=== PATIENT | female | born 1980 | race Caucasian/White ===

== ENCOUNTER 2017-10-07 07:08 | Inpatient (IN) | payer OTHER, MEDICAID ==
[2017-10-07] MEDS: SODIUM CHLORIDE 0.9% 1L BAG IV* (07:31)
[2017-10-07] MEDS: ACETAMINOPHEN 650 MG SUPP PR (07:35)
[2017-10-07 07:39] LABS: ADD MAN DIFF? NO
[2017-10-07 07:41] LABS: WHITE BLOOD COUNT 19.9 10^3/ul (4.8-10.8)
[2017-10-07 07:41] LABS: BASOPHIL # 0.1 10^3/ul (0.0-0.1); BASOPHILS % 0.4 % (0.0-2.0); HEMATOCRIT 39.5 % (37.0-47.0); HEMOGLOBIN 13.3 g/dl (12.0-16.0); LYMPHOCYTES # 0.7 10^3/ul (0.8-2.9); LYMPHOCYTES % 3.5 % (15.0-51.0); MEAN CORPUSCULAR HEMOGLOBIN 29.8 pg (29.0-33.0); MEAN CORPUSCULAR HGB CONC 33.7 g/dl (32.0-37.0); MEAN CORPUSCULAR VOLUME 88.6 fl (82.0-101.0); MONOCYTE # 0.5 10^3/ul (0.3-0.9); MONOCYTES % 2.4 % (0.0-11.0); NEUTROPHIL # 18.5 10^3/ul (1.6-7.5); NEUTROPHILS % 92.9 % (39.0-77.0); PLATELET COUNT 492 10^3/UL (140-415); RED BLOOD COUNT 4.46 10^6/ul (4.20-5.40); RED CELL DISTRIBUTION WIDTH 14.2 % (11.5-14.5)
[2017-10-07] MEDS: CEFEPIME 2GM/50 ML (PMX) 50 ML IVPB ×2 (07:46→21:02)
[2017-10-07 07:59] LABS: ALANINE AMINOTRANSFERASE 94 IU/L (13-69); ALBUMIN 3.8 g/dl (3.3-4.9); ALBUMIN/GLOBULIN RATIO 1.02; ALKALINE PHOSPHATASE 150 IU/L (42-121); ANION GAP 17 (8-16); ASPARTATE AMINO TRANSFERASE 27 IU/L (15-46); BILIRUBIN,INDIRECT 0.3 mg/dl (0-1.1); BILIRUBIN,TOTAL 0.3 mg/dl (0.2-1.3); BLOOD UREA NITROGEN 12 mg/dl (7-20); CALCIUM 9.5 mg/dl (8.4-10.2); CARBON DIOXIDE 24 mmol/L (21-31); CHLORIDE 107 mmol/L (97-110); CREATININE 0.48 mg/dl (0.44-1.00); GLUCOSE 127 mg/dl (70-220); SODIUM 144 mmol/L (135-144); TOTAL PROTEIN 7.5 g/dl (6.1-8.1)
[2017-10-07 07:59] LABS: LACTIC ACID 1.4 mmol/L (0.5-2.0)
[2017-10-07 08:04] LABS: INR 1.03; PROTIME 13.6 Sec (11.9-14.9); PT RATIO 1.1
[2017-10-07 08:05] LABS: PARTIAL THROMBOPLASTIN TIME 28.1 Sec (25.0-35.0)
[2017-10-07 08:10] LABS: TROPONIN-I 0.029 ng/ml (0.000-0.120)
[2017-10-07] MEDS: VANCOMYCIN 1 GM (PMX) 250 ML IVPB (08:36)
[2017-10-07 08:39] LABS: ADD UMIC YES; UR ASCORBIC ACID 40 mg/dL (NEGATIVE); UR BILIRUBIN (Dip) NEGATIVE (NEGATIVE); UR BLOOD (Dip) NEGATIVE (NEGATIVE); UR CLARITY SLIGHTLY CLOUDY (CLEAR); UR COLOR YELLOW (YELLOW); UR GLUCOSE (Dip) NEGATIVE (NEGATIVE); UR KETONES (Dip) 1+ mg/dL (NEGATIVE); UR LEUKOCYTE ESTERASE (Dip) NEGATIVE Leu/ul (NEGATIVE); UR MUCUS MODERATE /HPF (NONE SEEN); UR NITRITE (Dip) NEGATIVE (NEGATIVE); UR RBC 1 /HPF (0-5); UR SPECIFIC GRAVITY (Dip) 1.027 (1.003-1.030); UR TOTAL PROTEIN (Dip) 1+ mg/dl (NEGATIVE); UR UROBILINOGEN (Dip) 2+ mg/dL (NEGATIVE); UR WBC 4 /HPF (0-5)
[2017-10-07] MEDS ORDERED: ONDANSETRON 4 MG INJ IV ×2 (09:30→15:30)
[2017-10-07] MEDS ORDERED: ACETAMINOPHEN 325 MG TAB PO (09:30)
[2017-10-07 09:54] LABS: Allen Test ACCEPTAB; Arterial Base Excess 0.5 mmol/L (-3.0-3); Arterial Blood Gas Oxygen Sat 97.4 mmHG (95.0-98.0); Arterial COHb 0.3 % (0.0-3.0); Arterial Fraction of Oxyhgb 96.7 % (93.0-99.0); Arterial HCO3 23.4 mmol/L (22.0-26.0); Arterial MetHb 0.4 % (0.0-1.5); Arterial Total Hemglobin 13.2 g/dl (12.0-18.0); Arterial pCO2 32.7 mmhg (35-45); MODE TRACH COLLAR; Site Right Radial
[2017-10-07 10:51] LABS: LACTIC ACID 1.9 mmol/L (0.5-2.0)
[2017-10-07] MEDS: SOD CHLORIDE 0.9% 100 ML ×2 (11:00→14:44)
[2017-10-07] MEDS: IOHEXOL 300MG/ML 150 ML BTL (11:01)
[2017-10-07 14:19] LABS: LACTIC ACID 1.5 mmol/L (0.5-2.0)
[2017-10-07] MEDS ORDERED: DEXTROSE 5%-0.45% NACL 1,000 ML IV (14:30)
[2017-10-07] MEDS: IOHEXOL 100 ML (14:44)
[2017-10-07] MEDS ORDERED: SOD CHLORIDE 0.9% 1,000 ML IV (15:00)
[2017-10-07] MEDS: DEXTROSE 5%-0.45% NACL 1,000 ML IV (15:52)
[2017-10-07] MEDS ORDERED: VANCOMYCIN IV PER PHARMACY XX (18:00)
[2017-10-07] MEDS ORDERED: PENDING SANTYL ORDER FOR WOUND CARE XX (18:00)
[2017-10-07] MEDS ORDERED: COLLAGENASE 5 GM (UD JAR) TOP ×2 (18:00→18:30)
[2017-10-07] MEDS: PANTOPRAZOLE 40 MG INJ IV (18:32)
[2017-10-07] MEDS: VANCOMYCIN 1.25 GM in SOD CHLORIDE 0.9% 250 ML IVPB (18:32)
[2017-10-07] MEDS: LEVETIRACETAM 1500 MG (PMX) 100 ML IVPB (21:01)
[2017-10-07] MEDS: METOPROLOL 25 MG TAB GTB (21:03)
[2017-10-08] MEDS: VANCOMYCIN 1 GM 250 ML IVPB ×3 (03:55→23:35)
[2017-10-08] MEDS: PANTOPRAZOLE 40 MG INJ IV ×2 (05:28→18:03)
[2017-10-08 05:37] LABS: ADD MAN DIFF? NO
[2017-10-08 05:46] LABS: WHITE BLOOD COUNT 22.6 10^3/ul (4.8-10.8)
[2017-10-08 05:46] LABS: ABNORMAL IP MESSAGE 1; BASOPHIL # 0.1 10^3/ul (0.0-0.1); BASOPHILS % 0.3 % (0.0-2.0); EOSINOPHILS # 0.4 10^3/ul (0.0-0.5); EOSINOPHILS % 1.7 % (0.0-7.0); HEMATOCRIT 34.1 % (37.0-47.0); HEMOGLOBIN 11.4 g/dl (12.0-16.0); LYMPHOCYTES # 1.5 10^3/ul (0.8-2.9); LYMPHOCYTES % 6.7 % (15.0-51.0); MEAN CORPUSCULAR HEMOGLOBIN 29.7 pg (29.0-33.0); MEAN CORPUSCULAR HGB CONC 33.4 g/dl (32.0-37.0); MEAN CORPUSCULAR VOLUME 88.8 fl (82.0-101.0); MONOCYTE # 0.4 10^3/ul (0.3-0.9); MONOCYTES % 1.7 % (0.0-11.0); NEUTROPHIL # 20.2 10^3/ul (1.6-7.5); NEUTROPHILS % 89.2 % (39.0-77.0); PLATELET COUNT 421 10^3/UL (140-415); RED BLOOD COUNT 3.84 10^6/ul (4.20-5.40); RED CELL DISTRIBUTION WIDTH 13.9 % (11.5-14.5)
[2017-10-08] MEDS: DEXTROSE 5%-0.45% NACL 1,000 ML IV ×2 (05:48→11:50)
[2017-10-08 06:27] LABS: ANION GAP 18 (8-16); BLOOD UREA NITROGEN 4 mg/dl (7-20); CALCIUM 9.1 mg/dl (8.4-10.2); CARBON DIOXIDE 23 mmol/L (21-31); CHLORIDE 104 mmol/L (97-110); CREATININE 0.44 mg/dl (0.44-1.00); GLUCOSE 93 mg/dl (70-220); MAGNESIUM 1.7 mg/dl (1.7-2.5); PHOSPHORUS 3.6 mg/dl (2.5-4.9); POTASSIUM 3.5 mmol/L (3.5-5.1); SODIUM 141 mmol/L (135-144)
[2017-10-08 06:31] LABS: POSITIVE DIFF @See below
[2017-10-08 07:52] LABS: HEMOGLOBIN A1C 5.5 % (0-5.9); HEPATITIS B SURFACE ANTIGEN NEGATIVE (NEGATIVE)
[2017-10-08 08:09] LABS: HEPATITIS C VIRAL ANTIBODY NEGATIVE (NEGATIVE)
[2017-10-08] MEDS: METOPROLOL 25 MG TAB GTB (09:25)
[2017-10-08] MEDS: LEVETIRACETAM 1500 MG (PMX) 100 ML IVPB ×2 (09:25→23:33)
[2017-10-08] MEDS: CEFEPIME 2GM/50 ML (PMX) 50 ML IVPB ×2 (09:43→23:33)
[2017-10-08] MEDS: ENOXAPARIN 30 MG/0.3 ML SYG SC (18:07)
[2017-10-08 19:39] LABS: VANCOMYCIN,TROUGH 15.7 ug/ml (10.0-20.0)
[2017-10-08] MEDS: METOPROLOL 50 MG TAB GTB (23:34)
[2017-10-09] MEDS: PANTOPRAZOLE 40 MG INJ IV ×2 (05:10→18:16)
[2017-10-09] MEDS: VANCOMYCIN 1 GM 250 ML IVPB (05:30)
[2017-10-09 07:48] LABS: ADD MAN DIFF? NO
[2017-10-09 07:56] LABS: BASOPHILS % 0.3 % (0.0-2.0); EOSINOPHILS # 0.2 10^3/ul (0.0-0.5); EOSINOPHILS % 1.6 % (0.0-7.0); HEMOGLOBIN 11.3 g/dl (12.0-16.0); LYMPHOCYTES # 1.7 10^3/ul (0.8-2.9); MEAN CORPUSCULAR HEMOGLOBIN 29.9 pg (29.0-33.0); MEAN CORPUSCULAR HGB CONC 33.2 g/dl (32.0-37.0); MEAN CORPUSCULAR VOLUME 89.9 fl (82.0-101.0); MEAN PLATELET VOLUME 10.5 fl (7.4-10.4); MONOCYTE # 0.5 10^3/ul (0.3-0.9); MONOCYTES % 3.1 % (0.0-11.0); NEUTROPHIL # 12.8 10^3/ul (1.6-7.5); NEUTROPHILS % 83.5 % (39.0-77.0); PLATELET COUNT 407 10^3/UL (140-415); RED BLOOD COUNT 3.78 10^6/ul (4.20-5.40); RED CELL DISTRIBUTION WIDTH 13.7 % (11.5-14.5)
[2017-10-09 07:56] LABS: WHITE BLOOD COUNT 15.4 10^3/ul (4.8-10.8)
[2017-10-09 08:08] LABS: ALANINE AMINOTRANSFERASE 49 IU/L (13-69); ALBUMIN 3.2 g/dl (3.3-4.9); ALKALINE PHOSPHATASE 122 IU/L (42-121); ANION GAP 18 (8-16); ASPARTATE AMINO TRANSFERASE 13 IU/L (15-46); BILIRUBIN,INDIRECT 0.3 mg/dl (0-1.1); BILIRUBIN,TOTAL 0.3 mg/dl (0.2-1.3); BLOOD UREA NITROGEN 4 mg/dl (7-20); CALCIUM 8.8 mg/dl (8.4-10.2); CARBON DIOXIDE 22 mmol/L (21-31); CHLORIDE 106 mmol/L (97-110); CREATININE 0.43 mg/dl (0.44-1.00); GLUCOSE 94 mg/dl (70-220); POTASSIUM 3.1 mmol/L (3.5-5.1); SODIUM 143 mmol/L (135-144); TOTAL PROTEIN 6.1 g/dl (6.1-8.1)
[2017-10-09] MEDS: METOPROLOL 50 MG TAB GTB ×2 (08:08→23:08)
[2017-10-09] MEDS: CEFEPIME 2GM/50 ML (PMX) 50 ML IVPB (08:09)
[2017-10-09] MEDS: LEVETIRACETAM 1500 MG (PMX) 100 ML IVPB ×2 (08:09→23:08)
[2017-10-09] MEDS: ENOXAPARIN 30 MG/0.3 ML SYG SC (08:13)
[2017-10-09 08:29] LABS: FREE T4 (FREE THYROXINE) 1.71 ng/dl (0.79-2.35)
[2017-10-09] MEDS: POTASSIUM CHLORIDE 20 MEQ POWDER FOR ORAL SOLN GTB (09:10)
[2017-10-09] MEDS: MAGNESIUM SULFATE 2 GM/50 ML 50 ML IVPB (09:10)
[2017-10-09] MEDS: DEXTROSE 5%-0.45% NACL 1,000 ML IV (09:12)
[2017-10-09] MEDS: AMPICILLIN/SULB 3 GM/NS (PMX) 100 ML IVPB (18:16)
[2017-10-10] MEDS: AMPICILLIN/SULB 3 GM/NS (PMX) 100 ML IVPB ×4 (00:42→18:20)
[2017-10-10] MEDS: PANTOPRAZOLE 40 MG INJ IV ×2 (05:07→18:20)
[2017-10-10] MEDS: DEXTROSE 5%-0.45% NACL 1,000 ML IV ×2 (06:27→12:19)
[2017-10-10 07:39] LABS: ADD MAN DIFF? NO
[2017-10-10 07:42] LABS: BASOPHILS % 0.4 % (0.0-2.0); EOSINOPHILS # 0.2 10^3/ul (0.0-0.5); HEMATOCRIT 33.8 % (37.0-47.0); HEMOGLOBIN 11.5 g/dl (12.0-16.0); LYMPHOCYTES # 1.5 10^3/ul (0.8-2.9); LYMPHOCYTES % 13.5 % (15.0-51.0); MEAN CORPUSCULAR HEMOGLOBIN 29.7 pg (29.0-33.0); MEAN CORPUSCULAR VOLUME 87.3 fl (82.0-101.0); MEAN PLATELET VOLUME 10.2 fl (7.4-10.4); MONOCYTE # 0.5 10^3/ul (0.3-0.9); MONOCYTES % 4.5 % (0.0-11.0); NEUTROPHIL # 8.9 10^3/ul (1.6-7.5); NEUTROPHILS % 78.8 % (39.0-77.0); PLATELET COUNT 437 10^3/UL (140-415); RED BLOOD COUNT 3.87 10^6/ul (4.20-5.40); RED CELL DISTRIBUTION WIDTH 13.5 % (11.5-14.5)
[2017-10-10 07:42] LABS: WHITE BLOOD COUNT 11.2 10^3/ul (4.8-10.8)
[2017-10-10 08:07] LABS: ALANINE AMINOTRANSFERASE 48 IU/L (13-69); ALBUMIN 3.2 g/dl (3.3-4.9); ALKALINE PHOSPHATASE 153 IU/L (42-121); ANION GAP 16 (8-16); ASPARTATE AMINO TRANSFERASE 20 IU/L (15-46); BILIRUBIN,INDIRECT 0.2 mg/dl (0-1.1); BILIRUBIN,TOTAL 0.2 mg/dl (0.2-1.3); BLOOD UREA NITROGEN 3 mg/dl (7-20); CALCIUM 8.5 mg/dl (8.4-10.2); CARBON DIOXIDE 24 mmol/L (21-31); CHLORIDE 105 mmol/L (97-110); CREATININE 0.39 mg/dl (0.44-1.00); GLUCOSE 107 mg/dl (70-220); POTASSIUM 3.3 mmol/L (3.5-5.1); SODIUM 142 mmol/L (135-144); TOTAL PROTEIN 6.1 g/dl (6.1-8.1)
[2017-10-10] MEDS: LEVETIRACETAM 1500 MG (PMX) 100 ML IVPB ×2 (08:07→21:17)
[2017-10-10] MEDS: METOPROLOL 50 MG TAB GTB ×2 (08:08→21:17)
[2017-10-10] MEDS: ENOXAPARIN 30 MG/0.3 ML SYG SC (08:17)
[2017-10-10] MEDS: POTASSIUM CHLORIDE 20 MEQ POWDER FOR ORAL SOLN GTB (12:36)
[2017-10-10] MEDS: hydrALAzine 20 MG INJ IV (19:51)
[2017-10-11] MEDS: AMPICILLIN/SULB 3 GM/NS (PMX) 100 ML IVPB ×4 (00:45→17:19)
[2017-10-11] MEDS: PANTOPRAZOLE 40 MG INJ IV ×2 (05:34→17:19)
[2017-10-11] MEDS: METOPROLOL 50 MG TAB GTB ×2 (07:53→20:10)
[2017-10-11] MEDS: ENOXAPARIN 30 MG/0.3 ML SYG SC (07:54)
[2017-10-11] MEDS: LEVETIRACETAM 1500 MG (PMX) 100 ML IVPB ×2 (07:54→20:09)
[2017-10-11 09:26] LABS: ALANINE AMINOTRANSFERASE 54 IU/L (13-69); ALBUMIN 3.3 g/dl (3.3-4.9); ALBUMIN/GLOBULIN RATIO 0.97; ALKALINE PHOSPHATASE 114 IU/L (42-121); ANION GAP 14 (8-16); ASPARTATE AMINO TRANSFERASE 19 IU/L (15-46); BILIRUBIN,INDIRECT 0.2 mg/dl (0-1.1); BILIRUBIN,TOTAL 0.2 mg/dl (0.2-1.3); BLOOD UREA NITROGEN 3 mg/dl (7-20); CALCIUM 8.8 mg/dl (8.4-10.2); CARBON DIOXIDE 26 mmol/L (21-31); CHLORIDE 108 mmol/L (97-110); CREATININE 0.41 mg/dl (0.44-1.00); GLUCOSE 125 mg/dl (70-220); POTASSIUM 3.7 mmol/L (3.5-5.1); SODIUM 144 mmol/L (135-144); TOTAL PROTEIN 6.7 g/dl (6.1-8.1)
[2017-10-11 11:27] LABS: MITOCHONDRIAL TB NEGATIVE (NEGATIVE); SMOOTH MUSCLE AB SCREEN NEGATIVE (NEGATIVE)
[2017-10-11 13:42] LABS: ANA SCREEN NEGATIVE (NEGATIVE)
[2017-10-12] MEDS: AMPICILLIN/SULB 3 GM/NS (PMX) 100 ML IVPB ×4 (00:43→16:54)
[2017-10-12] MEDS: DEXTROSE 5%-0.45% NACL 1,000 ML IV (00:43)
[2017-10-12] MEDS: PANTOPRAZOLE 40 MG INJ IV ×2 (06:24→16:54)
[2017-10-12 06:38] LABS: ADD MAN DIFF? NO
[2017-10-12 06:43] LABS: WHITE BLOOD COUNT 11.6 10^3/ul (4.8-10.8)
[2017-10-12 06:43] LABS: BASOPHIL # 0.1 10^3/ul (0.0-0.1); BASOPHILS % 0.8 % (0.0-2.0); EOSINOPHILS # 0.4 10^3/ul (0.0-0.5); HEMATOCRIT 38.6 % (37.0-47.0); HEMOGLOBIN 12.8 g/dl (12.0-16.0); LYMPHOCYTES # 1.8 10^3/ul (0.8-2.9); LYMPHOCYTES % 15.6 % (15.0-51.0); MEAN CORPUSCULAR HEMOGLOBIN 29.3 pg (29.0-33.0); MEAN CORPUSCULAR HGB CONC 33.2 g/dl (32.0-37.0); MEAN CORPUSCULAR VOLUME 88.3 fl (82.0-101.0); MEAN PLATELET VOLUME 9.8 fl (7.4-10.4); MONOCYTE # 0.8 10^3/ul (0.3-0.9); MONOCYTES % 6.6 % (0.0-11.0); NEUTROPHIL # 8.3 10^3/ul (1.6-7.5); NEUTROPHILS % 71.4 % (39.0-77.0); PLATELET COUNT 460 10^3/UL (140-415); RED BLOOD COUNT 4.37 10^6/ul (4.20-5.40); RED CELL DISTRIBUTION WIDTH 13.7 % (11.5-14.5)
[2017-10-12 07:31] LABS: ANION GAP 13 (8-16); BLOOD UREA NITROGEN 5 mg/dl (7-20); CARBON DIOXIDE 28 mmol/L (21-31); CHLORIDE 108 mmol/L (97-110); CREATININE 0.42 mg/dl (0.44-1.00); GLUCOSE 133 mg/dl (70-220); POTASSIUM 4.2 mmol/L (3.5-5.1); SODIUM 145 mmol/L (135-144)
[2017-10-12] MEDS: ENOXAPARIN 30 MG/0.3 ML SYG SC (07:54)
[2017-10-12] MEDS: METOPROLOL 50 MG TAB GTB ×2 (07:54→20:43)
[2017-10-12] MEDS: LEVETIRACETAM 1500 MG (PMX) 100 ML IVPB ×2 (07:54→20:43)
[2017-10-13] MEDS: AMPICILLIN/SULB 3 GM/NS (PMX) 100 ML IVPB ×5 (00:03→23:52)
[2017-10-13] MEDS: PANTOPRAZOLE 40 MG INJ IV ×2 (05:33→17:15)
[2017-10-13] MEDS: DEXTROSE 5%-0.45% NACL 1,000 ML IV (08:40)
[2017-10-13] MEDS: LEVETIRACETAM 1500 MG (PMX) 100 ML IVPB ×2 (08:42→22:12)
[2017-10-13] MEDS: METOPROLOL 50 MG TAB GTB ×2 (08:42→22:13)
[2017-10-13] MEDS: ENOXAPARIN 30 MG/0.3 ML SYG SC (08:57)
[2017-10-14] MEDS: AMPICILLIN/SULB 3 GM/NS (PMX) 100 ML IVPB ×4 (05:32→23:30)
[2017-10-14] MEDS: PANTOPRAZOLE 40 MG INJ IV ×2 (05:32→17:06)
[2017-10-14] MEDS: DEXTROSE 5%-0.45% NACL 1,000 ML IV (05:38)
[2017-10-14 06:54] LABS: ABNORMAL IP MESSAGE 1; HEMATOCRIT 40.5 % (37.0-47.0); HEMOGLOBIN 13.3 g/dl (12.0-16.0); MEAN CORPUSCULAR HGB CONC 32.8 g/dl (32.0-37.0); MEAN CORPUSCULAR VOLUME 88.4 fl (82.0-101.0); PLATELET COUNT 565 10^3/UL (140-415); RED BLOOD COUNT 4.58 10^6/ul (4.20-5.40); RED CELL DISTRIBUTION WIDTH 14.2 % (11.5-14.5)
[2017-10-14 06:54] LABS: WHITE BLOOD COUNT 10.5 10^3/ul (4.8-10.8)
[2017-10-14 07:20] LABS: ADD MAN DIFF? YES; POSITIVE DIFF @See below
[2017-10-14 08:18] LABS: ANION GAP 15 (8-16); BLOOD UREA NITROGEN 10 mg/dl (7-20); CALCIUM 9.5 mg/dl (8.4-10.2); CARBON DIOXIDE 26 mmol/L (21-31); CHLORIDE 104 mmol/L (97-110); CREATININE 0.46 mg/dl (0.44-1.00); GLUCOSE 109 mg/dl (70-220); POTASSIUM 4.3 mmol/L (3.5-5.1); SODIUM 141 mmol/L (135-144)
[2017-10-14] MEDS: METOPROLOL 50 MG TAB GTB ×2 (08:36→21:10)
[2017-10-14] MEDS: LEVETIRACETAM 1500 MG (PMX) 100 ML IVPB ×2 (08:40→21:02)
[2017-10-14] MEDS: ENOXAPARIN 30 MG/0.3 ML SYG SC (08:47)
[2017-10-14 09:34] LABS: ANISOCYTOSIS 1+ (0-0); BAND NEUTROPHILS #M 0.2 10^3/ul (0.0-0.6); BAND NEUTROPHILS % (M) 2 % (0-4); EOSINOPHILS % (M) 3 % (0-7); LYMPHOCYTES #M 2.7 10^3/ul (0.8-2.9); LYMPHOCYTES % (M) 26 % (15-51); MONOCYTE #M 0.6 10^3/ul (0.3-0.9); MONOCYTES % (M) 6 % (0-11); MYELOCYTES #M 0.3 10^3/ul (0.0-0.0); MYELOCYTES % (M) 3 % (0-0); PLATELET ESTIMATE INCREASED; SEG NEUT #M 6.3 10^3/ul (1.6-7.5); SEGMENTED NEUTROPHILS (M) % 60 % (39-77); SMUDGE%M 7 % (0-0)
[2017-10-14] MEDS: hydrALAzine 20 MG INJ IV (21:14)
[2017-10-15] MEDS: PANTOPRAZOLE 40 MG INJ IV ×2 (05:14→18:31)
[2017-10-15] MEDS: AMPICILLIN/SULB 3 GM/NS (PMX) 100 ML IVPB ×3 (05:14→18:31)
[2017-10-15] MEDS: DEXTROSE 5%-0.45% NACL 1,000 ML IV ×2 (06:27→11:47)
[2017-10-15] MEDS: LEVETIRACETAM 1500 MG (PMX) 100 ML IVPB ×2 (09:15→20:55)
[2017-10-15] MEDS: METOPROLOL 50 MG TAB GTB ×2 (09:31→20:48)
[2017-10-15] MEDS: ENOXAPARIN 30 MG/0.3 ML SYG SC (09:34)
[2017-10-16] MEDS: PANTOPRAZOLE 40 MG INJ IV ×2 (05:44→18:04)
[2017-10-16 07:30] LABS: ADD MAN DIFF? NO
[2017-10-16 07:43] LABS: BASOPHIL # 0.1 10^3/ul (0.0-0.1); BASOPHILS % 1.1 % (0.0-2.0); EOSINOPHILS # 0.3 10^3/ul (0.0-0.5); EOSINOPHILS % 2.8 % (0.0-7.0); HEMATOCRIT 40.5 % (37.0-47.0); HEMOGLOBIN 13.2 g/dl (12.0-16.0); LYMPHOCYTES # 2.2 10^3/ul (0.8-2.9); LYMPHOCYTES % 21.1 % (15.0-51.0); MEAN CORPUSCULAR HGB CONC 32.6 g/dl (32.0-37.0); MEAN PLATELET VOLUME 9.9 fl (7.4-10.4); MONOCYTE # 0.5 10^3/ul (0.3-0.9); MONOCYTES % 5.2 % (0.0-11.0); NEUTROPHILS % 67.3 % (39.0-77.0); PLATELET COUNT 594 10^3/UL (140-415); RED BLOOD COUNT 4.55 10^6/ul (4.20-5.40)
[2017-10-16 07:43] LABS: WHITE BLOOD COUNT 10.4 10^3/ul (4.8-10.8)
[2017-10-16 08:05] LABS: ANION GAP 17 (8-16); BLOOD UREA NITROGEN 12 mg/dl (7-20); CALCIUM 9.7 mg/dl (8.4-10.2); CARBON DIOXIDE 26 mmol/L (21-31); CHLORIDE 104 mmol/L (97-110); GLUCOSE 116 mg/dl (70-220); POTASSIUM 4.4 mmol/L (3.5-5.1); SODIUM 143 mmol/L (135-144)
[2017-10-16] MEDS: LEVETIRACETAM 1500 MG (PMX) 100 ML IVPB ×2 (08:59→20:39)
[2017-10-16] MEDS: METOPROLOL 50 MG TAB GTB ×2 (08:59→20:39)
[2017-10-16] MEDS: ENOXAPARIN 30 MG/0.3 ML SYG SC (09:08)
[2017-10-16 16:46] LABS: HOMOCYSTEINE - CARDIOVASCULAR 12.1 umol/L (<10.4)
[2017-10-16] MEDS: DEXTROSE 5%-0.45% NACL 1,000 ML IV (20:40)
[2017-10-17] MEDS: PANTOPRAZOLE 40 MG INJ IV ×2 (05:33→18:31)
[2017-10-17 08:14] LABS: ADD MAN DIFF? NO
[2017-10-17 08:21] LABS: WHITE BLOOD COUNT 10.1 10^3/ul (4.8-10.8)
[2017-10-17 08:21] LABS: BASOPHIL # 0.1 10^3/ul (0.0-0.1); BASOPHILS % 0.9 % (0.0-2.0); EOSINOPHILS # 0.4 10^3/ul (0.0-0.5); EOSINOPHILS % 4.3 % (0.0-7.0); HEMATOCRIT 39.8 % (37.0-47.0); HEMOGLOBIN 13.2 g/dl (12.0-16.0); LYMPHOCYTES # 2.1 10^3/ul (0.8-2.9); LYMPHOCYTES % 20.7 % (15.0-51.0); MEAN CORPUSCULAR HEMOGLOBIN 29.7 pg (29.0-33.0); MEAN CORPUSCULAR HGB CONC 33.2 g/dl (32.0-37.0); MEAN CORPUSCULAR VOLUME 89.4 fl (82.0-101.0); MEAN PLATELET VOLUME 10.1 fl (7.4-10.4); MONOCYTE # 0.5 10^3/ul (0.3-0.9); MONOCYTES % 5.2 % (0.0-11.0); NEUTROPHIL # 6.8 10^3/ul (1.6-7.5); NEUTROPHILS % 67.2 % (39.0-77.0); PLATELET COUNT 600 10^3/UL (140-415); RED BLOOD COUNT 4.45 10^6/ul (4.20-5.40); RED CELL DISTRIBUTION WIDTH 13.8 % (11.5-14.5)
[2017-10-17 08:44] LABS: ANION GAP 17 (8-16); BLOOD UREA NITROGEN 13 mg/dl (7-20); CALCIUM 9.6 mg/dl (8.4-10.2); CARBON DIOXIDE 25 mmol/L (21-31); CHLORIDE 106 mmol/L (97-110); CREATININE 0.52 mg/dl (0.44-1.00); GLUCOSE 118 mg/dl (70-220); POTASSIUM 4.4 mmol/L (3.5-5.1); SODIUM 144 mmol/L (135-144)
[2017-10-17] MEDS: LEVETIRACETAM 1500 MG (PMX) 100 ML IVPB ×2 (09:13→22:16)
[2017-10-17] MEDS: METOPROLOL 50 MG TAB GTB ×2 (09:13→22:16)
[2017-10-17] MEDS: ENOXAPARIN 30 MG/0.3 ML SYG SC (10:22)
[2017-10-17 17:50] LABS: FOLATE 15.8 ng/ml (2.8-20.0)
[2017-10-17 21:01] LABS: ANTI-THROMBIN III 38 mg/dL (19-30)
[2017-10-17] MEDS: ASCORBIC ACID 500 MG TAB GTB (22:16)
[2017-10-18] MEDS: DEXTROSE 5%-0.45% NACL 1,000 ML IV (01:12)
[2017-10-18] MEDS: PANTOPRAZOLE 40 MG INJ IV ×2 (06:09→18:38)
[2017-10-18 06:37] LABS: ADD MAN DIFF? NO
[2017-10-18 06:46] LABS: BASOPHIL # 0.1 10^3/ul (0.0-0.1); BASOPHILS % 0.7 % (0.0-2.0); EOSINOPHILS # 0.6 10^3/ul (0.0-0.5); EOSINOPHILS % 4.6 % (0.0-7.0); HEMATOCRIT 39.4 % (37.0-47.0); HEMOGLOBIN 12.8 g/dl (12.0-16.0); LYMPHOCYTES # 1.6 10^3/ul (0.8-2.9); LYMPHOCYTES % 12.7 % (15.0-51.0); MEAN CORPUSCULAR HEMOGLOBIN 29.4 pg (29.0-33.0); MEAN CORPUSCULAR HGB CONC 32.5 g/dl (32.0-37.0); MEAN CORPUSCULAR VOLUME 90.4 fl (82.0-101.0); MEAN PLATELET VOLUME 10.6 fl (7.4-10.4); MONOCYTE # 0.6 10^3/ul (0.3-0.9); MONOCYTES % 4.5 % (0.0-11.0); NEUTROPHIL # 9.5 10^3/ul (1.6-7.5); NEUTROPHILS % 76.6 % (39.0-77.0); PLATELET COUNT 432 10^3/UL (140-415); RED BLOOD COUNT 4.36 10^6/ul (4.20-5.40); RED CELL DISTRIBUTION WIDTH 13.9 % (11.5-14.5)
[2017-10-18 06:46] LABS: WHITE BLOOD COUNT 12.4 10^3/ul (4.8-10.8)
[2017-10-18 07:13] LABS: ANION GAP 14 (8-16); BLOOD UREA NITROGEN 14 mg/dl (7-20); CALCIUM 9.3 mg/dl (8.4-10.2); CARBON DIOXIDE 23 mmol/L (21-31); CHLORIDE 107 mmol/L (97-110); CREATININE 0.49 mg/dl (0.44-1.00); GLUCOSE 118 mg/dl (70-220); POTASSIUM 4.4 mmol/L (3.5-5.1); SODIUM 140 mmol/L (135-144)
[2017-10-18] MEDS ORDERED: ASCORBIC ACID 500 MG TAB GTB (09:00)
[2017-10-18] MEDS: MULTIVITAMINS 30 ML CUP GTB (09:36)
[2017-10-18] MEDS: FOLIC ACID 1 MG TAB PEG (09:36)
[2017-10-18] MEDS: METOPROLOL 50 MG TAB GTB ×2 (09:37→21:15)
[2017-10-18] MEDS: ASCORBIC ACID 500 MG TAB GTB ×2 (09:37→21:15)
[2017-10-18] MEDS: ZINC SULFATE 220 MG CAP GTB (09:37)
[2017-10-18] MEDS: ENOXAPARIN 30 MG/0.3 ML SYG SC (09:38)
[2017-10-18] MEDS: LEVETIRACETAM 1500 MG (PMX) 100 ML IVPB ×2 (09:39→21:14)
[2017-10-19] MEDS: DEXTROSE 5%-0.45% NACL 1,000 ML IV (01:14)
[2017-10-19] MEDS: PANTOPRAZOLE 40 MG INJ IV ×2 (05:29→18:00)
[2017-10-19 06:52] LABS: ADD MAN DIFF? NO
[2017-10-19 06:54] LABS: WHITE BLOOD COUNT 19.6 10^3/ul (4.8-10.8)
[2017-10-19 06:54] LABS: BASOPHIL # 0.1 10^3/ul (0.0-0.1); BASOPHILS % 0.5 % (0.0-2.0); EOSINOPHILS # 0.5 10^3/ul (0.0-0.5); EOSINOPHILS % 2.3 % (0.0-7.0); HEMOGLOBIN 13.1 g/dl (12.0-16.0); LYMPHOCYTES # 1.7 10^3/ul (0.8-2.9); LYMPHOCYTES % 8.4 % (15.0-51.0); MEAN CORPUSCULAR HEMOGLOBIN 29.1 pg (29.0-33.0); MEAN CORPUSCULAR HGB CONC 32.8 g/dl (32.0-37.0); MEAN CORPUSCULAR VOLUME 88.9 fl (82.0-101.0); MEAN PLATELET VOLUME 10.2 fl (7.4-10.4); MONOCYTE # 0.8 10^3/ul (0.3-0.9); MONOCYTES % 4.3 % (0.0-11.0); NEUTROPHIL # 16.5 10^3/ul (1.6-7.5); NEUTROPHILS % 83.8 % (39.0-77.0); PLATELET COUNT 483 10^3/UL (140-415); RED CELL DISTRIBUTION WIDTH 13.9 % (11.5-14.5)
[2017-10-19 07:31] LABS: ANION GAP 14 (8-16); BLOOD UREA NITROGEN 13 mg/dl (7-20); CALCIUM 9.4 mg/dl (8.4-10.2); CARBON DIOXIDE 26 mmol/L (21-31); CHLORIDE 105 mmol/L (97-110); GLUCOSE 131 mg/dl (70-220); POTASSIUM 4.4 mmol/L (3.5-5.1); SODIUM 141 mmol/L (135-144)
[2017-10-19] MEDS: MULTIVITAMINS 30 ML CUP GTB (08:51)
[2017-10-19] MEDS: ZINC SULFATE 220 MG CAP GTB (08:51)
[2017-10-19] MEDS: ASCORBIC ACID 500 MG TAB GTB ×2 (08:54→21:20)
[2017-10-19] MEDS: METOPROLOL 50 MG TAB GTB ×2 (08:54→21:22)
[2017-10-19] MEDS: LEVETIRACETAM 1500 MG (PMX) 100 ML IVPB ×2 (08:54→21:20)
[2017-10-19] MEDS: FOLIC ACID 1 MG TAB PEG (08:54)
[2017-10-19] MEDS: ENOXAPARIN 30 MG/0.3 ML SYG SC (09:05)
[2017-10-19] MEDS ORDERED: VANCOMYCIN IV PER PHARMACY XX (14:00)
[2017-10-19] MEDS: PIPER-TAZO 3.375 GM IV (PMX) 100 ML IVPB ×3 (17:48→23:34)
[2017-10-19 19:05] LABS: ADD UMIC YES; UR AMORPHOUS CRYSTAL FEW /HPF (NONE SEEN); UR ASCORBIC ACID 40 mg/dL (NEGATIVE); UR BILIRUBIN (Dip) NEGATIVE (NEGATIVE); UR BLOOD (Dip) NEGATIVE (NEGATIVE); UR CLARITY CLOUDY (CLEAR); UR COLOR YELLOW (YELLOW); UR GLUCOSE (Dip) NEGATIVE (NEGATIVE); UR KETONES (Dip) NEGATIVE (NEGATIVE); UR LEUKOCYTE ESTERASE (Dip) NEGATIVE Leu/ul (NEGATIVE); UR NITRITE (Dip) NEGATIVE (NEGATIVE); UR RBC 1 /HPF (0-5); UR SPECIFIC GRAVITY (Dip) 1.019 (1.003-1.030); UR TOTAL PROTEIN (Dip) NEGATIVE (NEGATIVE); UR UROBILINOGEN (Dip) 1+ mg/dL (NEGATIVE); UR WBC 0 /HPF (0-5)
[2017-10-19] MEDS: VANCOMYCIN 1.25 GM in SOD CHLORIDE 0.9% 250 ML IVPB (19:38)
[2017-10-20] MEDS: VANCOMYCIN 1 GM 250 ML IVPB ×3 (00:17→16:23)
[2017-10-20] MEDS: PANTOPRAZOLE 40 MG INJ IV ×2 (05:17→18:40)
[2017-10-20] MEDS: PIPER-TAZO 3.375 GM IV (PMX) 100 ML IVPB ×3 (05:17→18:40)
[2017-10-20] MEDS: DEXTROSE 5%-0.45% NACL 1,000 ML IV (05:21)
[2017-10-20 07:24] LABS: ADD MAN DIFF? NO
[2017-10-20 07:29] LABS: WHITE BLOOD COUNT 18.9 10^3/ul (4.8-10.8)
[2017-10-20 07:29] LABS: BASOPHIL # 0.1 10^3/ul (0.0-0.1); BASOPHILS % 0.4 % (0.0-2.0); EOSINOPHILS # 0.2 10^3/ul (0.0-0.5); EOSINOPHILS % 1.2 % (0.0-7.0); HEMATOCRIT 36.8 % (37.0-47.0); HEMOGLOBIN 12.4 g/dl (12.0-16.0); LYMPHOCYTES # 1.7 10^3/ul (0.8-2.9); LYMPHOCYTES % 8.9 % (15.0-51.0); MEAN CORPUSCULAR HGB CONC 33.7 g/dl (32.0-37.0); MEAN CORPUSCULAR VOLUME 89.1 fl (82.0-101.0); MEAN PLATELET VOLUME 10.3 fl (7.4-10.4); MONOCYTES % 5.2 % (0.0-11.0); NEUTROPHIL # 15.8 10^3/ul (1.6-7.5); NEUTROPHILS % 83.7 % (39.0-77.0); PLATELET COUNT 429 10^3/UL (140-415); RED BLOOD COUNT 4.13 10^6/ul (4.20-5.40); RED CELL DISTRIBUTION WIDTH 13.8 % (11.5-14.5)
[2017-10-20 07:52] LABS: ANION GAP 13 (8-16); BLOOD UREA NITROGEN 9 mg/dl (7-20); CALCIUM 9.4 mg/dl (8.4-10.2); CARBON DIOXIDE 25 mmol/L (21-31); CHLORIDE 106 mmol/L (97-110); GLUCOSE 133 mg/dl (70-220); POTASSIUM 4.1 mmol/L (3.5-5.1); SODIUM 140 mmol/L (135-144)
[2017-10-20] MEDS: METOPROLOL 50 MG TAB GTB ×2 (09:00→20:42)
[2017-10-20] MEDS: MULTIVITAMINS 30 ML CUP GTB (09:58)
[2017-10-20] MEDS: ZINC SULFATE 220 MG CAP GTB (09:59)
[2017-10-20] MEDS: LEVETIRACETAM 1500 MG (PMX) 100 ML IVPB ×2 (09:59→20:42)
[2017-10-20] MEDS: ASCORBIC ACID 500 MG TAB GTB ×2 (09:59→20:42)
[2017-10-20] MEDS: FOLIC ACID 1 MG TAB PEG (09:59)
[2017-10-20] MEDS: ENOXAPARIN 30 MG/0.3 ML SYG SC (10:04)
[2017-10-20 16:05] LABS: VANCOMYCIN,TROUGH 15.3 ug/ml (10.0-20.0)
[2017-10-21] MEDS: PIPER-TAZO 3.375 GM IV (PMX) 100 ML IVPB ×5 (00:06→23:56)
[2017-10-21] MEDS: VANCOMYCIN 1 GM 250 ML IVPB ×3 (00:06→16:17)
[2017-10-21] MEDS: CASPOFUNGIN 70 MG in SOD CHLORIDE 0.9% 250 ML IVPB (02:19)
[2017-10-21] MEDS: PANTOPRAZOLE 40 MG INJ IV ×2 (05:49→18:52)
[2017-10-21] MEDS: DEXTROSE 5%-0.45% NACL 1,000 ML IV (06:27)
[2017-10-21 07:16] LABS: WHITE BLOOD COUNT 13.5 10^3/ul (4.8-10.8)
[2017-10-21 07:16] LABS: ADD MAN DIFF? NO; BASOPHIL # 0.1 10^3/ul (0.0-0.1); BASOPHILS % 0.4 % (0.0-2.0); EOSINOPHILS # 0.1 10^3/ul (0.0-0.5); EOSINOPHILS % 0.8 % (0.0-7.0); HEMATOCRIT 34.1 % (37.0-47.0); LYMPHOCYTES # 0.9 10^3/ul (0.8-2.9); LYMPHOCYTES % 6.5 % (15.0-51.0); MEAN CORPUSCULAR HEMOGLOBIN 29.1 pg (29.0-33.0); MEAN CORPUSCULAR HGB CONC 32.3 g/dl (32.0-37.0); MEAN CORPUSCULAR VOLUME 90.2 fl (82.0-101.0); MONOCYTE # 0.6 10^3/ul (0.3-0.9); MONOCYTES % 4.8 % (0.0-11.0); NEUTROPHIL # 11.7 10^3/ul (1.6-7.5); NEUTROPHILS % 86.9 % (39.0-77.0); PLATELET COUNT 400 10^3/UL (140-415); RED BLOOD COUNT 3.78 10^6/ul (4.20-5.40); RED CELL DISTRIBUTION WIDTH 13.8 % (11.5-14.5)
[2017-10-21 07:40] LABS: ANION GAP 17 (8-16); BLOOD UREA NITROGEN 11 mg/dl (7-20); CARBON DIOXIDE 23 mmol/L (21-31); CHLORIDE 108 mmol/L (97-110); CREATININE 0.49 mg/dl (0.44-1.00); GLUCOSE 166 mg/dl (70-220); POTASSIUM 3.7 mmol/L (3.5-5.1); SODIUM 144 mmol/L (135-144)
[2017-10-21] MEDS: ASCORBIC ACID 500 MG TAB GTB ×2 (09:00→20:14)
[2017-10-21] MEDS: FOLIC ACID 1 MG TAB PEG (09:26)
[2017-10-21] MEDS: METOPROLOL 50 MG TAB GTB ×2 (09:27→20:15)
[2017-10-21] MEDS: MULTIVITAMINS 30 ML CUP GTB (09:28)
[2017-10-21] MEDS: ZINC SULFATE 220 MG CAP GTB (09:28)
[2017-10-21] MEDS: ENOXAPARIN 30 MG/0.3 ML SYG SC (09:38)
[2017-10-21] MEDS: LEVETIRACETAM 1500 MG (PMX) 100 ML IVPB ×2 (10:02→20:15)
[2017-10-21] MEDS: CASPOFUNGIN 50 MG in SOD CHLORIDE 0.9% 250 ML IVPB (23:56)
[2017-10-22] MEDS: DEXTROSE 5%-0.45% NACL 1,000 ML IV (01:27)
[2017-10-22] MEDS: VANCOMYCIN 1 GM 250 ML IVPB ×3 (01:28→16:23)
[2017-10-22 06:11] LABS: ADD MAN DIFF? NO
[2017-10-22 06:20] LABS: BASOPHIL # 0.1 10^3/ul (0.0-0.1); BASOPHILS % 0.7 % (0.0-2.0); EOSINOPHILS # 0.5 10^3/ul (0.0-0.5); EOSINOPHILS % 4.7 % (0.0-7.0); HEMATOCRIT 34.4 % (37.0-47.0); HEMOGLOBIN 11.4 g/dl (12.0-16.0); LYMPHOCYTES # 1.9 10^3/ul (0.8-2.9); MEAN CORPUSCULAR HEMOGLOBIN 29.7 pg (29.0-33.0); MEAN CORPUSCULAR HGB CONC 33.1 g/dl (32.0-37.0); MEAN CORPUSCULAR VOLUME 89.6 fl (82.0-101.0); MONOCYTE # 0.6 10^3/ul (0.3-0.9); MONOCYTES % 5.3 % (0.0-11.0); NEUTROPHIL # 7.6 10^3/ul (1.6-7.5); NEUTROPHILS % 70.9 % (39.0-77.0); PLATELET COUNT 462 10^3/UL (140-415); RED BLOOD COUNT 3.84 10^6/ul (4.20-5.40); RED CELL DISTRIBUTION WIDTH 13.6 % (11.5-14.5)
[2017-10-22 06:20] LABS: WHITE BLOOD COUNT 10.7 10^3/ul (4.8-10.8)
[2017-10-22] MEDS: PIPER-TAZO 3.375 GM IV (PMX) 100 ML IVPB ×3 (06:29→18:18)
[2017-10-22] MEDS: PANTOPRAZOLE 40 MG INJ IV ×2 (06:29→18:18)
[2017-10-22 07:10] LABS: ANION GAP 13 (8-16); BLOOD UREA NITROGEN 8 mg/dl (7-20); CALCIUM 9.3 mg/dl (8.4-10.2); CARBON DIOXIDE 25 mmol/L (21-31); CHLORIDE 111 mmol/L (97-110); CREATININE 0.44 mg/dl (0.44-1.00); GLUCOSE 145 mg/dl (70-220); POTASSIUM 3.7 mmol/L (3.5-5.1); SODIUM 145 mmol/L (135-144)
[2017-10-22] MEDS: METOPROLOL 50 MG TAB GTB ×2 (08:32→20:55)
[2017-10-22] MEDS: FOLIC ACID 1 MG TAB PEG (08:33)
[2017-10-22] MEDS: MULTIVITAMINS 30 ML CUP GTB (08:33)
[2017-10-22] MEDS: LEVETIRACETAM 1500 MG (PMX) 100 ML IVPB ×2 (08:33→20:55)
[2017-10-22] MEDS: ASCORBIC ACID 500 MG TAB GTB ×2 (08:33→20:55)
[2017-10-22] MEDS: ZINC SULFATE 220 MG CAP GTB (08:35)
[2017-10-22] MEDS: ENOXAPARIN 30 MG/0.3 ML SYG SC (08:43)
[2017-10-22] MEDS: CASPOFUNGIN 50 MG in SOD CHLORIDE 0.9% 250 ML IVPB (23:16)
[2017-10-23] MEDS: PIPER-TAZO 3.375 GM IV (PMX) 100 ML IVPB ×2 (00:17→05:06)
[2017-10-23] MEDS: VANCOMYCIN 750 MG in SOD CHLORIDE 0.9% 150 ML IVPB (04:08)
[2017-10-23] MEDS: PANTOPRAZOLE 40 MG INJ IV ×2 (05:06→17:21)
[2017-10-23] MEDS: DEXTROSE 5%-0.45% NACL 1,000 ML IV ×2 (06:27→20:21)
[2017-10-23 08:00] LABS: ADD MAN DIFF? NO
[2017-10-23 08:09] LABS: BASOPHIL # 0.1 10^3/ul (0.0-0.1); BASOPHILS % 0.8 % (0.0-2.0); EOSINOPHILS # 0.6 10^3/ul (0.0-0.5); EOSINOPHILS % 7.8 % (0.0-7.0); HEMATOCRIT 34.2 % (37.0-47.0); HEMOGLOBIN 11.3 g/dl (12.0-16.0); LYMPHOCYTES # 1.6 10^3/ul (0.8-2.9); LYMPHOCYTES % 19.6 % (15.0-51.0); MEAN CORPUSCULAR HEMOGLOBIN 29.1 pg (29.0-33.0); MEAN CORPUSCULAR VOLUME 88.1 fl (82.0-101.0); MONOCYTE # 0.6 10^3/ul (0.3-0.9); NEUTROPHIL # 5.1 10^3/ul (1.6-7.5); NEUTROPHILS % 64.4 % (39.0-77.0); PLATELET COUNT 502 10^3/UL (140-415); RED BLOOD COUNT 3.88 10^6/ul (4.20-5.40); RED CELL DISTRIBUTION WIDTH 13.7 % (11.5-14.5)
[2017-10-23 08:48] LABS: ANION GAP 17 (8-16); BLOOD UREA NITROGEN 8 mg/dl (7-20); CALCIUM 9.1 mg/dl (8.4-10.2); CARBON DIOXIDE 25 mmol/L (21-31); CHLORIDE 108 mmol/L (97-110); CREATININE 0.47 mg/dl (0.44-1.00); GLUCOSE 120 mg/dl (70-220); POTASSIUM 3.7 mmol/L (3.5-5.1); SODIUM 146 mmol/L (135-144)
[2017-10-23] MEDS: MULTIVITAMINS 30 ML CUP GTB (09:38)
[2017-10-23] MEDS: ZINC SULFATE 220 MG CAP GTB (09:38)
[2017-10-23] MEDS: FOLIC ACID 1 MG TAB PEG (09:38)
[2017-10-23] MEDS: ASCORBIC ACID 500 MG TAB GTB ×2 (09:38→20:22)
[2017-10-23] MEDS: METOPROLOL 50 MG TAB GTB ×2 (09:39→20:26)
[2017-10-23] MEDS: LEVETIRACETAM 1500 MG (PMX) 100 ML IVPB ×2 (09:42→20:21)
[2017-10-23] MEDS: ENOXAPARIN 30 MG/0.3 ML SYG SC (09:46)
[2017-10-23] MEDS: LORAZEPAM 2 MG INJ IV (10:53)
[2017-10-23] MEDS ORDERED: VANCOMYCIN 750 MG in SOD CHLORIDE 0.9% 150 ML IVPB (12:00)
[2017-10-23] MEDS: LEVOFLOXACIN 500MG/D5W (PMX) 100 ML IVPB (13:15)
[2017-10-23] MEDS: CASPOFUNGIN 50 MG in SOD CHLORIDE 0.9% 250 ML IVPB (23:21)
[2017-10-24] MEDS: PANTOPRAZOLE 40 MG INJ IV ×2 (05:11→17:26)
[2017-10-24] MEDS: ZINC SULFATE 220 MG CAP GTB (08:16)
[2017-10-24] MEDS: MULTIVITAMINS 30 ML CUP GTB (08:16)
[2017-10-24] MEDS: LEVETIRACETAM 1500 MG (PMX) 100 ML IVPB ×2 (08:16→21:13)
[2017-10-24] MEDS: ASCORBIC ACID 500 MG TAB GTB ×2 (08:16→21:16)
[2017-10-24] MEDS: METOPROLOL 50 MG TAB GTB ×2 (08:16→21:17)
[2017-10-24] MEDS: FOLIC ACID 1 MG TAB PEG (08:17)
[2017-10-24] MEDS: ENOXAPARIN 30 MG/0.3 ML SYG SC (08:28)
[2017-10-24] MEDS: LEVOFLOXACIN 500MG/D5W (PMX) 100 ML IVPB (10:48)
[2017-10-24] MEDS: CASPOFUNGIN 50 MG in SOD CHLORIDE 0.9% 250 ML IVPB (23:53)
[2017-10-24] MEDS: DEXTROSE 5%-0.45% NACL 1,000 ML IV (23:58)
[2017-10-25] MEDS: PANTOPRAZOLE 40 MG INJ IV ×2 (06:13→17:52)
[2017-10-25] MEDS: ASCORBIC ACID 500 MG TAB GTB ×2 (08:45→21:57)
[2017-10-25] MEDS: ZINC SULFATE 220 MG CAP GTB (08:45)
[2017-10-25] MEDS: LEVETIRACETAM 1500 MG (PMX) 100 ML IVPB ×2 (08:45→22:02)
[2017-10-25] MEDS: MULTIVITAMINS 30 ML CUP GTB (08:45)
[2017-10-25] MEDS: METOPROLOL 50 MG TAB GTB ×2 (08:45→21:57)
[2017-10-25] MEDS: FOLIC ACID 1 MG TAB PEG (08:45)
[2017-10-25] MEDS: ENOXAPARIN 30 MG/0.3 ML SYG SC (09:04)
[2017-10-25] MEDS: LEVOFLOXACIN 500MG/D5W (PMX) 100 ML IVPB (11:18)
[2017-10-25] MEDS: BACLOFEN 10 MG TAB GTB ×2 (11:19→21:57)
[2017-10-25 12:21] LABS: PROCALCITONIN 1.26 ng/mL (<0.10)
[2017-10-25] MEDS: LACOSAMIDE (100 MG/10 ML PO SYR) GTB (23:14)
[2017-10-25] MEDS: CASPOFUNGIN 50 MG in SOD CHLORIDE 0.9% 250 ML IVPB (23:16)
[2017-10-26] MEDS: PANTOPRAZOLE 40 MG INJ IV ×2 (05:38→17:19)
[2017-10-26] MEDS: DEXTROSE 5%-0.45% NACL 1,000 ML IV (05:40)
[2017-10-26 09:02] LABS: ADD MAN DIFF? NO
[2017-10-26 09:09] LABS: BASOPHIL # 0.1 10^3/ul (0.0-0.1); BASOPHILS % 0.8 % (0.0-2.0); EOSINOPHILS # 0.6 10^3/ul (0.0-0.5); EOSINOPHILS % 5.9 % (0.0-7.0); HEMATOCRIT 38.1 % (37.0-47.0); HEMOGLOBIN 12.2 g/dl (12.0-16.0); LYMPHOCYTES % 20.4 % (15.0-51.0); MEAN CORPUSCULAR VOLUME 90.7 fl (82.0-101.0); MEAN PLATELET VOLUME 10.5 fl (7.4-10.4); MONOCYTE # 0.8 10^3/ul (0.3-0.9); NEUTROPHIL # 6.1 10^3/ul (1.6-7.5); NEUTROPHILS % 63.5 % (39.0-77.0); PLATELET COUNT 542 10^3/UL (140-415); RED CELL DISTRIBUTION WIDTH 14.3 % (11.5-14.5)
[2017-10-26 09:09] LABS: WHITE BLOOD COUNT 9.6 10^3/ul (4.8-10.8)
[2017-10-26 09:36] LABS: ANION GAP 15 (8-16); BLOOD UREA NITROGEN 11 mg/dl (7-20); CALCIUM 9.5 mg/dl (8.4-10.2); CARBON DIOXIDE 24 mmol/L (21-31); CHLORIDE 108 mmol/L (97-110); CREATININE 0.55 mg/dl (0.44-1.00); GLUCOSE 117 mg/dl (70-220); POTASSIUM 4.3 mmol/L (3.5-5.1); SODIUM 143 mmol/L (135-144)
[2017-10-26] MEDS: LACOSAMIDE (100 MG/10 ML PO SYR) GTB ×2 (09:39→21:00)
[2017-10-26] MEDS: METOPROLOL 50 MG TAB GTB ×2 (09:40→21:45)
[2017-10-26] MEDS: FOLIC ACID 1 MG TAB PEG (09:41)
[2017-10-26] MEDS: MULTIVITAMINS 30 ML CUP GTB (09:41)
[2017-10-26] MEDS: BACLOFEN 10 MG TAB GTB ×2 (09:41→21:46)
[2017-10-26] MEDS: ASCORBIC ACID 500 MG TAB GTB ×2 (09:41→21:45)
[2017-10-26] MEDS: ZINC SULFATE 220 MG CAP GTB (09:41)
[2017-10-26] MEDS: ENOXAPARIN 30 MG/0.3 ML SYG SC (09:53)
[2017-10-26] MEDS: LEVETIRACETAM 1500 MG (PMX) 100 ML IVPB ×2 (10:05→21:44)
[2017-10-26] MEDS: LEVOFLOXACIN 500MG/D5W (PMX) 100 ML IVPB (12:19)
[2017-10-27] MEDS: PANTOPRAZOLE 40 MG INJ IV ×2 (06:22→17:52)
[2017-10-27] MEDS: DEXTROSE 5%-0.45% NACL 1,000 ML IV ×2 (06:24→12:23)
[2017-10-27] MEDS: MULTIVITAMINS 30 ML CUP GTB (08:47)
[2017-10-27] MEDS: BACLOFEN 10 MG TAB GTB ×2 (08:48→22:37)
[2017-10-27] MEDS: FOLIC ACID 1 MG TAB PEG (08:48)
[2017-10-27] MEDS: ASCORBIC ACID 500 MG TAB GTB ×2 (08:48→22:37)
[2017-10-27] MEDS: ZINC SULFATE 220 MG CAP GTB (08:48)
[2017-10-27] MEDS: METOPROLOL 50 MG TAB GTB ×2 (08:48→22:38)
[2017-10-27] MEDS: ENOXAPARIN 30 MG/0.3 ML SYG SC (08:56)
[2017-10-27] MEDS: LEVETIRACETAM 1500 MG (PMX) 100 ML IVPB ×2 (09:01→22:38)
[2017-10-27] MEDS: LACOSAMIDE (100 MG/10 ML PO SYR) GTB ×2 (09:01→22:37)
[2017-10-27] MEDS: LEVOFLOXACIN 500MG/D5W (PMX) 100 ML IVPB (10:49)
[2017-10-28] MEDS: PANTOPRAZOLE 40 MG INJ IV ×2 (05:23→17:10)
[2017-10-28] MEDS: DEXTROSE 5%-0.45% NACL 1,000 ML IV ×2 (06:27→13:57)
[2017-10-28] MEDS: LACOSAMIDE (100 MG/10 ML PO SYR) GTB ×2 (08:51→20:38)
[2017-10-28] MEDS: METOPROLOL 50 MG TAB GTB ×2 (08:52→20:39)
[2017-10-28] MEDS: MULTIVITAMINS 30 ML CUP GTB (08:52)
[2017-10-28] MEDS: FOLIC ACID 1 MG TAB PEG (08:52)
[2017-10-28] MEDS: LEVETIRACETAM 1500 MG (PMX) 100 ML IVPB (08:52)
[2017-10-28] MEDS: BACLOFEN 10 MG TAB GTB ×2 (08:52→20:38)
[2017-10-28] MEDS: ZINC SULFATE 220 MG CAP GTB (08:53)
[2017-10-28] MEDS: ASCORBIC ACID 500 MG TAB GTB ×2 (08:53→20:38)
[2017-10-28] MEDS: ENOXAPARIN 30 MG/0.3 ML SYG SC (09:01)
[2017-10-28] MEDS: ACETAMINOPHEN 325 MG TAB GTB (17:22)
[2017-10-29] MEDS: LEVETIRACETAM 1500 MG (PMX) 100 ML IVPB ×3 (00:16→20:31)
[2017-10-29] MEDS: PANTOPRAZOLE 40 MG INJ IV ×2 (06:34→17:25)
[2017-10-29] MEDS: MULTIVITAMINS 30 ML CUP GTB (08:04)
[2017-10-29] MEDS: ZINC SULFATE 220 MG CAP GTB (08:04)
[2017-10-29] MEDS: FOLIC ACID 1 MG TAB PEG (08:04)
[2017-10-29] MEDS: BACLOFEN 10 MG TAB GTB ×2 (08:04→20:35)
[2017-10-29] MEDS: LACOSAMIDE (100 MG/10 ML PO SYR) GTB ×2 (08:04→20:34)
[2017-10-29] MEDS: ASCORBIC ACID 500 MG TAB GTB ×2 (08:05→20:34)
[2017-10-29] MEDS: ACETAMINOPHEN 325 MG TAB GTB ×2 (08:06→15:50)
[2017-10-29] MEDS: METOPROLOL 50 MG TAB GTB ×2 (08:10→20:34)
[2017-10-29] MEDS: ENOXAPARIN 30 MG/0.3 ML SYG SC (08:18)
[2017-10-29] MEDS: LEVOFLOXACIN 500MG/D5W (PMX) 100 ML IVPB (14:04)
[2017-10-29 16:00] LABS: ADD MAN DIFF? NO
[2017-10-29 16:06] LABS: WHITE BLOOD COUNT 21.3 10^3/ul (4.8-10.8)
[2017-10-29 16:06] LABS: BASOPHIL # 0.1 10^3/ul (0.0-0.1); BASOPHILS % 0.4 % (0.0-2.0); EOSINOPHILS # 0.3 10^3/ul (0.0-0.5); EOSINOPHILS % 1.5 % (0.0-7.0); HEMATOCRIT 39.3 % (37.0-47.0); HEMOGLOBIN 12.7 g/dl (12.0-16.0); LYMPHOCYTES # 1.9 10^3/ul (0.8-2.9); LYMPHOCYTES % 8.7 % (15.0-51.0); MEAN CORPUSCULAR HEMOGLOBIN 28.5 pg (29.0-33.0); MEAN CORPUSCULAR HGB CONC 32.3 g/dl (32.0-37.0); MEAN CORPUSCULAR VOLUME 88.1 fl (82.0-101.0); MEAN PLATELET VOLUME 10.6 fl (7.4-10.4); MONOCYTE # 0.6 10^3/ul (0.3-0.9); MONOCYTES % 2.9 % (0.0-11.0); NEUTROPHIL # 18.3 10^3/ul (1.6-7.5); PLATELET COUNT 493 10^3/UL (140-415); RED BLOOD COUNT 4.46 10^6/ul (4.20-5.40); RED CELL DISTRIBUTION WIDTH 13.9 % (11.5-14.5)
[2017-10-29 16:30] LABS: ANION GAP 15 (8-16); BLOOD UREA NITROGEN 12 mg/dl (7-20); CALCIUM 9.4 mg/dl (8.4-10.2); CARBON DIOXIDE 25 mmol/L (21-31); CHLORIDE 103 mmol/L (97-110); GLUCOSE 107 mg/dl (70-220); POTASSIUM 4.1 mmol/L (3.5-5.1); SODIUM 139 mmol/L (135-144)
[2017-10-29] MEDS: DEXTROSE 5%-0.45% NACL 1,000 ML IV (20:31)
[2017-10-29] MEDS ORDERED: CIPROFLOXACIN 400MG/D5W 200 ML IVPB (21:00)
[2017-10-30 06:02] LABS: ADD MAN DIFF? NO
[2017-10-30 06:13] LABS: WHITE BLOOD COUNT 23.7 10^3/ul (4.8-10.8)
[2017-10-30 06:13] LABS: BASOPHIL # 0.1 10^3/ul (0.0-0.1); BASOPHILS % 0.4 % (0.0-2.0); EOSINOPHILS # 0.4 10^3/ul (0.0-0.5); EOSINOPHILS % 1.6 % (0.0-7.0); HEMATOCRIT 38.7 % (37.0-47.0); HEMOGLOBIN 12.5 g/dl (12.0-16.0); LYMPHOCYTES # 2.5 10^3/ul (0.8-2.9); LYMPHOCYTES % 10.5 % (15.0-51.0); MEAN CORPUSCULAR HEMOGLOBIN 29.2 pg (29.0-33.0); MEAN CORPUSCULAR HGB CONC 32.3 g/dl (32.0-37.0); MEAN CORPUSCULAR VOLUME 90.4 fl (82.0-101.0); MEAN PLATELET VOLUME 11.4 fl (7.4-10.4); MONOCYTE # 0.6 10^3/ul (0.3-0.9); MONOCYTES % 2.5 % (0.0-11.0); NEUTROPHILS % 84.2 % (39.0-77.0); PLATELET COUNT 373 10^3/UL (140-415); RED BLOOD COUNT 4.28 10^6/ul (4.20-5.40)
[2017-10-30] MEDS: PANTOPRAZOLE 40 MG INJ IV ×2 (06:15→18:16)
[2017-10-30 07:11] LABS: ANION GAP 13 (8-16); BLOOD UREA NITROGEN 10 mg/dl (7-20); CALCIUM 9.7 mg/dl (8.4-10.2); CARBON DIOXIDE 28 mmol/L (21-31); CHLORIDE 105 mmol/L (97-110); CREATININE 0.52 mg/dl (0.44-1.00); GLUCOSE 125 mg/dl (70-220); POTASSIUM 4.1 mmol/L (3.5-5.1); SODIUM 142 mmol/L (135-144)
[2017-10-30 09:07] LABS: ADD UMIC NO; UR ASCORBIC ACID 40 mg/dL (NEGATIVE); UR BILIRUBIN (Dip) NEGATIVE (NEGATIVE); UR BLOOD (Dip) NEGATIVE (NEGATIVE); UR CLARITY CLEAR (CLEAR); UR COLOR YELLOW (YELLOW); UR GLUCOSE (Dip) NEGATIVE (NEGATIVE); UR KETONES (Dip) NEGATIVE (NEGATIVE); UR LEUKOCYTE ESTERASE (Dip) NEGATIVE Leu/ul (NEGATIVE); UR NITRITE (Dip) NEGATIVE (NEGATIVE); UR TOTAL PROTEIN (Dip) NEGATIVE (NEGATIVE); UR UROBILINOGEN (Dip) NEGATIVE (NEGATIVE)
[2017-10-30] MEDS: LEVETIRACETAM 1500 MG (PMX) 100 ML IVPB ×2 (10:50→21:14)
[2017-10-30] MEDS: ZINC SULFATE 220 MG CAP GTB (10:52)
[2017-10-30] MEDS: FOLIC ACID 1 MG TAB PEG (10:52)
[2017-10-30] MEDS: BACLOFEN 10 MG TAB GTB ×2 (10:53→20:52)
[2017-10-30] MEDS: ASCORBIC ACID 500 MG TAB GTB ×2 (10:53→20:52)
[2017-10-30] MEDS: LACOSAMIDE (100 MG/10 ML PO SYR) GTB ×2 (10:53→20:56)
[2017-10-30] MEDS: MULTIVITAMINS 30 ML CUP GTB (10:53)
[2017-10-30] MEDS: METOPROLOL 50 MG TAB GTB ×2 (10:54→21:29)
[2017-10-30] MEDS: ENOXAPARIN 30 MG/0.3 ML SYG SC (10:54)
[2017-10-30] MEDS ORDERED: VANCOMYCIN IV PER PHARMACY XX (11:00)
[2017-10-30 11:52] LABS: LACTIC ACID 1.5 mmol/L (0.5-2.0)
[2017-10-30] MEDS ORDERED: FLUCONAZOLE 200 MG (PMX) 100 ML IVPB (12:00)
[2017-10-30] MEDS: PIPER-TAZO 3.375 GM IV (PMX) 100 ML IVPB ×2 (12:12→19:52)
[2017-10-30] MEDS: FLUCONAZOLE 200 MG (PMX) 100 ML IVPB (13:08)
[2017-10-30] MEDS: LORAZEPAM 2 MG INJ IV (13:08)
[2017-10-30] MEDS: VANCOMYCIN 1.5 GM in SOD CHLORIDE 0.9% 250 ML IVPB (14:33)
[2017-10-30 15:30] LABS: LACTIC ACID 1.5 mmol/L (0.5-2.0)
[2017-10-30] MEDS: LEVOFLOXACIN 500MG/D5W (PMX) 100 ML IVPB (18:16)
[2017-10-30] MEDS: VANCOMYCIN 750 MG in SOD CHLORIDE 0.9% 150 ML IVPB (21:03)
[2017-10-31] MEDS: PIPER-TAZO 3.375 GM IV (PMX) 100 ML IVPB ×4 (00:30→17:16)
[2017-10-31] MEDS: DEXTROSE 5%-0.45% NACL 1,000 ML IV (03:53)
[2017-10-31] MEDS: VANCOMYCIN 750 MG in SOD CHLORIDE 0.9% 150 ML IVPB ×3 (05:45→22:23)
[2017-10-31] MEDS: PANTOPRAZOLE 40 MG INJ IV ×2 (06:00→17:16)
[2017-10-31] MEDS: MULTIVITAMINS 30 ML CUP GTB (08:26)
[2017-10-31] MEDS: ZINC SULFATE 220 MG CAP GTB (08:26)
[2017-10-31] MEDS: ENOXAPARIN 30 MG/0.3 ML SYG SC (08:27)
[2017-10-31] MEDS: LEVETIRACETAM 1500 MG (PMX) 100 ML IVPB ×2 (08:28→20:58)
[2017-10-31] MEDS: FOLIC ACID 1 MG TAB PEG (08:28)
[2017-10-31] MEDS: ASCORBIC ACID 500 MG TAB GTB ×2 (08:28→20:59)
[2017-10-31] MEDS: BACLOFEN 10 MG TAB GTB ×2 (08:28→20:59)
[2017-10-31] MEDS: METOPROLOL 50 MG TAB GTB ×2 (08:28→21:00)
[2017-10-31] MEDS: LACOSAMIDE (100 MG/10 ML PO SYR) GTB ×2 (08:28→20:58)
[2017-10-31] MEDS ORDERED: GENTAMICIN IV PER PHARMACY XX (09:30)
[2017-10-31 10:22] LABS: ADD MAN DIFF? NO
[2017-10-31 10:25] LABS: BASOPHIL # 0.1 10^3/ul (0.0-0.1); BASOPHILS % 0.6 % (0.0-2.0); EOSINOPHILS # 0.3 10^3/ul (0.0-0.5); HEMATOCRIT 37.5 % (37.0-47.0); HEMOGLOBIN 12.4 g/dl (12.0-16.0); LYMPHOCYTES # 2.1 10^3/ul (0.8-2.9); LYMPHOCYTES % 16.4 % (15.0-51.0); MEAN CORPUSCULAR HEMOGLOBIN 29.6 pg (29.0-33.0); MEAN CORPUSCULAR HGB CONC 33.1 g/dl (32.0-37.0); MEAN CORPUSCULAR VOLUME 89.5 fl (82.0-101.0); MEAN PLATELET VOLUME 10.7 fl (7.4-10.4); MONOCYTE # 0.7 10^3/ul (0.3-0.9); MONOCYTES % 5.2 % (0.0-11.0); NEUTROPHIL # 9.7 10^3/ul (1.6-7.5); NEUTROPHILS % 74.8 % (39.0-77.0); PLATELET COUNT 439 10^3/UL (140-415); RED BLOOD COUNT 4.19 10^6/ul (4.20-5.40); RED CELL DISTRIBUTION WIDTH 13.6 % (11.5-14.5)
[2017-10-31 10:25] LABS: WHITE BLOOD COUNT 12.9 10^3/ul (4.8-10.8)
[2017-10-31 10:45] LABS: ANION GAP 13 (8-16); BLOOD UREA NITROGEN 11 mg/dl (7-20); CALCIUM 9.3 mg/dl (8.4-10.2); CARBON DIOXIDE 25 mmol/L (21-31); CHLORIDE 107 mmol/L (97-110); CREATININE 0.55 mg/dl (0.44-1.00); GLUCOSE 122 mg/dl (70-220); POTASSIUM 4.1 mmol/L (3.5-5.1); SODIUM 141 mmol/L (135-144)
[2017-10-31 12:13] LABS: VANCOMYCIN,TROUGH 16.7 ug/ml (10.0-20.0)
[2017-10-31] MEDS: FLUCONAZOLE 200 MG (PMX) 100 ML IVPB (12:51)
[2017-10-31] MEDS: GENTAMICIN IVPB (12:57)
[2017-10-31] MEDS: DEXTROSE 5% IVPB (12:57)
[2017-10-31] MEDS: LORAZEPAM 2 MG INJ IV (19:09)
[2017-10-31 23:51] LABS: GENTAMICIN,RANDOM 4.7 ug/ml
[2017-11-01] MEDS: PIPER-TAZO 3.375 GM IV (PMX) 100 ML IVPB ×4 (00:39→18:06)
[2017-11-01] MEDS: VANCOMYCIN 750 MG in SOD CHLORIDE 0.9% 150 ML IVPB ×2 (04:11→13:50)
[2017-11-01] MEDS: PANTOPRAZOLE 40 MG INJ IV ×2 (05:41→18:06)
[2017-11-01] MEDS: DEXTROSE 5%-0.45% NACL 1,000 ML IV (06:27)
[2017-11-01] MEDS: ENOXAPARIN 30 MG/0.3 ML SYG SC (08:29)
[2017-11-01] MEDS: LACOSAMIDE (100 MG/10 ML PO SYR) GTB ×2 (08:30→21:22)
[2017-11-01] MEDS: ZINC SULFATE 220 MG CAP GTB (08:30)
[2017-11-01] MEDS: BACLOFEN 10 MG TAB GTB ×2 (08:30→21:23)
[2017-11-01] MEDS: METOPROLOL 50 MG TAB GTB ×2 (08:30→21:23)
[2017-11-01] MEDS: ASCORBIC ACID 500 MG TAB GTB ×2 (08:30→21:22)
[2017-11-01] MEDS: MULTIVITAMINS 30 ML CUP GTB (08:30)
[2017-11-01] MEDS: LEVETIRACETAM 1500 MG (PMX) 100 ML IVPB ×2 (08:31→21:23)
[2017-11-01] MEDS: FOLIC ACID 1 MG TAB PEG (08:31)
[2017-11-01] MEDS: DEXTROSE 5% IVPB (10:51)
[2017-11-01] MEDS: GENTAMICIN IVPB (10:51)
[2017-11-01] MEDS: FLUCONAZOLE 200 MG (PMX) 100 ML IVPB (12:18)
[2017-11-01 16:09] LABS: ADD MAN DIFF? NO
[2017-11-01 16:11] LABS: BASOPHIL # 0.1 10^3/ul (0.0-0.1); BASOPHILS % 0.9 % (0.0-2.0); EOSINOPHILS # 0.4 10^3/ul (0.0-0.5); EOSINOPHILS % 3.5 % (0.0-7.0); HEMATOCRIT 36.1 % (37.0-47.0); HEMOGLOBIN 11.8 g/dl (12.0-16.0); LYMPHOCYTES # 2.6 10^3/ul (0.8-2.9); LYMPHOCYTES % 26.2 % (15.0-51.0); MEAN CORPUSCULAR HEMOGLOBIN 29.2 pg (29.0-33.0); MEAN CORPUSCULAR HGB CONC 32.7 g/dl (32.0-37.0); MEAN CORPUSCULAR VOLUME 89.4 fl (82.0-101.0); MEAN PLATELET VOLUME 10.6 fl (7.4-10.4); MONOCYTE # 0.6 10^3/ul (0.3-0.9); MONOCYTES % 5.8 % (0.0-11.0); NEUTROPHIL # 6.3 10^3/ul (1.6-7.5); NEUTROPHILS % 62.7 % (39.0-77.0); PLATELET COUNT 438 10^3/UL (140-415); RED BLOOD COUNT 4.04 10^6/ul (4.20-5.40); RED CELL DISTRIBUTION WIDTH 13.7 % (11.5-14.5)
[2017-11-01 16:11] LABS: WHITE BLOOD COUNT 10.1 10^3/ul (4.8-10.8)
[2017-11-01 16:30] LABS: ANION GAP 14 (8-16); BLOOD UREA NITROGEN 10 mg/dl (7-20); CALCIUM 9.4 mg/dl (8.4-10.2); CARBON DIOXIDE 27 mmol/L (21-31); CHLORIDE 107 mmol/L (97-110); CREATININE 0.56 mg/dl (0.44-1.00); GLUCOSE 109 mg/dl (70-220); POTASSIUM 4.1 mmol/L (3.5-5.1); SODIUM 144 mmol/L (135-144)
[2017-11-02] MEDS: PIPER-TAZO 3.375 GM IV (PMX) 100 ML IVPB ×4 (00:10→17:58)
[2017-11-02 05:31] LABS: ADD MAN DIFF? NO
[2017-11-02 05:33] LABS: WHITE BLOOD COUNT 8.7 10^3/ul (4.8-10.8)
[2017-11-02 05:33] LABS: BASOPHIL # 0.1 10^3/ul (0.0-0.1); BASOPHILS % 0.9 % (0.0-2.0); EOSINOPHILS # 0.3 10^3/ul (0.0-0.5); EOSINOPHILS % 3.6 % (0.0-7.0); HEMATOCRIT 37.3 % (37.0-47.0); HEMOGLOBIN 12.2 g/dl (12.0-16.0); LYMPHOCYTES # 1.9 10^3/ul (0.8-2.9); LYMPHOCYTES % 22.3 % (15.0-51.0); MEAN CORPUSCULAR HEMOGLOBIN 28.8 pg (29.0-33.0); MEAN CORPUSCULAR HGB CONC 32.7 g/dl (32.0-37.0); MEAN CORPUSCULAR VOLUME 88.2 fl (82.0-101.0); MEAN PLATELET VOLUME 10.9 fl (7.4-10.4); MONOCYTE # 0.6 10^3/ul (0.3-0.9); MONOCYTES % 6.9 % (0.0-11.0); NEUTROPHIL # 5.7 10^3/ul (1.6-7.5); NEUTROPHILS % 65.3 % (39.0-77.0); PLATELET COUNT 460 10^3/UL (140-415); RED BLOOD COUNT 4.23 10^6/ul (4.20-5.40); RED CELL DISTRIBUTION WIDTH 13.7 % (11.5-14.5)
[2017-11-02] MEDS: PANTOPRAZOLE 40 MG INJ IV ×2 (05:39→17:58)
[2017-11-02] MEDS: DEXTROSE 5%-0.45% NACL 1,000 ML IV (05:39)
[2017-11-02 05:57] LABS: ANION GAP 15 (8-16); BLOOD UREA NITROGEN 10 mg/dl (7-20); CALCIUM 9.7 mg/dl (8.4-10.2); CARBON DIOXIDE 27 mmol/L (21-31); CHLORIDE 107 mmol/L (97-110); CREATININE 0.61 mg/dl (0.44-1.00); GLUCOSE 128 mg/dl (70-220); POTASSIUM 4.1 mmol/L (3.5-5.1); SODIUM 145 mmol/L (135-144)
[2017-11-02] MEDS: MULTIVITAMINS 30 ML CUP GTB (08:20)
[2017-11-02] MEDS: ZINC SULFATE 220 MG CAP GTB (08:20)
[2017-11-02] MEDS: LACOSAMIDE (100 MG/10 ML PO SYR) GTB ×2 (08:20→21:51)
[2017-11-02] MEDS: ACETAMINOPHEN 325 MG TAB GTB ×2 (08:21→22:20)
[2017-11-02] MEDS: FOLIC ACID 1 MG TAB PEG (08:22)
[2017-11-02] MEDS: ASCORBIC ACID 500 MG TAB GTB ×2 (08:22→21:51)
[2017-11-02] MEDS: METOPROLOL 50 MG TAB GTB ×2 (08:22→21:51)
[2017-11-02] MEDS: LEVETIRACETAM 1500 MG (PMX) 100 ML IVPB ×2 (08:23→21:51)
[2017-11-02] MEDS: BACLOFEN 10 MG TAB GTB ×2 (08:25→21:51)
[2017-11-02] MEDS: ENOXAPARIN 30 MG/0.3 ML SYG SC (08:29)
[2017-11-02] MEDS: FLUCONAZOLE 200 MG (PMX) 100 ML IVPB (11:15)
[2017-11-02 12:01] LABS: GENTAMICIN,TROUGH < 0.6 ug/ml (1.0-2.0)
[2017-11-02] MEDS: DEXTROSE 5% IVPB (12:40)
[2017-11-02] MEDS: GENTAMICIN IVPB (12:40)
[2017-11-03] MEDS: PANTOPRAZOLE 40 MG INJ IV ×2 (05:33→17:24)
[2017-11-03] MEDS: LORAZEPAM 2 MG INJ IV (05:33)
[2017-11-03] MEDS: DEXTROSE 5%-0.45% NACL 1,000 ML IV (06:08)
[2017-11-03] MEDS: ENOXAPARIN 30 MG/0.3 ML SYG SC (09:46)
[2017-11-03] MEDS: ASCORBIC ACID 500 MG TAB GTB ×2 (09:47→20:26)
[2017-11-03] MEDS: BACLOFEN 10 MG TAB GTB ×2 (09:47→20:26)
[2017-11-03] MEDS: METOPROLOL 50 MG TAB GTB ×2 (09:47→20:29)
[2017-11-03] MEDS: FOLIC ACID 1 MG TAB PEG (09:47)
[2017-11-03] MEDS: BALSAM PERU/CASTOR OIL 60 GM TUBE TOP (09:47)
[2017-11-03] MEDS: LEVETIRACETAM 1500 MG (PMX) 100 ML IVPB ×2 (09:48→20:27)
[2017-11-03] MEDS: LACOSAMIDE (100 MG/10 ML PO SYR) GTB ×2 (09:49→20:26)
[2017-11-03] MEDS: MULTIVITAMINS 30 ML CUP GTB (09:49)
[2017-11-03] MEDS: ZINC SULFATE 220 MG CAP GTB (09:52)
[2017-11-03] MEDS: GENTAMICIN IVPB (10:59)
[2017-11-03] MEDS: DEXTROSE 5% IVPB (10:59)
[2017-11-03] MEDS: FLUCONAZOLE 200 MG (PMX) 100 ML IVPB (12:39)
[2017-11-04] MEDS: PANTOPRAZOLE 40 MG INJ IV ×2 (05:21→17:11)
[2017-11-04] MEDS: DEXTROSE 5%-0.45% NACL 1,000 ML IV ×2 (05:28→12:46)
[2017-11-04] MEDS: MULTIVITAMINS 30 ML CUP GTB (09:17)
[2017-11-04] MEDS: FOLIC ACID 1 MG TAB PEG (09:17)
[2017-11-04] MEDS: ASCORBIC ACID 500 MG TAB GTB ×2 (09:17→20:19)
[2017-11-04] MEDS: LACOSAMIDE (100 MG/10 ML PO SYR) GTB ×2 (09:17→20:20)
[2017-11-04] MEDS: ZINC SULFATE 220 MG CAP GTB (09:17)
[2017-11-04] MEDS: BACLOFEN 10 MG TAB GTB ×2 (09:17→20:19)
[2017-11-04] MEDS: METOPROLOL 50 MG TAB GTB ×2 (09:18→20:25)
[2017-11-04] MEDS: ENOXAPARIN 30 MG/0.3 ML SYG SC (09:20)
[2017-11-04] MEDS: BALSAM PERU/CASTOR OIL 60 GM TUBE TOP (09:29)
[2017-11-04] MEDS: LEVETIRACETAM 1500 MG (PMX) 100 ML IVPB ×2 (09:30→20:20)
[2017-11-04] MEDS: DEXTROSE 5% IVPB (11:32)
[2017-11-04] MEDS: GENTAMICIN IVPB (11:32)
[2017-11-04] MEDS: FLUCONAZOLE 200 MG (PMX) 100 ML IVPB (12:46)
[2017-11-05] MEDS: PANTOPRAZOLE 40 MG INJ IV (05:35)
[2017-11-05] MEDS: DEXTROSE 5%-0.45% NACL 1,000 ML IV (05:44)
[2017-11-05 06:00] LABS: ADD MAN DIFF? NO
[2017-11-05 06:04] LABS: BASOPHIL # 0.1 10^3/ul (0.0-0.1); BASOPHILS % 0.9 % (0.0-2.0); EOSINOPHILS # 0.4 10^3/ul (0.0-0.5); EOSINOPHILS % 3.3 % (0.0-7.0); HEMATOCRIT 40.7 % (37.0-47.0); HEMOGLOBIN 13.2 g/dl (12.0-16.0); LYMPHOCYTES # 2.9 10^3/ul (0.8-2.9); MEAN CORPUSCULAR HEMOGLOBIN 28.8 pg (29.0-33.0); MEAN CORPUSCULAR HGB CONC 32.4 g/dl (32.0-37.0); MEAN CORPUSCULAR VOLUME 88.7 fl (82.0-101.0); MEAN PLATELET VOLUME 10.9 fl (7.4-10.4); MONOCYTE # 0.9 10^3/ul (0.3-0.9); MONOCYTES % 7.1 % (0.0-11.0); NEUTROPHILS % 64.3 % (39.0-77.0); PLATELET COUNT 477 10^3/UL (140-415); RED BLOOD COUNT 4.59 10^6/ul (4.20-5.40); RED CELL DISTRIBUTION WIDTH 13.9 % (11.5-14.5)
[2017-11-05 06:04] LABS: WHITE BLOOD COUNT 12.5 10^3/ul (4.8-10.8)
[2017-11-05] MEDS: D5-NS + KCL 20 MEQ 1,000 ML IV ×2 (06:10→14:34)
[2017-11-05 06:35] LABS: ANION GAP 15 (8-16); BLOOD UREA NITROGEN 13 mg/dl (7-20); CARBON DIOXIDE 25 mmol/L (21-31); CHLORIDE 105 mmol/L (97-110); CREATININE 0.64 mg/dl (0.44-1.00); GLUCOSE 107 mg/dl (70-220); POTASSIUM 4.4 mmol/L (3.5-5.1); SODIUM 141 mmol/L (135-144)
[2017-11-05] MEDS ORDERED: ACETAMINOPHEN 1000 MG/100 ML IVPB (07:00)
[2017-11-05] MEDS ORDERED: ROCURONIUM 50 MG INJ ×2 (07:37→08:42)
[2017-11-05] MEDS ORDERED: PROPOFOL 0 ML (07:37)
[2017-11-05] MEDS ORDERED: MIDAZOLAM 1 MG/ML 2 ML INJ (07:38)
[2017-11-05] MEDS ORDERED: morphine SULFATE/PF (10 MG/10 ML) INJ (07:38)
[2017-11-05] MEDS ORDERED: BUPIVACAINE 0.75%/DEXT (SPINAL) 2 ML INJ (07:42)
[2017-11-05] MEDS ORDERED: PHENYLephrine (100 MCG/ML) 5ML SYG ×3 (08:04→09:00)
[2017-11-05] MEDS ORDERED: CEFAZOLIN 1 GM INJ (08:25)
[2017-11-05] MEDS: METOPROLOL 50 MG TAB GTB ×2 (08:25→23:04)
[2017-11-05] MEDS: BACLOFEN 10 MG TAB GTB ×2 (08:25→23:04)
[2017-11-05] MEDS ORDERED: ALBUMIN HUMAN 5% 500 ML (08:25)
[2017-11-05] MEDS: ENOXAPARIN 30 MG/0.3 ML SYG SC (08:26)
[2017-11-05] MEDS: MULTIVITAMINS 30 ML CUP GTB (08:26)
[2017-11-05] MEDS: LEVETIRACETAM 1500 MG (PMX) 100 ML IVPB ×2 (08:26→22:55)
[2017-11-05] MEDS: FOLIC ACID 1 MG TAB PEG (08:26)
[2017-11-05] MEDS: ZINC SULFATE 220 MG CAP GTB (08:26)
[2017-11-05] MEDS: LACOSAMIDE (100 MG/10 ML PO SYR) GTB ×2 (08:26→22:55)
[2017-11-05] MEDS: ASCORBIC ACID 500 MG TAB GTB ×2 (08:26→23:04)
[2017-11-05] MEDS: BALSAM PERU/CASTOR OIL 60 GM TUBE TOP (08:27)
[2017-11-05] MEDS ORDERED: EPHEDrine SULFATE 50 MG/5 ML SYG IV (08:30)
[2017-11-05] MEDS ORDERED: IPRATROPIUM (NEB) 0.5 MG/2.5 ML AMP HHN (08:30)
[2017-11-05] MEDS ORDERED: LABETALOL HCL 20MG INJ IV (08:30)
[2017-11-05] MEDS ORDERED: FENTAnyl 50 MCG/ML VIAL IV ×3 (08:30)
[2017-11-05] MEDS ORDERED: METOCLOPRAMIDE 10 MG INJ IV (08:30)
[2017-11-05] MEDS ORDERED: DIPHENHYDRAMINE 50 MG INJ IV ×2 (08:30→11:30)
[2017-11-05] MEDS ORDERED: hydrALAzine 20 MG INJ IV (08:30)
[2017-11-05] MEDS ORDERED: HYDROmorphONE 1 MG/5 ML IV SYRINGE IV ×3 (08:30)
[2017-11-05] MEDS ORDERED: ONDANSETRON 4 MG INJ IV (08:30)
[2017-11-05] MEDS ORDERED: ALBUMIN HUMAN 5% 250 ML IV (08:30)
[2017-11-05] MEDS ORDERED: MEPERIDINE 25 MG INJ IV (08:30)
[2017-11-05] MEDS ORDERED: ALBUTEROL 0.083% (NEB) 2.5 MG/3 ML AMP HHN (08:30)
[2017-11-05] MEDS ORDERED: ONDANSETRON 4 MG INJ (09:09)
[2017-11-05] MEDS ORDERED: DEXAMETHASONE 4 MG/ML 1 ML INJ (09:10)
[2017-11-05] MEDS ORDERED: METOCLOPRAMIDE 10 MG INJ (09:10)
[2017-11-05] MEDS ORDERED: ROPIVACAINE 0.2% 20 ML VIAL (09:41)
[2017-11-05] MEDS: GENTAMICIN IVPB ×2 (11:00→21:58)
[2017-11-05] MEDS: DEXTROSE 5% IVPB ×2 (11:00→21:58)
[2017-11-05] MEDS ORDERED: SUGAMMADEX SODIUM 200 MG/2 ML VIAL IV (11:04)
[2017-11-05] MEDS ORDERED: HYDROCODONE/APAP (10/325) TAB PO (11:30)
[2017-11-05 11:47] LABS: ADD MAN DIFF? NO
[2017-11-05 11:49] LABS: BASOPHIL # 0.1 10^3/ul (0.0-0.1); BASOPHILS % 0.4 % (0.0-2.0); EOSINOPHILS # 0.1 10^3/ul (0.0-0.5); EOSINOPHILS % 0.4 % (0.0-7.0); HEMATOCRIT 38.5 % (37.0-47.0); HEMOGLOBIN 12.9 g/dl (12.0-16.0); LYMPHOCYTES # 2.8 10^3/ul (0.8-2.9); LYMPHOCYTES % 12.1 % (15.0-51.0); MEAN CORPUSCULAR HEMOGLOBIN 29.5 pg (29.0-33.0); MEAN CORPUSCULAR HGB CONC 33.5 g/dl (32.0-37.0); MEAN CORPUSCULAR VOLUME 87.9 fl (82.0-101.0); MEAN PLATELET VOLUME 10.7 fl (7.4-10.4); MONOCYTE # 0.5 10^3/ul (0.3-0.9); MONOCYTES % 2.1 % (0.0-11.0); NEUTROPHIL # 19.3 10^3/ul (1.6-7.5); PLATELET COUNT 403 10^3/UL (140-415); RED BLOOD COUNT 4.38 10^6/ul (4.20-5.40); RED CELL DISTRIBUTION WIDTH 13.5 % (11.5-14.5)
[2017-11-05 12:36] LABS: ANION GAP 15 (8-16); BLOOD UREA NITROGEN 13 mg/dl (7-20); CALCIUM 9.3 mg/dl (8.4-10.2); CARBON DIOXIDE 24 mmol/L (21-31); CHLORIDE 103 mmol/L (97-110); CREATININE 0.62 mg/dl (0.44-1.00); GLUCOSE 120 mg/dl (70-220); POTASSIUM 4.5 mmol/L (3.5-5.1); SODIUM 137 mmol/L (135-144)
[2017-11-05] MEDS: FLUCONAZOLE 200 MG (PMX) 100 ML IVPB (14:31)
[2017-11-06] MEDS: PANTOPRAZOLE 40 MG INJ IV (06:14)
[2017-11-06] MEDS: ENOXAPARIN 40 MG/0.4 ML SYG SC (06:18)
[2017-11-06] MEDS: D5-NS + KCL 20 MEQ 1,000 ML IV ×2 (07:00→15:12)
[2017-11-06 07:58] LABS: ADD MAN DIFF? NO
[2017-11-06 08:21] LABS: WHITE BLOOD COUNT 14.2 10^3/ul (4.8-10.8)
[2017-11-06 08:21] LABS: BASOPHILS % 0.2 % (0.0-2.0); EOSINOPHILS % 0.2 % (0.0-7.0); HEMATOCRIT 39.4 % (37.0-47.0); HEMOGLOBIN 13.1 g/dl (12.0-16.0); LYMPHOCYTES # 2.2 10^3/ul (0.8-2.9); LYMPHOCYTES % 15.4 % (15.0-51.0); MEAN CORPUSCULAR HEMOGLOBIN 29.1 pg (29.0-33.0); MEAN CORPUSCULAR HGB CONC 33.2 g/dl (32.0-37.0); MEAN CORPUSCULAR VOLUME 87.6 fl (82.0-101.0); MEAN PLATELET VOLUME 11.4 fl (7.4-10.4); MONOCYTES % 7.2 % (0.0-11.0); NEUTROPHIL # 10.8 10^3/ul (1.6-7.5); NEUTROPHILS % 76.2 % (39.0-77.0); PLATELET COUNT 347 10^3/UL (140-415); RED CELL DISTRIBUTION WIDTH 13.6 % (11.5-14.5)
[2017-11-06 08:25] LABS: POSITIVE DIFF @See below
[2017-11-06 09:20] LABS: ALANINE AMINOTRANSFERASE 33 IU/L (13-69); ALBUMIN 3.8 g/dl (3.3-4.9); ALBUMIN/GLOBULIN RATIO 1.18; ALKALINE PHOSPHATASE 87 IU/L (42-121); ANION GAP 18 (8-16); ASPARTATE AMINO TRANSFERASE 48 IU/L (15-46); BILIRUBIN,INDIRECT 0.4 mg/dl (0-1.1); BILIRUBIN,TOTAL 0.4 mg/dl (0.2-1.3); BLOOD UREA NITROGEN 10 mg/dl (7-20); CALCIUM 9.6 mg/dl (8.4-10.2); CARBON DIOXIDE 23 mmol/L (21-31); CHLORIDE 104 mmol/L (97-110); CREATININE 0.51 mg/dl (0.44-1.00); GLUCOSE 99 mg/dl (70-220); POTASSIUM 4.8 mmol/L (3.5-5.1); SODIUM 140 mmol/L (135-144)
[2017-11-06] MEDS: BALSAM PERU/CASTOR OIL 60 GM TUBE TOP (09:21)
[2017-11-06] MEDS: ZINC SULFATE 220 MG CAP GTB (09:22)
[2017-11-06] MEDS: ASCORBIC ACID 500 MG TAB GTB ×2 (09:22→21:24)
[2017-11-06] MEDS: BACLOFEN 10 MG TAB GTB ×2 (09:22→21:25)
[2017-11-06] MEDS: MULTIVITAMINS 30 ML CUP GTB (09:22)
[2017-11-06] MEDS: METOPROLOL 50 MG TAB GTB ×2 (09:22→21:25)
[2017-11-06] MEDS: FOLIC ACID 1 MG TAB PEG (09:22)
[2017-11-06 09:58] LABS: ANISOCYTOSIS 1+ (0-0); BAND NEUTROPHILS #M 0.7 10^3/ul (0.0-0.6); BAND NEUTROPHILS % (M) 5 % (0-4); EOSINOPHILS % (M) 1 % (0-7); LYMPHOCYTES #M 1.2 10^3/ul (0.8-2.9); LYMPHOCYTES % (M) 9 % (15-51); MICROCYTOSIS 1+ (0-0); MONOCYTE #M 1.4 10^3/ul (0.3-0.9); MONOCYTES % (M) 10 % (0-11); PLATELET ESTIMATE NORMAL; PLATELET MORPHOLOGY COMMENT @See below; REACTIVE LYMPHOCYTES #M 0.2 10^3/ul (0.0-0.0); REACTIVE LYMPHOCYTES% (M) 2 % (0-0); SEG NEUT #M 10.5 10^3/ul (1.6-7.5); SEGMENTED NEUTROPHILS (M) % 73 % (39-77); SMUDGE%M 4 % (0-0)
[2017-11-06] MEDS: LEVETIRACETAM 1500 MG (PMX) 100 ML IVPB ×2 (10:04→21:25)
[2017-11-06] MEDS: LACOSAMIDE (100 MG/10 ML PO SYR) GTB ×2 (10:04→21:24)
[2017-11-06] MEDS: FLUCONAZOLE 200 MG (PMX) 100 ML IVPB (12:11)
[2017-11-06] MEDS: hydrALAzine 20 MG INJ IV (15:57)
[2017-11-06] MEDS: morphine 2 MG INJ IV ×2 (16:38→18:02)
[2017-11-06] MEDS: ACETAMINOPHEN 325 MG TAB PO (17:01)
[2017-11-06] MEDS ORDERED: morphine 2 MG INJ IV (19:30)
[2017-11-06] MEDS ORDERED: GENTAMICIN IVPB (22:00)
[2017-11-06] MEDS ORDERED: DEXTROSE 5% IVPB (22:00)
[2017-11-07] MEDS: D5-NS + KCL 20 MEQ 1,000 ML IV ×4 (00:59→23:00)
[2017-11-07] MEDS: ENOXAPARIN 40 MG/0.4 ML SYG SC (05:44)
[2017-11-07] MEDS: PANTOPRAZOLE 40 MG INJ IV (05:45)
[2017-11-07] MEDS: BALSAM PERU/CASTOR OIL 60 GM TUBE TOP (09:00)
[2017-11-07] MEDS: LACOSAMIDE (100 MG/10 ML PO SYR) GTB ×2 (10:19→21:58)
[2017-11-07] MEDS: MULTIVITAMINS 30 ML CUP GTB (10:19)
[2017-11-07] MEDS: FOLIC ACID 1 MG TAB PEG (10:20)
[2017-11-07] MEDS: ASCORBIC ACID 500 MG TAB GTB ×2 (10:20→21:57)
[2017-11-07] MEDS: BACLOFEN 10 MG TAB GTB ×2 (10:20→21:57)
[2017-11-07] MEDS: ZINC SULFATE 220 MG CAP GTB (10:20)
[2017-11-07] MEDS: METOPROLOL 50 MG TAB GTB ×2 (10:21→21:57)
[2017-11-07] MEDS: LEVETIRACETAM 1500 MG (PMX) 100 ML IVPB ×2 (10:21→21:56)
[2017-11-07] MEDS: FLUCONAZOLE 200 MG (PMX) 100 ML IVPB (12:00)
[2017-11-08 05:42] LABS: ADD MAN DIFF? NO
[2017-11-08 05:59] LABS: BASOPHILS % 0.3 % (0.0-2.0); EOSINOPHILS # 0.4 10^3/ul (0.0-0.5); EOSINOPHILS % 2.8 % (0.0-7.0); HEMATOCRIT 30.4 % (37.0-47.0); HEMOGLOBIN 10.1 g/dl (12.0-16.0); LYMPHOCYTES # 1.8 10^3/ul (0.8-2.9); LYMPHOCYTES % 11.7 % (15.0-51.0); MEAN CORPUSCULAR HGB CONC 33.2 g/dl (32.0-37.0); MEAN CORPUSCULAR VOLUME 90.2 fl (82.0-101.0); MEAN PLATELET VOLUME 10.6 fl (7.4-10.4); MONOCYTE # 0.6 10^3/ul (0.3-0.9); MONOCYTES % 3.6 % (0.0-11.0); NEUTROPHIL # 12.7 10^3/ul (1.6-7.5); PLATELET COUNT 408 10^3/UL (140-415); RED BLOOD COUNT 3.37 10^6/ul (4.20-5.40); RED CELL DISTRIBUTION WIDTH 13.7 % (11.5-14.5)
[2017-11-08 05:59] LABS: WHITE BLOOD COUNT 15.7 10^3/ul (4.8-10.8)
[2017-11-08 06:38] LABS: ANION GAP 12 (8-16); BLOOD UREA NITROGEN 6 mg/dl (7-20); CALCIUM 8.7 mg/dl (8.4-10.2); CARBON DIOXIDE 24 mmol/L (21-31); CHLORIDE 108 mmol/L (97-110); CREATININE 0.48 mg/dl (0.44-1.00); GLUCOSE 118 mg/dl (70-220); POTASSIUM 3.6 mmol/L (3.5-5.1); SODIUM 140 mmol/L (135-144)
[2017-11-08] MEDS: PANTOPRAZOLE 40 MG INJ IV (06:39)
[2017-11-08] MEDS: D5-NS + KCL 20 MEQ 1,000 ML IV ×3 (06:39→23:41)
[2017-11-08] MEDS: ENOXAPARIN 40 MG/0.4 ML SYG SC (07:25)
[2017-11-08] MEDS: ASCORBIC ACID 500 MG TAB GTB ×2 (09:42→21:22)
[2017-11-08] MEDS: FOLIC ACID 1 MG TAB PEG (09:42)
[2017-11-08] MEDS: ZINC SULFATE 220 MG CAP GTB (09:42)
[2017-11-08] MEDS: BACLOFEN 10 MG TAB GTB ×2 (09:42→21:22)
[2017-11-08] MEDS: METOPROLOL 50 MG TAB GTB ×2 (09:43→21:21)
[2017-11-08] MEDS: BALSAM PERU/CASTOR OIL 60 GM TUBE TOP (09:43)
[2017-11-08] MEDS: MULTIVITAMINS 30 ML CUP GTB (09:43)
[2017-11-08] MEDS: LACOSAMIDE (100 MG/10 ML PO SYR) GTB ×2 (10:02→21:22)
[2017-11-08] MEDS: LEVETIRACETAM 1500 MG (PMX) 100 ML IVPB ×2 (10:02→21:22)
[2017-11-08] MEDS: FLUCONAZOLE 200 MG (PMX) 100 ML IVPB (13:11)
[2017-11-09] MEDS: PANTOPRAZOLE 40 MG INJ IV (06:37)
[2017-11-09] MEDS: ENOXAPARIN 40 MG/0.4 ML SYG SC (06:39)
[2017-11-09] MEDS: D5-NS + KCL 20 MEQ 1,000 ML IV ×2 (06:40→15:00)
[2017-11-09] MEDS: LEVETIRACETAM 1500 MG (PMX) 100 ML IVPB ×2 (09:36→20:33)
[2017-11-09] MEDS: MULTIVITAMINS 30 ML CUP GTB (09:36)
[2017-11-09] MEDS: METOPROLOL 50 MG TAB GTB ×3 (09:36→21:00)
[2017-11-09] MEDS: ASCORBIC ACID 500 MG TAB GTB ×3 (09:37→21:00)
[2017-11-09] MEDS: BACLOFEN 10 MG TAB GTB ×3 (09:37→21:00)
[2017-11-09] MEDS: ZINC SULFATE 220 MG CAP GTB (09:37)
[2017-11-09] MEDS: BALSAM PERU/CASTOR OIL 60 GM TUBE TOP (09:37)
[2017-11-09] MEDS: FOLIC ACID 1 MG TAB PEG (09:37)
[2017-11-09] MEDS: LACOSAMIDE (100 MG/10 ML PO SYR) GTB ×2 (09:47→21:00)
[2017-11-09] MEDS: FLUCONAZOLE 200 MG (PMX) 100 ML IVPB (12:57)
[2017-11-10] MEDS: D5-NS + KCL 20 MEQ 1,000 ML IV ×4 (00:58→21:04)
[2017-11-10] MEDS: PANTOPRAZOLE 40 MG INJ IV (05:20)
[2017-11-10] MEDS: ENOXAPARIN 40 MG/0.4 ML SYG SC (05:28)
[2017-11-10 06:28] LABS: WHITE BLOOD COUNT 9.7 10^3/ul (4.8-10.8)
[2017-11-10 06:28] LABS: ADD MAN DIFF? NO; BASOPHILS % 0.3 % (0.0-2.0); EOSINOPHILS # 0.5 10^3/ul (0.0-0.5); EOSINOPHILS % 4.8 % (0.0-7.0); HEMATOCRIT 30.5 % (37.0-47.0); HEMOGLOBIN 9.8 g/dl (12.0-16.0); MEAN CORPUSCULAR HEMOGLOBIN 28.5 pg (29.0-33.0); MEAN CORPUSCULAR HGB CONC 32.1 g/dl (32.0-37.0); MEAN CORPUSCULAR VOLUME 88.7 fl (82.0-101.0); MEAN PLATELET VOLUME 10.5 fl (7.4-10.4); MONOCYTE # 0.5 10^3/ul (0.3-0.9); MONOCYTES % 5.5 % (0.0-11.0); NEUTROPHIL # 6.6 10^3/ul (1.6-7.5); NEUTROPHILS % 67.8 % (39.0-77.0); PLATELET COUNT 474 10^3/UL (140-415); RED BLOOD COUNT 3.44 10^6/ul (4.20-5.40); RED CELL DISTRIBUTION WIDTH 13.7 % (11.5-14.5)
[2017-11-10 07:36] LABS: ANION GAP 12 (8-16); BLOOD UREA NITROGEN 3 mg/dl (7-20); CALCIUM 8.7 mg/dl (8.4-10.2); CARBON DIOXIDE 24 mmol/L (21-31); CHLORIDE 108 mmol/L (97-110); CREATININE 0.44 mg/dl (0.44-1.00); GLUCOSE 113 mg/dl (70-220); POTASSIUM 3.6 mmol/L (3.5-5.1); SODIUM 140 mmol/L (135-144)
[2017-11-10] MEDS: ZINC SULFATE 220 MG CAP GTB (09:00)
[2017-11-10] MEDS: ASCORBIC ACID 500 MG TAB GTB ×2 (09:00→20:29)
[2017-11-10] MEDS: MULTIVITAMINS 30 ML CUP GTB (09:00)
[2017-11-10] MEDS: LACOSAMIDE (100 MG/10 ML PO SYR) GTB (09:00)
[2017-11-10] MEDS: METOPROLOL 50 MG TAB GTB ×2 (09:00→20:32)
[2017-11-10] MEDS: FOLIC ACID 1 MG TAB PEG (09:00)
[2017-11-10] MEDS: BACLOFEN 10 MG TAB GTB ×2 (09:00→20:29)
[2017-11-10] MEDS: BALSAM PERU/CASTOR OIL 60 GM TUBE TOP (09:19)
[2017-11-10] MEDS: LEVETIRACETAM 1500 MG (PMX) 100 ML IVPB ×2 (09:19→21:04)
[2017-11-10] MEDS: FLUCONAZOLE 200 MG (PMX) 100 ML IVPB (12:50)
[2017-11-11] MEDS: LACOSAMIDE (100 MG/10 ML PO SYR) GTB ×3 (00:36→22:39)
[2017-11-11] MEDS: PANTOPRAZOLE 40 MG INJ IV (05:33)
[2017-11-11] MEDS: D5-NS + KCL 20 MEQ 1,000 ML IV ×2 (05:33→15:02)
[2017-11-11] MEDS: ENOXAPARIN 40 MG/0.4 ML SYG SC (05:53)
[2017-11-11 06:11] LABS: ADD MAN DIFF? NO
[2017-11-11 06:23] LABS: WHITE BLOOD COUNT 11.5 10^3/ul (4.8-10.8)
[2017-11-11 06:23] LABS: BASOPHILS % 0.3 % (0.0-2.0); EOSINOPHILS # 0.3 10^3/ul (0.0-0.5); EOSINOPHILS % 2.5 % (0.0-7.0); HEMATOCRIT 33.4 % (37.0-47.0); HEMOGLOBIN 10.8 g/dl (12.0-16.0); LYMPHOCYTES # 1.7 10^3/ul (0.8-2.9); LYMPHOCYTES % 14.5 % (15.0-51.0); MEAN CORPUSCULAR HEMOGLOBIN 28.8 pg (29.0-33.0); MEAN CORPUSCULAR HGB CONC 32.3 g/dl (32.0-37.0); MEAN CORPUSCULAR VOLUME 89.1 fl (82.0-101.0); MEAN PLATELET VOLUME 10.1 fl (7.4-10.4); MONOCYTE # 0.8 10^3/ul (0.3-0.9); MONOCYTES % 6.5 % (0.0-11.0); NEUTROPHIL # 8.6 10^3/ul (1.6-7.5); NEUTROPHILS % 75.2 % (39.0-77.0); PLATELET COUNT 544 10^3/UL (140-415); RED BLOOD COUNT 3.75 10^6/ul (4.20-5.40); RED CELL DISTRIBUTION WIDTH 13.7 % (11.5-14.5)
[2017-11-11 07:01] LABS: ANION GAP 11 (8-16); BLOOD UREA NITROGEN 4 mg/dl (7-20); CALCIUM 8.9 mg/dl (8.4-10.2); CARBON DIOXIDE 25 mmol/L (21-31); CHLORIDE 108 mmol/L (97-110); CREATININE 0.44 mg/dl (0.44-1.00); GLUCOSE 120 mg/dl (70-220); SODIUM 140 mmol/L (135-144)
[2017-11-11] MEDS: BACLOFEN 10 MG TAB GTB ×2 (08:35→21:35)
[2017-11-11] MEDS: LEVETIRACETAM 1500 MG (PMX) 100 ML IVPB ×2 (08:35→21:35)
[2017-11-11] MEDS: MULTIVITAMINS 30 ML CUP GTB (08:36)
[2017-11-11] MEDS: METOPROLOL 50 MG TAB GTB ×2 (08:36→21:35)
[2017-11-11] MEDS: ASCORBIC ACID 500 MG TAB GTB ×2 (08:36→21:35)
[2017-11-11] MEDS: ZINC SULFATE 220 MG CAP GTB (08:36)
[2017-11-11] MEDS: FOLIC ACID 1 MG TAB PEG (08:36)
[2017-11-11] MEDS: BALSAM PERU/CASTOR OIL 60 GM TUBE TOP (08:37)
[2017-11-11] MEDS: FLUCONAZOLE 200 MG (PMX) 100 ML IVPB (12:37)
[2017-11-12] MEDS: D5-NS + KCL 20 MEQ 1,000 ML IV ×4 (01:26→20:44)
[2017-11-12 05:52] LABS: ADD MAN DIFF? NO
[2017-11-12 05:55] LABS: BASOPHIL # 0.1 10^3/ul (0.0-0.1); BASOPHILS % 0.5 % (0.0-2.0); EOSINOPHILS # 0.7 10^3/ul (0.0-0.5); EOSINOPHILS % 6.8 % (0.0-7.0); HEMATOCRIT 31.1 % (37.0-47.0); HEMOGLOBIN 10.3 g/dl (12.0-16.0); LYMPHOCYTES # 2.1 10^3/ul (0.8-2.9); LYMPHOCYTES % 20.7 % (15.0-51.0); MEAN CORPUSCULAR HEMOGLOBIN 29.8 pg (29.0-33.0); MEAN CORPUSCULAR HGB CONC 33.1 g/dl (32.0-37.0); MEAN CORPUSCULAR VOLUME 89.9 fl (82.0-101.0); MEAN PLATELET VOLUME 10.1 fl (7.4-10.4); MONOCYTE # 0.7 10^3/ul (0.3-0.9); MONOCYTES % 6.5 % (0.0-11.0); NEUTROPHIL # 6.6 10^3/ul (1.6-7.5); NEUTROPHILS % 64.1 % (39.0-77.0); PLATELET COUNT 565 10^3/UL (140-415); RED BLOOD COUNT 3.46 10^6/ul (4.20-5.40)
[2017-11-12 05:55] LABS: WHITE BLOOD COUNT 10.3 10^3/ul (4.8-10.8)
[2017-11-12 06:11] LABS: ALANINE AMINOTRANSFERASE 45 IU/L (13-69); ALBUMIN 3.1 g/dl (3.3-4.9); ALBUMIN/GLOBULIN RATIO 1.06; ALKALINE PHOSPHATASE 111 IU/L (42-121); ANION GAP 11 (8-16); ASPARTATE AMINO TRANSFERASE 22 IU/L (15-46); BILIRUBIN,INDIRECT 0.4 mg/dl (0-1.1); BILIRUBIN,TOTAL 0.4 mg/dl (0.2-1.3); BLOOD UREA NITROGEN 4 mg/dl (7-20); CALCIUM 8.8 mg/dl (8.4-10.2); CARBON DIOXIDE 27 mmol/L (21-31); CHLORIDE 108 mmol/L (97-110); CREATININE 0.44 mg/dl (0.44-1.00); GLUCOSE 111 mg/dl (70-220); SODIUM 142 mmol/L (135-144)
[2017-11-12] MEDS: PANTOPRAZOLE 40 MG INJ IV (06:46)
[2017-11-12] MEDS: ENOXAPARIN 40 MG/0.4 ML SYG SC (07:36)
[2017-11-12] MEDS: LEVETIRACETAM 1500 MG (PMX) 100 ML IVPB ×2 (09:00→20:44)
[2017-11-12] MEDS: FOLIC ACID 1 MG TAB PEG (09:01)
[2017-11-12] MEDS: BALSAM PERU/CASTOR OIL 60 GM TUBE TOP (09:01)
[2017-11-12] MEDS: BACLOFEN 10 MG TAB GTB ×2 (09:01→20:45)
[2017-11-12] MEDS: ZINC SULFATE 220 MG CAP GTB (09:01)
[2017-11-12] MEDS: METOPROLOL 50 MG TAB GTB ×2 (09:01→20:46)
[2017-11-12] MEDS: MULTIVITAMINS 30 ML CUP GTB (09:01)
[2017-11-12] MEDS: ASCORBIC ACID 500 MG TAB GTB ×2 (09:01→20:45)
[2017-11-12] MEDS: LACOSAMIDE (100 MG/10 ML PO SYR) GTB ×2 (09:23→22:32)
[2017-11-12] MEDS: FLUCONAZOLE 200 MG (PMX) 100 ML IVPB (13:57)
[2017-11-12] MEDS: morphine LIQ (10 MG/5 ML) CUP PO (20:45)
[2017-11-13] MEDS: PANTOPRAZOLE 40 MG INJ IV (06:51)
[2017-11-13] MEDS: D5-NS + KCL 20 MEQ 1,000 ML IV ×3 (06:51→21:24)
[2017-11-13] MEDS: ENOXAPARIN 40 MG/0.4 ML SYG SC (07:00)
[2017-11-13] MEDS: MULTIVITAMINS 30 ML CUP GTB (08:06)
[2017-11-13] MEDS: LEVETIRACETAM 1500 MG (PMX) 100 ML IVPB ×3 (08:07→22:17)
[2017-11-13] MEDS: METOPROLOL 50 MG TAB GTB ×2 (08:07→21:23)
[2017-11-13] MEDS: BALSAM PERU/CASTOR OIL 60 GM TUBE TOP (08:07)
[2017-11-13] MEDS: ASCORBIC ACID 500 MG TAB GTB ×2 (08:08→21:23)
[2017-11-13] MEDS: FOLIC ACID 1 MG TAB PEG (08:08)
[2017-11-13] MEDS: ZINC SULFATE 220 MG CAP GTB (08:08)
[2017-11-13] MEDS: BACLOFEN 10 MG TAB GTB ×2 (08:08→21:22)
[2017-11-13 08:43] LABS: ADD MAN DIFF? NO
[2017-11-13 08:58] LABS: WHITE BLOOD COUNT 11.7 10^3/ul (4.8-10.8)
[2017-11-13 08:58] LABS: BASOPHIL # 0.1 10^3/ul (0.0-0.1); BASOPHILS % 0.7 % (0.0-2.0); EOSINOPHILS # 0.6 10^3/ul (0.0-0.5); EOSINOPHILS % 5.3 % (0.0-7.0); HEMATOCRIT 32.9 % (37.0-47.0); HEMOGLOBIN 10.7 g/dl (12.0-16.0); LYMPHOCYTES # 1.9 10^3/ul (0.8-2.9); MEAN CORPUSCULAR HEMOGLOBIN 29.8 pg (29.0-33.0); MEAN CORPUSCULAR HGB CONC 32.5 g/dl (32.0-37.0); MEAN CORPUSCULAR VOLUME 91.6 fl (82.0-101.0); MEAN PLATELET VOLUME 10.1 fl (7.4-10.4); MONOCYTE # 0.6 10^3/ul (0.3-0.9); MONOCYTES % 5.1 % (0.0-11.0); NEUTROPHIL # 8.4 10^3/ul (1.6-7.5); PLATELET COUNT 601 10^3/UL (140-415); RED BLOOD COUNT 3.59 10^6/ul (4.20-5.40); RED CELL DISTRIBUTION WIDTH 14.2 % (11.5-14.5)
[2017-11-13 10:00] LABS: ANION GAP 12 (8-16); BLOOD UREA NITROGEN 6 mg/dl (7-20); CALCIUM 8.8 mg/dl (8.4-10.2); CARBON DIOXIDE 27 mmol/L (21-31); CHLORIDE 107 mmol/L (97-110); CREATININE 0.44 mg/dl (0.44-1.00); GLUCOSE 108 mg/dl (70-220); POTASSIUM 4.5 mmol/L (3.5-5.1); SODIUM 141 mmol/L (135-144)
[2017-11-13] MEDS: LACOSAMIDE (100 MG/10 ML PO SYR) GTB ×2 (10:09→21:57)
[2017-11-13] MEDS: FLUCONAZOLE 200 MG (PMX) 100 ML IVPB (12:41)
[2017-11-13] MEDS: morphine LIQ (10 MG/5 ML) CUP PO (16:50)
[2017-11-14] MEDS: D5-NS + KCL 20 MEQ 1,000 ML IV ×2 (02:03→18:10)
[2017-11-14] MEDS: morphine LIQ (10 MG/5 ML) CUP PO ×2 (02:04→13:06)
[2017-11-14] MEDS: ENOXAPARIN 40 MG/0.4 ML SYG SC (06:06)
[2017-11-14] MEDS: PANTOPRAZOLE 40 MG INJ IV (06:06)
[2017-11-14] MEDS: MULTIVITAMINS 30 ML CUP GTB (08:15)
[2017-11-14] MEDS: FOLIC ACID 1 MG TAB PEG (08:16)
[2017-11-14] MEDS: METOPROLOL 50 MG TAB GTB ×2 (08:16→20:57)
[2017-11-14] MEDS: ASCORBIC ACID 500 MG TAB GTB ×2 (08:16→20:57)
[2017-11-14] MEDS: BACLOFEN 10 MG TAB GTB ×2 (08:16→20:59)
[2017-11-14] MEDS: ZINC SULFATE 220 MG CAP GTB (08:17)
[2017-11-14] MEDS: BALSAM PERU/CASTOR OIL 60 GM TUBE TOP (08:17)
[2017-11-14] MEDS: LEVETIRACETAM 1500 MG (PMX) 100 ML IVPB ×2 (08:17→20:56)
[2017-11-14] MEDS: LACOSAMIDE (100 MG/10 ML PO SYR) GTB ×2 (11:47→20:57)
[2017-11-14] MEDS: FLUCONAZOLE 200 MG (PMX) 100 ML IVPB (13:01)
[2017-11-14] MEDS: HYDROCODONE/APAP (5/325) TAB PO (20:58)
[2017-11-15] MEDS: morphine LIQ (10 MG/5 ML) CUP PO (03:12)
[2017-11-15] MEDS: PANTOPRAZOLE 40 MG INJ IV (06:12)
[2017-11-15] MEDS: ENOXAPARIN 40 MG/0.4 ML SYG SC (06:12)
[2017-11-15] MEDS: D5-NS + KCL 20 MEQ 1,000 ML IV (06:13)
[2017-11-15 08:37] LABS: ADD MAN DIFF? NO
[2017-11-15 08:40] LABS: BASOPHIL # 0.1 10^3/ul (0.0-0.1); BASOPHILS % 0.7 % (0.0-2.0); EOSINOPHILS # 0.6 10^3/ul (0.0-0.5); EOSINOPHILS % 8.6 % (0.0-7.0); HEMATOCRIT 33.3 % (37.0-47.0); HEMOGLOBIN 10.6 g/dl (12.0-16.0); LYMPHOCYTES # 2.3 10^3/ul (0.8-2.9); LYMPHOCYTES % 30.5 % (15.0-51.0); MEAN CORPUSCULAR HEMOGLOBIN 28.7 pg (29.0-33.0); MEAN CORPUSCULAR HGB CONC 31.8 g/dl (32.0-37.0); MEAN CORPUSCULAR VOLUME 90.2 fl (82.0-101.0); MEAN PLATELET VOLUME 9.6 fl (7.4-10.4); MONOCYTE # 0.6 10^3/ul (0.3-0.9); MONOCYTES % 8.2 % (0.0-11.0); NEUTROPHIL # 3.8 10^3/ul (1.6-7.5); NEUTROPHILS % 50.9 % (39.0-77.0); PLATELET COUNT 597 10^3/UL (140-415); RED BLOOD COUNT 3.69 10^6/ul (4.20-5.40); RED CELL DISTRIBUTION WIDTH 13.7 % (11.5-14.5)
[2017-11-15 08:40] LABS: WHITE BLOOD COUNT 7.5 10^3/ul (4.8-10.8)
[2017-11-15] MEDS: ZINC SULFATE 220 MG CAP GTB (09:00)
[2017-11-15] MEDS: ASCORBIC ACID 500 MG TAB GTB ×2 (09:00→20:13)
[2017-11-15] MEDS: BACLOFEN 10 MG TAB GTB ×2 (09:00→20:18)
[2017-11-15] MEDS: BALSAM PERU/CASTOR OIL 60 GM TUBE TOP (09:01)
[2017-11-15] MEDS: MULTIVITAMINS 30 ML CUP GTB (09:01)
[2017-11-15] MEDS: METOPROLOL 50 MG TAB GTB ×2 (09:01→20:16)
[2017-11-15 09:05] LABS: ANION GAP 13 (8-16); BLOOD UREA NITROGEN 8 mg/dl (7-20); CALCIUM 9.1 mg/dl (8.4-10.2); CARBON DIOXIDE 29 mmol/L (21-31); CHLORIDE 103 mmol/L (97-110); CREATININE 0.47 mg/dl (0.44-1.00); GLUCOSE 115 mg/dl (70-220); POTASSIUM 4.3 mmol/L (3.5-5.1); SODIUM 141 mmol/L (135-144)
[2017-11-15] MEDS: FOLIC ACID 1 MG TAB PEG (09:05)
[2017-11-15] MEDS: LACOSAMIDE (100 MG/10 ML PO SYR) GTB ×2 (09:05→22:17)
[2017-11-15] MEDS: LEVETIRACETAM 1500 MG (PMX) 100 ML IVPB ×2 (09:05→20:11)
[2017-11-15] MEDS: FLUCONAZOLE 200 MG (PMX) 100 ML IVPB (11:35)
[2017-11-16] MEDS: D5-NS + KCL 20 MEQ 1,000 ML IV ×2 (01:46→21:34)
[2017-11-16] MEDS: PANTOPRAZOLE 40 MG INJ IV (05:12)
[2017-11-16 07:11] LABS: ADD MAN DIFF? NO
[2017-11-16 07:20] LABS: BASOPHIL # 0.1 10^3/ul (0.0-0.1); BASOPHILS % 0.4 % (0.0-2.0); EOSINOPHILS # 0.5 10^3/ul (0.0-0.5); EOSINOPHILS % 4.1 % (0.0-7.0); HEMATOCRIT 34.7 % (37.0-47.0); HEMOGLOBIN 11.2 g/dl (12.0-16.0); LYMPHOCYTES # 1.9 10^3/ul (0.8-2.9); LYMPHOCYTES % 17.1 % (15.0-51.0); MEAN CORPUSCULAR HEMOGLOBIN 28.4 pg (29.0-33.0); MEAN CORPUSCULAR HGB CONC 32.3 g/dl (32.0-37.0); MEAN CORPUSCULAR VOLUME 88.1 fl (82.0-101.0); MEAN PLATELET VOLUME 9.8 fl (7.4-10.4); MONOCYTE # 0.6 10^3/ul (0.3-0.9); MONOCYTES % 5.6 % (0.0-11.0); NEUTROPHIL # 8.2 10^3/ul (1.6-7.5); NEUTROPHILS % 72.2 % (39.0-77.0); PLATELET COUNT 704 10^3/UL (140-415); RED BLOOD COUNT 3.94 10^6/ul (4.20-5.40); RED CELL DISTRIBUTION WIDTH 13.6 % (11.5-14.5)
[2017-11-16 07:20] LABS: WHITE BLOOD COUNT 11.4 10^3/ul (4.8-10.8)
[2017-11-16 07:47] LABS: ANION GAP 17 (8-16); BLOOD UREA NITROGEN 8 mg/dl (7-20); CALCIUM 9.5 mg/dl (8.4-10.2); CARBON DIOXIDE 27 mmol/L (21-31); CHLORIDE 102 mmol/L (97-110); CREATININE 0.43 mg/dl (0.44-1.00); GLUCOSE 119 mg/dl (70-220); POTASSIUM 4.6 mmol/L (3.5-5.1); SODIUM 141 mmol/L (135-144)
[2017-11-16] MEDS: MULTIVITAMINS 30 ML CUP GTB (09:05)
[2017-11-16] MEDS: ZINC SULFATE 220 MG CAP GTB (09:06)
[2017-11-16] MEDS: METOPROLOL 50 MG TAB GTB ×2 (09:06→21:34)
[2017-11-16] MEDS: ASCORBIC ACID 500 MG TAB GTB ×2 (09:06→21:33)
[2017-11-16] MEDS: BACLOFEN 10 MG TAB GTB ×2 (09:06→21:34)
[2017-11-16] MEDS: LEVETIRACETAM 1500 MG (PMX) 100 ML IVPB ×2 (09:06→21:38)
[2017-11-16] MEDS: FOLIC ACID 1 MG TAB PEG (09:06)
[2017-11-16] MEDS: LACOSAMIDE (100 MG/10 ML PO SYR) GTB ×2 (09:06→21:34)
[2017-11-16] MEDS: BALSAM PERU/CASTOR OIL 60 GM TUBE TOP (09:07)
[2017-11-16] MEDS: ENOXAPARIN 40 MG/0.4 ML SYG SC (09:15)
[2017-11-16] MEDS: FLUCONAZOLE 200 MG (PMX) 100 ML IVPB (11:49)
[2017-11-17] MEDS: PANTOPRAZOLE 40 MG INJ IV (06:58)
[2017-11-17] MEDS: ENOXAPARIN 40 MG/0.4 ML SYG SC (06:58)
[2017-11-17] MEDS: ZINC SULFATE 220 MG CAP GTB (09:53)
[2017-11-17] MEDS: LACOSAMIDE (100 MG/10 ML PO SYR) GTB ×2 (09:53→20:59)
[2017-11-17] MEDS: LEVETIRACETAM 1500 MG (PMX) 100 ML IVPB ×2 (09:53→20:59)
[2017-11-17] MEDS: MULTIVITAMINS 30 ML CUP GTB (09:53)
[2017-11-17] MEDS: ASCORBIC ACID 500 MG TAB GTB ×2 (09:53→20:59)
[2017-11-17] MEDS: FOLIC ACID 1 MG TAB PEG (09:54)
[2017-11-17] MEDS: METOPROLOL 50 MG TAB GTB ×2 (09:54→20:59)
[2017-11-17] MEDS: BACLOFEN 10 MG TAB GTB ×2 (09:54→20:59)
[2017-11-17] MEDS: BALSAM PERU/CASTOR OIL 60 GM TUBE TOP (09:55)
[2017-11-17] MEDS: D5-NS + KCL 20 MEQ 1,000 ML IV (17:04)
[2017-11-18] MEDS: D5-NS + KCL 20 MEQ 1,000 ML IV ×3 (05:52→22:05)
[2017-11-18] MEDS: PANTOPRAZOLE 40 MG INJ IV (06:21)
[2017-11-18] MEDS: ENOXAPARIN 40 MG/0.4 ML SYG SC (06:28)
[2017-11-18] MEDS: MULTIVITAMINS 30 ML CUP GTB ×2 (09:00→13:05)
[2017-11-18] MEDS: LEVETIRACETAM 1500 MG (PMX) 100 ML IVPB ×2 (09:57→20:51)
[2017-11-18] MEDS: LACOSAMIDE (100 MG/10 ML PO SYR) GTB ×2 (09:58→20:50)
[2017-11-18] MEDS: BACLOFEN 10 MG TAB GTB ×2 (09:58→20:51)
[2017-11-18] MEDS: METOPROLOL 50 MG TAB GTB ×2 (09:58→20:51)
[2017-11-18] MEDS: ZINC SULFATE 220 MG CAP GTB (09:58)
[2017-11-18] MEDS: FOLIC ACID 1 MG TAB PEG (09:58)
[2017-11-18] MEDS: ASCORBIC ACID 500 MG TAB GTB ×2 (09:58→20:51)
[2017-11-18] MEDS: BALSAM PERU/CASTOR OIL 60 GM TUBE TOP (10:00)
[2017-11-19] MEDS: PANTOPRAZOLE 40 MG INJ IV (06:38)
[2017-11-19] MEDS: ENOXAPARIN 40 MG/0.4 ML SYG SC (06:49)
[2017-11-19] MEDS: LACOSAMIDE (100 MG/10 ML PO SYR) GTB ×2 (08:18→20:40)
[2017-11-19] MEDS: ASCORBIC ACID 500 MG TAB GTB ×2 (08:18→20:40)
[2017-11-19] MEDS: MULTIVITAMINS 30 ML CUP GTB (08:18)
[2017-11-19] MEDS: BACLOFEN 10 MG TAB GTB ×2 (08:19→20:40)
[2017-11-19] MEDS: FOLIC ACID 1 MG TAB PEG (08:19)
[2017-11-19] MEDS: METOPROLOL 50 MG TAB GTB ×2 (08:20→20:40)
[2017-11-19] MEDS: ZINC SULFATE 220 MG CAP GTB (08:21)
[2017-11-19] MEDS: LEVETIRACETAM 1500 MG (PMX) 100 ML IVPB ×2 (08:21→20:40)
[2017-11-19] MEDS: BALSAM PERU/CASTOR OIL 60 GM TUBE TOP (08:23)
[2017-11-19] MEDS: D5-NS + KCL 20 MEQ 1,000 ML IV (14:20)
[2017-11-20] MEDS: PANTOPRAZOLE 40 MG INJ IV (06:19)
[2017-11-20] MEDS: ENOXAPARIN 40 MG/0.4 ML SYG SC (06:34)
[2017-11-20] MEDS: D5-NS + KCL 20 MEQ 1,000 ML IV ×3 (07:52→23:41)
[2017-11-20] MEDS: LACOSAMIDE (100 MG/10 ML PO SYR) GTB ×2 (08:14→20:43)
[2017-11-20] MEDS: LEVETIRACETAM 1500 MG (PMX) 100 ML IVPB ×2 (08:14→20:43)
[2017-11-20] MEDS: ASCORBIC ACID 500 MG TAB GTB ×2 (08:15→20:43)
[2017-11-20] MEDS: ZINC SULFATE 220 MG CAP GTB (08:15)
[2017-11-20] MEDS: MULTIVITAMINS 30 ML CUP GTB (08:15)
[2017-11-20] MEDS: FOLIC ACID 1 MG TAB PEG (08:15)
[2017-11-20] MEDS: BACLOFEN 10 MG TAB GTB ×2 (08:15→20:43)
[2017-11-20] MEDS: METOPROLOL 50 MG TAB GTB ×2 (08:17→20:44)
[2017-11-20] MEDS: BALSAM PERU/CASTOR OIL 60 GM TUBE TOP (10:40)
[2017-11-21] MEDS: PANTOPRAZOLE 40 MG INJ IV (06:28)
[2017-11-21] MEDS: ENOXAPARIN 40 MG/0.4 ML SYG SC (06:30)
[2017-11-21] MEDS: LEVETIRACETAM 1500 MG (PMX) 100 ML IVPB ×2 (08:09→21:07)
[2017-11-21] MEDS: MULTIVITAMINS 30 ML CUP GTB (08:09)
[2017-11-21] MEDS: FOLIC ACID 1 MG TAB PEG (08:10)
[2017-11-21] MEDS: LACOSAMIDE (100 MG/10 ML PO SYR) GTB ×2 (08:10→21:07)
[2017-11-21] MEDS: BACLOFEN 10 MG TAB GTB ×2 (08:11→21:07)
[2017-11-21] MEDS: ASCORBIC ACID 500 MG TAB GTB ×2 (08:11→21:07)
[2017-11-21] MEDS: ZINC SULFATE 220 MG CAP GTB (08:11)
[2017-11-21] MEDS: METOPROLOL 50 MG TAB GTB ×2 (08:11→21:07)
[2017-11-21 09:14] LABS: ADD MAN DIFF? NO
[2017-11-21 09:19] LABS: BASOPHIL # 0.1 10^3/ul (0.0-0.1); BASOPHILS % 0.7 % (0.0-2.0); EOSINOPHILS # 0.3 10^3/ul (0.0-0.5); EOSINOPHILS % 3.9 % (0.0-7.0); HEMATOCRIT 35.1 % (37.0-47.0); HEMOGLOBIN 11.1 g/dl (12.0-16.0); LYMPHOCYTES # 1.5 10^3/ul (0.8-2.9); LYMPHOCYTES % 18.3 % (15.0-51.0); MEAN CORPUSCULAR HEMOGLOBIN 28.2 pg (29.0-33.0); MEAN CORPUSCULAR HGB CONC 31.6 g/dl (32.0-37.0); MEAN CORPUSCULAR VOLUME 89.3 fl (82.0-101.0); MONOCYTE # 0.7 10^3/ul (0.3-0.9); MONOCYTES % 8.1 % (0.0-11.0); NEUTROPHIL # 5.6 10^3/ul (1.6-7.5); NEUTROPHILS % 68.3 % (39.0-77.0); PLATELET COUNT 543 10^3/UL (140-415); RED BLOOD COUNT 3.93 10^6/ul (4.20-5.40); RED CELL DISTRIBUTION WIDTH 13.4 % (11.5-14.5)
[2017-11-21 09:19] LABS: WHITE BLOOD COUNT 8.3 10^3/ul (4.8-10.8)
[2017-11-21 09:53] LABS: ALANINE AMINOTRANSFERASE 50 IU/L (13-69); ALBUMIN 3.3 g/dl (3.3-4.9); ALBUMIN/GLOBULIN RATIO 0.97; ALKALINE PHOSPHATASE 148 IU/L (42-121); ANION GAP 13 (8-16); ASPARTATE AMINO TRANSFERASE 23 IU/L (15-46); BILIRUBIN,INDIRECT 0.1 mg/dl (0-1.1); BILIRUBIN,TOTAL 0.1 mg/dl (0.2-1.3); BLOOD UREA NITROGEN 12 mg/dl (7-20); CALCIUM 9.2 mg/dl (8.4-10.2); CARBON DIOXIDE 28 mmol/L (21-31); CHLORIDE 106 mmol/L (97-110); CREATININE 0.44 mg/dl (0.44-1.00); GLUCOSE 121 mg/dl (70-220); POTASSIUM 4.4 mmol/L (3.5-5.1); SODIUM 143 mmol/L (135-144); TOTAL PROTEIN 6.7 g/dl (6.1-8.1)
[2017-11-21] MEDS: D5-NS + KCL 20 MEQ 1,000 ML IV ×2 (12:12→17:12)
[2017-11-22] MEDS: PANTOPRAZOLE 40 MG INJ IV (06:00)
[2017-11-22] MEDS: D5-NS + KCL 20 MEQ 1,000 ML IV ×2 (06:00→09:52)
[2017-11-22] MEDS: ENOXAPARIN 40 MG/0.4 ML SYG SC (06:11)
[2017-11-22] MEDS: ASCORBIC ACID 500 MG TAB GTB ×2 (08:40→21:50)
[2017-11-22] MEDS: MULTIVITAMINS 30 ML CUP GTB (08:40)
[2017-11-22] MEDS: LEVETIRACETAM 1500 MG (PMX) 100 ML IVPB ×2 (08:40→22:04)
[2017-11-22] MEDS: BACLOFEN 10 MG TAB GTB ×2 (08:41→21:51)
[2017-11-22] MEDS: ZINC SULFATE 220 MG CAP GTB (08:41)
[2017-11-22] MEDS: FOLIC ACID 1 MG TAB PEG (08:41)
[2017-11-22] MEDS: LACOSAMIDE (100 MG/10 ML PO SYR) GTB ×2 (08:41→21:49)
[2017-11-22] MEDS: METOPROLOL 50 MG TAB GTB ×2 (08:42→21:50)
[2017-11-22] MEDS: LIDOCAINE 1% (MPF) 5 ML VIAL SC (11:00)
[2017-11-23] MEDS: D5-NS + KCL 20 MEQ 1,000 ML IV ×2 (00:43→21:55)
[2017-11-23 07:36] LABS: ADD MAN DIFF? NO
[2017-11-23 07:42] LABS: BASOPHIL # 0.1 10^3/ul (0.0-0.1); BASOPHILS % 0.9 % (0.0-2.0); EOSINOPHILS # 0.2 10^3/ul (0.0-0.5); EOSINOPHILS % 1.6 % (0.0-7.0); HEMATOCRIT 35.1 % (37.0-47.0); HEMOGLOBIN 11.2 g/dl (12.0-16.0); LYMPHOCYTES # 1.4 10^3/ul (0.8-2.9); LYMPHOCYTES % 12.6 % (15.0-51.0); MEAN CORPUSCULAR HEMOGLOBIN 27.8 pg (29.0-33.0); MEAN CORPUSCULAR HGB CONC 31.9 g/dl (32.0-37.0); MEAN CORPUSCULAR VOLUME 87.1 fl (82.0-101.0); MEAN PLATELET VOLUME 10.7 fl (7.4-10.4); MONOCYTE # 0.7 10^3/ul (0.3-0.9); MONOCYTES % 6.9 % (0.0-11.0); NEUTROPHIL # 8.3 10^3/ul (1.6-7.5); NEUTROPHILS % 77.6 % (39.0-77.0); PLATELET COUNT 554 10^3/UL (140-415); RED BLOOD COUNT 4.03 10^6/ul (4.20-5.40); RED CELL DISTRIBUTION WIDTH 13.2 % (11.5-14.5)
[2017-11-23 07:42] LABS: WHITE BLOOD COUNT 10.7 10^3/ul (4.8-10.8)
[2017-11-23 08:03] LABS: ANION GAP 15 (8-16); BLOOD UREA NITROGEN 11 mg/dl (7-20); CALCIUM 9.3 mg/dl (8.4-10.2); CARBON DIOXIDE 25 mmol/L (21-31); CHLORIDE 106 mmol/L (97-110); CREATININE 0.38 mg/dl (0.44-1.00); GLUCOSE 147 mg/dl (70-220); SODIUM 142 mmol/L (135-144)
[2017-11-23] MEDS: METOPROLOL 50 MG TAB GTB ×2 (09:56→21:56)
[2017-11-23] MEDS: PANTOPRAZOLE 40 MG INJ IV (09:57)
[2017-11-23] MEDS: FOLIC ACID 1 MG TAB PEG (09:57)
[2017-11-23] MEDS: ZINC SULFATE 220 MG CAP GTB (09:57)
[2017-11-23] MEDS: BACLOFEN 10 MG TAB GTB ×2 (09:57→21:55)
[2017-11-23] MEDS: ASCORBIC ACID 500 MG TAB GTB ×2 (09:57→21:55)
[2017-11-23] MEDS: LACOSAMIDE (100 MG/10 ML PO SYR) GTB ×2 (09:57→21:55)
[2017-11-23] MEDS: MULTIVITAMINS 30 ML CUP GTB (09:57)
[2017-11-23] MEDS: ENOXAPARIN 40 MG/0.4 ML SYG SC (09:59)
[2017-11-23] MEDS: LEVETIRACETAM 1500 MG (PMX) 100 ML IVPB ×2 (10:00→21:55)
[2017-11-24] MEDS: morphine LIQ (10 MG/5 ML) CUP PO ×2 (02:43→20:32)
[2017-11-24] MEDS: PANTOPRAZOLE 40 MG INJ IV (06:41)
[2017-11-24] MEDS: ENOXAPARIN 40 MG/0.4 ML SYG SC (06:44)
[2017-11-24] MEDS: MULTIVITAMINS 30 ML CUP GTB (09:22)
[2017-11-24] MEDS: LACOSAMIDE (100 MG/10 ML PO SYR) GTB ×2 (09:22→20:31)
[2017-11-24] MEDS: ZINC SULFATE 220 MG CAP GTB (09:22)
[2017-11-24] MEDS: LEVETIRACETAM 1500 MG (PMX) 100 ML IVPB ×2 (09:22→20:24)
[2017-11-24] MEDS: METOPROLOL 50 MG TAB GTB ×2 (09:23→20:30)
[2017-11-24] MEDS: BACLOFEN 10 MG TAB GTB ×2 (09:23→20:31)
[2017-11-24] MEDS: ASCORBIC ACID 500 MG TAB GTB ×2 (09:23→20:30)
[2017-11-24] MEDS: FOLIC ACID 1 MG TAB PEG (09:24)
[2017-11-24] MEDS: D5-NS + KCL 20 MEQ 1,000 ML IV ×2 (11:52→18:22)
[2017-11-24] MEDS: [UNRECOGNIZED DRUG - REMARK] XX (21:30)
[2017-11-25] MEDS: D5-NS + KCL 20 MEQ 1,000 ML IV ×4 (04:32→21:12)
[2017-11-25] MEDS: [UNRECOGNIZED DRUG - REMARK] XX ×2 (04:48→21:30)
[2017-11-25 06:02] LABS: ADD MAN DIFF? NO
[2017-11-25 06:09] LABS: WHITE BLOOD COUNT 9.4 10^3/ul (4.8-10.8)
[2017-11-25 06:09] LABS: BASOPHIL # 0.1 10^3/ul (0.0-0.1); EOSINOPHILS # 0.5 10^3/ul (0.0-0.5); EOSINOPHILS % 5.6 % (0.0-7.0); HEMATOCRIT 35.5 % (37.0-47.0); HEMOGLOBIN 11.3 g/dl (12.0-16.0); LYMPHOCYTES # 2.4 10^3/ul (0.8-2.9); LYMPHOCYTES % 25.1 % (15.0-51.0); MEAN CORPUSCULAR HEMOGLOBIN 28.2 pg (29.0-33.0); MEAN CORPUSCULAR HGB CONC 31.8 g/dl (32.0-37.0); MEAN CORPUSCULAR VOLUME 88.5 fl (82.0-101.0); MEAN PLATELET VOLUME 10.6 fl (7.4-10.4); MONOCYTE # 0.7 10^3/ul (0.3-0.9); MONOCYTES % 7.6 % (0.0-11.0); NEUTROPHIL # 5.6 10^3/ul (1.6-7.5); NEUTROPHILS % 59.3 % (39.0-77.0); PLATELET COUNT 480 10^3/UL (140-415); RED BLOOD COUNT 4.01 10^6/ul (4.20-5.40); RED CELL DISTRIBUTION WIDTH 13.4 % (11.5-14.5)
[2017-11-25] MEDS: PANTOPRAZOLE 40 MG INJ IV (06:30)
[2017-11-25] MEDS: ENOXAPARIN 40 MG/0.4 ML SYG SC (06:34)
[2017-11-25 06:50] LABS: ANION GAP 13 (8-16); BLOOD UREA NITROGEN 10 mg/dl (7-20); CALCIUM 9.4 mg/dl (8.4-10.2); CARBON DIOXIDE 28 mmol/L (21-31); CHLORIDE 107 mmol/L (97-110); CREATININE 0.43 mg/dl (0.44-1.00); GLUCOSE 113 mg/dl (70-220); POTASSIUM 4.3 mmol/L (3.5-5.1); SODIUM 144 mmol/L (135-144)
[2017-11-25] MEDS: LEVETIRACETAM 1500 MG (PMX) 100 ML IVPB ×2 (09:23→20:29)
[2017-11-25] MEDS: MULTIVITAMINS 30 ML CUP GTB (09:23)
[2017-11-25] MEDS: ASCORBIC ACID 500 MG TAB GTB ×2 (09:24→20:28)
[2017-11-25] MEDS: BACLOFEN 10 MG TAB GTB ×2 (09:24→20:28)
[2017-11-25] MEDS: METOPROLOL 50 MG TAB GTB ×2 (09:24→20:29)
[2017-11-25] MEDS: ZINC SULFATE 220 MG CAP GTB (09:24)
[2017-11-25] MEDS: FOLIC ACID 1 MG TAB PEG (09:24)
[2017-11-25] MEDS: LACOSAMIDE (100 MG/10 ML PO SYR) GTB ×2 (09:25→20:29)
[2017-11-25] MEDS ORDERED: ONDANSETRON INJ 16 MG, DEXAMETHASONE 4 MG/ML 10 MG in SOD CHLORIDE 0.9% 50 ML IV ×2 (14:30→18:30)
[2017-11-25] MEDS ORDERED: DIPHENHYDRAMINE 50 MG INJ IV (14:30)
[2017-11-26] MEDS: DEXAMETHASONE 4 MG/ML 20 MG in DEXTROSE 5% 50 ML IVPB ×2 (00:13→05:57)
[2017-11-26 05:21] LABS: HEMATOCRIT 33.5 % (37.0-47.0); HEMOGLOBIN 10.6 g/dl (12.0-16.0); MEAN CORPUSCULAR HGB CONC 31.6 g/dl (32.0-37.0); MEAN CORPUSCULAR VOLUME 88.4 fl (82.0-101.0); MEAN PLATELET VOLUME 10.7 fl (7.4-10.4); PLATELET COUNT 485 10^3/UL (140-415); RED BLOOD COUNT 3.79 10^6/ul (4.20-5.40); RED CELL DISTRIBUTION WIDTH 13.1 % (11.5-14.5)
[2017-11-26 05:21] LABS: WHITE BLOOD COUNT 9.3 10^3/ul (4.8-10.8)
[2017-11-26] MEDS: [UNRECOGNIZED DRUG - REMARK] XX ×3 (05:30→21:30)
[2017-11-26 05:37] LABS: ADD MAN DIFF? YES; POSITIVE DIFF @See below
[2017-11-26 05:44] LABS: ANION GAP 11 (8-16); BLOOD UREA NITROGEN 9 mg/dl (7-20); CALCIUM 8.5 mg/dl (8.4-10.2); CARBON DIOXIDE 25 mmol/L (21-31); CHLORIDE 112 mmol/L (97-110); CREATININE 0.34 mg/dl (0.44-1.00); GLUCOSE 134 mg/dl (70-220); POTASSIUM 3.8 mmol/L (3.5-5.1); SODIUM 144 mmol/L (135-144)
[2017-11-26] MEDS: PANTOPRAZOLE 40 MG INJ IV (05:57)
[2017-11-26] MEDS: ENOXAPARIN 40 MG/0.4 ML SYG SC (06:32)
[2017-11-26 08:36] LABS: ANISOCYTOSIS 1+ (0-0); BAND NEUTROPHILS % (M) 1 % (0-4); GIANT THROMBO% (M) 1 % (0-0); LYMPHOCYTES #M 0.5 10^3/ul (0.8-2.9); LYMPHOCYTES % (M) 6 % (15-51); MICROCYTOSIS 1+ (0-0); PLATELET ESTIMATE NORMAL; POLYCHROMASIA 1+ (0-0); SEG NEUT #M 8.6 10^3/ul (1.6-7.5); SEGMENTED NEUTROPHILS (M) % 93 % (39-77)
[2017-11-26] MEDS: ZINC SULFATE 220 MG CAP GTB (09:16)
[2017-11-26] MEDS: MULTIVITAMINS 30 ML CUP GTB (09:16)
[2017-11-26] MEDS: FOLIC ACID 1 MG TAB PEG (09:16)
[2017-11-26] MEDS: BACLOFEN 10 MG TAB GTB ×2 (09:16→21:57)
[2017-11-26] MEDS: ASCORBIC ACID 500 MG TAB GTB ×2 (09:16→21:57)
[2017-11-26] MEDS: METOPROLOL 50 MG TAB GTB ×2 (09:17→21:57)
[2017-11-26] MEDS: LEVETIRACETAM 1500 MG (PMX) 100 ML IVPB ×2 (09:31→21:57)
[2017-11-26] MEDS: LACOSAMIDE (100 MG/10 ML PO SYR) GTB ×2 (10:21→21:57)
[2017-11-26] MEDS: SOD CHLORIDE 0.9% 1,000 ML IV ×2 (10:22→19:39)
[2017-11-26] MEDS ORDERED: METHYLPREDNISOLONE 125 MG INJ IV (12:00)
[2017-11-26] MEDS ORDERED: MEPERIDINE 50 MG INJ IV (12:00)
[2017-11-26] MEDS ORDERED: DIPHENHYDRAMINE 50 MG INJ IV (12:00)
[2017-11-26] MEDS: D5-NS + KCL 20 MEQ 1,000 ML IV (13:52)
[2017-11-26] MEDS: DIPHENHYDRAMINE 50 MG INJ IV (14:06)
[2017-11-26] MEDS: ONDANSETRON INJ 16 MG, DEXAMETHASONE 4 MG/ML 10 MG in SOD CHLORIDE 0.9% 50 ML IV (14:07)
[2017-11-26] MEDS: SOD CHLORIDE 0.9% IV ×2 (14:33→17:58)
[2017-11-26] MEDS: PACLITAXEL IV (14:33)
[2017-11-26] MEDS: CARBOPLATIN IV (17:58)
[2017-11-27] MEDS: [UNRECOGNIZED DRUG - REMARK] XX ×2 (05:30→13:30)
[2017-11-27 05:44] LABS: ADD MAN DIFF? NO
[2017-11-27 06:02] LABS: WHITE BLOOD COUNT 13.6 10^3/ul (4.8-10.8)
[2017-11-27 06:02] LABS: BASOPHILS % 0.1 % (0.0-2.0); HEMATOCRIT 32.2 % (37.0-47.0); HEMOGLOBIN 10.5 g/dl (12.0-16.0); LYMPHOCYTES # 1.7 10^3/ul (0.8-2.9); LYMPHOCYTES % 12.6 % (15.0-51.0); MEAN CORPUSCULAR HEMOGLOBIN 28.9 pg (29.0-33.0); MEAN CORPUSCULAR HGB CONC 32.6 g/dl (32.0-37.0); MEAN CORPUSCULAR VOLUME 88.7 fl (82.0-101.0); MEAN PLATELET VOLUME 11.6 fl (7.4-10.4); MONOCYTE # 0.5 10^3/ul (0.3-0.9); MONOCYTES % 3.8 % (0.0-11.0); NEUTROPHIL # 11.1 10^3/ul (1.6-7.5); NEUTROPHILS % 82.1 % (39.0-77.0); PLATELET COUNT 454 10^3/UL (140-415); RED BLOOD COUNT 3.63 10^6/ul (4.20-5.40); RED CELL DISTRIBUTION WIDTH 13.3 % (11.5-14.5)
[2017-11-27] MEDS: D5-NS + KCL 20 MEQ 1,000 ML IV ×3 (06:33→23:12)
[2017-11-27] MEDS: PANTOPRAZOLE 40 MG INJ IV (06:33)
[2017-11-27] MEDS: SOD CHLORIDE 0.9% 1,000 ML IV ×2 (06:35→17:00)
[2017-11-27] MEDS: ENOXAPARIN 40 MG/0.4 ML SYG SC (06:45)
[2017-11-27 07:03] LABS: ANION GAP 15 (8-16); BLOOD UREA NITROGEN 15 mg/dl (7-20); CALCIUM 8.7 mg/dl (8.4-10.2); CARBON DIOXIDE 25 mmol/L (21-31); CHLORIDE 110 mmol/L (97-110); GLUCOSE 129 mg/dl (70-220); POTASSIUM 3.5 mmol/L (3.5-5.1); SODIUM 146 mmol/L (135-144)
[2017-11-27] MEDS: MULTIVITAMINS 30 ML CUP GTB (08:26)
[2017-11-27] MEDS: LEVETIRACETAM 1500 MG (PMX) 100 ML IVPB ×2 (08:26→21:12)
[2017-11-27] MEDS: FOLIC ACID 1 MG TAB PEG (08:26)
[2017-11-27] MEDS: BACLOFEN 10 MG TAB GTB ×2 (08:26→21:12)
[2017-11-27] MEDS: ASCORBIC ACID 500 MG TAB GTB ×2 (08:26→21:13)
[2017-11-27] MEDS: ZINC SULFATE 220 MG CAP GTB (08:26)
[2017-11-27] MEDS: METOPROLOL 50 MG TAB GTB ×2 (08:27→21:13)
[2017-11-27] MEDS: LACOSAMIDE (100 MG/10 ML PO SYR) GTB ×2 (09:54→21:13)
[2017-11-28] MEDS: SOD CHLORIDE 0.9% 1,000 ML IV ×3 (03:00→22:43)
[2017-11-28 05:17] LABS: ADD MAN DIFF? NO
[2017-11-28 05:25] LABS: BASOPHIL # 0.1 10^3/ul (0.0-0.1); BASOPHILS % 0.7 % (0.0-2.0); EOSINOPHILS # 0.2 10^3/ul (0.0-0.5); EOSINOPHILS % 1.4 % (0.0-7.0); HEMATOCRIT 35.9 % (37.0-47.0); HEMOGLOBIN 11.6 g/dl (12.0-16.0); LYMPHOCYTES # 2.4 10^3/ul (0.8-2.9); LYMPHOCYTES % 23.2 % (15.0-51.0); MEAN CORPUSCULAR HEMOGLOBIN 28.2 pg (29.0-33.0); MEAN CORPUSCULAR HGB CONC 32.3 g/dl (32.0-37.0); MEAN CORPUSCULAR VOLUME 87.1 fl (82.0-101.0); MEAN PLATELET VOLUME 11.4 fl (7.4-10.4); MONOCYTE # 0.3 10^3/ul (0.3-0.9); MONOCYTES % 3.1 % (0.0-11.0); NEUTROPHIL # 7.4 10^3/ul (1.6-7.5); NEUTROPHILS % 70.9 % (39.0-77.0); PLATELET COUNT 533 10^3/UL (140-415); RED BLOOD COUNT 4.12 10^6/ul (4.20-5.40); RED CELL DISTRIBUTION WIDTH 13.2 % (11.5-14.5)
[2017-11-28 05:25] LABS: WHITE BLOOD COUNT 10.4 10^3/ul (4.8-10.8)
[2017-11-28 05:49] LABS: ANION GAP 15 (8-16); BLOOD UREA NITROGEN 12 mg/dl (7-20); CALCIUM 9.7 mg/dl (8.4-10.2); CARBON DIOXIDE 28 mmol/L (21-31); CHLORIDE 104 mmol/L (97-110); CREATININE 0.45 mg/dl (0.44-1.00); GLUCOSE 106 mg/dl (70-220); POTASSIUM 4.1 mmol/L (3.5-5.1); SODIUM 143 mmol/L (135-144)
[2017-11-28] MEDS: ENOXAPARIN 40 MG/0.4 ML SYG SC (05:52)
[2017-11-28] MEDS: PANTOPRAZOLE 40 MG INJ IV (05:52)
[2017-11-28] MEDS: [UNRECOGNIZED DRUG - REMARK] XX ×4 (07:44→21:30)
[2017-11-28] MEDS: ZINC SULFATE 220 MG CAP GTB (09:18)
[2017-11-28] MEDS: ASCORBIC ACID 500 MG TAB GTB ×2 (09:18→22:42)
[2017-11-28] MEDS: METOPROLOL 50 MG TAB GTB ×2 (09:18→22:42)
[2017-11-28] MEDS: FOLIC ACID 1 MG TAB PEG (09:18)
[2017-11-28] MEDS: BACLOFEN 10 MG TAB GTB ×2 (09:18→22:42)
[2017-11-28] MEDS: MULTIVITAMINS 30 ML CUP GTB (09:19)
[2017-11-28] MEDS: LACOSAMIDE (100 MG/10 ML PO SYR) GTB ×2 (09:25→23:22)
[2017-11-28] MEDS: LEVETIRACETAM 1500 MG (PMX) 100 ML IVPB ×2 (09:25→22:42)
[2017-11-28] MEDS: D5-NS + KCL 20 MEQ 1,000 ML IV (13:18)
[2017-11-29] MEDS ORDERED: VITAMIN A & D 5 GM OINT PACKET TOP (00:27)
[2017-11-29] MEDS: [UNRECOGNIZED DRUG - REMARK] XX ×3 (04:36→21:00)
[2017-11-29] MEDS: D5-NS + KCL 20 MEQ 1,000 ML IV (04:38)
[2017-11-29 05:05] LABS: ADD MAN DIFF? NO
[2017-11-29 05:10] LABS: BASOPHILS % 0.5 % (0.0-2.0); EOSINOPHILS # 0.1 10^3/ul (0.0-0.5); EOSINOPHILS % 1.5 % (0.0-7.0); HEMATOCRIT 37.1 % (37.0-47.0); HEMOGLOBIN 11.9 g/dl (12.0-16.0); LYMPHOCYTES # 1.9 10^3/ul (0.8-2.9); LYMPHOCYTES % 24.3 % (15.0-51.0); MEAN CORPUSCULAR HEMOGLOBIN 28.3 pg (29.0-33.0); MEAN CORPUSCULAR HGB CONC 32.1 g/dl (32.0-37.0); MEAN CORPUSCULAR VOLUME 88.3 fl (82.0-101.0); MEAN PLATELET VOLUME 11.1 fl (7.4-10.4); MONOCYTE # 0.2 10^3/ul (0.3-0.9); MONOCYTES % 2.1 % (0.0-11.0); NEUTROPHIL # 5.7 10^3/ul (1.6-7.5); NEUTROPHILS % 71.1 % (39.0-77.0); PLATELET COUNT 518 10^3/UL (140-415); RED CELL DISTRIBUTION WIDTH 13.2 % (11.5-14.5)
[2017-11-29 05:28] LABS: ANION GAP 15 (8-16); BLOOD UREA NITROGEN 14 mg/dl (7-20); CALCIUM 9.6 mg/dl (8.4-10.2); CARBON DIOXIDE 27 mmol/L (21-31); CHLORIDE 104 mmol/L (97-110); CREATININE 0.46 mg/dl (0.44-1.00); GLUCOSE 102 mg/dl (70-220); POTASSIUM 4.4 mmol/L (3.5-5.1); SODIUM 142 mmol/L (135-144)
[2017-11-29 06:02] LABS: CANCER ANTIGEN 125 36.3 U/ml (0.0-35.0)
[2017-11-29] MEDS: PANTOPRAZOLE 40 MG INJ IV (06:07)
[2017-11-29] MEDS: ENOXAPARIN 40 MG/0.4 ML SYG SC (06:21)
[2017-11-29] MEDS: SOD CHLORIDE 0.9% 1,000 ML IV ×3 (09:00→21:18)
[2017-11-29] MEDS: BACLOFEN 10 MG TAB GTB ×2 (09:07→20:59)
[2017-11-29] MEDS: LEVETIRACETAM 1500 MG (PMX) 100 ML IVPB ×2 (09:07→20:59)
[2017-11-29] MEDS: ASCORBIC ACID 500 MG TAB GTB ×2 (09:07→20:59)
[2017-11-29] MEDS: FOLIC ACID 1 MG TAB PEG (09:07)
[2017-11-29] MEDS: ZINC SULFATE 220 MG CAP GTB (09:07)
[2017-11-29] MEDS: MULTIVITAMINS 30 ML CUP GTB (09:07)
[2017-11-29] MEDS: METOPROLOL 50 MG TAB GTB ×2 (09:07→20:59)
[2017-11-29] MEDS: LACOSAMIDE (100 MG/10 ML PO SYR) GTB ×2 (09:57→21:00)
[2017-11-30] MEDS: D5-NS + KCL 20 MEQ 1,000 ML IV ×2 (01:12→17:52)
[2017-11-30] MEDS: [UNRECOGNIZED DRUG - REMARK] XX ×3 (05:30→21:30)
[2017-11-30] MEDS: PANTOPRAZOLE 40 MG INJ IV (06:33)
[2017-11-30] MEDS: ENOXAPARIN 40 MG/0.4 ML SYG SC (06:49)
[2017-11-30] MEDS: SOD CHLORIDE 0.9% 1,000 ML IV ×2 (06:50→17:50)
[2017-11-30] MEDS: ZINC SULFATE 220 MG CAP GTB (08:45)
[2017-11-30] MEDS: FOLIC ACID 1 MG TAB PEG (08:45)
[2017-11-30] MEDS: ASCORBIC ACID 500 MG TAB GTB ×2 (08:45→21:19)
[2017-11-30] MEDS: BACLOFEN 10 MG TAB GTB ×2 (08:45→21:18)
[2017-11-30] MEDS: MULTIVITAMINS 30 ML CUP GTB (08:46)
[2017-11-30] MEDS: METOPROLOL 50 MG TAB GTB ×2 (08:46→21:19)
[2017-11-30] MEDS: LEVETIRACETAM 1500 MG (PMX) 100 ML IVPB ×2 (09:10→21:19)
[2017-11-30] MEDS: LACOSAMIDE (100 MG/10 ML PO SYR) GTB ×2 (09:29→21:19)
[2017-12-01] MEDS: SOD CHLORIDE 0.9% 1,000 ML IV (05:28)
[2017-12-01] MEDS: PANTOPRAZOLE 40 MG INJ IV (05:28)
[2017-12-01] MEDS: [UNRECOGNIZED DRUG - REMARK] XX ×3 (05:29→20:42)
[2017-12-01 06:00] LABS: ADD MAN DIFF? NO
[2017-12-01 06:20] LABS: WHITE BLOOD COUNT 4.4 10^3/ul (4.8-10.8)
[2017-12-01 06:20] LABS: BASOPHILS % 0.7 % (0.0-2.0); EOSINOPHILS # 0.3 10^3/ul (0.0-0.5); HEMATOCRIT 30.8 % (37.0-47.0); HEMOGLOBIN 10.2 g/dl (12.0-16.0); LYMPHOCYTES # 1.7 10^3/ul (0.8-2.9); LYMPHOCYTES % 39.5 % (15.0-51.0); MEAN CORPUSCULAR HGB CONC 33.1 g/dl (32.0-37.0); MEAN CORPUSCULAR VOLUME 87.5 fl (82.0-101.0); MEAN PLATELET VOLUME 11.4 fl (7.4-10.4); MONOCYTE # 0.1 10^3/ul (0.3-0.9); MONOCYTES % 1.8 % (0.0-11.0); NEUTROPHIL # 2.3 10^3/ul (1.6-7.5); NEUTROPHILS % 51.8 % (39.0-77.0); PLATELET COUNT 394 10^3/UL (140-415); RED BLOOD COUNT 3.52 10^6/ul (4.20-5.40); RED CELL DISTRIBUTION WIDTH 13.1 % (11.5-14.5)
[2017-12-01] MEDS: ENOXAPARIN 40 MG/0.4 ML SYG SC (06:26)
[2017-12-01 06:29] LABS: ANION GAP 13 (8-16); BLOOD UREA NITROGEN 12 mg/dl (7-20); CALCIUM 9.2 mg/dl (8.4-10.2); CARBON DIOXIDE 26 mmol/L (21-31); CHLORIDE 105 mmol/L (97-110); CREATININE 0.39 mg/dl (0.44-1.00); GLUCOSE 108 mg/dl (70-220); POTASSIUM 3.7 mmol/L (3.5-5.1); SODIUM 140 mmol/L (135-144)
[2017-12-01] MEDS: BACLOFEN 10 MG TAB GTB ×2 (09:16→20:10)
[2017-12-01] MEDS: ASCORBIC ACID 500 MG TAB GTB ×2 (09:16→20:11)
[2017-12-01] MEDS: FOLIC ACID 1 MG TAB PEG (09:18)
[2017-12-01] MEDS: ZINC SULFATE 220 MG CAP GTB (09:18)
[2017-12-01] MEDS: METOPROLOL 50 MG TAB GTB ×2 (09:19→20:11)
[2017-12-01] MEDS: LEVETIRACETAM 1500 MG (PMX) 100 ML IVPB ×2 (09:20→20:13)
[2017-12-01] MEDS: MULTIVITAMINS 30 ML CUP GTB (09:20)
[2017-12-01] MEDS: LACOSAMIDE (100 MG/10 ML PO SYR) GTB ×2 (09:20→20:10)
[2017-12-01] MEDS: D5-NS + KCL 20 MEQ 1,000 ML IV (09:50)
[2017-12-02] MEDS: D5-NS + KCL 20 MEQ 1,000 ML IV ×2 (02:28→18:28)
[2017-12-02] MEDS: LORAZEPAM 2 MG INJ IV (02:28)
[2017-12-02] MEDS: hydrALAzine 20 MG INJ IV (03:36)
[2017-12-02] MEDS: morphine LIQ (10 MG/5 ML) CUP PO ×3 (04:47→21:12)
[2017-12-02] MEDS: [UNRECOGNIZED DRUG - REMARK] XX ×3 (05:02→21:30)
[2017-12-02] MEDS: PANTOPRAZOLE 40 MG INJ IV (06:10)
[2017-12-02] MEDS: ENOXAPARIN 40 MG/0.4 ML SYG SC (06:22)
[2017-12-02] MEDS: ZINC SULFATE 220 MG CAP GTB (08:54)
[2017-12-02] MEDS: FOLIC ACID 1 MG TAB PEG (08:54)
[2017-12-02] MEDS: MULTIVITAMINS 30 ML CUP GTB (08:54)
[2017-12-02] MEDS: LACOSAMIDE (100 MG/10 ML PO SYR) GTB ×2 (08:54→21:12)
[2017-12-02] MEDS: ASCORBIC ACID 500 MG TAB GTB ×2 (08:54→21:12)
[2017-12-02] MEDS: LEVETIRACETAM 1500 MG (PMX) 100 ML IVPB ×2 (08:54→21:11)
[2017-12-02] MEDS: BACLOFEN 10 MG TAB GTB ×2 (08:55→21:14)
[2017-12-02] MEDS: METOPROLOL 50 MG TAB GTB ×2 (08:55→21:13)
[2017-12-03] MEDS: [UNRECOGNIZED DRUG - REMARK] XX ×3 (05:30→21:30)
[2017-12-03] MEDS: PANTOPRAZOLE 40 MG INJ IV (05:46)
[2017-12-03] MEDS: ENOXAPARIN 40 MG/0.4 ML SYG SC (05:54)
[2017-12-03 06:08] LABS: IRON 35 ug/dl (35-150)
[2017-12-03 06:17] LABS: % IRON SATURATION 11 % SAT (22-52); TOTAL IRON BINDING CAPACITY 309 ug/dl (241-421)
[2017-12-03] MEDS: ASCORBIC ACID 500 MG TAB GTB ×2 (08:25→21:27)
[2017-12-03] MEDS: FOLIC ACID 1 MG TAB PEG (08:25)
[2017-12-03] MEDS: ZINC SULFATE 220 MG CAP GTB (08:25)
[2017-12-03] MEDS: BACLOFEN 10 MG TAB GTB ×2 (08:25→21:28)
[2017-12-03] MEDS: LACOSAMIDE (100 MG/10 ML PO SYR) GTB ×3 (08:26→23:39)
[2017-12-03] MEDS: LEVETIRACETAM 1500 MG (PMX) 100 ML IVPB ×2 (08:26→21:28)
[2017-12-03] MEDS: METOPROLOL 50 MG TAB GTB ×2 (08:26→21:28)
[2017-12-03] MEDS: MULTIVITAMINS 30 ML CUP GTB (08:26)
[2017-12-03] MEDS: D5-NS + KCL 20 MEQ 1,000 ML IV (11:08)
[2017-12-03] MEDS ORDERED: VANCOMYCIN IV PER PHARMACY XX (16:00)
[2017-12-03 16:43] LABS: LACTIC ACID 1.5 mmol/L (0.5-2.0)
[2017-12-03 17:06] LABS: ADD UMIC NO; UR ASCORBIC ACID NEGATIVE (NEGATIVE); UR BILIRUBIN (Dip) NEGATIVE (NEGATIVE); UR BLOOD (Dip) NEGATIVE (NEGATIVE); UR CLARITY CLEAR (CLEAR); UR COLOR STRAW (YELLOW); UR GLUCOSE (Dip) NEGATIVE (NEGATIVE); UR KETONES (Dip) NEGATIVE (NEGATIVE); UR LEUKOCYTE ESTERASE (Dip) NEGATIVE Leu/ul (NEGATIVE); UR NITRITE (Dip) NEGATIVE (NEGATIVE); UR SPECIFIC GRAVITY (Dip) 1.005 (1.003-1.030); UR TOTAL PROTEIN (Dip) NEGATIVE (NEGATIVE); UR UROBILINOGEN (Dip) NEGATIVE (NEGATIVE)
[2017-12-03] MEDS: VANCOMYCIN 1.25 GM in SOD CHLORIDE 0.9% 250 ML IVPB (17:19)
[2017-12-03] MEDS: PIPER-TAZO 3.375 GM IV (PMX) 100 ML IVPB (20:11)
[2017-12-04] MEDS: PIPER-TAZO 3.375 GM IV (PMX) 100 ML IVPB ×5 (01:11→23:52)
[2017-12-04] MEDS: VANCOMYCIN 750 MG in SOD CHLORIDE 0.9% 150 ML IVPB ×3 (01:48→17:56)
[2017-12-04] MEDS: D5-NS + KCL 20 MEQ 1,000 ML IV ×2 (05:12→17:41)
[2017-12-04] MEDS: [UNRECOGNIZED DRUG - REMARK] XX (05:30)
[2017-12-04 05:49] LABS: ADD MAN DIFF? NO
[2017-12-04 05:59] LABS: WHITE BLOOD COUNT 8.1 10^3/ul (4.8-10.8)
[2017-12-04 05:59] LABS: BASOPHILS % 0.4 % (0.0-2.0); EOSINOPHILS # 0.2 10^3/ul (0.0-0.5); EOSINOPHILS % 2.8 % (0.0-7.0); HEMATOCRIT 27.2 % (37.0-47.0); HEMOGLOBIN 8.8 g/dl (12.0-16.0); LYMPHOCYTES # 1.4 10^3/ul (0.8-2.9); LYMPHOCYTES % 16.6 % (15.0-51.0); MEAN CORPUSCULAR HEMOGLOBIN 28.3 pg (29.0-33.0); MEAN CORPUSCULAR HGB CONC 32.4 g/dl (32.0-37.0); MEAN CORPUSCULAR VOLUME 87.5 fl (82.0-101.0); MEAN PLATELET VOLUME 11.4 fl (7.4-10.4); MONOCYTE # 0.3 10^3/ul (0.3-0.9); MONOCYTES % 3.5 % (0.0-11.0); NEUTROPHIL # 6.2 10^3/ul (1.6-7.5); NEUTROPHILS % 76.2 % (39.0-77.0); PLATELET COUNT 340 10^3/UL (140-415); RED BLOOD COUNT 3.11 10^6/ul (4.20-5.40); RED CELL DISTRIBUTION WIDTH 13.2 % (11.5-14.5)
[2017-12-04 06:29] LABS: ANION GAP 11 (8-16); BLOOD UREA NITROGEN 9 mg/dl (7-20); CALCIUM 9.1 mg/dl (8.4-10.2); CARBON DIOXIDE 30 mmol/L (21-31); CHLORIDE 104 mmol/L (97-110); CREATININE 0.43 mg/dl (0.44-1.00); GLUCOSE 114 mg/dl (70-220); SODIUM 141 mmol/L (135-144)
[2017-12-04] MEDS: PANTOPRAZOLE 40 MG INJ IV (06:34)
[2017-12-04] MEDS: ENOXAPARIN 40 MG/0.4 ML SYG SC (06:36)
[2017-12-04] MEDS: ASCORBIC ACID 500 MG TAB GTB ×2 (08:26→21:59)
[2017-12-04] MEDS: ZINC SULFATE 220 MG CAP GTB (08:26)
[2017-12-04] MEDS: BACLOFEN 10 MG TAB GTB ×2 (08:26→21:59)
[2017-12-04] MEDS: MULTIVITAMINS 30 ML CUP GTB (08:26)
[2017-12-04] MEDS: LEVETIRACETAM 1500 MG (PMX) 100 ML IVPB ×2 (08:26→21:58)
[2017-12-04] MEDS: FOLIC ACID 1 MG TAB PEG (08:26)
[2017-12-04] MEDS: METOPROLOL 50 MG TAB GTB ×2 (08:27→21:59)
[2017-12-04] MEDS: [UNRECOGNIZED DRUG - REMARK] XX ×2 (12:30→20:30)
[2017-12-04] MEDS: SOD FERRIC GLUC COMPLX 125 MG in SOD CHLORIDE 0.9% 100 ML IVPB (16:31)
[2017-12-04] MEDS: LACOSAMIDE (100 MG/10 ML PO SYR) GTB ×2 (16:45→21:58)
[2017-12-04 17:11] LABS: VANCOMYCIN,TROUGH 16.2 ug/ml (10.0-20.0)
[2017-12-05] MEDS: VANCOMYCIN 750 MG in SOD CHLORIDE 0.9% 150 ML IVPB ×3 (01:00→18:47)
[2017-12-05] MEDS: PIPER-TAZO 3.375 GM IV (PMX) 100 ML IVPB ×3 (06:12→18:16)
[2017-12-05] MEDS: PANTOPRAZOLE 40 MG INJ IV (06:13)
[2017-12-05 06:15] LABS: ADD MAN DIFF? NO
[2017-12-05] MEDS: ENOXAPARIN 40 MG/0.4 ML SYG SC (06:15)
[2017-12-05 06:27] LABS: BASOPHILS % 0.5 % (0.0-2.0); EOSINOPHILS # 0.1 10^3/ul (0.0-0.5); EOSINOPHILS % 3.3 % (0.0-7.0); HEMATOCRIT 27.6 % (37.0-47.0); HEMOGLOBIN 8.8 g/dl (12.0-16.0); LYMPHOCYTES % 23.7 % (15.0-51.0); MEAN CORPUSCULAR HEMOGLOBIN 28.2 pg (29.0-33.0); MEAN CORPUSCULAR HGB CONC 31.9 g/dl (32.0-37.0); MEAN CORPUSCULAR VOLUME 88.5 fl (82.0-101.0); MEAN PLATELET VOLUME 11.6 fl (7.4-10.4); MONOCYTE # 0.3 10^3/ul (0.3-0.9); MONOCYTES % 7.2 % (0.0-11.0); NEUTROPHIL # 2.7 10^3/ul (1.6-7.5); NEUTROPHILS % 64.8 % (39.0-77.0); PLATELET COUNT 324 10^3/UL (140-415); RED BLOOD COUNT 3.12 10^6/ul (4.20-5.40); RED CELL DISTRIBUTION WIDTH 13.3 % (11.5-14.5)
[2017-12-05 06:27] LABS: WHITE BLOOD COUNT 4.2 10^3/ul (4.8-10.8)
[2017-12-05 06:42] LABS: ANION GAP 15 (8-16); BLOOD UREA NITROGEN 9 mg/dl (7-20); CALCIUM 9.3 mg/dl (8.4-10.2); CARBON DIOXIDE 28 mmol/L (21-31); CHLORIDE 104 mmol/L (97-110); CREATININE 0.37 mg/dl (0.44-1.00); GLUCOSE 134 mg/dl (70-220); POTASSIUM 3.7 mmol/L (3.5-5.1); SODIUM 143 mmol/L (135-144)
[2017-12-05] MEDS: ZINC SULFATE 220 MG CAP GTB (09:11)
[2017-12-05] MEDS: ASCORBIC ACID 500 MG TAB GTB ×2 (09:11→21:59)
[2017-12-05] MEDS: MULTIVITAMINS 30 ML CUP GTB (09:11)
[2017-12-05] MEDS: BACLOFEN 10 MG TAB GTB ×2 (09:11→21:59)
[2017-12-05] MEDS: LEVETIRACETAM 1500 MG (PMX) 100 ML IVPB ×2 (09:11→22:01)
[2017-12-05] MEDS: FOLIC ACID 1 MG TAB PEG (09:11)
[2017-12-05] MEDS: METOPROLOL 50 MG TAB GTB ×2 (09:12→22:00)
[2017-12-05] MEDS: LACOSAMIDE (100 MG/10 ML PO SYR) GTB ×2 (09:20→21:59)
[2017-12-05] MEDS: [UNRECOGNIZED DRUG - REMARK] XX ×3 (12:30→20:30)
[2017-12-05] MEDS: D5-NS + KCL 20 MEQ 1,000 ML IV (16:52)
[2017-12-05] MEDS: SOD FERRIC GLUC COMPLX 125 MG in SOD CHLORIDE 0.9% 100 ML IVPB (16:52)
[2017-12-06] MEDS: PIPER-TAZO 3.375 GM IV (PMX) 100 ML IVPB ×4 (00:06→20:01)
[2017-12-06] MEDS: VANCOMYCIN 750 MG in SOD CHLORIDE 0.9% 150 ML IVPB ×3 (01:27→16:44)
[2017-12-06] MEDS: [UNRECOGNIZED DRUG - REMARK] XX (04:30)
[2017-12-06] MEDS: PANTOPRAZOLE 40 MG INJ IV (04:55)
[2017-12-06 05:34] LABS: ADD MAN DIFF? NO
[2017-12-06 05:42] LABS: WHITE BLOOD COUNT 3.4 10^3/ul (4.8-10.8)
[2017-12-06 05:42] LABS: BASOPHILS % 0.6 % (0.0-2.0); EOSINOPHILS # 0.1 10^3/ul (0.0-0.5); EOSINOPHILS % 2.3 % (0.0-7.0); HEMATOCRIT 29.5 % (37.0-47.0); HEMOGLOBIN 9.2 g/dl (12.0-16.0); LYMPHOCYTES # 1.3 10^3/ul (0.8-2.9); LYMPHOCYTES % 38.8 % (15.0-51.0); MEAN CORPUSCULAR HEMOGLOBIN 27.7 pg (29.0-33.0); MEAN CORPUSCULAR HGB CONC 31.2 g/dl (32.0-37.0); MEAN CORPUSCULAR VOLUME 88.9 fl (82.0-101.0); MEAN PLATELET VOLUME 11.1 fl (7.4-10.4); MONOCYTE # 0.4 10^3/ul (0.3-0.9); MONOCYTES % 12.8 % (0.0-11.0); NEUTROPHIL # 1.6 10^3/ul (1.6-7.5); NEUTROPHILS % 45.2 % (39.0-77.0); PLATELET COUNT 348 10^3/UL (140-415); RED BLOOD COUNT 3.32 10^6/ul (4.20-5.40); RED CELL DISTRIBUTION WIDTH 13.5 % (11.5-14.5)
[2017-12-06 06:01] LABS: ANION GAP 11 (8-16); BLOOD UREA NITROGEN 9 mg/dl (7-20); CALCIUM 9.2 mg/dl (8.4-10.2); CARBON DIOXIDE 28 mmol/L (21-31); CHLORIDE 107 mmol/L (97-110); CREATININE 0.42 mg/dl (0.44-1.00); GLUCOSE 112 mg/dl (70-220); POTASSIUM 4.3 mmol/L (3.5-5.1); SODIUM 142 mmol/L (135-144)
[2017-12-06] MEDS: ENOXAPARIN 40 MG/0.4 ML SYG SC (07:07)
[2017-12-06] MEDS: D5-NS + KCL 20 MEQ 1,000 ML IV ×2 (07:12→21:45)
[2017-12-06] MEDS: MULTIVITAMINS 30 ML CUP GTB (09:18)
[2017-12-06] MEDS: LEVETIRACETAM 1500 MG (PMX) 100 ML IVPB ×2 (09:18→21:27)
[2017-12-06] MEDS: METOPROLOL 50 MG TAB GTB ×2 (09:19→21:27)
[2017-12-06] MEDS: ASCORBIC ACID 500 MG TAB GTB ×2 (09:19→21:28)
[2017-12-06] MEDS: FOLIC ACID 1 MG TAB PEG (09:19)
[2017-12-06] MEDS: BACLOFEN 10 MG TAB GTB ×2 (09:19→21:27)
[2017-12-06] MEDS: LACOSAMIDE (100 MG/10 ML PO SYR) GTB ×2 (09:19→21:27)
[2017-12-06] MEDS: ZINC SULFATE 220 MG CAP GTB (09:19)
[2017-12-06] MEDS: SOD FERRIC GLUC COMPLX 125 MG in SOD CHLORIDE 0.9% 100 ML IVPB (17:28)
[2017-12-07] MEDS: PIPER-TAZO 3.375 GM IV (PMX) 100 ML IVPB ×4 (00:08→18:28)
[2017-12-07] MEDS: VANCOMYCIN 750 MG in SOD CHLORIDE 0.9% 150 ML IVPB ×3 (01:02→18:28)
[2017-12-07] MEDS: PANTOPRAZOLE 40 MG INJ IV (05:55)
[2017-12-07] MEDS: ENOXAPARIN 40 MG/0.4 ML SYG SC (06:06)
[2017-12-07 06:09] LABS: ADD MAN DIFF? NO
[2017-12-07 06:20] LABS: BASOPHILS % 0.4 % (0.0-2.0); EOSINOPHILS # 0.1 10^3/ul (0.0-0.5); LYMPHOCYTES # 1.3 10^3/ul (0.8-2.9); LYMPHOCYTES % 26.4 % (15.0-51.0); MEAN CORPUSCULAR HEMOGLOBIN 28.7 pg (29.0-33.0); MEAN CORPUSCULAR HGB CONC 32.3 g/dl (32.0-37.0); MEAN CORPUSCULAR VOLUME 89.1 fl (82.0-101.0); MEAN PLATELET VOLUME 11.1 fl (7.4-10.4); MONOCYTE # 0.5 10^3/ul (0.3-0.9); MONOCYTES % 9.2 % (0.0-11.0); NEUTROPHIL # 3.1 10^3/ul (1.6-7.5); NEUTROPHILS % 62.8 % (39.0-77.0); PLATELET COUNT 346 10^3/UL (140-415); RED BLOOD COUNT 3.48 10^6/ul (4.20-5.40); RED CELL DISTRIBUTION WIDTH 13.6 % (11.5-14.5)
[2017-12-07 06:59] LABS: ANION GAP 16 (8-16); BLOOD UREA NITROGEN 8 mg/dl (7-20); CALCIUM 9.4 mg/dl (8.4-10.2); CARBON DIOXIDE 28 mmol/L (21-31); CHLORIDE 105 mmol/L (97-110); CREATININE 0.39 mg/dl (0.44-1.00); GLUCOSE 112 mg/dl (70-220); SODIUM 145 mmol/L (135-144)
[2017-12-07] MEDS: MULTIVITAMINS 30 ML CUP GTB (09:02)
[2017-12-07] MEDS: FOLIC ACID 1 MG TAB PEG (09:03)
[2017-12-07] MEDS: BACLOFEN 10 MG TAB GTB ×2 (09:03→21:32)
[2017-12-07] MEDS: ASCORBIC ACID 500 MG TAB GTB ×2 (09:03→21:33)
[2017-12-07] MEDS: ZINC SULFATE 220 MG CAP GTB (09:03)
[2017-12-07] MEDS: METOPROLOL 50 MG TAB GTB ×2 (09:04→21:33)
[2017-12-07] MEDS: LACOSAMIDE (100 MG/10 ML PO SYR) GTB ×2 (09:07→21:32)
[2017-12-07] MEDS: LEVETIRACETAM 1500 MG (PMX) 100 ML IVPB ×2 (09:08→21:57)
[2017-12-07 17:15] LABS: VANCOMYCIN,TROUGH 14.4 ug/ml (10.0-20.0)
[2017-12-07] MEDS: SOD FERRIC GLUC COMPLX 125 MG in SOD CHLORIDE 0.9% 100 ML IVPB (17:15)
[2017-12-07] MEDS: D5-NS + KCL 20 MEQ 1,000 ML IV (21:32)
[2017-12-08] MEDS: PIPER-TAZO 3.375 GM IV (PMX) 100 ML IVPB ×4 (01:41→18:57)
[2017-12-08 05:08] LABS: ADD MAN DIFF? NO
[2017-12-08 05:12] LABS: BASOPHILS % 0.9 % (0.0-2.0); EOSINOPHILS # 0.1 10^3/ul (0.0-0.5); EOSINOPHILS % 1.6 % (0.0-7.0); HEMATOCRIT 30.1 % (37.0-47.0); HEMOGLOBIN 9.6 g/dl (12.0-16.0); LYMPHOCYTES # 1.3 10^3/ul (0.8-2.9); LYMPHOCYTES % 39.6 % (15.0-51.0); MEAN CORPUSCULAR HEMOGLOBIN 28.5 pg (29.0-33.0); MEAN CORPUSCULAR HGB CONC 31.9 g/dl (32.0-37.0); MEAN CORPUSCULAR VOLUME 89.3 fl (82.0-101.0); MEAN PLATELET VOLUME 10.6 fl (7.4-10.4); MONOCYTE # 0.3 10^3/ul (0.3-0.9); NEUTROPHIL # 1.5 10^3/ul (1.6-7.5); NEUTROPHILS % 47.6 % (39.0-77.0); PLATELET COUNT 309 10^3/UL (140-415); RED BLOOD COUNT 3.37 10^6/ul (4.20-5.40); RED CELL DISTRIBUTION WIDTH 14.2 % (11.5-14.5)
[2017-12-08 05:12] LABS: WHITE BLOOD COUNT 3.2 10^3/ul (4.8-10.8)
[2017-12-08 05:40] LABS: ANION GAP 15 (8-16); BLOOD UREA NITROGEN 9 mg/dl (7-20); CALCIUM 9.3 mg/dl (8.4-10.2); CARBON DIOXIDE 29 mmol/L (21-31); CHLORIDE 106 mmol/L (97-110); CREATININE 0.38 mg/dl (0.44-1.00); GLUCOSE 126 mg/dl (70-220); POTASSIUM 3.9 mmol/L (3.5-5.1); SODIUM 146 mmol/L (135-144)
[2017-12-08] MEDS: PANTOPRAZOLE 40 MG INJ IV (05:55)
[2017-12-08] MEDS: ENOXAPARIN 40 MG/0.4 ML SYG SC (06:31)
[2017-12-08] MEDS: BACLOFEN 10 MG TAB GTB ×2 (08:17→20:46)
[2017-12-08] MEDS: FOLIC ACID 1 MG TAB PEG (08:17)
[2017-12-08] MEDS: ZINC SULFATE 220 MG CAP GTB (08:17)
[2017-12-08] MEDS: ASCORBIC ACID 500 MG TAB GTB ×2 (08:17→20:46)
[2017-12-08] MEDS: MULTIVITAMINS 30 ML CUP GTB (08:18)
[2017-12-08] MEDS: LACOSAMIDE (100 MG/10 ML PO SYR) GTB ×2 (08:18→20:46)
[2017-12-08] MEDS: METOPROLOL 50 MG TAB GTB ×2 (08:18→20:47)
[2017-12-08] MEDS: LEVETIRACETAM 1500 MG (PMX) 100 ML IVPB ×2 (08:18→20:46)
[2017-12-08] MEDS: D5-NS + KCL 20 MEQ 1,000 ML IV (11:19)
[2017-12-08] MEDS: SOD FERRIC GLUC COMPLX 125 MG in SOD CHLORIDE 0.9% 100 ML IVPB (17:22)
[2017-12-09] MEDS ORDERED: GENTAMICIN IV PER PHARMACY XX
[2017-12-09] MEDS: D5-NS + KCL 20 MEQ 1,000 ML IV ×2 (02:15→19:25)
[2017-12-09] MEDS: DEXTROSE 5% IVPB (04:11)
[2017-12-09] MEDS: GENTAMICIN IVPB (04:11)
[2017-12-09 05:04] LABS: ADD MAN DIFF? NO
[2017-12-09 05:15] LABS: BASOPHILS % 0.3 % (0.0-2.0); EOSINOPHILS # 0.1 10^3/ul (0.0-0.5); EOSINOPHILS % 1.7 % (0.0-7.0); HEMATOCRIT 30.5 % (37.0-47.0); HEMOGLOBIN 9.6 g/dl (12.0-16.0); LYMPHOCYTES # 1.4 10^3/ul (0.8-2.9); LYMPHOCYTES % 40.8 % (15.0-51.0); MEAN CORPUSCULAR HEMOGLOBIN 28.3 pg (29.0-33.0); MEAN CORPUSCULAR HGB CONC 31.5 g/dl (32.0-37.0); MEAN PLATELET VOLUME 10.4 fl (7.4-10.4); MONOCYTE # 0.5 10^3/ul (0.3-0.9); MONOCYTES % 13.6 % (0.0-11.0); NEUTROPHIL # 1.5 10^3/ul (1.6-7.5); PLATELET COUNT 276 10^3/UL (140-415); RED BLOOD COUNT 3.39 10^6/ul (4.20-5.40); RED CELL DISTRIBUTION WIDTH 14.6 % (11.5-14.5)
[2017-12-09 05:15] LABS: WHITE BLOOD COUNT 3.5 10^3/ul (4.8-10.8)
[2017-12-09 05:34] LABS: ANION GAP 14 (8-16); BLOOD UREA NITROGEN 9 mg/dl (7-20); CALCIUM 9.1 mg/dl (8.4-10.2); CARBON DIOXIDE 28 mmol/L (21-31); CHLORIDE 107 mmol/L (97-110); CREATININE 0.42 mg/dl (0.44-1.00); GLUCOSE 127 mg/dl (70-220); POTASSIUM 4.2 mmol/L (3.5-5.1); SODIUM 145 mmol/L (135-144)
[2017-12-09] MEDS: PANTOPRAZOLE 40 MG INJ IV (06:01)
[2017-12-09] MEDS: ENOXAPARIN 40 MG/0.4 ML SYG SC (06:07)
[2017-12-09] MEDS: LACOSAMIDE (100 MG/10 ML PO SYR) GTB ×2 (09:00→23:49)
[2017-12-09] MEDS: FOLIC ACID 1 MG TAB PEG (09:43)
[2017-12-09] MEDS: ASCORBIC ACID 500 MG TAB GTB ×2 (09:43→22:14)
[2017-12-09] MEDS: BACLOFEN 10 MG TAB GTB ×2 (09:43→22:15)
[2017-12-09] MEDS: ZINC SULFATE 220 MG CAP GTB (09:43)
[2017-12-09] MEDS: LEVETIRACETAM 1500 MG (PMX) 100 ML IVPB ×2 (09:44→22:14)
[2017-12-09] MEDS: METOPROLOL 50 MG TAB GTB ×2 (09:44→22:15)
[2017-12-09] MEDS: MULTIVITAMINS 30 ML CUP GTB (09:44)
[2017-12-10] MEDS: DEXTROSE 5% IVPB (04:22)
[2017-12-10] MEDS: GENTAMICIN IVPB (04:22)
[2017-12-10 05:12] LABS: ADD MAN DIFF? NO
[2017-12-10 05:29] LABS: BASOPHILS % 0.6 % (0.0-2.0); EOSINOPHILS # 0.1 10^3/ul (0.0-0.5); EOSINOPHILS % 1.8 % (0.0-7.0); HEMATOCRIT 31.8 % (37.0-47.0); HEMOGLOBIN 10.1 g/dl (12.0-16.0); LYMPHOCYTES # 1.6 10^3/ul (0.8-2.9); LYMPHOCYTES % 48.8 % (15.0-51.0); MEAN CORPUSCULAR HEMOGLOBIN 28.6 pg (29.0-33.0); MEAN CORPUSCULAR HGB CONC 31.8 g/dl (32.0-37.0); MEAN CORPUSCULAR VOLUME 90.1 fl (82.0-101.0); MEAN PLATELET VOLUME 12.2 fl (7.4-10.4); MONOCYTE # 0.3 10^3/ul (0.3-0.9); MONOCYTES % 8.4 % (0.0-11.0); NEUTROPHIL # 1.3 10^3/ul (1.6-7.5); NEUTROPHILS % 38.9 % (39.0-77.0); RED BLOOD COUNT 3.53 10^6/ul (4.20-5.40); RED CELL DISTRIBUTION WIDTH 15.4 % (11.5-14.5)
[2017-12-10 05:29] LABS: WHITE BLOOD COUNT 3.3 10^3/ul (4.8-10.8)
[2017-12-10 06:00] LABS: ANION GAP 16 (8-16); BLOOD UREA NITROGEN 10 mg/dl (7-20); CALCIUM 9.5 mg/dl (8.4-10.2); CARBON DIOXIDE 27 mmol/L (21-31); CHLORIDE 107 mmol/L (97-110); CREATININE 0.37 mg/dl (0.44-1.00); GLUCOSE 133 mg/dl (70-220); POTASSIUM 4.8 mmol/L (3.5-5.1); SODIUM 145 mmol/L (135-144)
[2017-12-10] MEDS: PANTOPRAZOLE 40 MG INJ IV (06:11)
[2017-12-10] MEDS: ENOXAPARIN 40 MG/0.4 ML SYG SC (06:13)
[2017-12-10 06:51] LABS: PLATELET COUNT 206 10^3/UL (140-415); POSITIVE DIFF @See below
[2017-12-10] MEDS: LEVETIRACETAM 1500 MG (PMX) 100 ML IVPB ×2 (09:09→21:42)
[2017-12-10] MEDS: ASCORBIC ACID 500 MG TAB GTB ×2 (09:10→21:44)
[2017-12-10] MEDS: FOLIC ACID 1 MG TAB PEG (09:10)
[2017-12-10] MEDS: ZINC SULFATE 220 MG CAP GTB (09:10)
[2017-12-10] MEDS: BACLOFEN 10 MG TAB GTB ×2 (09:10→21:44)
[2017-12-10] MEDS: MULTIVITAMINS 30 ML CUP GTB (09:10)
[2017-12-10] MEDS: LACOSAMIDE (100 MG/10 ML PO SYR) GTB ×2 (09:11→21:48)
[2017-12-10] MEDS: METOPROLOL 50 MG TAB GTB ×2 (09:11→21:46)
[2017-12-10] MEDS: D5-NS + KCL 20 MEQ 1,000 ML IV (12:57)
[2017-12-11] MEDS: morphine LIQ (10 MG/5 ML) CUP PO (00:32)
[2017-12-11 03:31] LABS: ADD MAN DIFF? NO
[2017-12-11 03:33] LABS: BASOPHILS % 0.3 % (0.0-2.0); EOSINOPHILS % 0.5 % (0.0-7.0); HEMATOCRIT 32.6 % (37.0-47.0); HEMOGLOBIN 10.4 g/dl (12.0-16.0); LYMPHOCYTES % 54.4 % (15.0-51.0); MEAN CORPUSCULAR HEMOGLOBIN 28.7 pg (29.0-33.0); MEAN CORPUSCULAR HGB CONC 31.9 g/dl (32.0-37.0); MEAN CORPUSCULAR VOLUME 89.8 fl (82.0-101.0); MONOCYTE # 0.4 10^3/ul (0.3-0.9); MONOCYTES % 10.7 % (0.0-11.0); NEUTROPHIL # 1.2 10^3/ul (1.6-7.5); NEUTROPHILS % 33.3 % (39.0-77.0); PLATELET COUNT 270 10^3/UL (140-415); RED BLOOD COUNT 3.63 10^6/ul (4.20-5.40); RED CELL DISTRIBUTION WIDTH 15.3 % (11.5-14.5)
[2017-12-11 03:33] LABS: WHITE BLOOD COUNT 3.7 10^3/ul (4.8-10.8)
[2017-12-11 03:55] LABS: BLOOD UREA NITROGEN 10 mg/dl (7-20); CALCIUM 9.8 mg/dl (8.4-10.2); CARBON DIOXIDE 26 mmol/L (21-31); CHLORIDE 109 mmol/L (97-110); CREATININE 0.45 mg/dl (0.44-1.00); GLUCOSE 116 mg/dl (70-220); POTASSIUM 4.6 mmol/L (3.5-5.1)
[2017-12-11] MEDS: D5-NS + KCL 20 MEQ 1,000 ML IV ×2 (03:59→21:43)
[2017-12-11] MEDS: GENTAMICIN IVPB (04:01)
[2017-12-11] MEDS: DEXTROSE 5% IVPB (04:01)
[2017-12-11 04:03] LABS: ANION GAP 14 (8-16); SODIUM 144 mmol/L (135-144)
[2017-12-11 04:07] LABS: GENTAMICIN,TROUGH < 0.6 ug/ml (1.0-2.0)
[2017-12-11] MEDS: PANTOPRAZOLE 40 MG INJ IV (06:02)
[2017-12-11] MEDS: ENOXAPARIN 40 MG/0.4 ML SYG SC (06:07)
[2017-12-11] MEDS: BACLOFEN 10 MG TAB GTB ×2 (09:19→21:44)
[2017-12-11] MEDS: ASCORBIC ACID 500 MG TAB GTB ×2 (09:19→21:44)
[2017-12-11] MEDS: FOLIC ACID 1 MG TAB PEG (09:19)
[2017-12-11] MEDS: ZINC SULFATE 220 MG CAP GTB (09:19)
[2017-12-11] MEDS: MULTIVITAMINS 30 ML CUP GTB (09:20)
[2017-12-11] MEDS: LACOSAMIDE (100 MG/10 ML PO SYR) GTB ×2 (09:20→21:43)
[2017-12-11] MEDS: METOPROLOL 50 MG TAB GTB ×2 (09:20→21:45)
[2017-12-11] MEDS: LEVETIRACETAM 1500 MG (PMX) 100 ML IVPB ×2 (09:21→21:43)
[2017-12-12] MEDS: DEXTROSE 5% IVPB (04:02)
[2017-12-12] MEDS: GENTAMICIN IVPB (04:02)
[2017-12-12] MEDS: PANTOPRAZOLE 40 MG INJ IV (05:22)
[2017-12-12 05:58] LABS: ADD MAN DIFF? NO
[2017-12-12 06:20] LABS: HEMATOCRIT 32.6 % (37.0-47.0); HEMOGLOBIN 10.2 g/dl (12.0-16.0); LYMPHOCYTES # 1.7 10^3/ul (0.8-2.9); LYMPHOCYTES % 44.8 % (15.0-51.0); MEAN CORPUSCULAR HGB CONC 31.3 g/dl (32.0-37.0); MEAN CORPUSCULAR VOLUME 92.6 fl (82.0-101.0); MEAN PLATELET VOLUME 10.7 fl (7.4-10.4); MONOCYTE # 0.4 10^3/ul (0.3-0.9); MONOCYTES % 9.3 % (0.0-11.0); NEUTROPHIL # 1.7 10^3/ul (1.6-7.5); NEUTROPHILS % 42.9 % (39.0-77.0); PLATELET COUNT 256 10^3/UL (140-415); RED BLOOD COUNT 3.52 10^6/ul (4.20-5.40); RED CELL DISTRIBUTION WIDTH 15.8 % (11.5-14.5)
[2017-12-12 06:20] LABS: WHITE BLOOD COUNT 3.9 10^3/ul (4.8-10.8)
[2017-12-12] MEDS: ENOXAPARIN 40 MG/0.4 ML SYG SC (06:52)
[2017-12-12 07:14] LABS: ANION GAP 14 (8-16); BLOOD UREA NITROGEN 11 mg/dl (7-20); CALCIUM 9.4 mg/dl (8.4-10.2); CARBON DIOXIDE 29 mmol/L (21-31); CHLORIDE 103 mmol/L (97-110); CREATININE 0.45 mg/dl (0.44-1.00); GLUCOSE 104 mg/dl (70-220); POTASSIUM 4.1 mmol/L (3.5-5.1); SODIUM 142 mmol/L (135-144)
[2017-12-12] MEDS: BACLOFEN 10 MG TAB GTB ×2 (08:55→20:38)
[2017-12-12] MEDS: ZINC SULFATE 220 MG CAP GTB (08:55)
[2017-12-12] MEDS: ASCORBIC ACID 500 MG TAB GTB ×2 (08:56→20:39)
[2017-12-12] MEDS: METOPROLOL 50 MG TAB GTB ×2 (08:56→20:39)
[2017-12-12] MEDS: LEVETIRACETAM 1500 MG (PMX) 100 ML IVPB ×2 (08:56→20:38)
[2017-12-12] MEDS: LACOSAMIDE (100 MG/10 ML PO SYR) GTB ×2 (08:56→20:38)
[2017-12-12] MEDS: FOLIC ACID 1 MG TAB PEG (08:56)
[2017-12-12] MEDS: MULTIVITAMINS 30 ML CUP GTB (08:56)
[2017-12-12] MEDS: D5-NS + KCL 20 MEQ 1,000 ML IV (15:49)
[2017-12-13] MEDS: GENTAMICIN IVPB (03:43)
[2017-12-13] MEDS: DEXTROSE 5% IVPB (03:43)
[2017-12-13] MEDS: PANTOPRAZOLE 40 MG INJ IV (05:00)
[2017-12-13 05:52] LABS: ADD MAN DIFF? NO
[2017-12-13 06:00] LABS: WHITE BLOOD COUNT 5.5 10^3/ul (4.8-10.8)
[2017-12-13 06:00] LABS: BASOPHILS % 0.4 % (0.0-2.0); EOSINOPHILS % 0.5 % (0.0-7.0); HEMATOCRIT 33.2 % (37.0-47.0); HEMOGLOBIN 10.7 g/dl (12.0-16.0); LYMPHOCYTES # 1.9 10^3/ul (0.8-2.9); LYMPHOCYTES % 33.6 % (15.0-51.0); MEAN CORPUSCULAR HEMOGLOBIN 29.4 pg (29.0-33.0); MEAN CORPUSCULAR HGB CONC 32.2 g/dl (32.0-37.0); MEAN CORPUSCULAR VOLUME 91.2 fl (82.0-101.0); MEAN PLATELET VOLUME 10.3 fl (7.4-10.4); MONOCYTE # 0.5 10^3/ul (0.3-0.9); MONOCYTES % 8.3 % (0.0-11.0); NEUTROPHIL # 3.1 10^3/ul (1.6-7.5); NEUTROPHILS % 56.3 % (39.0-77.0); PLATELET COUNT 258 10^3/UL (140-415); RED BLOOD COUNT 3.64 10^6/ul (4.20-5.40); RED CELL DISTRIBUTION WIDTH 15.8 % (11.5-14.5)
[2017-12-13] MEDS: D5-NS + KCL 20 MEQ 1,000 ML IV (06:30)
[2017-12-13 06:37] LABS: ANION GAP 13 (8-16); BLOOD UREA NITROGEN 11 mg/dl (7-20); CALCIUM 9.3 mg/dl (8.4-10.2); CARBON DIOXIDE 30 mmol/L (21-31); CHLORIDE 104 mmol/L (97-110); CREATININE 0.43 mg/dl (0.44-1.00); GLUCOSE 99 mg/dl (70-220); POTASSIUM 4.1 mmol/L (3.5-5.1); SODIUM 143 mmol/L (135-144)
[2017-12-13] MEDS: ENOXAPARIN 40 MG/0.4 ML SYG SC (06:37)
[2017-12-13] MEDS: BACLOFEN 10 MG TAB GTB ×2 (09:36→21:02)
[2017-12-13] MEDS: FOLIC ACID 1 MG TAB PEG (09:36)
[2017-12-13] MEDS: ZINC SULFATE 220 MG CAP GTB (09:36)
[2017-12-13] MEDS: ASCORBIC ACID 500 MG TAB GTB ×2 (09:36→21:03)
[2017-12-13] MEDS: LACOSAMIDE (100 MG/10 ML PO SYR) GTB ×2 (09:37→21:03)
[2017-12-13] MEDS: MULTIVITAMINS 30 ML CUP GTB (09:37)
[2017-12-13] MEDS: METOPROLOL 50 MG TAB GTB ×2 (09:37→21:02)
[2017-12-13] MEDS: LEVETIRACETAM 1500 MG (PMX) 100 ML IVPB ×2 (09:38→21:34)
[2017-12-14] MEDS: D5-NS + KCL 20 MEQ 1,000 ML IV ×3 (01:02→18:03)
[2017-12-14] MEDS: GENTAMICIN IVPB (04:14)
[2017-12-14] MEDS: DEXTROSE 5% IVPB (04:14)
[2017-12-14] MEDS: PANTOPRAZOLE 40 MG INJ IV (05:34)
[2017-12-14] MEDS: ENOXAPARIN 40 MG/0.4 ML SYG SC (05:53)
[2017-12-14] MEDS: LEVETIRACETAM 1500 MG (PMX) 100 ML IVPB ×2 (09:47→21:10)
[2017-12-14] MEDS: FOLIC ACID 1 MG TAB PEG (09:47)
[2017-12-14] MEDS: BACLOFEN 10 MG TAB GTB ×2 (09:47→21:09)
[2017-12-14] MEDS: MULTIVITAMINS 30 ML CUP GTB (09:47)
[2017-12-14] MEDS: METOPROLOL 50 MG TAB GTB ×2 (09:48→21:10)
[2017-12-14] MEDS: ASCORBIC ACID 500 MG TAB GTB ×2 (09:48→21:09)
[2017-12-14] MEDS: LACOSAMIDE (100 MG/10 ML PO SYR) GTB ×2 (10:00→21:34)
[2017-12-15 03:11] LABS: ADD MAN DIFF? NO
[2017-12-15 03:12] LABS: WHITE BLOOD COUNT 4.1 10^3/ul (4.8-10.8)
[2017-12-15 03:12] LABS: BASOPHILS % 0.5 % (0.0-2.0); EOSINOPHILS % 0.5 % (0.0-7.0); HEMATOCRIT 33.3 % (37.0-47.0); HEMOGLOBIN 10.7 g/dl (12.0-16.0); LYMPHOCYTES # 1.2 10^3/ul (0.8-2.9); MEAN CORPUSCULAR HEMOGLOBIN 29.2 pg (29.0-33.0); MEAN CORPUSCULAR HGB CONC 32.1 g/dl (32.0-37.0); MONOCYTE # 0.5 10^3/ul (0.3-0.9); MONOCYTES % 10.9 % (0.0-11.0); NEUTROPHIL # 2.4 10^3/ul (1.6-7.5); NEUTROPHILS % 56.9 % (39.0-77.0); PLATELET COUNT 251 10^3/UL (140-415); RED BLOOD COUNT 3.66 10^6/ul (4.20-5.40); RED CELL DISTRIBUTION WIDTH 15.9 % (11.5-14.5)
[2017-12-15 03:42] LABS: GENTAMICIN,TROUGH < 0.6 ug/ml (1.0-2.0)
[2017-12-15 03:45] LABS: ANION GAP 12 (8-16); BLOOD UREA NITROGEN 12 mg/dl (7-20); CALCIUM 9.2 mg/dl (8.4-10.2); CARBON DIOXIDE 28 mmol/L (21-31); CHLORIDE 107 mmol/L (97-110); CREATININE 0.42 mg/dl (0.44-1.00); GLUCOSE 116 mg/dl (70-220); POTASSIUM 4.4 mmol/L (3.5-5.1); SODIUM 143 mmol/L (135-144)
[2017-12-15] MEDS: GENTAMICIN IVPB (04:43)
[2017-12-15] MEDS: DEXTROSE 5% IVPB (04:43)
[2017-12-15] MEDS: PANTOPRAZOLE 40 MG INJ IV (06:43)
[2017-12-15] MEDS: ENOXAPARIN 40 MG/0.4 ML SYG SC (06:48)
[2017-12-15] MEDS: MULTIVITAMINS 30 ML CUP GTB (09:21)
[2017-12-15] MEDS: BACLOFEN 10 MG TAB GTB ×2 (09:21→21:00)
[2017-12-15] MEDS: ASCORBIC ACID 500 MG TAB GTB ×2 (09:21→21:00)
[2017-12-15] MEDS: LEVETIRACETAM 1500 MG (PMX) 100 ML IVPB ×2 (09:21→20:59)
[2017-12-15] MEDS: FOLIC ACID 1 MG TAB PEG (09:21)
[2017-12-15] MEDS: METOPROLOL 50 MG TAB GTB ×2 (09:22→21:00)
[2017-12-15] MEDS: LACOSAMIDE (100 MG/10 ML PO SYR) GTB ×2 (10:42→21:00)
[2017-12-15] MEDS: D5-NS + KCL 20 MEQ 1,000 ML IV (13:29)
[2017-12-15] MEDS: AQUAPHOR 52.5 GM OINT TOP (23:39)
[2017-12-16] MEDS: DEXTROSE 5% IVPB (04:18)
[2017-12-16] MEDS: GENTAMICIN IVPB (04:18)
[2017-12-16] MEDS: D5-NS + KCL 20 MEQ 1,000 ML IV ×2 (06:51→21:56)
[2017-12-16] MEDS: PANTOPRAZOLE 40 MG INJ IV (06:51)
[2017-12-16] MEDS: ENOXAPARIN 40 MG/0.4 ML SYG SC (06:56)
[2017-12-16] MEDS: LEVETIRACETAM 1500 MG (PMX) 100 ML IVPB ×2 (09:10→21:43)
[2017-12-16] MEDS: LACOSAMIDE (100 MG/10 ML PO SYR) GTB ×2 (09:10→21:44)
[2017-12-16] MEDS: FOLIC ACID 1 MG TAB PEG (09:10)
[2017-12-16] MEDS: BACLOFEN 10 MG TAB GTB ×2 (09:10→21:44)
[2017-12-16] MEDS: AQUAPHOR 52.5 GM OINT TOP ×2 (09:10→21:46)
[2017-12-16] MEDS: ASCORBIC ACID 500 MG TAB GTB ×2 (09:10→21:44)
[2017-12-16] MEDS: METOPROLOL 50 MG TAB GTB ×2 (09:10→21:45)
[2017-12-16] MEDS: MULTIVITAMINS 30 ML CUP GTB (09:10)
[2017-12-17] MEDS: GENTAMICIN IVPB (04:27)
[2017-12-17] MEDS: DEXTROSE 5% IVPB (04:27)
[2017-12-17] MEDS: PANTOPRAZOLE 40 MG INJ IV (06:43)
[2017-12-17] MEDS: ENOXAPARIN 40 MG/0.4 ML SYG SC (06:45)
[2017-12-17] MEDS: FOLIC ACID 1 MG TAB PEG (08:20)
[2017-12-17] MEDS: BACLOFEN 10 MG TAB GTB ×2 (08:20→21:17)
[2017-12-17] MEDS: MULTIVITAMINS 30 ML CUP GTB (08:20)
[2017-12-17] MEDS: LACOSAMIDE (100 MG/10 ML PO SYR) GTB ×2 (08:20→21:18)
[2017-12-17] MEDS: ASCORBIC ACID 500 MG TAB GTB ×2 (08:20→21:16)
[2017-12-17] MEDS: METOPROLOL 50 MG TAB GTB ×2 (08:21→21:17)
[2017-12-17] MEDS: LEVETIRACETAM 1500 MG (PMX) 100 ML IVPB ×2 (08:21→21:16)
[2017-12-17] MEDS: AQUAPHOR 52.5 GM OINT TOP ×2 (09:10→21:00)
[2017-12-17] MEDS ORDERED: ARTIFICIAL TEARS 15 ML OPH BOTH EYES (13:30)
[2017-12-17] MEDS: D5-NS + KCL 20 MEQ 1,000 ML IV ×2 (16:29→23:24)
[2017-12-17] MEDS ORDERED: DIPHENHYDRAMINE 50 MG INJ IV (19:00)
[2017-12-17] MEDS ORDERED: ONDANSETRON INJ 16 MG, DEXAMETHASONE 4 MG/ML 10 MG in SOD CHLORIDE 0.9% 50 ML IV (19:30)
[2017-12-17] MEDS ORDERED: SOD CHLORIDE 0.9% IV ×2 (20:00→23:00)
[2017-12-17] MEDS ORDERED: PACLITAXEL IV (20:00)
[2017-12-17] MEDS: SOD CHLORIDE 0.9% 1,000 ML IV (21:23)
[2017-12-17] MEDS ORDERED: CARBOPLATIN IV (23:00)
[2017-12-18] MEDS: SOD CHLORIDE 0.9% 1,000 ML IV ×2 (03:00→20:59)
[2017-12-18] MEDS: DEXTROSE 5% IVPB (04:30)
[2017-12-18] MEDS: GENTAMICIN IVPB (04:30)
[2017-12-18 05:41] LABS: ADD MAN DIFF? NO
[2017-12-18 05:50] LABS: BASOPHILS % 0.7 % (0.0-2.0); EOSINOPHILS % 0.7 % (0.0-7.0); HEMATOCRIT 33.5 % (37.0-47.0); HEMOGLOBIN 10.7 g/dl (12.0-16.0); LYMPHOCYTES # 2.1 10^3/ul (0.8-2.9); LYMPHOCYTES % 35.1 % (15.0-51.0); MEAN CORPUSCULAR HEMOGLOBIN 29.3 pg (29.0-33.0); MEAN CORPUSCULAR HGB CONC 31.9 g/dl (32.0-37.0); MEAN CORPUSCULAR VOLUME 91.8 fl (82.0-101.0); MEAN PLATELET VOLUME 10.4 fl (7.4-10.4); MONOCYTE # 0.5 10^3/ul (0.3-0.9); MONOCYTES % 8.3 % (0.0-11.0); NEUTROPHIL # 3.2 10^3/ul (1.6-7.5); NEUTROPHILS % 54.4 % (39.0-77.0); PLATELET COUNT 299 10^3/UL (140-415); RED BLOOD COUNT 3.65 10^6/ul (4.20-5.40); RED CELL DISTRIBUTION WIDTH 15.7 % (11.5-14.5)
[2017-12-18 05:50] LABS: WHITE BLOOD COUNT 5.9 10^3/ul (4.8-10.8)
[2017-12-18] MEDS: PANTOPRAZOLE 40 MG INJ IV (05:54)
[2017-12-18] MEDS: ENOXAPARIN 40 MG/0.4 ML SYG SC (05:56)
[2017-12-18 06:12] LABS: ANION GAP 11 (8-16); BLOOD UREA NITROGEN 13 mg/dl (7-20); CALCIUM 9.3 mg/dl (8.4-10.2); CARBON DIOXIDE 31 mmol/L (21-31); CHLORIDE 106 mmol/L (97-110); CREATININE 0.44 mg/dl (0.44-1.00); CREATININE 0.45 mg/dl (0.44-1.00); GLUCOSE 123 mg/dl (70-220); POTASSIUM 4.3 mmol/L (3.5-5.1); SODIUM 144 mmol/L (135-144)
[2017-12-18 06:12] LABS: BLOOD UREA NITROGEN 12 mg/dl (7-20)
[2017-12-18] MEDS: BACLOFEN 10 MG TAB GTB ×2 (10:03→20:50)
[2017-12-18] MEDS: MULTIVITAMINS 30 ML CUP GTB (10:03)
[2017-12-18] MEDS: FOLIC ACID 1 MG TAB PEG (10:03)
[2017-12-18] MEDS: METOPROLOL 50 MG TAB GTB ×2 (10:03→20:51)
[2017-12-18] MEDS: LACOSAMIDE (100 MG/10 ML PO SYR) GTB ×2 (10:03→20:51)
[2017-12-18] MEDS: ASCORBIC ACID 500 MG TAB GTB ×2 (10:04→20:50)
[2017-12-18] MEDS: AQUAPHOR 52.5 GM OINT TOP ×2 (10:04→20:51)
[2017-12-18] MEDS: LEVETIRACETAM 1500 MG (PMX) 100 ML IVPB ×2 (10:04→20:47)
[2017-12-18] MEDS: D5-NS + KCL 20 MEQ 1,000 ML IV (17:42)
[2017-12-18] MEDS: ONDANSETRON INJ 16 MG, DEXAMETHASONE 4 MG/ML 10 MG in DEXTROSE 5% 50 ML IV (21:17)
[2017-12-18] MEDS: DIPHENHYDRAMINE 50 MG INJ IV (21:17)
[2017-12-18] MEDS: SOD CHLORIDE 0.9% IV (21:48)
[2017-12-18] MEDS: CARBOPLATIN IV (21:48)
[2017-12-19] MEDS: PACLITAXEL IV (01:50)
[2017-12-19] MEDS: SOD CHLORIDE 0.9% IV (01:50)
[2017-12-19] MEDS: SOD CHLORIDE 0.9% 1,000 ML IV ×3 (02:13→23:00)
[2017-12-19] MEDS: PANTOPRAZOLE 40 MG INJ IV (06:07)
[2017-12-19] MEDS: ENOXAPARIN 40 MG/0.4 ML SYG SC (06:11)
[2017-12-19] MEDS: FOLIC ACID 1 MG TAB PEG (09:15)
[2017-12-19] MEDS: BACLOFEN 10 MG TAB GTB ×2 (09:15→21:09)
[2017-12-19] MEDS: ASCORBIC ACID 500 MG TAB GTB ×2 (09:15→21:08)
[2017-12-19] MEDS: METOPROLOL 50 MG TAB GTB ×2 (09:15→21:08)
[2017-12-19] MEDS: MULTIVITAMINS 30 ML CUP GTB (09:16)
[2017-12-19] MEDS: AQUAPHOR 52.5 GM OINT TOP ×2 (09:16→21:08)
[2017-12-19] MEDS: LACOSAMIDE (100 MG/10 ML PO SYR) GTB ×2 (09:16→21:09)
[2017-12-19] MEDS: LEVETIRACETAM 1500 MG (PMX) 100 ML IVPB ×2 (09:33→21:08)
[2017-12-19 11:10] LABS: ADD MAN DIFF? NO
[2017-12-19 11:21] LABS: BASOPHILS % 0.2 % (0.0-2.0); HEMATOCRIT 34.2 % (37.0-47.0); LYMPHOCYTES % 16.9 % (15.0-51.0); MEAN CORPUSCULAR HEMOGLOBIN 28.9 pg (29.0-33.0); MEAN CORPUSCULAR HGB CONC 32.2 g/dl (32.0-37.0); MEAN PLATELET VOLUME 10.5 fl (7.4-10.4); MONOCYTE # 0.1 10^3/ul (0.3-0.9); MONOCYTES % 1.8 % (0.0-11.0); NEUTROPHIL # 4.8 10^3/ul (1.6-7.5); NEUTROPHILS % 79.9 % (39.0-77.0); PLATELET COUNT 354 10^3/UL (140-415); RED CELL DISTRIBUTION WIDTH 15.2 % (11.5-14.5)
[2017-12-19 11:21] LABS: WHITE BLOOD COUNT 6.1 10^3/ul (4.8-10.8)
[2017-12-19 11:48] LABS: ANION GAP 13 (8-16); BLOOD UREA NITROGEN 14 mg/dl (7-20); CALCIUM 8.9 mg/dl (8.4-10.2); CARBON DIOXIDE 27 mmol/L (21-31); CHLORIDE 107 mmol/L (97-110); CREATININE 0.46 mg/dl (0.44-1.00); GLUCOSE 114 mg/dl (70-220); SODIUM 143 mmol/L (135-144)
[2017-12-19] MEDS: D5-NS + KCL 20 MEQ 1,000 ML IV (14:18)
[2017-12-19] MEDS: FILGRASTIM 300 MCG INJ SC (17:29)
[2017-12-20 05:56] LABS: ABNORMAL IP MESSAGE 1; HEMATOCRIT 34.1 % (37.0-47.0); HEMOGLOBIN 10.8 g/dl (12.0-16.0); MEAN CORPUSCULAR HEMOGLOBIN 29.1 pg (29.0-33.0); MEAN CORPUSCULAR HGB CONC 31.7 g/dl (32.0-37.0); MEAN CORPUSCULAR VOLUME 91.9 fl (82.0-101.0); MEAN PLATELET VOLUME 10.9 fl (7.4-10.4); PLATELET COUNT 341 10^3/UL (140-415); RED BLOOD COUNT 3.71 10^6/ul (4.20-5.40); RED CELL DISTRIBUTION WIDTH 15.8 % (11.5-14.5)
[2017-12-20 05:56] LABS: WHITE BLOOD COUNT 27.1 10^3/ul (4.8-10.8)
[2017-12-20 06:15] LABS: ADD MAN DIFF? YES; POSITIVE DIFF @See below
[2017-12-20 06:23] LABS: ANION GAP 14 (8-16); BLOOD UREA NITROGEN 14 mg/dl (7-20); CARBON DIOXIDE 28 mmol/L (21-31); CHLORIDE 105 mmol/L (97-110); GLUCOSE 96 mg/dl (70-220); POTASSIUM 3.7 mmol/L (3.5-5.1); SODIUM 143 mmol/L (135-144)
[2017-12-20] MEDS: PANTOPRAZOLE 40 MG INJ IV (06:32)
[2017-12-20] MEDS: ENOXAPARIN 40 MG/0.4 ML SYG SC (06:37)
[2017-12-20] MEDS: LEVETIRACETAM 1500 MG (PMX) 100 ML IVPB ×2 (08:41→20:36)
[2017-12-20] MEDS: D5-NS + KCL 20 MEQ 1,000 ML IV ×2 (08:41→21:12)
[2017-12-20] MEDS: METOPROLOL 50 MG TAB GTB ×2 (08:42→20:34)
[2017-12-20] MEDS: MULTIVITAMINS 30 ML CUP GTB (08:42)
[2017-12-20] MEDS: AQUAPHOR 52.5 GM OINT TOP ×2 (08:42→20:32)
[2017-12-20] MEDS: ASCORBIC ACID 500 MG TAB GTB ×2 (08:42→20:33)
[2017-12-20] MEDS: FOLIC ACID 1 MG TAB PEG (08:42)
[2017-12-20] MEDS: BACLOFEN 10 MG TAB GTB ×2 (08:42→20:32)
[2017-12-20] MEDS: SOD CHLORIDE 0.9% 1,000 ML IV ×3 (08:43→21:15)
[2017-12-20] MEDS: LACOSAMIDE (100 MG/10 ML PO SYR) GTB ×3 (09:00→20:33)
[2017-12-20 13:45] LABS: ANISOCYTOSIS 1+ (0-0); BAND NEUTROPHILS #M 3.2 10^3/ul (0.0-0.6); BAND NEUTROPHILS % (M) 12 % (0-4); ERYTHROBLAST% (NRBC) (M) 1 % (0-0); LYMPHOCYTES #M 4.6 10^3/ul (0.8-2.9); LYMPHOCYTES % (M) 17 % (15-51); METAMYELOCYTES #M 0.2 10^3/ul (0.0-0.0); METAMYELOCYTES %M 1 % (0-0); MICROCYTOSIS 1+ (0-0); MONOCYTE #M 0.8 10^3/ul (0.3-0.9); MONOCYTES % (M) 3 % (0-11); MYELOCYTES #M 0.2 10^3/ul (0.0-0.0); MYELOCYTES % (M) 1 % (0-0); PLATELET ESTIMATE NORMAL; POIKILOCYTOSIS 2+ (0-0); SEG NEUT #M 18.8 10^3/ul (1.6-7.5); SEGMENTED NEUTROPHILS (M) % 66 % (39-77); SMUDGE%M 5 % (0-0); TOXIC GRANULATION 1+ (0-0)
[2017-12-21 05:06] LABS: ADD MAN DIFF? NO
[2017-12-21 05:10] LABS: BASOPHIL # 0.1 10^3/ul (0.0-0.1); BASOPHILS % 0.3 % (0.0-2.0); EOSINOPHILS # 0.1 10^3/ul (0.0-0.5); EOSINOPHILS % 0.3 % (0.0-7.0); HEMATOCRIT 32.1 % (37.0-47.0); HEMOGLOBIN 10.4 g/dl (12.0-16.0); LYMPHOCYTES # 2.2 10^3/ul (0.8-2.9); MEAN CORPUSCULAR HEMOGLOBIN 29.5 pg (29.0-33.0); MEAN CORPUSCULAR HGB CONC 32.4 g/dl (32.0-37.0); MEAN CORPUSCULAR VOLUME 91.2 fl (82.0-101.0); MEAN PLATELET VOLUME 10.8 fl (7.4-10.4); MONOCYTE # 0.4 10^3/ul (0.3-0.9); MONOCYTES % 1.8 % (0.0-11.0); NEUTROPHIL # 18.8 10^3/ul (1.6-7.5); NEUTROPHILS % 86.7 % (39.0-77.0); PLATELET COUNT 430 10^3/UL (140-415); RED BLOOD COUNT 3.52 10^6/ul (4.20-5.40); RED CELL DISTRIBUTION WIDTH 15.9 % (11.5-14.5)
[2017-12-21 05:10] LABS: WHITE BLOOD COUNT 21.6 10^3/ul (4.8-10.8)
[2017-12-21 05:36] LABS: ANION GAP 12 (8-16); BLOOD UREA NITROGEN 15 mg/dl (7-20); CALCIUM 9.3 mg/dl (8.4-10.2); CARBON DIOXIDE 29 mmol/L (21-31); CHLORIDE 104 mmol/L (97-110); CREATININE 0.49 mg/dl (0.44-1.00); GLUCOSE 110 mg/dl (70-220); POTASSIUM 4.3 mmol/L (3.5-5.1); SODIUM 141 mmol/L (135-144)
[2017-12-21] MEDS: PANTOPRAZOLE 40 MG INJ IV (06:03)
[2017-12-21] MEDS: D5-NS + KCL 20 MEQ 1,000 ML IV ×3 (06:07→21:04)
[2017-12-21] MEDS: ENOXAPARIN 40 MG/0.4 ML SYG SC (06:36)
[2017-12-21] MEDS: BACLOFEN 10 MG TAB GTB ×3 (08:56→22:55)
[2017-12-21] MEDS: MULTIVITAMINS 30 ML CUP GTB (08:56)
[2017-12-21] MEDS: FOLIC ACID 1 MG TAB PEG (08:56)
[2017-12-21] MEDS: ASCORBIC ACID 500 MG TAB GTB ×2 (08:56→21:01)
[2017-12-21] MEDS: LEVETIRACETAM 1500 MG (PMX) 100 ML IVPB ×2 (08:56→21:13)
[2017-12-21] MEDS: METOPROLOL 50 MG TAB GTB ×2 (08:57→20:59)
[2017-12-21] MEDS: AQUAPHOR 52.5 GM OINT TOP ×2 (08:57→22:56)
[2017-12-21] MEDS: LACOSAMIDE (100 MG/10 ML PO SYR) GTB ×2 (10:39→21:03)
[2017-12-21] MEDS: SOD CHLORIDE 0.9% 1,000 ML IV (15:00)
[2017-12-22] MEDS: SOD CHLORIDE 0.9% 1,000 ML IV ×3 (01:00→21:00)
[2017-12-22] MEDS: PANTOPRAZOLE 40 MG INJ IV (05:42)
[2017-12-22] MEDS: ENOXAPARIN 40 MG/0.4 ML SYG SC (06:30)
[2017-12-22] MEDS: METOPROLOL 50 MG TAB GTB ×2 (09:41→21:38)
[2017-12-22] MEDS: ASCORBIC ACID 500 MG TAB GTB ×2 (09:41→21:37)
[2017-12-22] MEDS: FOLIC ACID 1 MG TAB PEG (09:41)
[2017-12-22] MEDS: BACLOFEN 10 MG TAB GTB ×2 (09:42→21:38)
[2017-12-22] MEDS: LEVETIRACETAM 1500 MG (PMX) 100 ML IVPB ×2 (09:42→21:35)
[2017-12-22] MEDS: MULTIVITAMINS 30 ML CUP GTB (09:42)
[2017-12-22] MEDS: AQUAPHOR 52.5 GM OINT TOP ×2 (09:43→21:40)
[2017-12-22] MEDS: LACOSAMIDE (100 MG/10 ML PO SYR) GTB ×2 (11:19→21:37)
[2017-12-22] MEDS: ONDANSETRON 4 MG INJ IV (11:28)
[2017-12-22] MEDS: METOCLOPRAMIDE 10 MG INJ IV (14:08)
[2017-12-22] MEDS: D5-NS + KCL 20 MEQ 1,000 ML IV (15:31)
[2017-12-23] MEDS: PANTOPRAZOLE 40 MG INJ IV (05:57)
[2017-12-23] MEDS: ENOXAPARIN 40 MG/0.4 ML SYG SC (06:29)
[2017-12-23] MEDS: SOD CHLORIDE 0.9% 1,000 ML IV ×2 (07:00→17:00)
[2017-12-23] MEDS: MULTIVITAMINS 30 ML CUP GTB (09:28)
[2017-12-23] MEDS: METOPROLOL 50 MG TAB GTB ×2 (09:29→21:12)
[2017-12-23] MEDS: BACLOFEN 10 MG TAB GTB ×2 (09:29→21:12)
[2017-12-23] MEDS: FOLIC ACID 1 MG TAB PEG (09:29)
[2017-12-23] MEDS: ASCORBIC ACID 500 MG TAB GTB ×2 (09:29→21:12)
[2017-12-23] MEDS: LEVETIRACETAM 1500 MG (PMX) 100 ML IVPB ×2 (09:31→21:13)
[2017-12-23] MEDS: AQUAPHOR 52.5 GM OINT TOP ×2 (09:33→21:14)
[2017-12-23] MEDS: LACOSAMIDE (100 MG/10 ML PO SYR) GTB ×2 (09:33→21:12)
[2017-12-23] MEDS: D5-NS + KCL 20 MEQ 1,000 ML IV (17:15)
[2017-12-24] MEDS: D5-NS + KCL 20 MEQ 1,000 ML IV ×2 (01:52→18:08)
[2017-12-24] MEDS: SOD CHLORIDE 0.9% 1,000 ML IV ×3 (03:00→23:00)
[2017-12-24] MEDS: PANTOPRAZOLE 40 MG INJ IV (05:58)
[2017-12-24] MEDS: ENOXAPARIN 40 MG/0.4 ML SYG SC (05:59)
[2017-12-24] MEDS: LEVETIRACETAM 1500 MG (PMX) 100 ML IVPB ×2 (09:30→21:36)
[2017-12-24] MEDS: LACOSAMIDE (100 MG/10 ML PO SYR) GTB ×2 (09:30→21:37)
[2017-12-24] MEDS: MULTIVITAMINS 30 ML CUP GTB (09:31)
[2017-12-24] MEDS: ASCORBIC ACID 500 MG TAB GTB ×2 (09:31→21:36)
[2017-12-24] MEDS: FOLIC ACID 1 MG TAB PEG (09:31)
[2017-12-24] MEDS: BACLOFEN 10 MG TAB GTB ×2 (09:31→21:36)
[2017-12-24] MEDS: METOPROLOL 50 MG TAB GTB ×2 (09:32→21:36)
[2017-12-24] MEDS: AQUAPHOR 52.5 GM OINT TOP ×2 (09:34→21:37)
[2017-12-25] MEDS: ACETAMINOPHEN 325 MG TAB PO (04:40)
[2017-12-25 05:17] LABS: ADD MAN DIFF? NO
[2017-12-25 05:28] LABS: WHITE BLOOD COUNT 3.5 10^3/ul (4.8-10.8)
[2017-12-25 05:29] LABS: BASOPHILS % 1.2 % (0.0-2.0); EOSINOPHILS # 0.1 10^3/ul (0.0-0.5); HEMATOCRIT 31.5 % (37.0-47.0); LYMPHOCYTES # 1.6 10^3/ul (0.8-2.9); LYMPHOCYTES % 46.4 % (15.0-51.0); MEAN CORPUSCULAR HEMOGLOBIN 28.6 pg (29.0-33.0); MEAN CORPUSCULAR HGB CONC 31.7 g/dl (32.0-37.0); MEAN PLATELET VOLUME 10.7 fl (7.4-10.4); MONOCYTE # 0.2 10^3/ul (0.3-0.9); MONOCYTES % 4.9 % (0.0-11.0); NEUTROPHIL # 1.6 10^3/ul (1.6-7.5); NEUTROPHILS % 44.6 % (39.0-77.0); PLATELET COUNT 382 10^3/UL (140-415); RED CELL DISTRIBUTION WIDTH 15.1 % (11.5-14.5)
[2017-12-25 05:45] LABS: ANION GAP 12 (8-16); BLOOD UREA NITROGEN 11 mg/dl (7-20); CALCIUM 9.3 mg/dl (8.4-10.2); CARBON DIOXIDE 30 mmol/L (21-31); CHLORIDE 105 mmol/L (97-110); CREATININE 0.38 mg/dl (0.44-1.00); GLUCOSE 116 mg/dl (70-220); POTASSIUM 4.4 mmol/L (3.5-5.1); SODIUM 143 mmol/L (135-144)
[2017-12-25] MEDS: PANTOPRAZOLE 40 MG INJ IV (07:07)
[2017-12-25] MEDS: ENOXAPARIN 40 MG/0.4 ML SYG SC (07:10)
[2017-12-25] MEDS: MULTIVITAMINS 30 ML CUP GTB (08:55)
[2017-12-25] MEDS: ASCORBIC ACID 500 MG TAB GTB ×2 (08:56→20:26)
[2017-12-25] MEDS: LACOSAMIDE (100 MG/10 ML PO SYR) GTB ×2 (08:56→20:27)
[2017-12-25] MEDS: BACLOFEN 10 MG TAB GTB ×2 (08:56→20:26)
[2017-12-25] MEDS: LEVETIRACETAM 1500 MG (PMX) 100 ML IVPB ×2 (08:56→20:27)
[2017-12-25] MEDS: FOLIC ACID 1 MG TAB PEG (08:56)
[2017-12-25] MEDS: METOPROLOL 50 MG TAB GTB ×2 (09:00→20:27)
[2017-12-25] MEDS: SOD CHLORIDE 0.9% 1,000 ML IV ×2 (09:00→19:00)
[2017-12-25] MEDS: AQUAPHOR 52.5 GM OINT TOP ×2 (14:44→20:28)
[2017-12-25] MEDS: D5-NS + KCL 20 MEQ 1,000 ML IV (14:44)
[2017-12-26] MEDS: D5-NS + KCL 20 MEQ 1,000 ML IV ×2 (04:11→23:12)
[2017-12-26] MEDS: SOD CHLORIDE 0.9% 1,000 ML IV ×2 (05:00→15:00)
[2017-12-26] MEDS: PANTOPRAZOLE 40 MG INJ IV (05:37)
[2017-12-26] MEDS: ENOXAPARIN 40 MG/0.4 ML SYG SC (06:39)
[2017-12-26] MEDS: MULTIVITAMINS 30 ML CUP GTB (08:36)
[2017-12-26] MEDS: BACLOFEN 10 MG TAB GTB ×2 (08:36→21:55)
[2017-12-26] MEDS: FOLIC ACID 1 MG TAB PEG (08:36)
[2017-12-26] MEDS: ASCORBIC ACID 500 MG TAB GTB ×2 (08:36→21:54)
[2017-12-26] MEDS: LACOSAMIDE (100 MG/10 ML PO SYR) GTB ×2 (08:37→21:55)
[2017-12-26] MEDS: METOPROLOL 50 MG TAB GTB ×2 (08:37→21:54)
[2017-12-26] MEDS: LEVETIRACETAM 1500 MG (PMX) 100 ML IVPB ×2 (08:38→21:54)
[2017-12-26] MEDS: AQUAPHOR 52.5 GM OINT TOP ×2 (08:39→21:55)
[2017-12-27] MEDS: SOD CHLORIDE 0.9% 1,000 ML IV ×3 (00:10→21:00)
[2017-12-27 05:15] LABS: ADD MAN DIFF? NO
[2017-12-27 05:16] LABS: BASOPHILS % 0.3 % (0.0-2.0); EOSINOPHILS % 1.1 % (0.0-7.0); HEMATOCRIT 32.7 % (37.0-47.0); HEMOGLOBIN 10.6 g/dl (12.0-16.0); LYMPHOCYTES # 1.1 10^3/ul (0.8-2.9); LYMPHOCYTES % 30.3 % (15.0-51.0); MEAN CORPUSCULAR HEMOGLOBIN 28.6 pg (29.0-33.0); MEAN CORPUSCULAR HGB CONC 32.4 g/dl (32.0-37.0); MEAN CORPUSCULAR VOLUME 88.4 fl (82.0-101.0); MEAN PLATELET VOLUME 10.3 fl (7.4-10.4); MONOCYTE # 0.2 10^3/ul (0.3-0.9); MONOCYTES % 4.5 % (0.0-11.0); NEUTROPHIL # 2.3 10^3/ul (1.6-7.5); NEUTROPHILS % 63.5 % (39.0-77.0); PLATELET COUNT 406 10^3/UL (140-415); RED CELL DISTRIBUTION WIDTH 15.1 % (11.5-14.5)
[2017-12-27 05:16] LABS: WHITE BLOOD COUNT 3.6 10^3/ul (4.8-10.8)
[2017-12-27 05:47] LABS: ANION GAP 13 (8-16); BLOOD UREA NITROGEN 10 mg/dl (7-20); CALCIUM 9.5 mg/dl (8.4-10.2); CARBON DIOXIDE 28 mmol/L (21-31); CHLORIDE 103 mmol/L (97-110); CREATININE 0.38 mg/dl (0.44-1.00); GLUCOSE 112 mg/dl (70-220); POTASSIUM 4.2 mmol/L (3.5-5.1); SODIUM 140 mmol/L (135-144)
[2017-12-27] MEDS: PANTOPRAZOLE 40 MG INJ IV (06:30)
[2017-12-27] MEDS: ENOXAPARIN 40 MG/0.4 ML SYG SC (06:36)
[2017-12-27] MEDS: METOPROLOL 50 MG TAB GTB ×2 (10:00→21:08)
[2017-12-27] MEDS: LACOSAMIDE (100 MG/10 ML PO SYR) GTB ×2 (10:01→21:08)
[2017-12-27] MEDS: MULTIVITAMINS 30 ML CUP GTB (10:01)
[2017-12-27] MEDS: BACLOFEN 10 MG TAB GTB ×2 (10:01→21:08)
[2017-12-27] MEDS: ASCORBIC ACID 500 MG TAB GTB ×2 (10:01→21:08)
[2017-12-27] MEDS: LEVETIRACETAM 1500 MG (PMX) 100 ML IVPB ×2 (10:01→21:08)
[2017-12-27] MEDS: FOLIC ACID 1 MG TAB PEG (10:01)
[2017-12-27] MEDS: AQUAPHOR 52.5 GM OINT TOP ×2 (10:02→21:09)
[2017-12-27] MEDS: D5-NS + KCL 20 MEQ 1,000 ML IV (18:39)
[2017-12-28] MEDS: PANTOPRAZOLE 40 MG INJ IV (06:58)
[2017-12-28] MEDS: ENOXAPARIN 40 MG/0.4 ML SYG SC (07:08)
[2017-12-28] MEDS: LACOSAMIDE (100 MG/10 ML PO SYR) GTB ×2 (09:31→20:51)
[2017-12-28] MEDS: LEVETIRACETAM 1500 MG (PMX) 100 ML IVPB ×2 (09:31→20:51)
[2017-12-28] MEDS: FOLIC ACID 1 MG TAB PEG (09:32)
[2017-12-28] MEDS: MULTIVITAMINS 30 ML CUP GTB (09:32)
[2017-12-28] MEDS: ASCORBIC ACID 500 MG TAB GTB ×2 (09:32→20:51)
[2017-12-28] MEDS: METOPROLOL 50 MG TAB GTB ×2 (09:32→20:52)
[2017-12-28] MEDS: BACLOFEN 10 MG TAB GTB ×2 (09:46→20:51)
[2017-12-28] MEDS: AQUAPHOR 52.5 GM OINT TOP ×2 (09:46→20:53)
[2017-12-28] MEDS: D5-NS + KCL 20 MEQ 1,000 ML IV (11:34)
[2017-12-28] MEDS: SOD CHLORIDE 0.9% 1,000 ML IV ×2 (19:00)
[2017-12-29] MEDS: SOD CHLORIDE 0.9% 1,000 ML IV ×3 (03:00→22:06)
[2017-12-29] MEDS: D5-NS + KCL 20 MEQ 1,000 ML IV ×2 (05:18→21:11)
[2017-12-29] MEDS: PANTOPRAZOLE 40 MG INJ IV (05:18)
[2017-12-29] MEDS: ENOXAPARIN 40 MG/0.4 ML SYG SC (06:30)
[2017-12-29] MEDS: FOLIC ACID 1 MG TAB PEG (08:57)
[2017-12-29] MEDS: MULTIVITAMINS 30 ML CUP GTB (08:57)
[2017-12-29] MEDS: ASCORBIC ACID 500 MG TAB GTB ×2 (08:57→21:12)
[2017-12-29] MEDS: BACLOFEN 10 MG TAB GTB ×2 (08:57→21:12)
[2017-12-29] MEDS: LEVETIRACETAM 1500 MG (PMX) 100 ML IVPB ×2 (08:57→21:10)
[2017-12-29] MEDS: METOPROLOL 50 MG TAB GTB ×2 (08:58→21:22)
[2017-12-29] MEDS: LACOSAMIDE (100 MG/10 ML PO SYR) GTB ×2 (08:58→21:12)
[2017-12-29] MEDS: AQUAPHOR 52.5 GM OINT TOP ×2 (09:00→21:23)
[2017-12-30] MEDS: ENOXAPARIN 40 MG/0.4 ML SYG SC (06:05)
[2017-12-30] MEDS: PANTOPRAZOLE 40 MG INJ IV (06:05)
[2017-12-30] MEDS: MULTIVITAMINS 30 ML CUP GTB (08:20)
[2017-12-30] MEDS: ASCORBIC ACID 500 MG TAB GTB ×2 (08:21→21:50)
[2017-12-30] MEDS: LEVETIRACETAM 1500 MG (PMX) 100 ML IVPB ×2 (08:21→20:54)
[2017-12-30] MEDS: FOLIC ACID 1 MG TAB PEG (08:21)
[2017-12-30] MEDS: BACLOFEN 10 MG TAB GTB ×2 (08:21→21:50)
[2017-12-30] MEDS: METOPROLOL 50 MG TAB GTB ×2 (08:21→20:53)
[2017-12-30] MEDS: LACOSAMIDE (100 MG/10 ML PO SYR) GTB ×2 (08:21→20:52)
[2017-12-30] MEDS: SOD CHLORIDE 0.9% 1,000 ML IV ×2 (08:22→19:00)
[2017-12-30] MEDS: AQUAPHOR 52.5 GM OINT TOP ×3 (09:00→20:53)
[2017-12-30] MEDS: D5-NS + KCL 20 MEQ 1,000 ML IV (13:57)
[2017-12-31] MEDS: SOD CHLORIDE 0.9% 1,000 ML IV ×2 (05:00→21:41)
[2017-12-31] MEDS: PANTOPRAZOLE 40 MG INJ IV (06:11)
[2017-12-31] MEDS: ENOXAPARIN 40 MG/0.4 ML SYG SC (06:21)
[2017-12-31] MEDS: D5-NS + KCL 20 MEQ 1,000 ML IV ×2 (06:24→21:57)
[2017-12-31] MEDS: FOLIC ACID 1 MG TAB PEG (09:21)
[2017-12-31] MEDS: BACLOFEN 10 MG TAB GTB ×2 (09:21→21:39)
[2017-12-31] MEDS: ASCORBIC ACID 500 MG TAB GTB ×2 (09:21→21:39)
[2017-12-31] MEDS: LEVETIRACETAM 1500 MG (PMX) 100 ML IVPB ×2 (09:25→21:39)
[2017-12-31] MEDS: METOPROLOL 50 MG TAB GTB ×2 (09:25→21:40)
[2017-12-31] MEDS: LACOSAMIDE (100 MG/10 ML PO SYR) GTB ×2 (09:26→21:39)
[2017-12-31] MEDS: MULTIVITAMINS 30 ML CUP GTB (09:26)
[2017-12-31] MEDS: AQUAPHOR 52.5 GM OINT TOP ×2 (09:27→21:44)
[2018-01-01] MEDS: SOD CHLORIDE 0.9% 1,000 ML IV ×3 (01:00→21:00)
[2018-01-01] MEDS: PANTOPRAZOLE 40 MG INJ IV (06:10)
[2018-01-01] MEDS: ENOXAPARIN 40 MG/0.4 ML SYG SC (06:12)
[2018-01-01] MEDS: FOLIC ACID 1 MG TAB PEG (09:08)
[2018-01-01] MEDS: ASCORBIC ACID 500 MG TAB GTB ×2 (09:08→21:03)
[2018-01-01] MEDS: METOPROLOL 50 MG TAB GTB ×2 (09:08→21:03)
[2018-01-01] MEDS: BACLOFEN 10 MG TAB GTB ×2 (09:08→21:03)
[2018-01-01] MEDS: MULTIVITAMINS 30 ML CUP GTB (09:09)
[2018-01-01] MEDS: LEVETIRACETAM 1500 MG (PMX) 100 ML IVPB ×2 (09:10→21:01)
[2018-01-01] MEDS: LACOSAMIDE (100 MG/10 ML PO SYR) GTB ×2 (09:10→21:01)
[2018-01-01] MEDS: AQUAPHOR 52.5 GM OINT TOP ×2 (09:17→21:04)
[2018-01-01] MEDS: D5-NS + KCL 20 MEQ 1,000 ML IV (12:59)
[2018-01-02] MEDS: D5-NS + KCL 20 MEQ 1,000 ML IV ×2 (05:02→21:58)
[2018-01-02] MEDS: PANTOPRAZOLE 40 MG INJ IV (05:59)
[2018-01-02] MEDS: ENOXAPARIN 40 MG/0.4 ML SYG SC (06:01)
[2018-01-02 06:18] LABS: ADD MAN DIFF? NO
[2018-01-02 06:31] LABS: ABNORMAL IP MESSAGE 1; HEMATOCRIT 34.8 % (37.0-47.0); HEMOGLOBIN 11.1 g/dl (12.0-16.0); LYMPHOCYTES # 1.9 10^3/ul (0.8-2.9); LYMPHOCYTES % 63.3 % (15.0-51.0); MEAN CORPUSCULAR HEMOGLOBIN 29.1 pg (29.0-33.0); MEAN CORPUSCULAR HGB CONC 31.9 g/dl (32.0-37.0); MEAN CORPUSCULAR VOLUME 91.1 fl (82.0-101.0); MEAN PLATELET VOLUME 10.2 fl (7.4-10.4); MONOCYTE # 0.4 10^3/ul (0.3-0.9); MONOCYTES % 13.1 % (0.0-11.0); NEUTROPHIL # 0.7 10^3/ul (1.6-7.5); NEUTROPHILS % 22.3 % (39.0-77.0); PLATELET COUNT 208 10^3/UL (140-415); RED BLOOD COUNT 3.82 10^6/ul (4.20-5.40); RED CELL DISTRIBUTION WIDTH 16.2 % (11.5-14.5)
[2018-01-02 06:47] LABS: POSITIVE DIFF @See below
[2018-01-02] MEDS: SOD CHLORIDE 0.9% 1,000 ML IV ×2 (07:00→17:00)
[2018-01-02 09:10] LABS: ANION GAP 14 (8-16); BLOOD UREA NITROGEN 10 mg/dl (7-20); CALCIUM 9.9 mg/dl (8.4-10.2); CARBON DIOXIDE 28 mmol/L (21-31); CHLORIDE 104 mmol/L (97-110); CREATININE 0.41 mg/dl (0.44-1.00); GLUCOSE 108 mg/dl (70-220); POTASSIUM 4.4 mmol/L (3.5-5.1); SODIUM 142 mmol/L (135-144)
[2018-01-02] MEDS: BACLOFEN 10 MG TAB GTB ×2 (09:16→20:14)
[2018-01-02] MEDS: METOPROLOL 50 MG TAB GTB ×2 (09:16→20:15)
[2018-01-02] MEDS: ASCORBIC ACID 500 MG TAB GTB ×2 (09:16→20:14)
[2018-01-02] MEDS: LEVETIRACETAM 1500 MG (PMX) 100 ML IVPB ×2 (09:16→21:58)
[2018-01-02] MEDS: MULTIVITAMINS 30 ML CUP GTB (09:17)
[2018-01-02] MEDS: LACOSAMIDE (100 MG/10 ML PO SYR) GTB ×2 (09:17→20:14)
[2018-01-02] MEDS: FOLIC ACID 1 MG TAB PEG (09:17)
[2018-01-02] MEDS: AQUAPHOR 52.5 GM OINT TOP ×2 (15:39→20:15)
[2018-01-03] MEDS: SOD CHLORIDE 0.9% 1,000 ML IV ×3 (03:00→23:00)
[2018-01-03] MEDS: PANTOPRAZOLE 40 MG INJ IV (05:49)
[2018-01-03] MEDS: ENOXAPARIN 40 MG/0.4 ML SYG SC (06:08)
[2018-01-03] MEDS: FOLIC ACID 1 MG TAB PEG (09:53)
[2018-01-03] MEDS: BACLOFEN 10 MG TAB GTB ×2 (09:53→21:23)
[2018-01-03] MEDS: MULTIVITAMINS 30 ML CUP GTB (09:53)
[2018-01-03] MEDS: ASCORBIC ACID 500 MG TAB GTB ×2 (09:53→21:22)
[2018-01-03] MEDS: LEVETIRACETAM 1500 MG (PMX) 100 ML IVPB ×2 (09:53→21:22)
[2018-01-03] MEDS: LACOSAMIDE (100 MG/10 ML PO SYR) GTB ×2 (09:53→21:23)
[2018-01-03] MEDS: METOPROLOL 50 MG TAB GTB ×2 (09:54→21:23)
[2018-01-03] MEDS: AQUAPHOR 52.5 GM OINT TOP ×2 (09:55→21:24)
[2018-01-03] MEDS: D5-NS + KCL 20 MEQ 1,000 ML IV (18:34)
[2018-01-04] MEDS: PANTOPRAZOLE 40 MG INJ IV (06:19)
[2018-01-04] MEDS: ENOXAPARIN 40 MG/0.4 ML SYG SC (06:19)
[2018-01-04] MEDS: ASCORBIC ACID 500 MG TAB GTB ×2 (08:49→21:24)
[2018-01-04] MEDS: LEVETIRACETAM 1500 MG (PMX) 100 ML IVPB ×2 (08:49→21:25)
[2018-01-04] MEDS: MULTIVITAMINS 30 ML CUP GTB (08:49)
[2018-01-04] MEDS: FOLIC ACID 1 MG TAB PEG (08:50)
[2018-01-04] MEDS: LACOSAMIDE (100 MG/10 ML PO SYR) GTB ×2 (08:50→21:26)
[2018-01-04] MEDS: BACLOFEN 10 MG TAB GTB ×2 (08:50→21:24)
[2018-01-04] MEDS: METOPROLOL 50 MG TAB GTB ×2 (08:51→21:24)
[2018-01-04] MEDS: AQUAPHOR 52.5 GM OINT TOP ×2 (08:51→21:25)
[2018-01-04] MEDS: SOD CHLORIDE 0.9% 1,000 ML IV ×2 (09:00→19:00)
[2018-01-04] MEDS: D5-NS + KCL 20 MEQ 1,000 ML IV (12:36)
[2018-01-04] MEDS: LIDOCAINE 1% (MPF) 5 ML VIAL SC (15:00)
[2018-01-04] MEDS: LIDOCAINE 1% (MDV) 20 ML INJ SC (19:45)
[2018-01-05] MEDS: SOD CHLORIDE 0.9% 1,000 ML IV ×2 (05:00→15:00)
[2018-01-05] MEDS: PANTOPRAZOLE 40 MG INJ IV (06:06)
[2018-01-05] MEDS: ENOXAPARIN 40 MG/0.4 ML SYG SC (06:09)
[2018-01-05] MEDS: BACLOFEN 10 MG TAB GTB ×2 (08:48→20:43)
[2018-01-05] MEDS: ASCORBIC ACID 500 MG TAB GTB ×2 (08:48→20:43)
[2018-01-05] MEDS: FOLIC ACID 1 MG TAB PEG (08:48)
[2018-01-05] MEDS: LACOSAMIDE (100 MG/10 ML PO SYR) GTB ×2 (08:48→20:42)
[2018-01-05] MEDS: MULTIVITAMINS 30 ML CUP GTB (08:49)
[2018-01-05] MEDS: LEVETIRACETAM 1500 MG (PMX) 100 ML IVPB ×2 (08:49→20:42)
[2018-01-05] MEDS: METOPROLOL 50 MG TAB GTB ×2 (08:49→20:43)
[2018-01-05] MEDS: AQUAPHOR 52.5 GM OINT TOP ×2 (08:51→20:45)
[2018-01-06] MEDS: SOD CHLORIDE 0.9% 1,000 ML IV ×3 (01:00→21:00)
[2018-01-06 05:04] LABS: ADD MAN DIFF? NO
[2018-01-06 05:07] LABS: BASOPHILS % 0.2 % (0.0-2.0); EOSINOPHILS % 0.2 % (0.0-7.0); HEMATOCRIT 35.2 % (37.0-47.0); HEMOGLOBIN 11.4 g/dl (12.0-16.0); LYMPHOCYTES # 2.3 10^3/ul (0.8-2.9); LYMPHOCYTES % 48.8 % (15.0-51.0); MEAN CORPUSCULAR HGB CONC 32.4 g/dl (32.0-37.0); MEAN CORPUSCULAR VOLUME 89.6 fl (82.0-101.0); MEAN PLATELET VOLUME 9.7 fl (7.4-10.4); MONOCYTE # 0.6 10^3/ul (0.3-0.9); MONOCYTES % 11.7 % (0.0-11.0); NEUTROPHIL # 1.8 10^3/ul (1.6-7.5); NEUTROPHILS % 37.6 % (39.0-77.0); PLATELET COUNT 169 10^3/UL (140-415); RED BLOOD COUNT 3.93 10^6/ul (4.20-5.40); RED CELL DISTRIBUTION WIDTH 16.6 % (11.5-14.5)
[2018-01-06 05:07] LABS: WHITE BLOOD COUNT 4.7 10^3/ul (4.8-10.8)
[2018-01-06 05:28] LABS: ANION GAP 13 (8-16); BLOOD UREA NITROGEN 15 mg/dl (7-20); CALCIUM 9.9 mg/dl (8.4-10.2); CARBON DIOXIDE 29 mmol/L (21-31); CHLORIDE 103 mmol/L (97-110); CREATININE 0.44 mg/dl (0.44-1.00); GLUCOSE 111 mg/dl (70-220); POTASSIUM 4.2 mmol/L (3.5-5.1); SODIUM 141 mmol/L (135-144)
[2018-01-06] MEDS: PANTOPRAZOLE 40 MG INJ IV (06:09)
[2018-01-06] MEDS: ENOXAPARIN 40 MG/0.4 ML SYG SC (06:17)
[2018-01-06] MEDS: LACOSAMIDE (100 MG/10 ML PO SYR) GTB ×2 (08:57→22:34)
[2018-01-06] MEDS: BACLOFEN 10 MG TAB GTB ×2 (08:57→22:17)
[2018-01-06] MEDS: ASCORBIC ACID 500 MG TAB GTB ×2 (08:57→22:17)
[2018-01-06] MEDS: MULTIVITAMINS 30 ML CUP GTB (08:57)
[2018-01-06] MEDS: FOLIC ACID 1 MG TAB PEG (08:57)
[2018-01-06] MEDS: METOPROLOL 50 MG TAB GTB ×2 (08:58→22:19)
[2018-01-06] MEDS: AQUAPHOR 52.5 GM OINT TOP ×2 (08:58→22:27)
[2018-01-06] MEDS: LEVETIRACETAM 1500 MG (PMX) 100 ML IVPB ×2 (09:11→22:20)
[2018-01-07] MEDS: SOD CHLORIDE 0.9% 1,000 ML IV ×2 (05:35→17:00)
[2018-01-07] MEDS: PANTOPRAZOLE 40 MG INJ IV (05:47)
[2018-01-07] MEDS: ENOXAPARIN 40 MG/0.4 ML SYG SC (06:01)
[2018-01-07] MEDS: ASCORBIC ACID 500 MG TAB GTB ×2 (09:12→22:26)
[2018-01-07] MEDS: FOLIC ACID 1 MG TAB PEG (09:12)
[2018-01-07] MEDS: METOPROLOL 50 MG TAB GTB ×2 (09:13→22:26)
[2018-01-07] MEDS: BACLOFEN 10 MG TAB GTB ×2 (09:13→22:26)
[2018-01-07] MEDS: MULTIVITAMINS 30 ML CUP GTB (09:14)
[2018-01-07] MEDS: LEVETIRACETAM 1500 MG (PMX) 100 ML IVPB ×2 (09:14→22:25)
[2018-01-07] MEDS: LACOSAMIDE (100 MG/10 ML PO SYR) GTB ×2 (09:15→22:25)
[2018-01-07] MEDS: AQUAPHOR 52.5 GM OINT TOP ×2 (09:16→22:27)
[2018-01-08] MEDS: SOD CHLORIDE 0.9% 1,000 ML IV ×3 (03:00→23:00)
[2018-01-08 05:25] LABS: ADD MAN DIFF? NO
[2018-01-08 05:33] LABS: WHITE BLOOD COUNT 5.5 10^3/ul (4.8-10.8)
[2018-01-08 05:33] LABS: BASOPHILS % 0.5 % (0.0-2.0); EOSINOPHILS % 0.4 % (0.0-7.0); HEMOGLOBIN 11.2 g/dl (12.0-16.0); LYMPHOCYTES # 2.2 10^3/ul (0.8-2.9); LYMPHOCYTES % 40.5 % (15.0-51.0); MEAN CORPUSCULAR HEMOGLOBIN 29.6 pg (29.0-33.0); MEAN CORPUSCULAR HGB CONC 32.9 g/dl (32.0-37.0); MEAN CORPUSCULAR VOLUME 89.7 fl (82.0-101.0); MONOCYTE # 0.4 10^3/ul (0.3-0.9); MONOCYTES % 7.4 % (0.0-11.0); NEUTROPHIL # 2.8 10^3/ul (1.6-7.5); NEUTROPHILS % 50.7 % (39.0-77.0); PLATELET COUNT 177 10^3/UL (140-415); RED BLOOD COUNT 3.79 10^6/ul (4.20-5.40); RED CELL DISTRIBUTION WIDTH 16.9 % (11.5-14.5)
[2018-01-08] MEDS: PANTOPRAZOLE 40 MG INJ IV (06:20)
[2018-01-08] MEDS: ENOXAPARIN 40 MG/0.4 ML SYG SC (06:27)
[2018-01-08 06:40] LABS: ALANINE AMINOTRANSFERASE 93 IU/L (13-69); ALBUMIN 3.7 g/dl (3.3-4.9); ALBUMIN/GLOBULIN RATIO 1.05; ALKALINE PHOSPHATASE 131 IU/L (42-121); ANION GAP 14 (8-16); ASPARTATE AMINO TRANSFERASE 41 IU/L (15-46); BILIRUBIN,INDIRECT 0.1 mg/dl (0-1.1); BILIRUBIN,TOTAL 0.1 mg/dl (0.2-1.3); BLOOD UREA NITROGEN 17 mg/dl (7-20); CALCIUM 9.5 mg/dl (8.4-10.2); CARBON DIOXIDE 29 mmol/L (21-31); CHLORIDE 104 mmol/L (97-110); CREATININE 0.39 mg/dl (0.44-1.00); GLUCOSE 116 mg/dl (70-220); POTASSIUM 4.1 mmol/L (3.5-5.1); SODIUM 143 mmol/L (135-144); TOTAL PROTEIN 7.2 g/dl (6.1-8.1)
[2018-01-08] MEDS: BACLOFEN 10 MG TAB GTB ×2 (08:30→21:15)
[2018-01-08] MEDS: LACOSAMIDE (100 MG/10 ML PO SYR) GTB ×2 (08:30→21:15)
[2018-01-08] MEDS: MULTIVITAMINS 30 ML CUP GTB (08:30)
[2018-01-08] MEDS: ASCORBIC ACID 500 MG TAB GTB ×2 (08:30→21:16)
[2018-01-08] MEDS: METOPROLOL 50 MG TAB GTB ×2 (08:31→21:16)
[2018-01-08] MEDS: FOLIC ACID 1 MG TAB PEG (08:31)
[2018-01-08] MEDS: LEVETIRACETAM 1500 MG (PMX) 100 ML IVPB ×2 (08:38→21:15)
[2018-01-08] MEDS: AQUAPHOR 52.5 GM OINT TOP ×2 (11:00→21:15)
[2018-01-09 05:01] LABS: ADD MAN DIFF? NO
[2018-01-09 05:12] LABS: WHITE BLOOD COUNT 7.1 10^3/ul (4.8-10.8)
[2018-01-09 05:12] LABS: BASOPHILS % 0.3 % (0.0-2.0); EOSINOPHILS % 0.1 % (0.0-7.0); HEMATOCRIT 33.7 % (37.0-47.0); HEMOGLOBIN 11.2 g/dl (12.0-16.0); LYMPHOCYTES # 2.1 10^3/ul (0.8-2.9); LYMPHOCYTES % 29.2 % (15.0-51.0); MEAN CORPUSCULAR HEMOGLOBIN 29.7 pg (29.0-33.0); MEAN CORPUSCULAR HGB CONC 33.2 g/dl (32.0-37.0); MEAN CORPUSCULAR VOLUME 89.4 fl (82.0-101.0); MEAN PLATELET VOLUME 10.3 fl (7.4-10.4); MONOCYTE # 0.4 10^3/ul (0.3-0.9); MONOCYTES % 5.5 % (0.0-11.0); NEUTROPHIL # 4.6 10^3/ul (1.6-7.5); NEUTROPHILS % 64.3 % (39.0-77.0); PLATELET COUNT 178 10^3/UL (140-415); RED BLOOD COUNT 3.77 10^6/ul (4.20-5.40); RED CELL DISTRIBUTION WIDTH 16.9 % (11.5-14.5)
[2018-01-09 05:34] LABS: ANION GAP 10 (8-16); BLOOD UREA NITROGEN 14 mg/dl (7-20); CALCIUM 9.4 mg/dl (8.4-10.2); CARBON DIOXIDE 30 mmol/L (21-31); CHLORIDE 104 mmol/L (97-110); GLUCOSE 113 mg/dl (70-220); POTASSIUM 4.1 mmol/L (3.5-5.1); SODIUM 140 mmol/L (135-144)
[2018-01-09] MEDS: PANTOPRAZOLE 40 MG INJ IV (06:19)
[2018-01-09] MEDS: ENOXAPARIN 40 MG/0.4 ML SYG SC (06:20)
[2018-01-09] MEDS: BACLOFEN 10 MG TAB GTB ×2 (09:25→21:15)
[2018-01-09] MEDS: FOLIC ACID 1 MG TAB PEG (09:25)
[2018-01-09] MEDS: LEVETIRACETAM 1500 MG (PMX) 100 ML IVPB ×2 (09:25→21:12)
[2018-01-09] MEDS: AQUAPHOR 52.5 GM OINT TOP ×2 (09:25→21:20)
[2018-01-09] MEDS: LACOSAMIDE (100 MG/10 ML PO SYR) GTB ×2 (09:25→21:38)
[2018-01-09] MEDS: MULTIVITAMINS 30 ML CUP GTB (09:25)
[2018-01-09] MEDS: ASCORBIC ACID 500 MG TAB GTB ×2 (09:26→21:15)
[2018-01-09] MEDS: METOPROLOL 50 MG TAB GTB ×2 (09:26→21:16)
[2018-01-09] MEDS ORDERED: METHYLPREDNISOLONE 125 MG INJ IV (10:00)
[2018-01-09] MEDS ORDERED: MEPERIDINE 50 MG INJ IV (10:00)
[2018-01-09] MEDS ORDERED: DIPHENHYDRAMINE 50 MG INJ IV (10:00)
[2018-01-09] MEDS: SOD CHLORIDE 0.9% 1,000 ML IV ×3 (13:12→21:10)
[2018-01-09] MEDS: DIPHENHYDRAMINE 50 MG INJ IV (15:01)
[2018-01-09] MEDS: ONDANSETRON INJ 16 MG, DEXAMETHASONE 4 MG/ML 10 MG in SOD CHLORIDE 0.9% 50 ML IVPB (15:01)
[2018-01-09] MEDS: SOD CHLORIDE 0.9% IV ×2 (15:53→22:36)
[2018-01-09] MEDS: PACLITAXEL IV (15:53)
[2018-01-09] MEDS: CARBOPLATIN IV (22:36)
[2018-01-10] MEDS: SOD CHLORIDE 0.9% 1,000 ML IV ×3 (03:30→23:30)
[2018-01-10 05:09] LABS: ADD MAN DIFF? NO
[2018-01-10 05:14] LABS: BASOPHILS % 0.1 % (0.0-2.0); HEMATOCRIT 31.8 % (37.0-47.0); HEMOGLOBIN 10.6 g/dl (12.0-16.0); MEAN CORPUSCULAR HEMOGLOBIN 29.9 pg (29.0-33.0); MEAN CORPUSCULAR HGB CONC 33.3 g/dl (32.0-37.0); MEAN CORPUSCULAR VOLUME 89.6 fl (82.0-101.0); MEAN PLATELET VOLUME 10.7 fl (7.4-10.4); MONOCYTE # 0.1 10^3/ul (0.3-0.9); MONOCYTES % 1.5 % (0.0-11.0); NEUTROPHIL # 5.6 10^3/ul (1.6-7.5); NEUTROPHILS % 82.7 % (39.0-77.0); PLATELET COUNT 213 10^3/UL (140-415); RED BLOOD COUNT 3.55 10^6/ul (4.20-5.40); RED CELL DISTRIBUTION WIDTH 16.2 % (11.5-14.5)
[2018-01-10 05:14] LABS: WHITE BLOOD COUNT 6.7 10^3/ul (4.8-10.8)
[2018-01-10] MEDS: PANTOPRAZOLE 40 MG INJ IV (05:34)
[2018-01-10] MEDS: ENOXAPARIN 40 MG/0.4 ML SYG SC (05:36)
[2018-01-10 05:37] LABS: BLOOD UREA NITROGEN 12 mg/dl (7-20); CALCIUM 8.7 mg/dl (8.4-10.2); CARBON DIOXIDE 27 mmol/L (21-31); CREATININE 0.38 mg/dl (0.44-1.00); GLUCOSE 141 mg/dl (70-220); POTASSIUM 3.9 mmol/L (3.5-5.1); SODIUM 144 mmol/L (135-144)
[2018-01-10 05:39] LABS: ANION GAP 11 (8-16); CHLORIDE 110 mmol/L (97-110)
[2018-01-10] MEDS: LEVETIRACETAM 1500 MG (PMX) 100 ML IVPB ×2 (08:56→21:43)
[2018-01-10] MEDS: MULTIVITAMINS 30 ML CUP GTB (08:56)
[2018-01-10] MEDS: ASCORBIC ACID 500 MG TAB GTB ×2 (08:56→21:45)
[2018-01-10] MEDS: LACOSAMIDE (100 MG/10 ML PO SYR) GTB ×2 (08:56→21:45)
[2018-01-10] MEDS: BACLOFEN 10 MG TAB GTB ×2 (08:56→21:47)
[2018-01-10] MEDS: METOPROLOL 50 MG TAB GTB ×2 (08:57→21:46)
[2018-01-10] MEDS: AQUAPHOR 52.5 GM OINT TOP ×2 (08:58→21:50)
[2018-01-10] MEDS: FOLIC ACID 1 MG TAB PEG (09:15)
[2018-01-11] MEDS: PANTOPRAZOLE 40 MG INJ IV (07:31)
[2018-01-11] MEDS: ENOXAPARIN 40 MG/0.4 ML SYG SC (07:34)
[2018-01-11] MEDS: BACLOFEN 10 MG TAB GTB ×2 (09:08→21:40)
[2018-01-11] MEDS: LEVETIRACETAM 1500 MG (PMX) 100 ML IVPB ×2 (09:08→21:40)
[2018-01-11] MEDS: FOLIC ACID 1 MG TAB PEG (09:08)
[2018-01-11] MEDS: METOPROLOL 50 MG TAB GTB ×2 (09:08→21:40)
[2018-01-11] MEDS: ASCORBIC ACID 500 MG TAB GTB ×2 (09:09→21:40)
[2018-01-11] MEDS: LACOSAMIDE (100 MG/10 ML PO SYR) GTB ×2 (09:09→21:40)
[2018-01-11] MEDS: MULTIVITAMINS 30 ML CUP GTB (09:09)
[2018-01-11] MEDS: AQUAPHOR 52.5 GM OINT TOP ×2 (09:10→21:00)
[2018-01-11] MEDS: SOD CHLORIDE 0.9% 1,000 ML IV ×2 (09:30→19:30)
[2018-01-12 05:16] LABS: ADD MAN DIFF? NO
[2018-01-12 05:22] LABS: BASOPHILS % 0.4 % (0.0-2.0); EOSINOPHILS % 0.4 % (0.0-7.0); HEMATOCRIT 35.9 % (37.0-47.0); HEMOGLOBIN 11.6 g/dl (12.0-16.0); LYMPHOCYTES # 1.9 10^3/ul (0.8-2.9); LYMPHOCYTES % 34.1 % (15.0-51.0); MEAN CORPUSCULAR HEMOGLOBIN 29.2 pg (29.0-33.0); MEAN CORPUSCULAR HGB CONC 32.3 g/dl (32.0-37.0); MEAN CORPUSCULAR VOLUME 90.4 fl (82.0-101.0); MEAN PLATELET VOLUME 10.4 fl (7.4-10.4); MONOCYTE # 0.1 10^3/ul (0.3-0.9); MONOCYTES % 2.3 % (0.0-11.0); NEUTROPHIL # 3.5 10^3/ul (1.6-7.5); NEUTROPHILS % 62.6 % (39.0-77.0); PLATELET COUNT 276 10^3/UL (140-415); RED BLOOD COUNT 3.97 10^6/ul (4.20-5.40); RED CELL DISTRIBUTION WIDTH 16.4 % (11.5-14.5)
[2018-01-12 05:22] LABS: WHITE BLOOD COUNT 5.5 10^3/ul (4.8-10.8)
[2018-01-12] MEDS: SOD CHLORIDE 0.9% 1,000 ML IV ×2 (05:30→15:30)
[2018-01-12 05:41] LABS: ANION GAP 14 (8-16); BLOOD UREA NITROGEN 15 mg/dl (7-20); CALCIUM 9.7 mg/dl (8.4-10.2); CARBON DIOXIDE 29 mmol/L (21-31); CHLORIDE 104 mmol/L (97-110); CREATININE 0.42 mg/dl (0.44-1.00); GLUCOSE 132 mg/dl (70-220); SODIUM 143 mmol/L (135-144)
[2018-01-12] MEDS: PANTOPRAZOLE 40 MG INJ IV (06:12)
[2018-01-12] MEDS: ENOXAPARIN 40 MG/0.4 ML SYG SC (06:15)
[2018-01-12] MEDS: ASCORBIC ACID 500 MG TAB GTB ×2 (08:50→21:38)
[2018-01-12] MEDS: FOLIC ACID 1 MG TAB PEG (08:50)
[2018-01-12] MEDS: BACLOFEN 10 MG TAB GTB ×2 (08:50→21:38)
[2018-01-12] MEDS: METOPROLOL 50 MG TAB GTB ×2 (08:51→21:38)
[2018-01-12] MEDS: LEVETIRACETAM 1500 MG (PMX) 100 ML IVPB ×2 (08:51→21:37)
[2018-01-12] MEDS: LACOSAMIDE (100 MG/10 ML PO SYR) GTB ×2 (08:51→21:38)
[2018-01-12] MEDS: MULTIVITAMINS 30 ML CUP GTB (08:52)
[2018-01-12] MEDS: AQUAPHOR 52.5 GM OINT TOP ×2 (08:53→21:39)
[2018-01-13] MEDS: SOD CHLORIDE 0.9% 1,000 ML IV ×3 (01:30→21:30)
[2018-01-13] MEDS: PANTOPRAZOLE 40 MG INJ IV (05:52)
[2018-01-13] MEDS: ENOXAPARIN 40 MG/0.4 ML SYG SC (05:58)
[2018-01-13] MEDS: FOLIC ACID 1 MG TAB PEG (09:37)
[2018-01-13] MEDS: BACLOFEN 10 MG TAB GTB ×2 (09:37→21:39)
[2018-01-13] MEDS: ASCORBIC ACID 500 MG TAB GTB ×2 (09:38→21:40)
[2018-01-13] MEDS: LEVETIRACETAM 1500 MG (PMX) 100 ML IVPB ×2 (09:38→21:43)
[2018-01-13] MEDS: METOPROLOL 50 MG TAB GTB ×2 (09:38→21:40)
[2018-01-13] MEDS: LACOSAMIDE (100 MG/10 ML PO SYR) GTB ×2 (09:39→21:39)
[2018-01-13] MEDS: AQUAPHOR 52.5 GM OINT TOP ×2 (09:44→21:42)
[2018-01-13] MEDS: MULTIVITAMINS 30 ML CUP GTB (09:44)
[2018-01-13] MEDS: ACETAMINOPHEN 325 MG TAB PO (21:39)
[2018-01-14] MEDS: ENOXAPARIN 40 MG/0.4 ML SYG SC (07:01)
[2018-01-14] MEDS: PANTOPRAZOLE 40 MG INJ IV (07:01)
[2018-01-14] MEDS: SOD CHLORIDE 0.9% 1,000 ML IV ×2 (07:30→17:30)
[2018-01-14] MEDS: ASCORBIC ACID 500 MG TAB GTB ×2 (09:19→21:19)
[2018-01-14] MEDS: BACLOFEN 10 MG TAB GTB ×2 (09:19→21:19)
[2018-01-14] MEDS: FOLIC ACID 1 MG TAB PEG (09:19)
[2018-01-14] MEDS: LEVETIRACETAM 1500 MG (PMX) 100 ML IVPB ×2 (09:19→21:20)
[2018-01-14] MEDS: METOPROLOL 50 MG TAB GTB ×2 (09:20→21:20)
[2018-01-14] MEDS: MULTIVITAMINS 30 ML CUP GTB (09:20)
[2018-01-14] MEDS: LACOSAMIDE (100 MG/10 ML PO SYR) GTB ×2 (09:21→21:20)
[2018-01-14] MEDS: AQUAPHOR 52.5 GM OINT TOP ×2 (09:22→21:21)
[2018-01-15] MEDS: SOD CHLORIDE 0.9% 1,000 ML IV ×3 (03:08→23:30)
[2018-01-15 04:52] LABS: ADD MAN DIFF? NO
[2018-01-15 04:57] LABS: WHITE BLOOD COUNT 3.8 10^3/ul (4.8-10.8)
[2018-01-15 04:57] LABS: BASOPHILS % 0.8 % (0.0-2.0); EOSINOPHILS # 0.1 10^3/ul (0.0-0.5); EOSINOPHILS % 1.3 % (0.0-7.0); HEMATOCRIT 32.8 % (37.0-47.0); HEMOGLOBIN 10.9 g/dl (12.0-16.0); LYMPHOCYTES # 1.9 10^3/ul (0.8-2.9); LYMPHOCYTES % 49.5 % (15.0-51.0); MEAN CORPUSCULAR HEMOGLOBIN 29.9 pg (29.0-33.0); MEAN CORPUSCULAR HGB CONC 33.2 g/dl (32.0-37.0); MEAN CORPUSCULAR VOLUME 89.9 fl (82.0-101.0); MEAN PLATELET VOLUME 9.9 fl (7.4-10.4); MONOCYTE # 0.1 10^3/ul (0.3-0.9); MONOCYTES % 3.1 % (0.0-11.0); NEUTROPHIL # 1.7 10^3/ul (1.6-7.5); NEUTROPHILS % 44.8 % (39.0-77.0); PLATELET COUNT 327 10^3/UL (140-415); RED BLOOD COUNT 3.65 10^6/ul (4.20-5.40); RED CELL DISTRIBUTION WIDTH 16.1 % (11.5-14.5)
[2018-01-15 05:22] LABS: ANION GAP 11 (8-16); BLOOD UREA NITROGEN 12 mg/dl (7-20); CALCIUM 9.4 mg/dl (8.4-10.2); CARBON DIOXIDE 29 mmol/L (21-31); CHLORIDE 107 mmol/L (97-110); CREATININE 0.36 mg/dl (0.44-1.00); GLUCOSE 118 mg/dl (70-220); POTASSIUM 4.1 mmol/L (3.5-5.1); SODIUM 143 mmol/L (135-144)
[2018-01-15] MEDS: PANTOPRAZOLE 40 MG INJ IV (05:57)
[2018-01-15] MEDS: ENOXAPARIN 40 MG/0.4 ML SYG SC (05:58)
[2018-01-15] MEDS: FOLIC ACID 1 MG TAB GTB (08:54)
[2018-01-15] MEDS: BACLOFEN 10 MG TAB GTB ×2 (08:54→21:04)
[2018-01-15] MEDS: METOPROLOL 50 MG TAB GTB ×2 (08:54→21:05)
[2018-01-15] MEDS: ASCORBIC ACID 500 MG TAB GTB ×2 (08:54→21:04)
[2018-01-15] MEDS: AQUAPHOR 52.5 GM OINT TOP ×2 (08:55→21:06)
[2018-01-15] MEDS: MULTIVITAMINS 30 ML CUP GTB (08:55)
[2018-01-15] MEDS: LEVETIRACETAM 1500 MG (PMX) 100 ML IVPB ×2 (08:55→21:04)
[2018-01-15] MEDS: LACOSAMIDE (100 MG/10 ML PO SYR) GTB ×2 (08:55→21:04)
[2018-01-16 05:36] LABS: ADD MAN DIFF? NO
[2018-01-16 05:39] LABS: WHITE BLOOD COUNT 4.1 10^3/ul (4.8-10.8)
[2018-01-16 05:39] LABS: BASOPHILS % 0.2 % (0.0-2.0); LYMPHOCYTES % 48.9 % (15.0-51.0); MEAN CORPUSCULAR HEMOGLOBIN 30.1 pg (29.0-33.0); MEAN CORPUSCULAR HGB CONC 33.3 g/dl (32.0-37.0); MEAN CORPUSCULAR VOLUME 90.4 fl (82.0-101.0); MEAN PLATELET VOLUME 10.4 fl (7.4-10.4); MONOCYTE # 0.2 10^3/ul (0.3-0.9); MONOCYTES % 4.4 % (0.0-11.0); NEUTROPHIL # 1.8 10^3/ul (1.6-7.5); NEUTROPHILS % 45.3 % (39.0-77.0); PLATELET COUNT 334 10^3/UL (140-415); RED BLOOD COUNT 3.32 10^6/ul (4.20-5.40); RED CELL DISTRIBUTION WIDTH 16.3 % (11.5-14.5)
[2018-01-16 06:07] LABS: ANION GAP 9 (8-16); BLOOD UREA NITROGEN 12 mg/dl (7-20); CALCIUM 9.4 mg/dl (8.4-10.2); CARBON DIOXIDE 30 mmol/L (21-31); CHLORIDE 107 mmol/L (97-110); CREATININE 0.34 mg/dl (0.44-1.00); GLUCOSE 106 mg/dl (70-220); POTASSIUM 3.9 mmol/L (3.5-5.1); SODIUM 142 mmol/L (135-144)
[2018-01-16] MEDS: PANTOPRAZOLE 40 MG INJ IV (06:24)
[2018-01-16] MEDS: ENOXAPARIN 40 MG/0.4 ML SYG SC (06:26)
[2018-01-16] MEDS: LACOSAMIDE (100 MG/10 ML PO SYR) GTB ×2 (08:43→21:50)
[2018-01-16] MEDS: LEVETIRACETAM 1500 MG (PMX) 100 ML IVPB ×2 (08:43→21:48)
[2018-01-16] MEDS: MULTIVITAMINS 30 ML CUP GTB (08:43)
[2018-01-16] MEDS: ASCORBIC ACID 500 MG TAB GTB ×2 (08:44→21:51)
[2018-01-16] MEDS: BACLOFEN 10 MG TAB GTB ×2 (08:44→21:51)
[2018-01-16] MEDS: METOPROLOL 50 MG TAB GTB ×2 (08:44→21:51)
[2018-01-16] MEDS: FOLIC ACID 1 MG TAB GTB (08:44)
[2018-01-16] MEDS: SOD CHLORIDE 0.9% 1,000 ML IV ×2 (08:45→19:30)
[2018-01-16] MEDS: AQUAPHOR 52.5 GM OINT TOP ×2 (08:45→21:50)
[2018-01-17] MEDS: PANTOPRAZOLE 40 MG INJ IV (05:27)
[2018-01-17] MEDS: ENOXAPARIN 40 MG/0.4 ML SYG SC (05:28)
[2018-01-17] MEDS: LACOSAMIDE (100 MG/10 ML PO SYR) GTB ×2 (09:38→20:22)
[2018-01-17] MEDS: BACLOFEN 10 MG TAB GTB ×2 (09:38→20:23)
[2018-01-17] MEDS: MULTIVITAMINS 30 ML CUP GTB (09:38)
[2018-01-17] MEDS: ASCORBIC ACID 500 MG TAB GTB ×2 (09:39→20:23)
[2018-01-17] MEDS: METOPROLOL 50 MG TAB GTB ×2 (09:39→20:23)
[2018-01-17] MEDS: FOLIC ACID 1 MG TAB GTB (09:39)
[2018-01-17] MEDS: LEVETIRACETAM 1500 MG (PMX) 100 ML IVPB ×2 (09:40→20:22)
[2018-01-17] MEDS: AQUAPHOR 52.5 GM OINT TOP ×2 (09:41→20:24)
[2018-01-18 05:38] LABS: ADD MAN DIFF? NO
[2018-01-18 05:43] LABS: BASOPHILS % 0.3 % (0.0-2.0); EOSINOPHILS % 1.1 % (0.0-7.0); HEMATOCRIT 33.6 % (37.0-47.0); HEMOGLOBIN 11.2 g/dl (12.0-16.0); LYMPHOCYTES % 52.5 % (15.0-51.0); MEAN CORPUSCULAR HEMOGLOBIN 29.8 pg (29.0-33.0); MEAN CORPUSCULAR HGB CONC 33.3 g/dl (32.0-37.0); MEAN CORPUSCULAR VOLUME 89.4 fl (82.0-101.0); MEAN PLATELET VOLUME 10.4 fl (7.4-10.4); MONOCYTE # 0.3 10^3/ul (0.3-0.9); MONOCYTES % 7.7 % (0.0-11.0); NEUTROPHIL # 1.4 10^3/ul (1.6-7.5); NEUTROPHILS % 38.1 % (39.0-77.0); PLATELET COUNT 371 10^3/UL (140-415); RED BLOOD COUNT 3.76 10^6/ul (4.20-5.40); RED CELL DISTRIBUTION WIDTH 16.4 % (11.5-14.5)
[2018-01-18 05:43] LABS: WHITE BLOOD COUNT 3.8 10^3/ul (4.8-10.8)
[2018-01-18] MEDS: PANTOPRAZOLE 40 MG INJ IV (05:45)
[2018-01-18] MEDS: ENOXAPARIN 40 MG/0.4 ML SYG SC (05:49)
[2018-01-18 06:20] LABS: ANION GAP 12 (8-16); BLOOD UREA NITROGEN 12 mg/dl (7-20); CALCIUM 9.8 mg/dl (8.4-10.2); CARBON DIOXIDE 29 mmol/L (21-31); CHLORIDE 105 mmol/L (97-110); CREATININE 0.36 mg/dl (0.44-1.00); GLUCOSE 110 mg/dl (70-220); POTASSIUM 4.2 mmol/L (3.5-5.1); SODIUM 142 mmol/L (135-144)
[2018-01-18] MEDS: LACOSAMIDE (100 MG/10 ML PO SYR) GTB ×2 (09:02→21:46)
[2018-01-18] MEDS: METOPROLOL 50 MG TAB GTB ×2 (09:03→20:59)
[2018-01-18] MEDS: FOLIC ACID 1 MG TAB GTB (09:03)
[2018-01-18] MEDS: MULTIVITAMINS 30 ML CUP GTB (09:03)
[2018-01-18] MEDS: ASCORBIC ACID 500 MG TAB GTB ×2 (09:03→20:59)
[2018-01-18] MEDS: BACLOFEN 10 MG TAB GTB ×2 (09:04→20:59)
[2018-01-18] MEDS: AQUAPHOR 52.5 GM OINT TOP ×2 (09:04→21:45)
[2018-01-18] MEDS: LEVETIRACETAM 1500 MG (PMX) 100 ML IVPB ×2 (09:05→21:01)
[2018-01-19 05:14] LABS: ADD MAN DIFF? NO
[2018-01-19 05:22] LABS: EOSINOPHILS % 0.5 % (0.0-7.0); HEMATOCRIT 30.5 % (37.0-47.0); HEMOGLOBIN 9.9 g/dl (12.0-16.0); LYMPHOCYTES # 1.8 10^3/ul (0.8-2.9); LYMPHOCYTES % 43.3 % (15.0-51.0); MEAN CORPUSCULAR HEMOGLOBIN 29.6 pg (29.0-33.0); MEAN CORPUSCULAR HGB CONC 32.5 g/dl (32.0-37.0); MEAN PLATELET VOLUME 10.3 fl (7.4-10.4); MONOCYTE # 0.3 10^3/ul (0.3-0.9); MONOCYTES % 6.4 % (0.0-11.0); NEUTROPHILS % 49.6 % (39.0-77.0); PLATELET COUNT 366 10^3/UL (140-415); RED BLOOD COUNT 3.35 10^6/ul (4.20-5.40); RED CELL DISTRIBUTION WIDTH 16.3 % (11.5-14.5)
[2018-01-19 05:55] LABS: ANION GAP 12 (8-16); BLOOD UREA NITROGEN 14 mg/dl (7-20); CALCIUM 9.4 mg/dl (8.4-10.2); CARBON DIOXIDE 30 mmol/L (21-31); CHLORIDE 105 mmol/L (97-110); CREATININE 0.38 mg/dl (0.44-1.00); GLUCOSE 114 mg/dl (70-220); SODIUM 143 mmol/L (135-144)
[2018-01-19] MEDS: PANTOPRAZOLE 40 MG INJ IV (06:56)
[2018-01-19] MEDS: ENOXAPARIN 40 MG/0.4 ML SYG SC (07:08)
[2018-01-19] MEDS: AQUAPHOR 52.5 GM OINT TOP ×2 (09:00→21:08)
[2018-01-19] MEDS: MULTIVITAMINS 30 ML CUP GTB (10:00)
[2018-01-19] MEDS: LACOSAMIDE (100 MG/10 ML PO SYR) GTB ×2 (10:00→21:07)
[2018-01-19] MEDS: LEVETIRACETAM 1500 MG (PMX) 100 ML IVPB ×2 (10:11→21:06)
[2018-01-19] MEDS: FOLIC ACID 1 MG TAB GTB (10:11)
[2018-01-19] MEDS: METOPROLOL 50 MG TAB GTB ×2 (10:12→21:06)
[2018-01-19] MEDS: BACLOFEN 10 MG TAB GTB ×2 (10:12→21:07)
[2018-01-19] MEDS: ASCORBIC ACID 500 MG TAB GTB ×2 (10:12→21:06)
[2018-01-20 04:56] LABS: ADD MAN DIFF? NO
[2018-01-20 05:07] LABS: EOSINOPHILS % 0.8 % (0.0-7.0); HEMATOCRIT 30.5 % (37.0-47.0); HEMOGLOBIN 10.2 g/dl (12.0-16.0); LYMPHOCYTES # 1.8 10^3/ul (0.8-2.9); MEAN CORPUSCULAR HEMOGLOBIN 30.4 pg (29.0-33.0); MEAN CORPUSCULAR HGB CONC 33.4 g/dl (32.0-37.0); MEAN CORPUSCULAR VOLUME 90.8 fl (82.0-101.0); MEAN PLATELET VOLUME 10.4 fl (7.4-10.4); MONOCYTE # 0.3 10^3/ul (0.3-0.9); NEUTROPHIL # 1.5 10^3/ul (1.6-7.5); NEUTROPHILS % 40.9 % (39.0-77.0); PLATELET COUNT 378 10^3/UL (140-415); RED BLOOD COUNT 3.36 10^6/ul (4.20-5.40); RED CELL DISTRIBUTION WIDTH 16.7 % (11.5-14.5)
[2018-01-20 05:07] LABS: WHITE BLOOD COUNT 3.6 10^3/ul (4.8-10.8)
[2018-01-20 05:28] LABS: ANION GAP 10 (8-16); BLOOD UREA NITROGEN 12 mg/dl (7-20); CALCIUM 9.4 mg/dl (8.4-10.2); CARBON DIOXIDE 31 mmol/L (21-31); CHLORIDE 107 mmol/L (97-110); CREATININE 0.38 mg/dl (0.44-1.00); GLUCOSE 125 mg/dl (70-220); SODIUM 144 mmol/L (135-144)
[2018-01-20] MEDS: PANTOPRAZOLE 40 MG INJ IV (06:09)
[2018-01-20] MEDS: ENOXAPARIN 40 MG/0.4 ML SYG SC (06:10)
[2018-01-20] MEDS: MULTIVITAMINS 30 ML CUP GTB (08:56)
[2018-01-20] MEDS: LACOSAMIDE (100 MG/10 ML PO SYR) GTB ×2 (08:56→20:46)
[2018-01-20] MEDS: FOLIC ACID 1 MG TAB GTB (08:56)
[2018-01-20] MEDS: ASCORBIC ACID 500 MG TAB GTB ×2 (08:56→20:46)
[2018-01-20] MEDS: BACLOFEN 10 MG TAB GTB ×2 (08:57→20:46)
[2018-01-20] MEDS: AQUAPHOR 52.5 GM OINT TOP ×2 (09:02→20:58)
[2018-01-20] MEDS: LEVETIRACETAM 1500 MG (PMX) 100 ML IVPB ×2 (09:02→20:57)
[2018-01-20] MEDS: METOPROLOL 50 MG TAB GTB ×2 (09:46→20:47)
[2018-01-21 05:50] LABS: ADD MAN DIFF? NO
[2018-01-21 05:51] LABS: WHITE BLOOD COUNT 3.1 10^3/ul (4.8-10.8)
[2018-01-21 05:51] LABS: ABNORMAL IP MESSAGE 1; BASOPHILS % 0.3 % (0.0-2.0); EOSINOPHILS % 1.3 % (0.0-7.0); HEMOGLOBIN 9.4 g/dl (12.0-16.0); LYMPHOCYTES # 1.9 10^3/ul (0.8-2.9); MEAN CORPUSCULAR HEMOGLOBIN 29.7 pg (29.0-33.0); MEAN CORPUSCULAR HGB CONC 32.4 g/dl (32.0-37.0); MEAN CORPUSCULAR VOLUME 91.8 fl (82.0-101.0); MEAN PLATELET VOLUME 10.3 fl (7.4-10.4); MONOCYTE # 0.3 10^3/ul (0.3-0.9); MONOCYTES % 10.6 % (0.0-11.0); NEUTROPHIL # 0.9 10^3/ul (1.6-7.5); NEUTROPHILS % 27.5 % (39.0-77.0); PLATELET COUNT 318 10^3/UL (140-415); RED BLOOD COUNT 3.16 10^6/ul (4.20-5.40)
[2018-01-21 06:06] LABS: POSITIVE DIFF @See below
[2018-01-21 06:30] LABS: ANION GAP 10 (8-16); BLOOD UREA NITROGEN 12 mg/dl (7-20); CALCIUM 8.7 mg/dl (8.4-10.2); CARBON DIOXIDE 28 mmol/L (21-31); CHLORIDE 110 mmol/L (97-110); CREATININE 0.35 mg/dl (0.44-1.00); GLUCOSE 105 mg/dl (70-220); POTASSIUM 3.6 mmol/L (3.5-5.1); SODIUM 144 mmol/L (135-144)
[2018-01-21] MEDS: PANTOPRAZOLE 40 MG INJ IV (06:34)
[2018-01-21] MEDS: ENOXAPARIN 40 MG/0.4 ML SYG SC (06:47)
[2018-01-21] MEDS: MULTIVITAMINS 30 ML CUP GTB (09:00)
[2018-01-21] MEDS: FOLIC ACID 1 MG TAB GTB (09:38)
[2018-01-21] MEDS: ASCORBIC ACID 500 MG TAB GTB ×2 (09:38→20:50)
[2018-01-21] MEDS: LACOSAMIDE (100 MG/10 ML PO SYR) GTB ×2 (09:39→21:08)
[2018-01-21] MEDS: LEVETIRACETAM 1500 MG (PMX) 100 ML IVPB ×2 (09:39→20:50)
[2018-01-21] MEDS: BACLOFEN 10 MG TAB GTB ×2 (09:39→20:50)
[2018-01-21] MEDS: METOPROLOL 50 MG TAB GTB ×2 (09:39→20:51)
[2018-01-21] MEDS: AQUAPHOR 52.5 GM OINT TOP ×2 (09:44→21:09)
[2018-01-22] MEDS: PANTOPRAZOLE 40 MG INJ IV (06:20)
[2018-01-22] MEDS: ENOXAPARIN 40 MG/0.4 ML SYG SC (06:28)
[2018-01-22] MEDS: AQUAPHOR 52.5 GM OINT TOP ×2 (09:00→22:52)
[2018-01-22] MEDS: BACLOFEN 10 MG TAB GTB (09:37)
[2018-01-22] MEDS: ASCORBIC ACID 500 MG TAB GTB ×2 (09:37→22:51)
[2018-01-22] MEDS: FOLIC ACID 1 MG TAB GTB (09:37)
[2018-01-22] MEDS: METOPROLOL 50 MG TAB GTB ×2 (09:37→22:52)
[2018-01-22] MEDS: MULTIVITAMINS 30 ML CUP GTB (09:37)
[2018-01-22] MEDS: LEVETIRACETAM 1500 MG (PMX) 100 ML IVPB ×2 (10:09→22:52)
[2018-01-22] MEDS: LACOSAMIDE (100 MG/10 ML PO SYR) GTB ×2 (10:10→22:51)
[2018-01-23] MEDS: PANTOPRAZOLE 40 MG INJ IV (05:17)
[2018-01-23] MEDS: ENOXAPARIN 40 MG/0.4 ML SYG SC (05:18)
[2018-01-23 05:27] LABS: ADD MAN DIFF? NO
[2018-01-23 05:32] LABS: WHITE BLOOD COUNT 3.6 10^3/ul (4.8-10.8)
[2018-01-23 05:32] LABS: BASOPHILS % 0.3 % (0.0-2.0); EOSINOPHILS % 0.8 % (0.0-7.0); HEMOGLOBIN 10.5 g/dl (12.0-16.0); LYMPHOCYTES # 2.1 10^3/ul (0.8-2.9); LYMPHOCYTES % 58.4 % (15.0-51.0); MEAN CORPUSCULAR HEMOGLOBIN 30.1 pg (29.0-33.0); MEAN CORPUSCULAR HGB CONC 32.8 g/dl (32.0-37.0); MEAN CORPUSCULAR VOLUME 91.7 fl (82.0-101.0); MEAN PLATELET VOLUME 10.3 fl (7.4-10.4); MONOCYTE # 0.3 10^3/ul (0.3-0.9); MONOCYTES % 8.9 % (0.0-11.0); NEUTROPHIL # 1.1 10^3/ul (1.6-7.5); NEUTROPHILS % 31.3 % (39.0-77.0); PLATELET COUNT 307 10^3/UL (140-415); RED BLOOD COUNT 3.49 10^6/ul (4.20-5.40); RED CELL DISTRIBUTION WIDTH 17.3 % (11.5-14.5)
[2018-01-23 06:48] LABS: ANION GAP 12 (8-16); BLOOD UREA NITROGEN 11 mg/dl (7-20); CALCIUM 9.6 mg/dl (8.4-10.2); CARBON DIOXIDE 30 mmol/L (21-31); CHLORIDE 106 mmol/L (97-110); CREATININE 0.39 mg/dl (0.44-1.00); GLUCOSE 112 mg/dl (70-220); POTASSIUM 4.4 mmol/L (3.5-5.1); SODIUM 144 mmol/L (135-144)
[2018-01-23] MEDS: FOLIC ACID 1 MG TAB GTB (08:28)
[2018-01-23] MEDS: LACOSAMIDE (100 MG/10 ML PO SYR) GTB ×2 (08:29→20:25)
[2018-01-23] MEDS: AQUAPHOR 52.5 GM OINT TOP ×2 (08:29→20:25)
[2018-01-23] MEDS: ASCORBIC ACID 500 MG TAB GTB ×2 (08:29→20:25)
[2018-01-23] MEDS: METOPROLOL 50 MG TAB GTB ×2 (08:29→20:25)
[2018-01-23] MEDS: LEVETIRACETAM 1500 MG (PMX) 100 ML IVPB ×2 (08:29→20:24)
[2018-01-23] MEDS: MULTIVITAMINS 30 ML CUP GTB (08:29)
[2018-01-24] MEDS: PANTOPRAZOLE 40 MG INJ IV (05:34)
[2018-01-24] MEDS: ENOXAPARIN 40 MG/0.4 ML SYG SC (05:35)
[2018-01-24] MEDS: FOLIC ACID 1 MG TAB GTB (09:09)
[2018-01-24] MEDS: MULTIVITAMINS 30 ML CUP GTB (09:09)
[2018-01-24] MEDS: ASCORBIC ACID 500 MG TAB GTB ×2 (09:10→21:02)
[2018-01-24] MEDS: AQUAPHOR 52.5 GM OINT TOP ×2 (09:10→21:03)
[2018-01-24] MEDS: METOPROLOL 50 MG TAB GTB ×2 (09:10→21:03)
[2018-01-24] MEDS: LACOSAMIDE (100 MG/10 ML PO SYR) GTB ×2 (09:23→21:02)
[2018-01-24] MEDS: LEVETIRACETAM 1500 MG (PMX) 100 ML IVPB ×2 (09:43→21:03)
[2018-01-25 05:11] LABS: ADD MAN DIFF? NO
[2018-01-25 05:25] LABS: HEMATOCRIT 33.5 % (37.0-47.0); LYMPHOCYTES # 2.2 10^3/ul (0.8-2.9); LYMPHOCYTES % 57.9 % (15.0-51.0); MEAN CORPUSCULAR HEMOGLOBIN 29.9 pg (29.0-33.0); MEAN CORPUSCULAR HGB CONC 32.8 g/dl (32.0-37.0); MEAN PLATELET VOLUME 10.2 fl (7.4-10.4); MONOCYTE # 0.4 10^3/ul (0.3-0.9); MONOCYTES % 10.7 % (0.0-11.0); NEUTROPHIL # 1.1 10^3/ul (1.6-7.5); NEUTROPHILS % 29.9 % (39.0-77.0); PLATELET COUNT 266 10^3/UL (140-415); RED BLOOD COUNT 3.68 10^6/ul (4.20-5.40); RED CELL DISTRIBUTION WIDTH 17.3 % (11.5-14.5)
[2018-01-25 05:25] LABS: WHITE BLOOD COUNT 3.8 10^3/ul (4.8-10.8)
[2018-01-25] MEDS: PANTOPRAZOLE 40 MG INJ IV (05:50)
[2018-01-25] MEDS: ENOXAPARIN 40 MG/0.4 ML SYG SC (05:55)
[2018-01-25 05:56] LABS: ANION GAP 7 (5-13); BLOOD UREA NITROGEN 12 mg/dl (7-20); CALCIUM 9.8 mg/dl (8.4-10.2); CARBON DIOXIDE 32 mmol/L (21-31); CHLORIDE 103 mmol/L (97-110); CREATININE 0.41 mg/dl (0.44-1.00); GLUCOSE 96 mg/dl (70-220); POTASSIUM 4.1 mmol/L (3.5-5.1); SODIUM 142 mmol/L (135-144)
[2018-01-25] MEDS: ASCORBIC ACID 500 MG TAB GTB ×2 (08:53→20:51)
[2018-01-25] MEDS: LACOSAMIDE (100 MG/10 ML PO SYR) GTB ×2 (08:53→20:51)
[2018-01-25] MEDS: METOPROLOL 50 MG TAB GTB ×2 (08:53→20:52)
[2018-01-25] MEDS: LEVETIRACETAM 1500 MG (PMX) 100 ML IVPB ×2 (08:53→20:51)
[2018-01-25] MEDS: MULTIVITAMINS 30 ML CUP GTB (08:53)
[2018-01-25] MEDS: FOLIC ACID 1 MG TAB GTB (08:53)
[2018-01-25] MEDS: AQUAPHOR 52.5 GM OINT TOP ×2 (08:54→20:51)
[2018-01-25] MEDS: [UNRECOGNIZED DRUG - REMARK] XX ×2 (15:00→23:00)
[2018-01-26] MEDS: PANTOPRAZOLE 40 MG INJ IV (05:30)
[2018-01-26] MEDS: ENOXAPARIN 40 MG/0.4 ML SYG SC (06:46)
[2018-01-26] MEDS: [UNRECOGNIZED DRUG - REMARK] XX ×3 (06:47→20:51)
[2018-01-26] MEDS: AQUAPHOR 52.5 GM OINT TOP ×2 (09:00→20:08)
[2018-01-26] MEDS: LACOSAMIDE (100 MG/10 ML PO SYR) GTB ×2 (09:00→20:08)
[2018-01-26] MEDS: ASCORBIC ACID 500 MG TAB GTB ×2 (10:21→20:07)
[2018-01-26] MEDS: METOPROLOL 50 MG TAB GTB ×2 (10:21→20:07)
[2018-01-26] MEDS: MULTIVITAMINS 30 ML CUP GTB (10:22)
[2018-01-26] MEDS: FOLIC ACID 1 MG TAB GTB (10:22)
[2018-01-26] MEDS: LEVETIRACETAM 1500 MG (PMX) 100 ML IVPB ×2 (10:23→20:08)
[2018-01-27] MEDS: PANTOPRAZOLE 40 MG INJ IV (06:40)
[2018-01-27] MEDS: ENOXAPARIN 40 MG/0.4 ML SYG SC (06:43)
[2018-01-27] MEDS: [UNRECOGNIZED DRUG - REMARK] XX ×3 (06:47→23:00)
[2018-01-27] MEDS: ASCORBIC ACID 500 MG TAB GTB ×2 (08:49→20:48)
[2018-01-27] MEDS: MULTIVITAMINS 30 ML CUP GTB (08:49)
[2018-01-27] MEDS: FOLIC ACID 1 MG TAB GTB (08:49)
[2018-01-27] MEDS: AQUAPHOR 52.5 GM OINT TOP ×2 (08:49→20:51)
[2018-01-27] MEDS: LACOSAMIDE (100 MG/10 ML PO SYR) GTB ×2 (08:49→20:48)
[2018-01-27] MEDS: LEVETIRACETAM 1500 MG (PMX) 100 ML IVPB ×2 (08:50→20:47)
[2018-01-27] MEDS: METOPROLOL 50 MG TAB GTB ×2 (08:51→20:49)
[2018-01-28] MEDS: PANTOPRAZOLE 40 MG INJ IV (06:15)
[2018-01-28] MEDS: ENOXAPARIN 40 MG/0.4 ML SYG SC (06:30)
[2018-01-28] MEDS: [UNRECOGNIZED DRUG - REMARK] XX (07:00)
[2018-01-28] MEDS: FOLIC ACID 1 MG TAB GTB (09:27)
[2018-01-28] MEDS: ASCORBIC ACID 500 MG TAB GTB ×2 (09:27→21:20)
[2018-01-28] MEDS: MULTIVITAMINS 30 ML CUP GTB (09:27)
[2018-01-28] MEDS: LEVETIRACETAM 1500 MG (PMX) 100 ML IVPB ×2 (09:28→21:20)
[2018-01-28] MEDS: METOPROLOL 50 MG TAB GTB ×2 (09:28→21:20)
[2018-01-28] MEDS: AQUAPHOR 52.5 GM OINT TOP ×2 (09:29→21:21)
[2018-01-28] MEDS: LACOSAMIDE (100 MG/10 ML PO SYR) GTB ×2 (09:32→21:21)
[2018-01-29] MEDS: PANTOPRAZOLE 40 MG INJ IV (06:33)
[2018-01-29] MEDS: ENOXAPARIN 40 MG/0.4 ML SYG SC (06:34)
[2018-01-29] MEDS: FOLIC ACID 1 MG TAB GTB (09:08)
[2018-01-29] MEDS: ASCORBIC ACID 500 MG TAB GTB ×2 (09:08→22:02)
[2018-01-29] MEDS: LACOSAMIDE (100 MG/10 ML PO SYR) GTB ×2 (09:09→22:01)
[2018-01-29] MEDS: AQUAPHOR 52.5 GM OINT TOP ×2 (09:09→22:02)
[2018-01-29] MEDS: MULTIVITAMINS 30 ML CUP GTB (09:09)
[2018-01-29] MEDS: LEVETIRACETAM 1500 MG (PMX) 100 ML IVPB ×2 (09:09→22:01)
[2018-01-29] MEDS: METOPROLOL 50 MG TAB GTB ×2 (09:09→21:00)
[2018-01-30 05:57] LABS: ADD MAN DIFF? NO; BASOPHILS % 0.4 % (0.0-2.0); EOSINOPHILS % 0.2 % (0.0-7.0); HEMATOCRIT 32.4 % (37.0-47.0); HEMOGLOBIN 10.7 g/dl (12.0-16.0); LYMPHOCYTES # 2.3 10^3/ul (0.8-2.9); LYMPHOCYTES % 45.2 % (15.0-51.0); MEAN CORPUSCULAR HEMOGLOBIN 30.4 pg (29.0-33.0); MEAN PLATELET VOLUME 10.8 fl (7.4-10.4); MONOCYTE # 0.5 10^3/ul (0.3-0.9); MONOCYTES % 9.8 % (0.0-11.0); NEUTROPHIL # 2.2 10^3/ul (1.6-7.5); NEUTROPHILS % 43.6 % (39.0-77.0); PLATELET COUNT 194 10^3/UL (140-415); RED BLOOD COUNT 3.52 10^6/ul (4.20-5.40); RED CELL DISTRIBUTION WIDTH 17.5 % (11.5-14.5)
[2018-01-30] MEDS: PANTOPRAZOLE 40 MG INJ IV (06:15)
[2018-01-30] MEDS: ENOXAPARIN 40 MG/0.4 ML SYG SC (06:16)
[2018-01-30 06:35] LABS: ANION GAP 12 (5-13); BLOOD UREA NITROGEN 12 mg/dl (7-20); CALCIUM 9.6 mg/dl (8.4-10.2); CARBON DIOXIDE 28 mmol/L (21-31); CHLORIDE 102 mmol/L (97-110); CREATININE 0.41 mg/dl (0.44-1.00); Estimated GFR > 60 mL/min (>60); GLUCOSE 107 mg/dl (70-220); POTASSIUM 3.9 mmol/L (3.5-5.1); SODIUM 142 mmol/L (135-144)
[2018-01-30] MEDS: FOLIC ACID 1 MG TAB GTB (10:00)
[2018-01-30] MEDS: LEVETIRACETAM 1500 MG (PMX) 100 ML IVPB ×2 (10:00→21:01)
[2018-01-30] MEDS: MULTIVITAMINS 30 ML CUP GTB (10:00)
[2018-01-30] MEDS: AQUAPHOR 52.5 GM OINT TOP ×2 (10:00→21:04)
[2018-01-30] MEDS: LACOSAMIDE (100 MG/10 ML PO SYR) GTB ×2 (10:00→21:01)
[2018-01-30] MEDS: ASCORBIC ACID 500 MG TAB GTB ×2 (10:01→21:01)
[2018-01-30] MEDS: METOPROLOL 50 MG TAB GTB ×2 (10:01→21:02)
[2018-01-30] MEDS: SOD CHLORIDE 0.9% 1,000 ML IV ×2 (10:02→20:30)
[2018-01-30] MEDS ORDERED: METHYLPREDNISOLONE 125 MG INJ IV (11:00)
[2018-01-30] MEDS ORDERED: DIPHENHYDRAMINE 50 MG INJ IV (11:00)
[2018-01-30] MEDS ORDERED: MEPERIDINE 50 MG INJ IV (11:00)
[2018-01-30] MEDS: DIPHENHYDRAMINE 50 MG INJ IV (12:39)
[2018-01-30] MEDS: ONDANSETRON INJ 16 MG, DEXAMETHASONE 4 MG/ML 10 MG in SOD CHLORIDE 0.9% 50 ML IVPB (12:39)
[2018-01-30] MEDS: PACLITAXEL IV (13:28)
[2018-01-30] MEDS: SOD CHLORIDE 0.9% IV ×2 (13:28→22:34)
[2018-01-30] MEDS: CARBOPLATIN IV (22:34)
[2018-01-31] MEDS: SOD CHLORIDE 0.9% 1,000 ML IV ×3 (03:26→19:44)
[2018-01-31] MEDS: PANTOPRAZOLE 40 MG INJ IV (05:39)
[2018-01-31] MEDS: ENOXAPARIN 40 MG/0.4 ML SYG SC (05:40)
[2018-01-31] MEDS: METOPROLOL 50 MG TAB GTB ×2 (09:09→21:10)
[2018-01-31] MEDS: FOLIC ACID 1 MG TAB GTB (09:09)
[2018-01-31] MEDS: ASCORBIC ACID 500 MG TAB GTB ×2 (09:09→21:10)
[2018-01-31] MEDS: LEVETIRACETAM 1500 MG (PMX) 100 ML IVPB ×2 (09:10→21:09)
[2018-01-31] MEDS: MULTIVITAMINS 30 ML CUP GTB (09:10)
[2018-01-31] MEDS: AQUAPHOR 52.5 GM OINT TOP ×2 (09:10→21:09)
[2018-01-31] MEDS: LACOSAMIDE (100 MG/10 ML PO SYR) GTB ×2 (09:10→21:10)
[2018-02-01] MEDS: PANTOPRAZOLE 40 MG INJ IV (06:04)
[2018-02-01] MEDS: SOD CHLORIDE 0.9% 1,000 ML IV ×2 (06:04→17:27)
[2018-02-01] MEDS: ENOXAPARIN 40 MG/0.4 ML SYG SC (06:06)
[2018-02-01] MEDS: LACOSAMIDE (100 MG/10 ML PO SYR) GTB ×2 (09:20→21:52)
[2018-02-01] MEDS: LEVETIRACETAM 1500 MG (PMX) 100 ML IVPB ×2 (09:20→21:52)
[2018-02-01] MEDS: METOPROLOL 50 MG TAB GTB ×2 (09:21→21:54)
[2018-02-01] MEDS: FOLIC ACID 1 MG TAB GTB (09:21)
[2018-02-01] MEDS: ASCORBIC ACID 500 MG TAB GTB ×2 (09:21→21:53)
[2018-02-01] MEDS: MULTIVITAMINS 30 ML CUP GTB (09:21)
[2018-02-01] MEDS: AQUAPHOR 52.5 GM OINT TOP ×2 (09:22→22:03)
[2018-02-02] MEDS: PANTOPRAZOLE 40 MG INJ IV (05:28)
[2018-02-02] MEDS: SOD CHLORIDE 0.9% 1,000 ML IV ×2 (05:29→18:09)
[2018-02-02] MEDS: ENOXAPARIN 40 MG/0.4 ML SYG SC (05:30)
[2018-02-02 06:18] LABS: ADD MAN DIFF? NO
[2018-02-02 06:27] LABS: BASOPHILS % 0.1 % (0.0-2.0); EOSINOPHILS % 0.1 % (0.0-7.0); HEMATOCRIT 34.7 % (37.0-47.0); HEMOGLOBIN 11.7 g/dl (12.0-16.0); LYMPHOCYTES # 1.7 10^3/ul (0.8-2.9); LYMPHOCYTES % 20.7 % (15.0-51.0); MEAN CORPUSCULAR HEMOGLOBIN 30.8 pg (29.0-33.0); MEAN CORPUSCULAR HGB CONC 33.7 g/dl (32.0-37.0); MEAN CORPUSCULAR VOLUME 91.3 fl (82.0-101.0); MEAN PLATELET VOLUME 10.8 fl (7.4-10.4); MONOCYTE # 0.2 10^3/ul (0.3-0.9); MONOCYTES % 2.6 % (0.0-11.0); NEUTROPHIL # 6.1 10^3/ul (1.6-7.5); NEUTROPHILS % 76.2 % (39.0-77.0); PLATELET COUNT 194 10^3/UL (140-415); RED CELL DISTRIBUTION WIDTH 16.9 % (11.5-14.5)
[2018-02-02 06:47] LABS: ANION GAP 12 (5-13); BLOOD UREA NITROGEN 10 mg/dl (7-20); CALCIUM 9.8 mg/dl (8.4-10.2); CARBON DIOXIDE 27 mmol/L (21-31); CHLORIDE 102 mmol/L (97-110); CREATININE 0.38 mg/dl (0.44-1.00); Estimated GFR > 60 mL/min (>60); GLUCOSE 109 mg/dl (70-220); POTASSIUM 3.9 mmol/L (3.5-5.1); SODIUM 141 mmol/L (135-144)
[2018-02-02] MEDS: ASCORBIC ACID 500 MG TAB GTB ×2 (08:45→20:50)
[2018-02-02] MEDS: MULTIVITAMINS 30 ML CUP GTB (08:45)
[2018-02-02] MEDS: FOLIC ACID 1 MG TAB GTB (08:46)
[2018-02-02] MEDS: METOPROLOL 50 MG TAB GTB ×2 (08:46→20:51)
[2018-02-02] MEDS: AQUAPHOR 52.5 GM OINT TOP ×2 (08:46→20:51)
[2018-02-02] MEDS: LEVETIRACETAM 1500 MG (PMX) 100 ML IVPB ×2 (08:47→20:50)
[2018-02-02] MEDS: LACOSAMIDE (100 MG/10 ML PO SYR) GTB ×2 (10:00→20:50)
[2018-02-03] MEDS: SOD CHLORIDE 0.9% 1,000 ML IV ×2 (04:30→14:30)
[2018-02-03 05:20] LABS: ADD MAN DIFF? NO
[2018-02-03] MEDS: PANTOPRAZOLE 40 MG INJ IV (05:20)
[2018-02-03 05:24] LABS: WHITE BLOOD COUNT 4.7 10^3/ul (4.8-10.8)
[2018-02-03 05:24] LABS: BASOPHILS % 0.4 % (0.0-2.0); EOSINOPHILS % 0.4 % (0.0-7.0); HEMOGLOBIN 10.6 g/dl (12.0-16.0); LYMPHOCYTES # 1.7 10^3/ul (0.8-2.9); LYMPHOCYTES % 35.6 % (15.0-51.0); MEAN CORPUSCULAR HEMOGLOBIN 30.1 pg (29.0-33.0); MEAN CORPUSCULAR HGB CONC 33.1 g/dl (32.0-37.0); MEAN CORPUSCULAR VOLUME 90.9 fl (82.0-101.0); MEAN PLATELET VOLUME 10.8 fl (7.4-10.4); MONOCYTE # 0.1 10^3/ul (0.3-0.9); MONOCYTES % 2.5 % (0.0-11.0); NEUTROPHIL # 2.9 10^3/ul (1.6-7.5); NEUTROPHILS % 60.9 % (39.0-77.0); PLATELET COUNT 212 10^3/UL (140-415); RED BLOOD COUNT 3.52 10^6/ul (4.20-5.40); RED CELL DISTRIBUTION WIDTH 16.9 % (11.5-14.5)
[2018-02-03 05:51] LABS: ANION GAP 10 (5-13); BLOOD UREA NITROGEN 13 mg/dl (7-20); CALCIUM 9.6 mg/dl (8.4-10.2); CARBON DIOXIDE 28 mmol/L (21-31); CHLORIDE 103 mmol/L (97-110); CREATININE 0.38 mg/dl (0.44-1.00); Estimated GFR > 60 mL/min (>60); GLUCOSE 99 mg/dl (70-220); POTASSIUM 4.2 mmol/L (3.5-5.1); SODIUM 141 mmol/L (135-144)
[2018-02-03] MEDS: LACOSAMIDE (100 MG/10 ML PO SYR) GTB ×2 (09:57→21:04)
[2018-02-03] MEDS: MULTIVITAMINS 30 ML CUP GTB (09:57)
[2018-02-03] MEDS: ASCORBIC ACID 500 MG TAB GTB ×2 (10:01→21:03)
[2018-02-03] MEDS: FOLIC ACID 1 MG TAB GTB (10:01)
[2018-02-03] MEDS: LEVETIRACETAM 1500 MG (PMX) 100 ML IVPB ×2 (10:02→21:03)
[2018-02-03] MEDS: METOPROLOL 50 MG TAB GTB ×2 (10:07→21:04)
[2018-02-03] MEDS: ENOXAPARIN 40 MG/0.4 ML SYG SC (10:08)
[2018-02-03] MEDS: AQUAPHOR 52.5 GM OINT TOP ×2 (10:28→21:04)
[2018-02-04] MEDS: SOD CHLORIDE 0.9% 1,000 ML IV ×3 (00:30→20:30)
[2018-02-04 05:12] LABS: ADD MAN DIFF? NO
[2018-02-04 05:21] LABS: WHITE BLOOD COUNT 4.1 10^3/ul (4.8-10.8)
[2018-02-04 05:21] LABS: BASOPHILS % 0.5 % (0.0-2.0); EOSINOPHILS % 0.5 % (0.0-7.0); HEMATOCRIT 32.8 % (37.0-47.0); HEMOGLOBIN 11.1 g/dl (12.0-16.0); LYMPHOCYTES # 2.1 10^3/ul (0.8-2.9); LYMPHOCYTES % 50.6 % (15.0-51.0); MEAN CORPUSCULAR HEMOGLOBIN 30.6 pg (29.0-33.0); MEAN CORPUSCULAR HGB CONC 33.8 g/dl (32.0-37.0); MEAN CORPUSCULAR VOLUME 90.4 fl (82.0-101.0); MEAN PLATELET VOLUME 10.8 fl (7.4-10.4); MONOCYTE # 0.1 10^3/ul (0.3-0.9); MONOCYTES % 2.7 % (0.0-11.0); NEUTROPHIL # 1.9 10^3/ul (1.6-7.5); NEUTROPHILS % 45.7 % (39.0-77.0); PLATELET COUNT 224 10^3/UL (140-415); RED BLOOD COUNT 3.63 10^6/ul (4.20-5.40); RED CELL DISTRIBUTION WIDTH 16.2 % (11.5-14.5)
[2018-02-04] MEDS: PANTOPRAZOLE 40 MG INJ IV (05:22)
[2018-02-04 05:47] LABS: ANION GAP 12 (5-13); BLOOD UREA NITROGEN 14 mg/dl (7-20); CALCIUM 9.8 mg/dl (8.4-10.2); CARBON DIOXIDE 28 mmol/L (21-31); CHLORIDE 102 mmol/L (97-110); CREATININE 0.39 mg/dl (0.44-1.00); Estimated GFR > 60 mL/min (>60); GLUCOSE 88 mg/dl (70-220); POTASSIUM 3.8 mmol/L (3.5-5.1); SODIUM 142 mmol/L (135-144)
[2018-02-04] MEDS: AQUAPHOR 52.5 GM OINT TOP ×2 (09:00→20:56)
[2018-02-04] MEDS: LEVETIRACETAM 1500 MG (PMX) 100 ML IVPB ×2 (09:36→20:55)
[2018-02-04] MEDS: MULTIVITAMINS 30 ML CUP GTB (10:07)
[2018-02-04] MEDS: LACOSAMIDE (100 MG/10 ML PO SYR) GTB ×2 (10:07→20:54)
[2018-02-04] MEDS: METOPROLOL 50 MG TAB GTB ×2 (10:08→20:54)
[2018-02-04] MEDS: FOLIC ACID 1 MG TAB GTB (10:08)
[2018-02-04] MEDS: ASCORBIC ACID 500 MG TAB GTB ×2 (10:08→20:54)
[2018-02-04] MEDS: ENOXAPARIN 40 MG/0.4 ML SYG SC (10:25)
[2018-02-05] MEDS: PANTOPRAZOLE 40 MG INJ IV (05:09)
[2018-02-05 05:13] LABS: ADD MAN DIFF? NO
[2018-02-05 05:24] LABS: WHITE BLOOD COUNT 3.1 10^3/ul (4.8-10.8)
[2018-02-05 05:24] LABS: BASOPHILS % 0.6 % (0.0-2.0); HEMATOCRIT 30.5 % (37.0-47.0); HEMOGLOBIN 10.3 g/dl (12.0-16.0); LYMPHOCYTES % 62.3 % (15.0-51.0); MEAN CORPUSCULAR HEMOGLOBIN 30.5 pg (29.0-33.0); MEAN CORPUSCULAR HGB CONC 33.8 g/dl (32.0-37.0); MEAN CORPUSCULAR VOLUME 90.2 fl (82.0-101.0); MEAN PLATELET VOLUME 10.7 fl (7.4-10.4); MONOCYTE # 0.1 10^3/ul (0.3-0.9); MONOCYTES % 3.2 % (0.0-11.0); NEUTROPHILS % 32.6 % (39.0-77.0); PLATELET COUNT 215 10^3/UL (140-415); RED BLOOD COUNT 3.38 10^6/ul (4.20-5.40); RED CELL DISTRIBUTION WIDTH 16.2 % (11.5-14.5)
[2018-02-05 06:01] LABS: ANION GAP 10 (5-13); BLOOD UREA NITROGEN 14 mg/dl (7-20); CALCIUM 9.4 mg/dl (8.4-10.2); CARBON DIOXIDE 29 mmol/L (21-31); CHLORIDE 102 mmol/L (97-110); CREATININE 0.37 mg/dl (0.44-1.00); Estimated GFR > 60 mL/min (>60); GLUCOSE 93 mg/dl (70-220); POTASSIUM 3.8 mmol/L (3.5-5.1); SODIUM 141 mmol/L (135-144)
[2018-02-05] MEDS: SOD CHLORIDE 0.9% 1,000 ML IV ×2 (06:30→07:18)
[2018-02-05] MEDS: LACOSAMIDE (100 MG/10 ML PO SYR) GTB ×2 (09:17→21:38)
[2018-02-05] MEDS: ASCORBIC ACID 500 MG TAB GTB ×2 (09:17→21:38)
[2018-02-05] MEDS: FOLIC ACID 1 MG TAB GTB (09:17)
[2018-02-05] MEDS: METOPROLOL 50 MG TAB GTB ×2 (09:17→21:39)
[2018-02-05] MEDS: MULTIVITAMINS 30 ML CUP GTB (09:18)
[2018-02-05] MEDS: LEVETIRACETAM 1500 MG (PMX) 100 ML IVPB ×2 (09:18→21:38)
[2018-02-05] MEDS: ENOXAPARIN 40 MG/0.4 ML SYG SC (09:33)
[2018-02-05] MEDS: AQUAPHOR 52.5 GM OINT TOP ×2 (09:34→21:00)
[2018-02-05] MEDS: D5W-0.45 NACL + KCL 20 MEQ 1,000 ML IV (12:45)
[2018-02-05] MEDS: DIATR MEGLU/DIATRIZOATE SODIUM 120 ML BTL (16:49)
[2018-02-06] MEDS: D5W-0.45 NACL + KCL 20 MEQ 1,000 ML IV ×2 (01:20→15:18)
[2018-02-06 05:24] LABS: ADD MAN DIFF? NO
[2018-02-06 05:30] LABS: WHITE BLOOD COUNT 4.3 10^3/ul (4.8-10.8)
[2018-02-06 05:30] LABS: BASOPHILS % 0.5 % (0.0-2.0); EOSINOPHILS % 0.7 % (0.0-7.0); HEMATOCRIT 31.3 % (37.0-47.0); HEMOGLOBIN 10.5 g/dl (12.0-16.0); LYMPHOCYTES # 1.6 10^3/ul (0.8-2.9); LYMPHOCYTES % 37.6 % (15.0-51.0); MEAN CORPUSCULAR HEMOGLOBIN 30.3 pg (29.0-33.0); MEAN CORPUSCULAR HGB CONC 33.5 g/dl (32.0-37.0); MEAN CORPUSCULAR VOLUME 90.2 fl (82.0-101.0); MEAN PLATELET VOLUME 10.6 fl (7.4-10.4); MONOCYTE # 0.2 10^3/ul (0.3-0.9); MONOCYTES % 4.5 % (0.0-11.0); NEUTROPHIL # 2.4 10^3/ul (1.6-7.5); PLATELET COUNT 217 10^3/UL (140-415); RED BLOOD COUNT 3.47 10^6/ul (4.20-5.40)
[2018-02-06 06:00] LABS: ANION GAP 10 (5-13); BLOOD UREA NITROGEN 10 mg/dl (7-20); CALCIUM 9.8 mg/dl (8.4-10.2); CARBON DIOXIDE 29 mmol/L (21-31); CHLORIDE 101 mmol/L (97-110); CREATININE 0.38 mg/dl (0.44-1.00); Estimated GFR > 60 mL/min (>60); GLUCOSE 106 mg/dl (70-220); POTASSIUM 3.9 mmol/L (3.5-5.1); SODIUM 140 mmol/L (135-144)
[2018-02-06] MEDS: PANTOPRAZOLE 40 MG INJ IV (06:25)
[2018-02-06] MEDS: ASCORBIC ACID 500 MG TAB GTB ×2 (09:46→21:16)
[2018-02-06] MEDS: FOLIC ACID 1 MG TAB GTB (09:46)
[2018-02-06] MEDS: MULTIVITAMINS 30 ML CUP GTB (09:46)
[2018-02-06] MEDS: METOPROLOL 50 MG TAB GTB ×2 (09:46→21:17)
[2018-02-06] MEDS: LEVETIRACETAM 1500 MG (PMX) 100 ML IVPB ×2 (09:46→21:16)
[2018-02-06] MEDS: LACOSAMIDE (100 MG/10 ML PO SYR) GTB ×2 (09:46→21:16)
[2018-02-06] MEDS: ENOXAPARIN 40 MG/0.4 ML SYG SC (09:48)
[2018-02-06] MEDS: AQUAPHOR 52.5 GM OINT TOP ×2 (09:50→21:16)
[2018-02-07] MEDS: PANTOPRAZOLE 40 MG INJ IV (05:21)
[2018-02-07] MEDS: ASCORBIC ACID 500 MG TAB GTB ×2 (09:14→20:54)
[2018-02-07] MEDS: FOLIC ACID 1 MG TAB GTB (09:14)
[2018-02-07] MEDS: MULTIVITAMINS 30 ML CUP GTB (09:15)
[2018-02-07] MEDS: METOPROLOL 50 MG TAB GTB ×2 (09:15→20:54)
[2018-02-07] MEDS: LACOSAMIDE (100 MG/10 ML PO SYR) GTB ×2 (09:16→20:54)
[2018-02-07] MEDS: ENOXAPARIN 40 MG/0.4 ML SYG SC (09:42)
[2018-02-07] MEDS: LEVETIRACETAM 1500 MG (PMX) 100 ML IVPB ×2 (09:42→20:54)
[2018-02-07] MEDS: AQUAPHOR 52.5 GM OINT TOP ×2 (09:43→20:55)
[2018-02-07] MEDS: D5W-0.45 NACL + KCL 20 MEQ 1,000 ML IV (14:40)
[2018-02-08] MEDS: PANTOPRAZOLE 40 MG INJ IV (06:20)
[2018-02-08] MEDS: ENOXAPARIN 40 MG/0.4 ML SYG SC (10:12)
[2018-02-08] MEDS: ASCORBIC ACID 500 MG TAB GTB ×2 (10:13→21:46)
[2018-02-08] MEDS: METOPROLOL 50 MG TAB GTB ×2 (10:13→21:46)
[2018-02-08] MEDS: FOLIC ACID 1 MG TAB GTB (10:13)
[2018-02-08] MEDS: AQUAPHOR 52.5 GM OINT TOP ×2 (10:14→21:54)
[2018-02-08] MEDS: LEVETIRACETAM 1500 MG (PMX) 100 ML IVPB ×2 (10:14→21:45)
[2018-02-08] MEDS: MULTIVITAMINS 30 ML CUP GTB (10:14)
[2018-02-08] MEDS: LACOSAMIDE (100 MG/10 ML PO SYR) GTB ×2 (10:14→21:46)
[2018-02-08] MEDS: D5W-0.45 NACL + KCL 20 MEQ 1,000 ML IV (15:57)
[2018-02-09 05:26] LABS: ADD MAN DIFF? NO
[2018-02-09 05:27] LABS: EOSINOPHILS % 0.7 % (0.0-7.0); HEMATOCRIT 28.4 % (37.0-47.0); HEMOGLOBIN 9.5 g/dl (12.0-16.0); LYMPHOCYTES # 1.5 10^3/ul (0.8-2.9); LYMPHOCYTES % 53.5 % (15.0-51.0); MEAN CORPUSCULAR HEMOGLOBIN 30.4 pg (29.0-33.0); MEAN CORPUSCULAR HGB CONC 33.5 g/dl (32.0-37.0); MEAN PLATELET VOLUME 10.5 fl (7.4-10.4); MONOCYTE # 0.3 10^3/ul (0.3-0.9); MONOCYTES % 9.7 % (0.0-11.0); NEUTROPHILS % 36.1 % (39.0-77.0); PLATELET COUNT 223 10^3/UL (140-415); RED BLOOD COUNT 3.12 10^6/ul (4.20-5.40); RED CELL DISTRIBUTION WIDTH 16.4 % (11.5-14.5)
[2018-02-09 05:27] LABS: WHITE BLOOD COUNT 2.9 10^3/ul (4.8-10.8)
[2018-02-09] MEDS: PANTOPRAZOLE 40 MG INJ IV (06:09)
[2018-02-09 06:13] LABS: ANION GAP 9 (5-13); BLOOD UREA NITROGEN 13 mg/dl (7-20); CALCIUM 9.8 mg/dl (8.4-10.2); CARBON DIOXIDE 30 mmol/L (21-31); CHLORIDE 102 mmol/L (97-110); CREATININE 0.42 mg/dl (0.44-1.00); Estimated GFR > 60 mL/min (>60); GLUCOSE 100 mg/dl (70-220); SODIUM 141 mmol/L (135-144)
[2018-02-09] MEDS: ENOXAPARIN 40 MG/0.4 ML SYG SC (09:39)
[2018-02-09] MEDS: LACOSAMIDE (100 MG/10 ML PO SYR) GTB ×2 (09:40→21:43)
[2018-02-09] MEDS: LEVETIRACETAM 1500 MG (PMX) 100 ML IVPB ×2 (09:40→21:43)
[2018-02-09] MEDS: ASCORBIC ACID 500 MG TAB GTB ×2 (09:41→21:43)
[2018-02-09] MEDS: FOLIC ACID 1 MG TAB GTB (09:41)
[2018-02-09] MEDS: MULTIVITAMINS 30 ML CUP GTB (09:41)
[2018-02-09] MEDS: METOPROLOL 50 MG TAB GTB ×2 (09:41→21:46)
[2018-02-09] MEDS: AQUAPHOR 52.5 GM OINT TOP ×2 (09:42→21:52)
[2018-02-09] MEDS: D5W-0.45 NACL + KCL 20 MEQ 1,000 ML IV (14:40)
[2018-02-10] MEDS: LANSOPRAZOLE 30 MG CAP GTB (05:42)
[2018-02-10] MEDS: LEVETIRACETAM 1500 MG (PMX) 100 ML IVPB ×2 (09:21→20:48)
[2018-02-10] MEDS: MULTIVITAMINS 30 ML CUP GTB (09:23)
[2018-02-10] MEDS: FOLIC ACID 1 MG TAB GTB (09:23)
[2018-02-10] MEDS: METOPROLOL 50 MG TAB GTB ×2 (09:24→20:49)
[2018-02-10] MEDS: LACOSAMIDE (100 MG/10 ML PO SYR) GTB ×2 (09:24→21:28)
[2018-02-10] MEDS: ASCORBIC ACID 500 MG TAB GTB ×2 (09:24→20:48)
[2018-02-10] MEDS: AQUAPHOR 52.5 GM OINT TOP ×2 (09:24→20:50)
[2018-02-10] MEDS: ENOXAPARIN 40 MG/0.4 ML SYG SC (09:25)
[2018-02-10] MEDS: D5W-0.45 NACL + KCL 20 MEQ 1,000 ML IV (12:00)
[2018-02-11] MEDS: LANSOPRAZOLE 30 MG CAP GTB (05:18)
[2018-02-11] MEDS: AQUAPHOR 52.5 GM OINT TOP ×2 (09:00→21:07)
[2018-02-11] MEDS: LEVETIRACETAM 1500 MG (PMX) 100 ML IVPB ×2 (09:14→21:06)
[2018-02-11] MEDS: ASCORBIC ACID 500 MG TAB GTB ×2 (09:17→21:06)
[2018-02-11] MEDS: FOLIC ACID 1 MG TAB GTB (09:17)
[2018-02-11] MEDS: LACOSAMIDE (100 MG/10 ML PO SYR) GTB ×2 (09:17→21:06)
[2018-02-11] MEDS: MULTIVITAMINS 30 ML CUP GTB (09:18)
[2018-02-11] MEDS: METOPROLOL 50 MG TAB GTB ×2 (09:18→21:07)
[2018-02-11] MEDS: ENOXAPARIN 40 MG/0.4 ML SYG SC (09:26)
[2018-02-11] MEDS: D5W-0.45 NACL + KCL 20 MEQ 1,000 ML IV (14:40)
[2018-02-12] MEDS: LANSOPRAZOLE 30 MG CAP GTB (05:13)
[2018-02-12] MEDS: ENOXAPARIN 40 MG/0.4 ML SYG SC (09:57)
[2018-02-12] MEDS: FOLIC ACID 1 MG TAB GTB (09:58)
[2018-02-12] MEDS: ASCORBIC ACID 500 MG TAB GTB ×2 (09:58→21:22)
[2018-02-12] MEDS: METOPROLOL 50 MG TAB GTB ×2 (09:58→21:22)
[2018-02-12] MEDS: MULTIVITAMINS 30 ML CUP GTB (09:58)
[2018-02-12] MEDS: LEVETIRACETAM 1500 MG (PMX) 100 ML IVPB ×2 (09:59→21:22)
[2018-02-12] MEDS: AQUAPHOR 52.5 GM OINT TOP ×2 (09:59→21:00)
[2018-02-12] MEDS: LACOSAMIDE (100 MG/10 ML PO SYR) GTB ×2 (10:30→21:23)
[2018-02-13] MEDS: LANSOPRAZOLE 30 MG CAP GTB (05:52)
[2018-02-13] MEDS: AQUAPHOR 52.5 GM OINT TOP ×2 (09:00→20:54)
[2018-02-13] MEDS: METOPROLOL 50 MG TAB GTB ×2 (09:00→20:53)
[2018-02-13] MEDS: ASCORBIC ACID 500 MG TAB GTB ×2 (10:27→20:52)
[2018-02-13] MEDS: HYDROCODONE/APAP (5/325) TAB PO (10:27)
[2018-02-13] MEDS: LEVETIRACETAM 1500 MG (PMX) 100 ML IVPB ×2 (10:27→20:51)
[2018-02-13] MEDS: LACOSAMIDE (100 MG/10 ML PO SYR) GTB ×2 (10:28→20:52)
[2018-02-13] MEDS: FOLIC ACID 1 MG TAB GTB (10:28)
[2018-02-13] MEDS: MULTIVITAMINS 30 ML CUP GTB (10:28)
[2018-02-13] MEDS: ENOXAPARIN 40 MG/0.4 ML SYG SC (10:57)
[2018-02-14 05:15] LABS: ADD MAN DIFF? NO
[2018-02-14 05:23] LABS: BASOPHILS % 0.3 % (0.0-2.0); EOSINOPHILS % 0.9 % (0.0-7.0); HEMATOCRIT 31.1 % (37.0-47.0); HEMOGLOBIN 10.4 g/dl (12.0-16.0); LYMPHOCYTES # 1.7 10^3/ul (0.8-2.9); LYMPHOCYTES % 52.5 % (15.0-51.0); MEAN CORPUSCULAR HEMOGLOBIN 31.1 pg (29.0-33.0); MEAN CORPUSCULAR HGB CONC 33.4 g/dl (32.0-37.0); MEAN CORPUSCULAR VOLUME 93.1 fl (82.0-101.0); MEAN PLATELET VOLUME 10.3 fl (7.4-10.4); MONOCYTE # 0.4 10^3/ul (0.3-0.9); MONOCYTES % 12.9 % (0.0-11.0); NEUTROPHIL # 1.1 10^3/ul (1.6-7.5); NEUTROPHILS % 33.1 % (39.0-77.0); PLATELET COUNT 319 10^3/UL (140-415); RED BLOOD COUNT 3.34 10^6/ul (4.20-5.40); RED CELL DISTRIBUTION WIDTH 17.4 % (11.5-14.5)
[2018-02-14 05:23] LABS: WHITE BLOOD COUNT 3.3 10^3/ul (4.8-10.8)
[2018-02-14] MEDS: LANSOPRAZOLE 30 MG CAP GTB (05:35)
[2018-02-14 06:04] LABS: ANION GAP 10 (5-13); BLOOD UREA NITROGEN 12 mg/dl (7-20); CALCIUM 9.4 mg/dl (8.4-10.2); CARBON DIOXIDE 31 mmol/L (21-31); CHLORIDE 102 mmol/L (97-110); CREATININE 0.43 mg/dl (0.44-1.00); Estimated GFR > 60 mL/min (>60); GLUCOSE 102 mg/dl (70-220); POTASSIUM 3.8 mmol/L (3.5-5.1); SODIUM 143 mmol/L (135-144)
[2018-02-14] MEDS: FOLIC ACID 1 MG TAB GTB (08:02)
[2018-02-14] MEDS: MULTIVITAMINS 30 ML CUP GTB (08:02)
[2018-02-14] MEDS: METOPROLOL 50 MG TAB GTB ×2 (08:03→21:05)
[2018-02-14] MEDS: AQUAPHOR 52.5 GM OINT TOP ×2 (08:03→21:06)
[2018-02-14] MEDS: ASCORBIC ACID 500 MG TAB GTB ×2 (08:03→21:06)
[2018-02-14] MEDS: ENOXAPARIN 40 MG/0.4 ML SYG SC (08:11)
[2018-02-14] MEDS: LEVETIRACETAM 1500 MG (PMX) 100 ML IVPB ×2 (09:25→21:06)
[2018-02-14] MEDS: LACOSAMIDE (100 MG/10 ML PO SYR) GTB ×2 (09:25→21:06)
[2018-02-15] MEDS: LANSOPRAZOLE 30 MG CAP GTB (05:24)
[2018-02-15] MEDS: ASCORBIC ACID 500 MG TAB GTB ×2 (07:58→21:04)
[2018-02-15] MEDS: AQUAPHOR 52.5 GM OINT TOP ×2 (07:58→21:04)
[2018-02-15] MEDS: FOLIC ACID 1 MG TAB GTB (07:58)
[2018-02-15] MEDS: MULTIVITAMINS 30 ML CUP GTB (07:58)
[2018-02-15] MEDS: LACOSAMIDE (100 MG/10 ML PO SYR) GTB ×2 (07:58→21:03)
[2018-02-15] MEDS: LEVETIRACETAM 1500 MG (PMX) 100 ML IVPB ×2 (07:59→21:02)
[2018-02-15] MEDS: METOPROLOL 50 MG TAB GTB ×2 (07:59→21:04)
[2018-02-15] MEDS: ENOXAPARIN 40 MG/0.4 ML SYG SC (08:13)
[2018-02-16] MEDS: LANSOPRAZOLE 30 MG CAP GTB (06:11)
[2018-02-16] MEDS: AQUAPHOR 52.5 GM OINT TOP ×2 (08:09→21:17)
[2018-02-16] MEDS: LACOSAMIDE (100 MG/10 ML PO SYR) GTB ×2 (08:10→21:16)
[2018-02-16] MEDS: NEOMYC/POLYMYX/DEXAMETH OPH 5 ML BOTH EYES (08:10)
[2018-02-16] MEDS: MULTIVITAMINS 30 ML CUP GTB (08:10)
[2018-02-16] MEDS: ASCORBIC ACID 500 MG TAB GTB ×2 (08:10→21:16)
[2018-02-16] MEDS: LEVETIRACETAM 1500 MG (PMX) 100 ML IVPB ×2 (08:10→21:16)
[2018-02-16] MEDS: ACETAMINOPHEN 325 MG TAB PO (08:10)
[2018-02-16] MEDS: FOLIC ACID 1 MG TAB GTB (08:11)
[2018-02-16] MEDS: METOPROLOL 50 MG TAB GTB ×2 (08:11→21:17)
[2018-02-16] MEDS: ENOXAPARIN 40 MG/0.4 ML SYG SC (08:34)
[2018-02-16 15:15] LABS: HEMATOCRIT 31.2 % (37.0-47.0); HEMOGLOBIN 10.5 g/dl (12.0-16.0); MEAN CORPUSCULAR HEMOGLOBIN 31.6 pg (29.0-33.0); MEAN CORPUSCULAR HGB CONC 33.7 g/dl (32.0-37.0); MEAN PLATELET VOLUME 9.7 fl (7.4-10.4); PLATELET COUNT 289 10^3/UL (140-415); RED BLOOD COUNT 3.32 10^6/ul (4.20-5.40); RED CELL DISTRIBUTION WIDTH 17.2 % (11.5-14.5)
[2018-02-16 15:15] LABS: WHITE BLOOD COUNT 4.2 10^3/ul (4.8-10.8)
[2018-02-16 15:18] LABS: ADD MAN DIFF? YES
[2018-02-16 15:47] LABS: ANION GAP 7 (5-13); BLOOD UREA NITROGEN 13 mg/dl (7-20); CALCIUM 9.6 mg/dl (8.4-10.2); CARBON DIOXIDE 29 mmol/L (21-31); CHLORIDE 103 mmol/L (97-110); Estimated GFR > 60 mL/min (>60); GLUCOSE 105 mg/dl (70-220); POTASSIUM 3.9 mmol/L (3.5-5.1); SODIUM 139 mmol/L (135-144)
[2018-02-16 15:52] LABS: BAND NEUTROPHILS #M 0.1 10^3/ul (0.0-0.6); BAND NEUTROPHILS % (M) 3 % (0-4); EOSINOPHILS % (M) 1 % (0-7); LYMPHOCYTES #M 2.5 10^3/ul (0.8-2.9); LYMPHOCYTES % (M) 60 % (15-51); MONOCYTE #M 0.2 10^3/ul (0.3-0.9); MONOCYTES % (M) 5 % (0-11); PLATELET ESTIMATE NORMAL; POLYCHROMASIA 1+ (0-0); REACTIVE LYMPHOCYTES #M 0.1 10^3/ul (0.0-0.0); REACTIVE LYMPHOCYTES% (M) 4 % (0-0); SEG NEUT #M 1.1 10^3/ul (1.6-7.5); SEGMENTED NEUTROPHILS (M) % 27 % (39-77); SMUDGE%M 4 % (0-0)
[2018-02-17 05:34] LABS: ADD MAN DIFF? NO
[2018-02-17 05:35] LABS: WHITE BLOOD COUNT 4.1 10^3/ul (4.8-10.8)
[2018-02-17 05:35] LABS: BASOPHILS % 0.2 % (0.0-2.0); EOSINOPHILS % 0.5 % (0.0-7.0); HEMATOCRIT 30.5 % (37.0-47.0); HEMOGLOBIN 10.2 g/dl (12.0-16.0); LYMPHOCYTES # 1.7 10^3/ul (0.8-2.9); LYMPHOCYTES % 40.7 % (15.0-51.0); MEAN CORPUSCULAR HEMOGLOBIN 31.2 pg (29.0-33.0); MEAN CORPUSCULAR HGB CONC 33.4 g/dl (32.0-37.0); MEAN CORPUSCULAR VOLUME 93.3 fl (82.0-101.0); MEAN PLATELET VOLUME 10.1 fl (7.4-10.4); MONOCYTE # 0.6 10^3/ul (0.3-0.9); MONOCYTES % 13.3 % (0.0-11.0); NEUTROPHIL # 1.8 10^3/ul (1.6-7.5); NEUTROPHILS % 44.6 % (39.0-77.0); PLATELET COUNT 287 10^3/UL (140-415); RED BLOOD COUNT 3.27 10^6/ul (4.20-5.40); RED CELL DISTRIBUTION WIDTH 17.2 % (11.5-14.5)
[2018-02-17] MEDS: NEOMYC/POLYMYX/DEXAMETH OPH 5 ML BOTH EYES ×2 (05:42→09:44)
[2018-02-17] MEDS: LANSOPRAZOLE 30 MG CAP GTB (05:42)
[2018-02-17 06:33] LABS: ANION GAP 8 (5-13); BLOOD UREA NITROGEN 12 mg/dl (7-20); CALCIUM 9.3 mg/dl (8.4-10.2); CARBON DIOXIDE 29 mmol/L (21-31); CHLORIDE 106 mmol/L (97-110); CREATININE 0.42 mg/dl (0.44-1.00); Estimated GFR > 60 mL/min (>60); GLUCOSE 107 mg/dl (70-220); POTASSIUM 4.2 mmol/L (3.5-5.1); SODIUM 143 mmol/L (135-144)
[2018-02-17] MEDS: METOPROLOL 50 MG TAB GTB ×2 (09:43→21:27)
[2018-02-17] MEDS: MULTIVITAMINS 30 ML CUP GTB (09:43)
[2018-02-17] MEDS: FOLIC ACID 1 MG TAB GTB (09:43)
[2018-02-17] MEDS: ASCORBIC ACID 500 MG TAB GTB ×2 (09:43→21:26)
[2018-02-17] MEDS: LACOSAMIDE (100 MG/10 ML PO SYR) GTB ×2 (09:44→21:26)
[2018-02-17] MEDS: AQUAPHOR 52.5 GM OINT TOP ×2 (09:45→21:26)
[2018-02-17] MEDS: ENOXAPARIN 40 MG/0.4 ML SYG SC (09:46)
[2018-02-17] MEDS: LEVETIRACETAM 1500 MG (PMX) 100 ML IVPB ×2 (09:48→21:26)
[2018-02-18 05:05] LABS: ADD MAN DIFF? NO
[2018-02-18 05:11] LABS: BASOPHILS % 0.3 % (0.0-2.0); EOSINOPHILS % 0.2 % (0.0-7.0); HEMATOCRIT 31.7 % (37.0-47.0); HEMOGLOBIN 10.2 g/dl (12.0-16.0); LYMPHOCYTES # 1.9 10^3/ul (0.8-2.9); LYMPHOCYTES % 31.9 % (15.0-51.0); MEAN CORPUSCULAR HEMOGLOBIN 30.7 pg (29.0-33.0); MEAN CORPUSCULAR HGB CONC 32.2 g/dl (32.0-37.0); MEAN CORPUSCULAR VOLUME 95.5 fl (82.0-101.0); MEAN PLATELET VOLUME 9.8 fl (7.4-10.4); MONOCYTE # 0.4 10^3/ul (0.3-0.9); NEUTROPHIL # 3.5 10^3/ul (1.6-7.5); NEUTROPHILS % 60.1 % (39.0-77.0); PLATELET COUNT 272 10^3/UL (140-415); RED BLOOD COUNT 3.32 10^6/ul (4.20-5.40)
[2018-02-18 05:11] LABS: WHITE BLOOD COUNT 5.8 10^3/ul (4.8-10.8)
[2018-02-18 05:35] LABS: ANION GAP 7 (5-13); BLOOD UREA NITROGEN 11 mg/dl (7-20); CALCIUM 9.5 mg/dl (8.4-10.2); CARBON DIOXIDE 31 mmol/L (21-31); CHLORIDE 103 mmol/L (97-110); CREATININE 0.45 mg/dl (0.44-1.00); Estimated GFR > 60 mL/min (>60); GLUCOSE 99 mg/dl (70-220); POTASSIUM 4.1 mmol/L (3.5-5.1); SODIUM 141 mmol/L (135-144)
[2018-02-18] MEDS: LANSOPRAZOLE 30 MG CAP GTB (06:41)
[2018-02-18] MEDS: AQUAPHOR 52.5 GM OINT TOP ×2 (09:00→20:51)
[2018-02-18] MEDS: LACOSAMIDE (100 MG/10 ML PO SYR) GTB ×2 (09:51→20:37)
[2018-02-18] MEDS: MULTIVITAMINS 30 ML CUP GTB (09:51)
[2018-02-18] MEDS: FOLIC ACID 1 MG TAB GTB (09:51)
[2018-02-18] MEDS: METOPROLOL 50 MG TAB GTB ×2 (09:52→20:49)
[2018-02-18] MEDS: ASCORBIC ACID 500 MG TAB GTB ×2 (09:52→20:37)
[2018-02-18] MEDS: ENOXAPARIN 40 MG/0.4 ML SYG SC (09:55)
[2018-02-18] MEDS: LEVETIRACETAM 1500 MG (PMX) 100 ML IVPB ×2 (10:17→20:37)
[2018-02-18] MEDS: ACETAMINOPHEN 325 MG TAB PO (17:38)
[2018-02-19 05:05] LABS: ADD MAN DIFF? NO
[2018-02-19 05:13] LABS: BASOPHILS % 0.3 % (0.0-2.0); EOSINOPHILS % 0.3 % (0.0-7.0); HEMATOCRIT 32.9 % (37.0-47.0); HEMOGLOBIN 10.8 g/dl (12.0-16.0); LYMPHOCYTES # 1.9 10^3/ul (0.8-2.9); LYMPHOCYTES % 28.3 % (15.0-51.0); MEAN CORPUSCULAR HEMOGLOBIN 30.9 pg (29.0-33.0); MEAN CORPUSCULAR HGB CONC 32.8 g/dl (32.0-37.0); MEAN PLATELET VOLUME 10.1 fl (7.4-10.4); MONOCYTE # 0.5 10^3/ul (0.3-0.9); MONOCYTES % 7.6 % (0.0-11.0); NEUTROPHIL # 4.2 10^3/ul (1.6-7.5); NEUTROPHILS % 63.2 % (39.0-77.0); PLATELET COUNT 272 10^3/UL (140-415); RED CELL DISTRIBUTION WIDTH 16.9 % (11.5-14.5)
[2018-02-19 05:13] LABS: WHITE BLOOD COUNT 6.7 10^3/ul (4.8-10.8)
[2018-02-19 05:42] LABS: ANION GAP 10 (5-13); BLOOD UREA NITROGEN 14 mg/dl (7-20); CALCIUM 9.7 mg/dl (8.4-10.2); CARBON DIOXIDE 28 mmol/L (21-31); CHLORIDE 105 mmol/L (97-110); CREATININE 0.42 mg/dl (0.44-1.00); Estimated GFR > 60 mL/min (>60); GLUCOSE 114 mg/dl (70-220); POTASSIUM 4.4 mmol/L (3.5-5.1); SODIUM 143 mmol/L (135-144)
[2018-02-19] MEDS: LANSOPRAZOLE 30 MG CAP GTB (06:04)
[2018-02-19] MEDS: LACOSAMIDE (100 MG/10 ML PO SYR) GTB ×2 (10:03→21:08)
[2018-02-19] MEDS: LEVETIRACETAM 1500 MG (PMX) 100 ML IVPB ×2 (10:03→21:08)
[2018-02-19] MEDS: FOLIC ACID 1 MG TAB GTB (10:03)
[2018-02-19] MEDS: MULTIVITAMINS 30 ML CUP GTB (10:03)
[2018-02-19] MEDS: ASCORBIC ACID 500 MG TAB GTB ×2 (10:04→21:08)
[2018-02-19] MEDS: AQUAPHOR 52.5 GM OINT TOP ×2 (10:04→21:13)
[2018-02-19] MEDS: METOPROLOL 50 MG TAB GTB ×2 (10:04→21:13)
[2018-02-19] MEDS: ENOXAPARIN 40 MG/0.4 ML SYG SC (10:06)
[2018-02-20 05:09] LABS: ADD MAN DIFF? NO
[2018-02-20 05:19] LABS: BASOPHILS % 0.4 % (0.0-2.0); EOSINOPHILS % 0.2 % (0.0-7.0); HEMATOCRIT 31.1 % (37.0-47.0); HEMOGLOBIN 10.2 g/dl (12.0-16.0); LYMPHOCYTES # 1.8 10^3/ul (0.8-2.9); LYMPHOCYTES % 32.9 % (15.0-51.0); MEAN CORPUSCULAR HEMOGLOBIN 31.4 pg (29.0-33.0); MEAN CORPUSCULAR HGB CONC 32.8 g/dl (32.0-37.0); MEAN CORPUSCULAR VOLUME 95.7 fl (82.0-101.0); MONOCYTE # 0.4 10^3/ul (0.3-0.9); MONOCYTES % 7.3 % (0.0-11.0); NEUTROPHIL # 3.1 10^3/ul (1.6-7.5); NEUTROPHILS % 58.5 % (39.0-77.0); PLATELET COUNT 251 10^3/UL (140-415); RED BLOOD COUNT 3.25 10^6/ul (4.20-5.40); RED CELL DISTRIBUTION WIDTH 16.7 % (11.5-14.5)
[2018-02-20 05:19] LABS: WHITE BLOOD COUNT 5.4 10^3/ul (4.8-10.8)
[2018-02-20 06:01] LABS: ANION GAP 8 (5-13); BLOOD UREA NITROGEN 13 mg/dl (7-20); CALCIUM 9.2 mg/dl (8.4-10.2); CARBON DIOXIDE 29 mmol/L (21-31); CHLORIDE 105 mmol/L (97-110); Estimated GFR > 60 mL/min (>60); GLUCOSE 111 mg/dl (70-220); POTASSIUM 4.2 mmol/L (3.5-5.1); SODIUM 142 mmol/L (135-144)
[2018-02-20] MEDS: LANSOPRAZOLE 30 MG CAP GTB (06:31)
[2018-02-20] MEDS: AQUAPHOR 52.5 GM OINT TOP ×2 (09:00→20:41)
[2018-02-20] MEDS: MULTIVITAMINS 30 ML CUP GTB (09:57)
[2018-02-20] MEDS: LEVETIRACETAM 1500 MG (PMX) 100 ML IVPB ×2 (09:57→20:38)
[2018-02-20] MEDS: ASCORBIC ACID 500 MG TAB GTB ×2 (09:57→20:38)
[2018-02-20] MEDS: LACOSAMIDE (100 MG/10 ML PO SYR) GTB ×2 (09:57→20:40)
[2018-02-20] MEDS: FOLIC ACID 1 MG TAB GTB (09:57)
[2018-02-20] MEDS: METOPROLOL 50 MG TAB GTB ×2 (09:58→20:39)
[2018-02-20] MEDS: ENOXAPARIN 40 MG/0.4 ML SYG SC (10:00)
[2018-02-20] MEDS ORDERED: DIPHENHYDRAMINE 50 MG INJ IV ×3 (15:00→17:00)
[2018-02-20] MEDS ORDERED: MEPERIDINE 50 MG INJ IV ×2 (15:00→17:00)
[2018-02-20] MEDS ORDERED: METHYLPREDNISOLONE 125 MG INJ IV ×2 (15:00→17:00)
[2018-02-20] MEDS: SOD CHLORIDE 0.9% 1,000 ML IV (15:16)
[2018-02-20] MEDS: DIPHENHYDRAMINE 50 MG INJ IV ×2 (17:00→20:12)
[2018-02-20] MEDS: ONDANSETRON INJ 16 MG, DEXAMETHASONE 10 MG/ML 10 MG in SOD CHLORIDE 0.9% 50 ML IVPB (20:12)
[2018-02-20] MEDS: PACLITAXEL IV (20:52)
[2018-02-20] MEDS: SOD CHLORIDE 0.9% IV (20:52)
[2018-02-21] MEDS: CARBOPLATIN IV (00:29)
[2018-02-21] MEDS: SOD CHLORIDE 0.9% IV (00:29)
[2018-02-21] MEDS: SOD CHLORIDE 0.9% 1,000 ML IV ×3 (01:38→12:37)
[2018-02-21 05:29] LABS: ADD MAN DIFF? NO
[2018-02-21 05:42] LABS: WHITE BLOOD COUNT 3.6 10^3/ul (4.8-10.8)
[2018-02-21 05:42] LABS: BASOPHILS % 0.3 % (0.0-2.0); HEMATOCRIT 30.8 % (37.0-47.0); LYMPHOCYTES # 0.6 10^3/ul (0.8-2.9); LYMPHOCYTES % 17.1 % (15.0-51.0); MEAN CORPUSCULAR HEMOGLOBIN 30.9 pg (29.0-33.0); MEAN CORPUSCULAR HGB CONC 32.5 g/dl (32.0-37.0); MEAN CORPUSCULAR VOLUME 95.1 fl (82.0-101.0); MEAN PLATELET VOLUME 10.6 fl (7.4-10.4); MONOCYTES % 0.6 % (0.0-11.0); NEUTROPHIL # 2.9 10^3/ul (1.6-7.5); NEUTROPHILS % 80.6 % (39.0-77.0); PLATELET COUNT 259 10^3/UL (140-415); RED BLOOD COUNT 3.24 10^6/ul (4.20-5.40); RED CELL DISTRIBUTION WIDTH 16.4 % (11.5-14.5)
[2018-02-21 05:54] LABS: ANION GAP 9 (5-13); BLOOD UREA NITROGEN 10 mg/dl (7-20); CALCIUM 8.9 mg/dl (8.4-10.2); CARBON DIOXIDE 26 mmol/L (21-31); CHLORIDE 109 mmol/L (97-110); CREATININE 0.42 mg/dl (0.44-1.00); Estimated GFR > 60 mL/min (>60); GLUCOSE 136 mg/dl (70-220); POTASSIUM 4.1 mmol/L (3.5-5.1); SODIUM 144 mmol/L (135-144)
[2018-02-21] MEDS: LANSOPRAZOLE 30 MG CAP GTB (06:04)
[2018-02-21] MEDS: AQUAPHOR 52.5 GM OINT TOP ×2 (09:00→21:39)
[2018-02-21] MEDS: LACOSAMIDE (100 MG/10 ML PO SYR) GTB ×2 (10:46→21:39)
[2018-02-21] MEDS: MULTIVITAMINS 30 ML CUP GTB (10:46)
[2018-02-21] MEDS: ASCORBIC ACID 500 MG TAB GTB ×2 (10:46→21:18)
[2018-02-21] MEDS: METOPROLOL 50 MG TAB GTB ×2 (10:50→21:00)
[2018-02-21] MEDS: FOLIC ACID 1 MG TAB GTB (10:50)
[2018-02-21] MEDS: ENOXAPARIN 40 MG/0.4 ML SYG SC (10:53)
[2018-02-21] MEDS: LEVETIRACETAM 1500 MG (PMX) 100 ML IVPB ×2 (11:01→21:18)
[2018-02-22] MEDS: LANSOPRAZOLE 30 MG CAP GTB (07:29)
[2018-02-22] MEDS: MULTIVITAMINS 30 ML CUP GTB (09:05)
[2018-02-22] MEDS: LEVETIRACETAM 1500 MG (PMX) 100 ML IVPB ×2 (09:06→21:50)
[2018-02-22] MEDS: FOLIC ACID 1 MG TAB GTB (09:06)
[2018-02-22] MEDS: METOPROLOL 50 MG TAB GTB ×2 (09:06→21:51)
[2018-02-22] MEDS: ASCORBIC ACID 500 MG TAB GTB ×2 (09:06→21:51)
[2018-02-22] MEDS: LACOSAMIDE (100 MG/10 ML PO SYR) GTB ×2 (09:07→21:51)
[2018-02-22] MEDS: ENOXAPARIN 40 MG/0.4 ML SYG SC (09:15)
[2018-02-22] MEDS: AQUAPHOR 52.5 GM OINT TOP ×2 (09:20→21:51)
[2018-02-23] MEDS: LANSOPRAZOLE 30 MG CAP GTB (05:17)
[2018-02-23] MEDS: ASCORBIC ACID 500 MG TAB GTB ×2 (10:17→20:54)
[2018-02-23] MEDS: FOLIC ACID 1 MG TAB GTB (10:17)
[2018-02-23] MEDS: MULTIVITAMINS 30 ML CUP GTB (10:17)
[2018-02-23] MEDS: LACOSAMIDE (100 MG/10 ML PO SYR) GTB ×2 (10:17→20:54)
[2018-02-23] MEDS: LEVETIRACETAM 1500 MG (PMX) 100 ML IVPB ×2 (10:17→20:53)
[2018-02-23] MEDS: METOPROLOL 50 MG TAB GTB ×2 (10:18→20:54)
[2018-02-23] MEDS: ENOXAPARIN 40 MG/0.4 ML SYG SC (10:25)
[2018-02-23] MEDS: AQUAPHOR 52.5 GM OINT TOP ×2 (10:25→20:54)
[2018-02-24] MEDS: LANSOPRAZOLE 30 MG CAP GTB (06:13)
[2018-02-24] MEDS: LACOSAMIDE (100 MG/10 ML PO SYR) GTB ×2 (09:00→21:27)
[2018-02-24] MEDS: FOLIC ACID 1 MG TAB GTB (11:35)
[2018-02-24] MEDS: ASCORBIC ACID 500 MG TAB GTB ×2 (11:35→21:25)
[2018-02-24] MEDS: MULTIVITAMINS 30 ML CUP GTB (11:35)
[2018-02-24] MEDS: METOPROLOL 50 MG TAB GTB ×2 (11:35→21:25)
[2018-02-24] MEDS: LEVETIRACETAM 1500 MG (PMX) 100 ML IVPB ×2 (11:35→21:22)
[2018-02-24] MEDS: ENOXAPARIN 40 MG/0.4 ML SYG SC (11:37)
[2018-02-24] MEDS: AQUAPHOR 52.5 GM OINT TOP ×2 (11:38→21:27)
[2018-02-24] MEDS: [UNRECOGNIZED DRUG - REMARK] XX (17:00)
[2018-02-25] MEDS: [UNRECOGNIZED DRUG - REMARK] XX ×3 (01:00→17:00)
[2018-02-25] MEDS: LANSOPRAZOLE 30 MG CAP GTB (06:08)
[2018-02-25] MEDS: FOLIC ACID 1 MG TAB GTB (08:46)
[2018-02-25] MEDS: METOPROLOL 50 MG TAB GTB ×2 (08:46→21:00)
[2018-02-25] MEDS: ASCORBIC ACID 500 MG TAB GTB ×2 (08:46→21:00)
[2018-02-25] MEDS: LEVETIRACETAM 1500 MG (PMX) 100 ML IVPB ×2 (08:46→20:59)
[2018-02-25] MEDS: LACOSAMIDE (100 MG/10 ML PO SYR) GTB ×2 (08:46→21:00)
[2018-02-25] MEDS: MULTIVITAMINS 30 ML CUP GTB (08:46)
[2018-02-25] MEDS: AQUAPHOR 52.5 GM OINT TOP ×2 (08:47→21:01)
[2018-02-25] MEDS: ENOXAPARIN 40 MG/0.4 ML SYG SC (08:50)
[2018-02-26] MEDS: [UNRECOGNIZED DRUG - REMARK] XX ×2 (01:00→08:15)
[2018-02-26 05:26] LABS: ANION GAP 10 (5-13); BLOOD UREA NITROGEN 14 mg/dl (7-20); CALCIUM 9.1 mg/dl (8.4-10.2); CARBON DIOXIDE 28 mmol/L (21-31); CHLORIDE 102 mmol/L (97-110); CREATININE 0.35 mg/dl (0.44-1.00); Estimated GFR > 60 mL/min (>60); GLUCOSE 124 mg/dl (70-220); POTASSIUM 3.9 mmol/L (3.5-5.1); SODIUM 140 mmol/L (135-144)
[2018-02-26] MEDS: ACETAMINOPHEN 325 MG TAB PO (06:14)
[2018-02-26] MEDS: LANSOPRAZOLE 30 MG CAP GTB (06:14)
[2018-02-26] MEDS: LEVETIRACETAM 1500 MG (PMX) 100 ML IVPB ×2 (08:13→21:35)
[2018-02-26] MEDS: ASCORBIC ACID 500 MG TAB GTB ×2 (08:14→21:35)
[2018-02-26] MEDS: FOLIC ACID 1 MG TAB GTB (08:14)
[2018-02-26] MEDS: LACOSAMIDE (100 MG/10 ML PO SYR) GTB ×2 (08:14→21:34)
[2018-02-26] MEDS: METOPROLOL 50 MG TAB GTB ×2 (08:14→21:39)
[2018-02-26] MEDS: MULTIVITAMINS 30 ML CUP GTB (08:14)
[2018-02-26] MEDS: AQUAPHOR 52.5 GM OINT TOP ×2 (08:15→21:41)
[2018-02-26] MEDS: ENOXAPARIN 40 MG/0.4 ML SYG SC (08:17)
[2018-02-27] MEDS: LANSOPRAZOLE 30 MG CAP GTB (06:37)
[2018-02-27] MEDS: LEVETIRACETAM 1500 MG (PMX) 100 ML IVPB ×2 (08:12→21:33)
[2018-02-27] MEDS: LACOSAMIDE (100 MG/10 ML PO SYR) GTB ×2 (08:13→21:32)
[2018-02-27] MEDS: ASCORBIC ACID 500 MG TAB GTB ×2 (08:13→21:32)
[2018-02-27] MEDS: METOPROLOL 50 MG TAB GTB ×2 (08:13→21:32)
[2018-02-27] MEDS: MULTIVITAMINS 30 ML CUP GTB (08:13)
[2018-02-27] MEDS: FOLIC ACID 1 MG TAB GTB (08:13)
[2018-02-27] MEDS: ENOXAPARIN 40 MG/0.4 ML SYG SC (08:14)
[2018-02-27] MEDS: AQUAPHOR 52.5 GM OINT TOP ×2 (08:16→21:33)
[2018-02-28] MEDS: LANSOPRAZOLE 30 MG CAP GTB (05:55)
[2018-02-28] MEDS: LEVETIRACETAM 1500 MG (PMX) 100 ML IVPB ×2 (08:55→21:15)
[2018-02-28] MEDS: MULTIVITAMINS 30 ML CUP GTB (08:55)
[2018-02-28] MEDS: FOLIC ACID 1 MG TAB GTB (08:56)
[2018-02-28] MEDS: ASCORBIC ACID 500 MG TAB GTB ×2 (08:56→21:16)
[2018-02-28] MEDS: METOPROLOL 50 MG TAB GTB ×2 (08:56→21:16)
[2018-02-28] MEDS: LACOSAMIDE (100 MG/10 ML PO SYR) GTB ×2 (08:57→21:15)
[2018-02-28] MEDS: ENOXAPARIN 40 MG/0.4 ML SYG SC (08:59)
[2018-02-28] MEDS: AQUAPHOR 52.5 GM OINT TOP ×2 (12:48→21:16)
[2018-03-01] MEDS: LANSOPRAZOLE 30 MG CAP GTB (05:16)
[2018-03-01] MEDS: LACOSAMIDE (100 MG/10 ML PO SYR) GTB ×2 (09:00→21:27)
[2018-03-01] MEDS: METOPROLOL 50 MG TAB GTB ×2 (09:00→20:11)
[2018-03-01] MEDS: FOLIC ACID 1 MG TAB GTB (09:00)
[2018-03-01] MEDS: MULTIVITAMINS 30 ML CUP GTB (09:00)
[2018-03-01] MEDS: ASCORBIC ACID 500 MG TAB GTB ×2 (09:00→20:10)
[2018-03-01] MEDS: LEVETIRACETAM 1500 MG (PMX) 100 ML IVPB ×2 (09:01→20:11)
[2018-03-01] MEDS: ENOXAPARIN 40 MG/0.4 ML SYG SC (09:01)
[2018-03-01] MEDS: AQUAPHOR 52.5 GM OINT TOP ×2 (09:17→20:13)
[2018-03-01 14:53] LABS: ADD MAN DIFF? NO
[2018-03-01 14:56] LABS: WHITE BLOOD COUNT 5.3 10^3/ul (4.8-10.8)
[2018-03-01 14:56] LABS: EOSINOPHILS % 0.6 % (0.0-7.0); HEMATOCRIT 28.3 % (37.0-47.0); HEMOGLOBIN 9.4 g/dl (12.0-16.0); LYMPHOCYTES # 1.6 10^3/ul (0.8-2.9); LYMPHOCYTES % 29.5 % (15.0-51.0); MEAN CORPUSCULAR HEMOGLOBIN 31.3 pg (29.0-33.0); MEAN CORPUSCULAR HGB CONC 33.2 g/dl (32.0-37.0); MEAN CORPUSCULAR VOLUME 94.3 fl (82.0-101.0); MEAN PLATELET VOLUME 10.3 fl (7.4-10.4); MONOCYTE # 0.4 10^3/ul (0.3-0.9); NEUTROPHIL # 3.3 10^3/ul (1.6-7.5); NEUTROPHILS % 62.5 % (39.0-77.0); PLATELET COUNT 280 10^3/UL (140-415); RED CELL DISTRIBUTION WIDTH 14.7 % (11.5-14.5)
[2018-03-01 15:15] LABS: ANION GAP 7 (5-13); BLOOD UREA NITROGEN 12 mg/dl (7-20); CALCIUM 9.3 mg/dl (8.4-10.2); CARBON DIOXIDE 28 mmol/L (21-31); CHLORIDE 102 mmol/L (97-110); CREATININE 0.35 mg/dl (0.44-1.00); Estimated GFR > 60 mL/min (>60); GLUCOSE 118 mg/dl (70-220); POTASSIUM 3.8 mmol/L (3.5-5.1); SODIUM 137 mmol/L (135-144)
[2018-03-02 05:42] LABS: WHITE BLOOD COUNT 4.3 10^3/ul (4.8-10.8)
[2018-03-02 05:42] LABS: ADD MAN DIFF? NO; BASOPHILS % 0.2 % (0.0-2.0); EOSINOPHILS % 0.7 % (0.0-7.0); HEMATOCRIT 27.5 % (37.0-47.0); HEMOGLOBIN 9.1 g/dl (12.0-16.0); LYMPHOCYTES # 1.1 10^3/ul (0.8-2.9); LYMPHOCYTES % 25.9 % (15.0-51.0); MEAN CORPUSCULAR HEMOGLOBIN 31.4 pg (29.0-33.0); MEAN CORPUSCULAR HGB CONC 33.1 g/dl (32.0-37.0); MEAN CORPUSCULAR VOLUME 94.8 fl (82.0-101.0); MEAN PLATELET VOLUME 10.4 fl (7.4-10.4); MONOCYTE # 0.3 10^3/ul (0.3-0.9); NEUTROPHIL # 2.9 10^3/ul (1.6-7.5); PLATELET COUNT 229 10^3/UL (140-415); RED CELL DISTRIBUTION WIDTH 14.8 % (11.5-14.5)
[2018-03-02] MEDS: LANSOPRAZOLE 30 MG CAP GTB (06:01)
[2018-03-02 06:20] LABS: ANION GAP 10 (5-13); BLOOD UREA NITROGEN 13 mg/dl (7-20); CALCIUM 9.3 mg/dl (8.4-10.2); CARBON DIOXIDE 31 mmol/L (21-31); CHLORIDE 99 mmol/L (97-110); CREATININE 0.33 mg/dl (0.44-1.00); Estimated GFR > 60 mL/min (>60); GLUCOSE 120 mg/dl (70-220); POTASSIUM 4.1 mmol/L (3.5-5.1); SODIUM 140 mmol/L (135-144)
[2018-03-02] MEDS: METOPROLOL 50 MG TAB GTB ×2 (10:10→20:49)
[2018-03-02] MEDS: LEVETIRACETAM 1500 MG (PMX) 100 ML IVPB ×2 (10:11→20:46)
[2018-03-02] MEDS: FOLIC ACID 1 MG TAB GTB (10:11)
[2018-03-02] MEDS: ASCORBIC ACID 500 MG TAB GTB ×2 (10:11→20:46)
[2018-03-02] MEDS: MULTIVITAMINS 30 ML CUP GTB (10:11)
[2018-03-02] MEDS: LACOSAMIDE (100 MG/10 ML PO SYR) GTB ×2 (10:11→20:46)
[2018-03-02] MEDS: ENOXAPARIN 40 MG/0.4 ML SYG SC (10:40)
[2018-03-02] MEDS: AQUAPHOR 52.5 GM OINT TOP ×2 (10:41→20:49)
[2018-03-03] MEDS: LANSOPRAZOLE 30 MG CAP GTB ×2 (06:03→21:37)
[2018-03-03] MEDS: METOPROLOL 50 MG TAB GTB ×2 (09:48→21:00)
[2018-03-03] MEDS: LACOSAMIDE (100 MG/10 ML PO SYR) GTB ×2 (09:48→21:00)
[2018-03-03] MEDS: ASCORBIC ACID 500 MG TAB GTB ×2 (09:48→21:00)
[2018-03-03] MEDS: MULTIVITAMINS 30 ML CUP GTB (09:48)
[2018-03-03] MEDS: FOLIC ACID 1 MG TAB GTB (09:48)
[2018-03-03] MEDS: LEVETIRACETAM 1500 MG (PMX) 100 ML IVPB ×2 (09:49→21:36)
[2018-03-03] MEDS: AQUAPHOR 52.5 GM OINT TOP ×2 (09:49→21:36)
[2018-03-03] MEDS: ENOXAPARIN 40 MG/0.4 ML SYG SC (09:52)
[2018-03-03] MEDS: D5W-0.45 NACL + KCL 20 MEQ 1,000 ML IV (19:41)
[2018-03-04 05:33] LABS: ADD MAN DIFF? NO
[2018-03-04 05:43] LABS: WHITE BLOOD COUNT 3.3 10^3/ul (4.8-10.8)
[2018-03-04 05:43] LABS: EOSINOPHILS % 1.2 % (0.0-7.0); LYMPHOCYTES # 1.3 10^3/ul (0.8-2.9); LYMPHOCYTES % 37.7 % (15.0-51.0); MEAN CORPUSCULAR HEMOGLOBIN 31.7 pg (29.0-33.0); MEAN CORPUSCULAR HGB CONC 33.3 g/dl (32.0-37.0); MEAN CORPUSCULAR VOLUME 95.1 fl (82.0-101.0); MEAN PLATELET VOLUME 10.3 fl (7.4-10.4); MONOCYTE # 0.3 10^3/ul (0.3-0.9); NEUTROPHIL # 1.7 10^3/ul (1.6-7.5); NEUTROPHILS % 52.1 % (39.0-77.0); PLATELET COUNT 274 10^3/UL (140-415); RED BLOOD COUNT 2.84 10^6/ul (4.20-5.40); RED CELL DISTRIBUTION WIDTH 15.2 % (11.5-14.5)
[2018-03-04 06:34] LABS: ANION GAP 10 (5-13); BLOOD UREA NITROGEN 12 mg/dl (7-20); CALCIUM 9.3 mg/dl (8.4-10.2); CARBON DIOXIDE 30 mmol/L (21-31); CHLORIDE 101 mmol/L (97-110); CREATININE 0.34 mg/dl (0.44-1.00); Estimated GFR > 60 mL/min (>60); GLUCOSE 138 mg/dl (70-220); POTASSIUM 4.2 mmol/L (3.5-5.1); SODIUM 141 mmol/L (135-144)
[2018-03-04] MEDS: LEVETIRACETAM 1500 MG (PMX) 100 ML IVPB ×2 (08:38→22:56)
[2018-03-04] MEDS: LACOSAMIDE (100 MG/10 ML PO SYR) GTB ×2 (09:00→21:00)
[2018-03-04] MEDS: METOPROLOL 50 MG TAB GTB ×2 (09:00→21:00)
[2018-03-04] MEDS: MULTIVITAMINS 30 ML CUP GTB (09:00)
[2018-03-04] MEDS: ASCORBIC ACID 500 MG TAB GTB ×2 (09:00→21:00)
[2018-03-04] MEDS: FOLIC ACID 1 MG TAB GTB (09:00)
[2018-03-04] MEDS: AQUAPHOR 52.5 GM OINT TOP ×2 (11:32→22:56)
[2018-03-04] MEDS: D5W-0.45 NACL + KCL 20 MEQ 1,000 ML IV (11:32)
[2018-03-04] MEDS: ENOXAPARIN 40 MG/0.4 ML SYG SC (11:40)
[2018-03-05] MEDS: D5W-0.45 NACL + KCL 20 MEQ 1,000 ML IV ×2 (00:58→14:30)
[2018-03-05 05:12] LABS: WHITE BLOOD COUNT 3.2 10^3/ul (4.8-10.8)
[2018-03-05 05:12] LABS: ADD MAN DIFF? NO; BASOPHILS % 0.3 % (0.0-2.0); EOSINOPHILS % 1.3 % (0.0-7.0); HEMATOCRIT 27.1 % (37.0-47.0); HEMOGLOBIN 8.9 g/dl (12.0-16.0); LYMPHOCYTES # 1.8 10^3/ul (0.8-2.9); LYMPHOCYTES % 55.2 % (15.0-51.0); MEAN CORPUSCULAR HEMOGLOBIN 31.6 pg (29.0-33.0); MEAN CORPUSCULAR HGB CONC 32.8 g/dl (32.0-37.0); MEAN CORPUSCULAR VOLUME 96.1 fl (82.0-101.0); MEAN PLATELET VOLUME 9.8 fl (7.4-10.4); MONOCYTE # 0.3 10^3/ul (0.3-0.9); MONOCYTES % 8.5 % (0.0-11.0); NEUTROPHIL # 1.1 10^3/ul (1.6-7.5); NEUTROPHILS % 34.4 % (39.0-77.0); PLATELET COUNT 291 10^3/UL (140-415); RED BLOOD COUNT 2.82 10^6/ul (4.20-5.40)
[2018-03-05 05:41] LABS: INR 1.05; PROTIME 13.8 Sec (11.9-14.9); PT RATIO 1.1
[2018-03-05 05:45] LABS: ANION GAP 11 (5-13); BLOOD UREA NITROGEN 9 mg/dl (7-20); CALCIUM 9.3 mg/dl (8.4-10.2); CARBON DIOXIDE 29 mmol/L (21-31); CHLORIDE 104 mmol/L (97-110); CREATININE 0.35 mg/dl (0.44-1.00); Estimated GFR > 60 mL/min (>60); GLUCOSE 105 mg/dl (70-220); SODIUM 144 mmol/L (135-144)
[2018-03-05] MEDS: LANSOPRAZOLE 30 MG CAP GTB (06:00)
[2018-03-05] MEDS: METOPROLOL 50 MG TAB GTB ×2 (08:04→21:00)
[2018-03-05] MEDS: FOLIC ACID 1 MG TAB GTB (08:04)
[2018-03-05] MEDS: MULTIVITAMINS 30 ML CUP GTB (08:05)
[2018-03-05] MEDS: LACOSAMIDE (100 MG/10 ML PO SYR) GTB ×2 (08:05→21:00)
[2018-03-05] MEDS: ASCORBIC ACID 500 MG TAB GTB ×2 (08:05→21:00)
[2018-03-05] MEDS: LEVETIRACETAM 1500 MG (PMX) 100 ML IVPB ×2 (08:28→20:55)
[2018-03-05] MEDS: AQUAPHOR 52.5 GM OINT TOP ×2 (08:28→20:55)
[2018-03-05] MEDS: ENOXAPARIN 40 MG/0.4 ML SYG SC (08:28)
[2018-03-05] MEDS: PANTOPRAZOLE 40 MG INJ IV (08:29)
[2018-03-06] MEDS: D5W-0.45 NACL + KCL 20 MEQ 1,000 ML IV ×4 (00:20→19:17)
[2018-03-06 05:05] LABS: ADD MAN DIFF? NO
[2018-03-06 05:09] LABS: WHITE BLOOD COUNT 2.5 10^3/ul (4.8-10.8)
[2018-03-06 05:09] LABS: ABNORMAL IP MESSAGE 1; EOSINOPHILS # 0.1 10^3/ul (0.0-0.5); EOSINOPHILS % 2.4 % (0.0-7.0); HEMATOCRIT 26.9 % (37.0-47.0); HEMOGLOBIN 8.7 g/dl (12.0-16.0); LYMPHOCYTES # 1.3 10^3/ul (0.8-2.9); LYMPHOCYTES % 52.8 % (15.0-51.0); MEAN CORPUSCULAR HEMOGLOBIN 30.9 pg (29.0-33.0); MEAN CORPUSCULAR HGB CONC 32.3 g/dl (32.0-37.0); MEAN CORPUSCULAR VOLUME 95.4 fl (82.0-101.0); MEAN PLATELET VOLUME 9.6 fl (7.4-10.4); MONOCYTE # 0.3 10^3/ul (0.3-0.9); MONOCYTES % 10.9 % (0.0-11.0); NEUTROPHIL # 0.8 10^3/ul (1.6-7.5); NEUTROPHILS % 33.9 % (39.0-77.0); PLATELET COUNT 292 10^3/UL (140-415); RED BLOOD COUNT 2.82 10^6/ul (4.20-5.40); RED CELL DISTRIBUTION WIDTH 14.7 % (11.5-14.5)
[2018-03-06 05:41] LABS: ANION GAP 10 (5-13); BLOOD UREA NITROGEN 5 mg/dl (7-20); CALCIUM 9.4 mg/dl (8.4-10.2); CARBON DIOXIDE 29 mmol/L (21-31); CHLORIDE 104 mmol/L (97-110); CREATININE 0.41 mg/dl (0.44-1.00); Estimated GFR > 60 mL/min (>60); GLUCOSE 101 mg/dl (70-220); MAGNESIUM 1.7 mg/dl (1.7-2.5); SODIUM 143 mmol/L (135-144)
[2018-03-06 05:46] LABS: POSITIVE DIFF @See below
[2018-03-06] MEDS: PANTOPRAZOLE 40 MG INJ IV (06:50)
[2018-03-06] MEDS ORDERED: CEFAZOLIN 1 GM/50 ML (PMX) IVPB (07:00)
[2018-03-06] MEDS: AQUAPHOR 52.5 GM OINT TOP ×2 (08:31→20:51)
[2018-03-06] MEDS: LEVETIRACETAM 1500 MG (PMX) 100 ML IVPB ×2 (08:31→20:53)
[2018-03-06] MEDS: METOPROLOL 50 MG TAB GTB ×2 (08:32→20:52)
[2018-03-06] MEDS: MULTIVITAMINS 30 ML CUP GTB (08:32)
[2018-03-06] MEDS: LACOSAMIDE (100 MG/10 ML PO SYR) GTB ×2 (08:32→20:52)
[2018-03-06] MEDS: FOLIC ACID 1 MG TAB GTB (08:33)
[2018-03-06] MEDS: ASCORBIC ACID 500 MG TAB GTB ×2 (08:33→20:52)
[2018-03-06] MEDS: CEFAZOLIN 1 GM/50 ML (PMX) 50 ML IVPB (16:00)
[2018-03-06] MEDS: HYDROCODONE/APAP (5/325) TAB PO (20:53)
[2018-03-07] MEDS: PANTOPRAZOLE 40 MG INJ IV (05:30)
[2018-03-07 05:57] LABS: ANION GAP 10 (5-13); BLOOD UREA NITROGEN 7 mg/dl (7-20); CALCIUM 9.2 mg/dl (8.4-10.2); CARBON DIOXIDE 29 mmol/L (21-31); CHLORIDE 104 mmol/L (97-110); Estimated GFR > 60 mL/min (>60); GLUCOSE 111 mg/dl (70-220); SODIUM 143 mmol/L (135-144)
[2018-03-07] MEDS: FOLIC ACID 1 MG TAB GTB (09:04)
[2018-03-07] MEDS: ASCORBIC ACID 500 MG TAB GTB ×2 (09:04→21:06)
[2018-03-07] MEDS: METOPROLOL 50 MG TAB GTB ×2 (09:04→21:07)
[2018-03-07] MEDS: MULTIVITAMINS 30 ML CUP GTB (09:04)
[2018-03-07] MEDS: AQUAPHOR 52.5 GM OINT TOP ×2 (09:04→21:07)
[2018-03-07] MEDS: LEVETIRACETAM 1500 MG (PMX) 100 ML IVPB ×2 (09:04→21:06)
[2018-03-07] MEDS: LACOSAMIDE (100 MG/10 ML PO SYR) GTB ×2 (09:40→21:06)
[2018-03-07] MEDS: ENOXAPARIN 40 MG/0.4 ML SYG SC (10:12)
[2018-03-07] MEDS: D5W-0.45 NACL + KCL 20 MEQ 1,000 ML IV (16:58)
[2018-03-08] MEDS: PANTOPRAZOLE 40 MG INJ IV (06:10)
[2018-03-08 06:15] LABS: ANION GAP 11 (5-13); BLOOD UREA NITROGEN 7 mg/dl (7-20); CALCIUM 9.2 mg/dl (8.4-10.2); CARBON DIOXIDE 30 mmol/L (21-31); CHLORIDE 103 mmol/L (97-110); CREATININE 0.38 mg/dl (0.44-1.00); Estimated GFR > 60 mL/min (>60); GLUCOSE 106 mg/dl (70-220); POTASSIUM 4.3 mmol/L (3.5-5.1); SODIUM 144 mmol/L (135-144)
[2018-03-08] MEDS: FOLIC ACID 1 MG TAB GTB (10:01)
[2018-03-08] MEDS: ASCORBIC ACID 500 MG TAB GTB ×2 (10:01→20:38)
[2018-03-08] MEDS: MULTIVITAMINS 30 ML CUP GTB (10:01)
[2018-03-08] MEDS: LEVETIRACETAM 1500 MG (PMX) 100 ML IVPB ×2 (10:01→20:40)
[2018-03-08] MEDS: LACOSAMIDE (100 MG/10 ML PO SYR) GTB ×2 (10:02→20:40)
[2018-03-08] MEDS: METOPROLOL 50 MG TAB GTB ×3 (10:02→20:40)
[2018-03-08] MEDS: ENOXAPARIN 40 MG/0.4 ML SYG SC (10:12)
[2018-03-08] MEDS: AQUAPHOR 52.5 GM OINT TOP ×2 (10:12→20:40)
[2018-03-08] MEDS ORDERED: ACETAMINOPHEN 325 MG TAB PO (16:30)
[2018-03-08] MEDS ORDERED: ONDANSETRON 4 MG INJ IV (17:00)
[2018-03-08] MEDS: D5W-0.45 NACL + KCL 20 MEQ 1,000 ML IV (18:00)
[2018-03-09 05:17] LABS: ADD MAN DIFF? NO
[2018-03-09 05:22] LABS: WHITE BLOOD COUNT 2.7 10^3/ul (4.8-10.8)
[2018-03-09 05:22] LABS: ABNORMAL IP MESSAGE 1; EOSINOPHILS # 0.1 10^3/ul (0.0-0.5); EOSINOPHILS % 1.9 % (0.0-7.0); HEMOGLOBIN 9.2 g/dl (12.0-16.0); LYMPHOCYTES # 1.4 10^3/ul (0.8-2.9); MEAN CORPUSCULAR HEMOGLOBIN 31.7 pg (29.0-33.0); MEAN CORPUSCULAR HGB CONC 32.9 g/dl (32.0-37.0); MEAN CORPUSCULAR VOLUME 96.6 fl (82.0-101.0); MEAN PLATELET VOLUME 9.7 fl (7.4-10.4); MONOCYTE # 0.3 10^3/ul (0.3-0.9); MONOCYTES % 10.2 % (0.0-11.0); NEUTROPHIL # 0.9 10^3/ul (1.6-7.5); NEUTROPHILS % 33.5 % (39.0-77.0); PLATELET COUNT 304 10^3/UL (140-415); RED CELL DISTRIBUTION WIDTH 15.3 % (11.5-14.5)
[2018-03-09 05:31] LABS: POSITIVE DIFF @See below
[2018-03-09 05:47] LABS: ANION GAP 9 (5-13); BLOOD UREA NITROGEN 7 mg/dl (7-20); CALCIUM 9.2 mg/dl (8.4-10.2); CARBON DIOXIDE 30 mmol/L (21-31); CHLORIDE 104 mmol/L (97-110); CREATININE 0.37 mg/dl (0.44-1.00); Estimated GFR > 60 mL/min (>60); GLUCOSE 120 mg/dl (70-220); POTASSIUM 4.2 mmol/L (3.5-5.1); SODIUM 143 mmol/L (135-144)
[2018-03-09] MEDS: PANTOPRAZOLE 40 MG INJ IV (06:45)
[2018-03-09] MEDS: METOPROLOL 50 MG TAB GTB ×3 (09:00→21:26)
[2018-03-09] MEDS: FOLIC ACID 1 MG TAB GTB (09:05)
[2018-03-09] MEDS: ASCORBIC ACID 500 MG TAB GTB ×2 (09:05→21:25)
[2018-03-09] MEDS: MULTIVITAMINS 30 ML CUP GTB (09:05)
[2018-03-09] MEDS: LEVETIRACETAM 1500 MG (PMX) 100 ML IVPB ×2 (09:06→21:25)
[2018-03-09] MEDS: LACOSAMIDE (100 MG/10 ML PO SYR) GTB ×2 (09:09→21:25)
[2018-03-09] MEDS: ENOXAPARIN 40 MG/0.4 ML SYG SC (09:19)
[2018-03-09] MEDS: AQUAPHOR 52.5 GM OINT TOP ×2 (09:20→21:26)
[2018-03-09] MEDS: D5W-0.45 NACL + KCL 20 MEQ 1,000 ML IV (10:12)
[2018-03-10 05:25] LABS: ANION GAP 11 (5-13); BLOOD UREA NITROGEN 11 mg/dl (7-20); CALCIUM 9.2 mg/dl (8.4-10.2); CARBON DIOXIDE 28 mmol/L (21-31); CHLORIDE 102 mmol/L (97-110); Estimated GFR > 60 mL/min (>60); GLUCOSE 118 mg/dl (70-220); POTASSIUM 4.1 mmol/L (3.5-5.1); SODIUM 141 mmol/L (135-144)
[2018-03-10] MEDS: PANTOPRAZOLE 40 MG INJ IV (05:49)
[2018-03-10] MEDS: LACOSAMIDE (100 MG/10 ML PO SYR) GTB ×2 (09:16→20:42)
[2018-03-10] MEDS: MULTIVITAMINS 30 ML CUP GTB (09:16)
[2018-03-10] MEDS: LEVETIRACETAM 1500 MG (PMX) 100 ML IVPB ×2 (09:16→20:41)
[2018-03-10] MEDS: ASCORBIC ACID 500 MG TAB GTB ×2 (09:17→20:42)
[2018-03-10] MEDS: FOLIC ACID 1 MG TAB GTB (09:17)
[2018-03-10] MEDS: METOPROLOL 50 MG TAB GTB ×2 (09:18→20:42)
[2018-03-10] MEDS: AQUAPHOR 52.5 GM OINT TOP ×2 (09:19→20:43)
[2018-03-10] MEDS: ENOXAPARIN 40 MG/0.4 ML SYG SC (09:20)
[2018-03-11] MEDS: PANTOPRAZOLE 40 MG INJ IV (06:31)
[2018-03-11] MEDS: LEVETIRACETAM 1500 MG (PMX) 100 ML IVPB ×2 (09:31→21:03)
[2018-03-11] MEDS: LACOSAMIDE (100 MG/10 ML PO SYR) GTB ×2 (09:31→21:03)
[2018-03-11] MEDS: ASCORBIC ACID 500 MG TAB GTB ×2 (09:31→21:02)
[2018-03-11] MEDS: FOLIC ACID 1 MG TAB GTB (09:31)
[2018-03-11] MEDS: MULTIVITAMINS 30 ML CUP GTB (09:31)
[2018-03-11] MEDS: METOPROLOL 50 MG TAB GTB ×2 (09:32→21:03)
[2018-03-11] MEDS: AQUAPHOR 52.5 GM OINT TOP ×2 (09:32→21:04)
[2018-03-11] MEDS: ENOXAPARIN 40 MG/0.4 ML SYG SC (09:33)
[2018-03-12] MEDS: PANTOPRAZOLE 40 MG INJ IV (06:42)
[2018-03-12] MEDS: PROPOFOL 20 ML (07:38)
[2018-03-12] MEDS: FENTAnyl 50 MCG/ML VIAL (07:38)
[2018-03-12] MEDS: LACOSAMIDE (100 MG/10 ML PO SYR) GTB ×2 (09:05→20:37)
[2018-03-12] MEDS: METOPROLOL 50 MG TAB GTB ×2 (09:05→20:38)
[2018-03-12] MEDS: FOLIC ACID 1 MG TAB GTB (09:05)
[2018-03-12] MEDS: MULTIVITAMINS 30 ML CUP GTB (09:05)
[2018-03-12] MEDS: ASCORBIC ACID 500 MG TAB GTB ×2 (09:05→20:38)
[2018-03-12] MEDS: ENOXAPARIN 40 MG/0.4 ML SYG SC (09:07)
[2018-03-12] MEDS: LEVETIRACETAM 1500 MG (PMX) 100 ML IVPB ×2 (09:08→20:33)
[2018-03-12] MEDS: AQUAPHOR 52.5 GM OINT TOP ×2 (09:09→20:38)
[2018-03-13 05:31] LABS: ADD MAN DIFF? NO
[2018-03-13 05:41] LABS: EOSINOPHILS % 0.6 % (0.0-7.0); HEMOGLOBIN 9.8 g/dl (12.0-16.0); LYMPHOCYTES # 2.1 10^3/ul (0.8-2.9); LYMPHOCYTES % 44.5 % (15.0-51.0); MEAN CORPUSCULAR HEMOGLOBIN 32.1 pg (29.0-33.0); MEAN CORPUSCULAR HGB CONC 32.7 g/dl (32.0-37.0); MEAN CORPUSCULAR VOLUME 98.4 fl (82.0-101.0); MEAN PLATELET VOLUME 9.9 fl (7.4-10.4); MONOCYTE # 0.4 10^3/ul (0.3-0.9); MONOCYTES % 8.1 % (0.0-11.0); NEUTROPHIL # 2.2 10^3/ul (1.6-7.5); NEUTROPHILS % 46.4 % (39.0-77.0); PLATELET COUNT 304 10^3/UL (140-415); RED BLOOD COUNT 3.05 10^6/ul (4.20-5.40); RED CELL DISTRIBUTION WIDTH 15.5 % (11.5-14.5)
[2018-03-13 05:41] LABS: WHITE BLOOD COUNT 4.7 10^3/ul (4.8-10.8)
[2018-03-13 06:09] LABS: ANION GAP 11 (5-13); BLOOD UREA NITROGEN 14 mg/dl (7-20); CALCIUM 9.6 mg/dl (8.4-10.2); CARBON DIOXIDE 31 mmol/L (21-31); CHLORIDE 101 mmol/L (97-110); Estimated GFR > 60 mL/min (>60); GLUCOSE 113 mg/dl (70-220); POTASSIUM 3.8 mmol/L (3.5-5.1); SODIUM 143 mmol/L (135-144)
[2018-03-13] MEDS: LANSOPRAZOLE 30 MG CAP GTB (06:35)
[2018-03-13] MEDS: LEVETIRACETAM 1500 MG (PMX) 100 ML IVPB ×2 (09:00→22:02)
[2018-03-13] MEDS: MULTIVITAMINS 30 ML CUP GTB (09:00)
[2018-03-13] MEDS: ASCORBIC ACID 500 MG TAB GTB ×2 (09:00→22:01)
[2018-03-13] MEDS: LACOSAMIDE (100 MG/10 ML PO SYR) GTB ×2 (09:01→22:01)
[2018-03-13] MEDS: FOLIC ACID 1 MG TAB GTB (09:01)
[2018-03-13] MEDS: METOPROLOL 50 MG TAB GTB ×2 (09:01→22:05)
[2018-03-13] MEDS: AQUAPHOR 52.5 GM OINT TOP ×2 (09:02→22:02)
[2018-03-13] MEDS: ENOXAPARIN 40 MG/0.4 ML SYG SC (09:02)
[2018-03-14] MEDS: LANSOPRAZOLE 30 MG CAP GTB (05:12)
[2018-03-14] MEDS: AQUAPHOR 52.5 GM OINT TOP ×2 (09:00→21:55)
[2018-03-14] MEDS: LEVETIRACETAM 1500 MG (PMX) 100 ML IVPB ×2 (09:47→21:55)
[2018-03-14] MEDS: FOLIC ACID 1 MG TAB GTB (09:49)
[2018-03-14] MEDS: ASCORBIC ACID 500 MG TAB GTB ×2 (09:57→21:55)
[2018-03-14] MEDS: LACOSAMIDE (100 MG/10 ML PO SYR) GTB ×2 (09:57→21:54)
[2018-03-14] MEDS: METOPROLOL 50 MG TAB GTB ×2 (09:57→22:01)
[2018-03-14] MEDS: MULTIVITAMINS 30 ML CUP GTB (09:58)
[2018-03-14] MEDS: ENOXAPARIN 40 MG/0.4 ML SYG SC (09:59)
[2018-03-14] MEDS: ALTEPLASE (CATHFLO) 2 MG INJ CATHETER (16:56)
[2018-03-15 05:31] LABS: ADD MAN DIFF? NO
[2018-03-15 05:33] LABS: BASOPHILS % 0.5 % (0.0-2.0); EOSINOPHILS % 0.5 % (0.0-7.0); HEMATOCRIT 30.8 % (37.0-47.0); HEMOGLOBIN 10.2 g/dl (12.0-16.0); LYMPHOCYTES % 48.7 % (15.0-51.0); MEAN CORPUSCULAR HEMOGLOBIN 32.3 pg (29.0-33.0); MEAN CORPUSCULAR HGB CONC 33.1 g/dl (32.0-37.0); MEAN CORPUSCULAR VOLUME 97.5 fl (82.0-101.0); MEAN PLATELET VOLUME 9.9 fl (7.4-10.4); MONOCYTE # 0.4 10^3/ul (0.3-0.9); MONOCYTES % 9.7 % (0.0-11.0); NEUTROPHIL # 1.7 10^3/ul (1.6-7.5); NEUTROPHILS % 40.1 % (39.0-77.0); PLATELET COUNT 292 10^3/UL (140-415); RED BLOOD COUNT 3.16 10^6/ul (4.20-5.40); RED CELL DISTRIBUTION WIDTH 15.2 % (11.5-14.5)
[2018-03-15 05:33] LABS: WHITE BLOOD COUNT 4.1 10^3/ul (4.8-10.8)
[2018-03-15] MEDS: LANSOPRAZOLE 30 MG CAP GTB (06:15)
[2018-03-15 06:29] LABS: ANION GAP 9 (5-13); BLOOD UREA NITROGEN 14 mg/dl (7-20); CALCIUM 9.8 mg/dl (8.4-10.2); CARBON DIOXIDE 33 mmol/L (21-31); CHLORIDE 99 mmol/L (97-110); CREATININE 0.42 mg/dl (0.44-1.00); Estimated GFR > 60 mL/min (>60); GLUCOSE 96 mg/dl (70-220); POTASSIUM 4.2 mmol/L (3.5-5.1); SODIUM 141 mmol/L (135-144)
[2018-03-15] MEDS: AQUAPHOR 52.5 GM OINT TOP ×3 (09:00→21:46)
[2018-03-15] MEDS: ENOXAPARIN 40 MG/0.4 ML SYG SC (09:58)
[2018-03-15] MEDS: LEVETIRACETAM 1500 MG (PMX) 100 ML IVPB ×2 (10:00→21:33)
[2018-03-15] MEDS: ASCORBIC ACID 500 MG TAB GTB ×2 (10:01→21:34)
[2018-03-15] MEDS: FOLIC ACID 1 MG TAB GTB (10:01)
[2018-03-15] MEDS: MULTIVITAMINS 30 ML CUP GTB (10:02)
[2018-03-15] MEDS: LACOSAMIDE (100 MG/10 ML PO SYR) GTB ×2 (10:02→21:33)
[2018-03-15] MEDS: METOPROLOL 50 MG TAB GTB ×2 (10:03→21:34)
[2018-03-16] MEDS: LANSOPRAZOLE 30 MG CAP GTB (06:06)
[2018-03-16] MEDS: LACOSAMIDE (100 MG/10 ML PO SYR) GTB ×2 (08:42→20:54)
[2018-03-16] MEDS: FOLIC ACID 1 MG TAB GTB (08:42)
[2018-03-16] MEDS: MULTIVITAMINS 30 ML CUP GTB (08:42)
[2018-03-16] MEDS: METOPROLOL 50 MG TAB GTB ×2 (08:43→20:55)
[2018-03-16] MEDS: ASCORBIC ACID 500 MG TAB GTB ×2 (08:43→20:54)
[2018-03-16] MEDS: ENOXAPARIN 40 MG/0.4 ML SYG SC (08:46)
[2018-03-16] MEDS: LEVETIRACETAM 1500 MG (PMX) 100 ML IVPB ×2 (08:51→20:53)
[2018-03-16] MEDS: SOD CHLORIDE 0.9% 1,000 ML IV ×2 (08:51→21:49)
[2018-03-16 08:52] LABS: ADD MAN DIFF? NO
[2018-03-16] MEDS: AQUAPHOR 52.5 GM OINT TOP ×2 (09:13→20:54)
[2018-03-16 09:33] LABS: ALANINE AMINOTRANSFERASE 127 IU/L (13-69); ALBUMIN 3.8 g/dl (3.3-4.9); ALBUMIN/GLOBULIN RATIO 1.46; ALKALINE PHOSPHATASE 96 IU/L (42-121); ANION GAP 12 (5-13); ASPARTATE AMINO TRANSFERASE 33 IU/L (15-46); BILIRUBIN,INDIRECT 0.2 mg/dl (0-1.1); BILIRUBIN,TOTAL 0.2 mg/dl (0.2-1.3); BLOOD UREA NITROGEN 17 mg/dl (7-20); CALCIUM 9.8 mg/dl (8.4-10.2); CARBON DIOXIDE 28 mmol/L (21-31); CHLORIDE 102 mmol/L (97-110); Estimated GFR > 60 mL/min (>60); GLUCOSE 120 mg/dl (70-220); POTASSIUM 4.3 mmol/L (3.5-5.1); SODIUM 142 mmol/L (135-144); TOTAL PROTEIN 6.4 g/dl (6.1-8.1)
[2018-03-16] MEDS ORDERED: MEPERIDINE 50 MG INJ IV (12:00)
[2018-03-16] MEDS ORDERED: METHYLPREDNISOLONE 125 MG INJ IV (12:00)
[2018-03-16] MEDS ORDERED: SOD CHLORIDE 0.9% IV ×2 (12:00→15:00)
[2018-03-16] MEDS ORDERED: ONDANSETRON INJ 16 MG, DEXAMETHASONE 4 MG/ML 10 MG in SOD CHLORIDE 0.9% 50 ML IV (12:00)
[2018-03-16] MEDS ORDERED: DIPHENHYDRAMINE 50 MG INJ IV (12:00)
[2018-03-16] MEDS ORDERED: PACLITAXEL IV (12:00)
[2018-03-16 12:17] LABS: BASOPHILS % 0.2 % (0.0-2.0); EOSINOPHILS % 0.9 % (0.0-7.0); HEMATOCRIT 31.2 % (37.0-47.0); HEMOGLOBIN 10.2 g/dl (12.0-16.0); LYMPHOCYTES # 1.8 10^3/ul (0.8-2.9); LYMPHOCYTES % 41.3 % (15.0-51.0); MEAN CORPUSCULAR HEMOGLOBIN 32.2 pg (29.0-33.0); MEAN CORPUSCULAR HGB CONC 32.7 g/dl (32.0-37.0); MEAN CORPUSCULAR VOLUME 98.4 fl (82.0-101.0); MEAN PLATELET VOLUME 10.4 fl (7.4-10.4); MONOCYTE # 0.3 10^3/ul (0.3-0.9); NEUTROPHIL # 2.2 10^3/ul (1.6-7.5); NEUTROPHILS % 50.4 % (39.0-77.0); PLATELET COUNT 288 10^3/UL (140-415); RED BLOOD COUNT 3.17 10^6/ul (4.20-5.40); RED CELL DISTRIBUTION WIDTH 15.3 % (11.5-14.5)
[2018-03-16 12:17] LABS: WHITE BLOOD COUNT 4.4 10^3/ul (4.8-10.8)
[2018-03-16] MEDS: DIPHENHYDRAMINE 50 MG INJ IV (14:15)
[2018-03-16] MEDS: ONDANSETRON INJ 16 MG, DEXAMETHASONE 4 MG/ML 10 MG in SOD CHLORIDE 0.9% 50 ML IV (14:16)
[2018-03-16] MEDS ORDERED: CARBOPLATIN IV (15:00)
[2018-03-16] MEDS: SOD CHLORIDE 0.9% IV ×2 (15:28→21:53)
[2018-03-16] MEDS: CARBOPLATIN IV (15:28)
[2018-03-16] MEDS: PACLITAXEL IV (21:53)
[2018-03-17] MEDS: SOD CHLORIDE 0.9% 1,000 ML IV ×2 (05:00→13:33)
[2018-03-17] MEDS: LANSOPRAZOLE 30 MG CAP GTB (06:31)
[2018-03-17] MEDS: MULTIVITAMINS 30 ML CUP GTB (08:25)
[2018-03-17] MEDS: HYDROCODONE/APAP (5/325) TAB PO (08:25)
[2018-03-17] MEDS: FOLIC ACID 1 MG TAB GTB (08:25)
[2018-03-17] MEDS: METOPROLOL 50 MG TAB GTB ×2 (08:25→20:38)
[2018-03-17] MEDS: ASCORBIC ACID 500 MG TAB GTB ×2 (08:26→20:38)
[2018-03-17] MEDS: LACOSAMIDE (100 MG/10 ML PO SYR) GTB ×2 (08:26→20:39)
[2018-03-17] MEDS: AQUAPHOR 52.5 GM OINT TOP ×2 (08:26→20:37)
[2018-03-17] MEDS: ENOXAPARIN 40 MG/0.4 ML SYG SC (08:33)
[2018-03-17] MEDS: LEVETIRACETAM 1500 MG (PMX) 100 ML IVPB ×2 (09:35→20:37)
[2018-03-18] MEDS: SOD CHLORIDE 0.9% 1,000 ML IV (03:38)
[2018-03-18] MEDS: LANSOPRAZOLE 30 MG CAP GTB (05:14)
[2018-03-18] MEDS: METOPROLOL 50 MG TAB GTB (09:54)
[2018-03-18] MEDS: FOLIC ACID 1 MG TAB GTB (09:55)
[2018-03-18] MEDS: HYDROCODONE/APAP (5/325) TAB PO (09:55)
[2018-03-18] MEDS: ASCORBIC ACID 500 MG TAB GTB (09:55)
[2018-03-18] MEDS: LEVETIRACETAM 1500 MG (PMX) 100 ML IVPB (09:55)
[2018-03-18] MEDS: AQUAPHOR 52.5 GM OINT TOP (09:55)
[2018-03-18] MEDS: MULTIVITAMINS 30 ML CUP GTB (09:55)
[2018-03-18] MEDS: LACOSAMIDE (100 MG/10 ML PO SYR) GTB (09:55)
[2018-03-18] MEDS: ENOXAPARIN 40 MG/0.4 ML SYG SC (09:57)
[2018-03-18 13:05] LABS: AADO2 Arterial 13.4 mmHg (7.0-24.0); Allen Test ACCEPTAB; Arterial Base Excess 2.6 mmol/L (-3.0-3); Arterial Blood Gas Oxygen Sat 95.6 mmHG (95.0-98.0); Arterial COHb 0.3 % (0.0-3.0); Arterial Fraction of Oxyhgb 95.2 % (93.0-99.0); Arterial HCO3 27.6 mmol/L (22.0-26.0); Arterial MetHb 0.1 % (0.0-1.5); Arterial pCO2 44.2 mmhg (35-45); MODE ROOM AIR; Site Left Radial
== END 2018-03-18 19:20 | disposition home health service (06) | DRG 853 ==
LOC: TEL 10-09 05:55 → PP2 10-28 11:39 → MS4 11-05 12:45 → 6WM 11-07 14:26 → 2NE 11-12 07:45 → MS1 11-25 17:55 → E/R 07:08 → 2NE 11-11 16:11 → TEL 09:28
PROC: 0UT90ZZ Resection of Uterus, Open Approach (ICD-10-PCS; principal; 2017-11-05 07:30)
PROC: 0UT20ZZ Resection of Bilateral Ovaries, Open Approach (ICD-10-PCS; 2017-11-05 07:30)
PROC: 0UT70ZZ Resection of Bilateral Fallopian Tubes, Open Approach (ICD-10-PCS; 2017-11-05 07:30)
PROC: 0DTJ0ZZ Resection of Appendix, Open Approach (ICD-10-PCS; 2017-11-05 07:30)
PROC: 0DTU0ZZ Resection of Omentum, Open Approach (ICD-10-PCS; 2017-11-05 07:30)
PROC: 07BD0ZZ Excision of Aortic Lymphatic, Open Approach (ICD-10-PCS; 2017-11-05 07:30)
PROC: 07BC0ZZ Excision of Pelvis Lymphatic, Open Approach (ICD-10-PCS; 2017-11-05 07:30)
PROC: 0W9J0ZX Drainage of Pelvic Cavity, Open Approach, Diagnostic (ICD-10-PCS; 2017-11-05 07:30)
PROC: 4A00X4Z Measurement of Central Nervous Electrical Activity, External Approach (ICD-10-PCS; 2017-11-05 07:36)
PROC: 02HV33Z Insertion of Infusion Device into Superior Vena Cava, Percutaneous Approach (ICD-10-PCS; 2017-11-05 07:36)
PROC: 3E03305 Introduction of Other Antineoplastic into Peripheral Vein, Percutaneous Approach (ICD-10-PCS; 2017-11-05 07:36)
PROC: 3E0333Z Introduction of Anti-inflammatory into Peripheral Vein, Percutaneous Approach (ICD-10-PCS; 2017-11-05 07:36)
PROC: 02H633Z Insertion of Infusion Device into Right Atrium, Percutaneous Approach (ICD-10-PCS; 2017-11-05 07:36)
PROC: 0DH67UZ Insertion of Feeding Device into Stomach, Via Natural or Artificial Opening (ICD-10-PCS; 2017-11-05 07:36)
PROC: 0DH63UZ Insertion of Feeding Device into Stomach, Percutaneous Approach (ICD-10-PCS; 2017-11-05 07:36)
DX: A41.9 Sepsis, unspecified organism (principal); L89.153 Pressure ulcer of sacral region, stage 3; G82.50 Quadriplegia, unspecified; J96.21 Acute and chronic respiratory failure with hypoxia; J15.211 Pneumonia due to Methicillin susceptible Staphylococcus aureus; J15.0 Pneumonia due to Klebsiella pneumoniae; C56.2 Malignant neoplasm of left ovary; C56.1 Malignant neoplasm of right ovary; N39.0 Urinary tract infection, site not specified; T85.528A Displacement of other gastrointestinal prosthetic devices, implants and grafts, initial encounter; G93.49 Other encephalopathy; B95.2 Enterococcus as the cause of diseases classified elsewhere; C54.1 Malignant neoplasm of endometrium; D50.9 Iron deficiency anemia, unspecified; G40.909 Epilepsy, unspecified, not intractable, without status epilepticus; H01.009 Unspecified blepharitis unspecified eye, unspecified eyelid; I45.10 Unspecified right bundle-branch block; I69.365 Other paralytic syndrome following cerebral infarction, bilateral; I69.319 Unspecified symptoms and signs involving cognitive functions following cerebral infarction; I69.391 Dysphagia following cerebral infarction; R13.10 Dysphagia, unspecified; K21.9 Gastro-esophageal reflux disease without esophagitis; T45.1X5A Adverse effect of antineoplastic and immunosuppressive drugs, initial encounter; L65.8 Other specified nonscarring hair loss; Y95 Nosocomial condition; Z93.0 Tracheostomy status; Z93.1 Gastrostomy status; Z79.02 Long term (current) use of antithrombotics/antiplatelets; Z79.82 Long term (current) use of aspirin
CPT/HCPCS: 36415; 36569; 36600; 70450; 71045; 71275; 74018; 74177; 76700; 76937; 80048; 80053; 80170; 80202; 81001; 81003; 81025; 81240; 82565; 82607; 82728; 82746; 82803; 82962; 83036; 83090; 83540; 83605; 83735; 83890; 83921; 84080; 84100; 84145; 84439; 84443; 84484; 84520; 84703; 85025; 85300; 85302; 85305; 85610; 85613; 85730; 86038; 86146; 86147; 86255; 86304; 86803; 86850; 86870; 86900; 86901; 86902; 86920; 87040; 87070; 87081; 87086; 87340; 88313; 89220; 93005; 93306; 93971; 95819; 96365; 96366; 96367; 97110; 97163; 97164; 97530; 99291-25; J9045; J9267

== ENCOUNTER → 2018-10-07 | Outpatient (CLI) | payer OTHER, MEDICAID ==
[2018-10-07] MEDS: IOHEXOL 300MG/ML 150 ML BTL (16:12)
[2018-10-07] MEDS: SOD CHLORIDE 0.9% 100 ML (16:12)
== END | disposition home or self-care (01) ==
LOC: C/S 13:13
DX: C54.1 Malignant neoplasm of endometrium (principal)
CPT/HCPCS: 74177; 84703